=== PATIENT | female | born 1935 | race Caucasian/White ===

== ENCOUNTER → 2018-02-03 05:00 | Outpatient (REF) | payer MEDICARE, OTHER, SELFPAY ==
[2018-02-03 08:06] LABS: Absolute Lymphocyte Count 2.75 X10^3/ul (0.83-4.51); Absolute Neutrophil Count 3.7 X10^3/uL (2.0-7.7); Basophil# 0.02 X10^3/uL; Basophil% 0.3 % (0-1); Eosinophil# 0.18 X10^3/uL; Eosinophils% 2.3 % (0-5); Hematocrit 39.1 % (37-47); Hemoglobin 12.3 g/dl (12.0-15.0); Lymphocyte # 2.75 X10^3/ul (4.0); Mean Corp Hgb Conc 31.5 g/gl (32-36); Mean Corpuscular Hgb 28.9 pg (27.0-32.0); Mean Platelet Vol. 9.3 fl (6.2-12.0); Monocyte# 1.17 X10^3/uL; Monocyte% 14.9 % (0-10); Neutrophil # 3.72 X10^3/uL (2.7-7.7); Neutrophil % 47.2 % (47-70); Platelet Count 337 K/mm3 (150-450); RBC Distribution Width CV 13.5 % (11.6-14.6); RBC Distribution Width SD 45.2 fl (35.1-43.9); Red Blood Count 4.25 M/mm3 (4.2-5.4); White Blood Count 7.9 K/mm3 (4.4-11.0)
[2018-02-03 08:08] LABS: POSITIVE COUNT NO; POSITIVE DIFFERENTIAL NO; POSITIVE MORPHOLOGY NO
[2018-02-03 08:25] LABS: Valproic Acid (Depakene) Level 20 ug/mL (50-100)
[2018-02-03 08:34] LABS: ALB/GLOB Ratio 0.7 RATIO (0.9-2.4); AST(SGOT) 16 U/L (15-37); Alanine Aminotransfer ALT/SGPT 18 U/L (13-56); Albumin, Serum 2.7 g/dL (3.2-5.0); Alkaline Phosphatase 116 U/L (45-117); Anion Gap 4 (5-15); BUN 17 mg/dL (7-18); BUN/Creat Ratio 27.1 RATIO (10-20); Bilirubin, Direct 0.09 mg/dL (0.00-0.30); Calcium,Total 8.9 mg/dL (8.5-10.1); Chloride 104 mmol/L (98-107); Creatinine, Serum 0.63 mg/dL (0.55-1.02); EST Glomerular Filtration Rate 97 mL/min (>60); Est Glom Filt Rate - Afr Amer 117 mL/min (>60); Globulin 3.7 g/dL (2.2-4.2); Glucose 80 mg/dL (74-106); Potassium 4.2 mmol/L (3.5-5.1); Protein, Total 6.4 g/dL (6.4-8.2); Sodium Level 138 mmol/L (136-145); T4 Total, Thyroxin 11.4 ug/dL (4.8-13.9); Thyroid Stim Hormone (TSH) 0.15 uIU/mL (0.358-3.74)
== END ==
LOC: OLS.DANBUR 05:00
PROVIDERS: Visit Provider Internal Medicine
DX: I48.91 Unspecified atrial fibrillation (principal); I10 Essential (primary) hypertension; E78.5 Hyperlipidemia, unspecified; E03.9 Hypothyroidism, unspecified; Z79.899 Other long term (current) drug therapy
CPT/HCPCS: 36415; 80053; 80164; 82248; 84436; 84443; 85025

== ENCOUNTER → 2018-03-24 06:00 | Outpatient (REF) | payer MEDICARE, OTHER, SELFPAY ==
[2018-03-24 09:39] LABS: Thyroid Stim Hormone (TSH) 0.26 uIU/mL (0.358-3.74)
== END ==
LOC: OLS.DANBUR 06:00
PROVIDERS: Visit Provider Internal Medicine
DX: E03.9 Hypothyroidism, unspecified (principal)
CPT/HCPCS: 36415; 84443

== ENCOUNTER → 2018-05-25 05:00 | Outpatient (REF) | payer MEDICARE, OTHER, SELFPAY | LOC: OLS.DANBUR 05:00 | PROVIDERS: Visit Provider Internal Medicine | DX: E03.9 Hypothyroidism, unspecified (principal) | CPT/HCPCS: 36415; 84443 ==

== ENCOUNTER → 2018-10-06 04:00 | Outpatient (REF) | payer MEDICARE, OTHER, SELFPAY ==
[2018-10-06 09:15] LABS: Absolute Lymphocyte Count 2.54 X10^3/ul (0.83-4.51); Absolute Neutrophil Count 2.7 X10^3/uL (2.0-7.7); Basophil# 0.06 X10^3/uL; Basophil% 0.9 % (0-1); Eosinophil# 0.15 X10^3/uL; Eosinophils% 2.3 % (0-5); Hematocrit 41.9 % (37-47); Hemoglobin 12.9 g/dl (12.0-15.0); Lymphocyte # 2.54 X10^3/ul (4.0); Lymphocyte % 38.2 % (19-41); Mean Corp Hgb Conc 30.8 g/gl (32-36); Mean Corpuscular Hgb 30.1 pg (27.0-32.0); Mean Corpuscular Volume 97.7 fL (81-99); Mean Platelet Vol. 9.7 fl (6.2-12.0); Monocyte# 1.21 X10^3/uL; Monocyte% 18.2 % (0-10); Neutrophil # 2.67 X10^3/uL (2.7-7.7); Neutrophil % 40.1 % (47-70); Platelet Count 343 K/mm3 (150-450); RBC Distribution Width CV 12.8 % (11.6-14.6); Red Blood Count 4.29 M/mm3 (4.2-5.4); White Blood Count 6.7 K/mm3 (4.4-11.0)
[2018-10-06 09:18] LABS: POSITIVE COUNT NO; POSITIVE DIFFERENTIAL NO; POSITIVE MORPHOLOGY NO
[2018-10-06 09:29] LABS: Valproic Acid (Depakene) Level 21 ug/mL (50-100)
[2018-10-06 09:36] LABS: ALB/GLOB Ratio 0.8 RATIO (0.9-2.4); AST(SGOT) 11 U/L (15-37); Alanine Aminotransfer ALT/SGPT 13 U/L (13-56); Albumin, Serum 3.2 g/dL (3.2-5.0); Alkaline Phosphatase 146 U/L (45-117); Anion Gap 6 (5-15); BUN 18 mg/dL (7-18); BUN/Creat Ratio 24.1 RATIO (10-20); Calcium,Total 8.5 mg/dL (8.5-10.1); Chloride 102 mmol/L (98-107); Creatinine, Serum 0.75 mg/dL (0.55-1.02); EST Glomerular Filtration Rate 79 mL/min (>60); Est Glom Filt Rate - Afr Amer 96 mL/min (>60); Globulin 3.9 g/dL (2.2-4.2); Glucose 76 mg/dL (74-106); Potassium 4.2 mmol/L (3.5-5.1); Protein, Total 7.1 g/dL (6.4-8.2); Sodium Level 137 mmol/L (136-145); Thyroid Stim Hormone (TSH) 3.39 uIU/mL (0.358-3.74)
== END ==
LOC: OLS.DANBUR 04:00
PROVIDERS: Visit Provider Family Medicine
DX: I48.91 Unspecified atrial fibrillation (principal); I12.9 Hypertensive chronic kidney disease with stage 1 through stage 4 chronic kidney disease, or unspecified chronic kidney disease; N18.3 Chronic kidney disease, stage 3 (moderate); E03.9 Hypothyroidism, unspecified; Z79.899 Other long term (current) drug therapy
CPT/HCPCS: 36415; 80053; 80164; 82248; 84436; 84443; 85025

== ENCOUNTER → 2019-01-05 | Outpatient (REF) | payer MEDICARE, OTHER, SELFPAY ==
[2019-01-05 08:06] LABS: Absolute Lymphocyte Count 2.66 X10^3/ul (0.83-4.51); Absolute Neutrophil Count 2.7 X10^3/uL (2.0-7.7); Basophil# 0.04 X10^3/uL; Basophil% 0.6 % (0-1); Eosinophil# 0.22 X10^3/uL; Eosinophils% 3.2 % (0-5); Hematocrit 40.5 % (37-47); Lymphocyte # 2.66 X10^3/ul (4.0); Lymphocyte % 38.9 % (19-41); Mean Corp Hgb Conc 32.1 g/gl (32-36); Mean Corpuscular Hgb 30.4 pg (27.0-32.0); Mean Corpuscular Volume 94.6 fL (81-99); Mean Platelet Vol. 9.9 fl (6.2-12.0); Monocyte# 1.22 X10^3/uL; Monocyte% 17.9 % (0-10); Neutrophil # 2.65 X10^3/uL (2.7-7.7); Neutrophil % 38.8 % (47-70); POSITIVE COUNT NO; POSITIVE DIFFERENTIAL NO; POSITIVE MORPHOLOGY NO; Platelet Count 326 K/mm3 (150-450); RBC Distribution Width CV 13.3 % (11.6-14.6); RBC Distribution Width SD 45.8 fl (35.1-43.9); Red Blood Count 4.28 M/mm3 (4.2-5.4); White Blood Count 6.8 K/mm3 (4.4-11.0)
[2019-01-05 08:26] LABS: ALB/GLOB Ratio 0.9 RATIO (0.9-2.4); AST(SGOT) 12 U/L (15-37); Alanine Aminotransfer ALT/SGPT 16 U/L (13-56); Alkaline Phosphatase 145 U/L (45-117); Anion Gap 2 (5-15); BUN 15 mg/dL (7-18); BUN/Creat Ratio 19.4 RATIO (10-20); Bilirubin, Direct 0.09 mg/dL (0.00-0.30); Calcium,Total 8.9 mg/dL (8.5-10.1); Chloride 106 mmol/L (98-107); Creatinine, Serum 0.77 mg/dL (0.55-1.02); EST Glomerular Filtration Rate 76 mL/min (>60); Est Glom Filt Rate - Afr Amer 92 mL/min (>60); Globulin 3.5 g/dL (2.2-4.2); Glucose 77 mg/dL (74-106); Potassium 4.9 mmol/L (3.5-5.1); Protein, Total 6.5 g/dL (6.4-8.2); Sodium Level 139 mmol/L (136-145); T4 Total, Thyroxin 6.3 ug/dL (4.8-13.9)
[2019-01-05 08:33] LABS: Valproic Acid (Depakene) Level 21 ug/mL (50-100)
[2019-01-05 09:50] LABS: BNP,B-Type NATRIURETIC PEPTIDE 116.2 pg/mL (0-100)
== END | disposition home or self-care (01) ==
LOC: OLS.DANBUR 05:00
PROVIDERS: Visit Provider Family Medicine
DX: I48.91 Unspecified atrial fibrillation (principal); I12.9 Hypertensive chronic kidney disease with stage 1 through stage 4 chronic kidney disease, or unspecified chronic kidney disease; N18.9 Chronic kidney disease, unspecified; E03.9 Hypothyroidism, unspecified
CPT/HCPCS: 36415; 80053; 80164; 82248; 83880; 84436; 85025

== ENCOUNTER → 2019-04-06 05:00 | Outpatient (REF) | payer MEDICARE, OTHER, SELFPAY ==
[2019-04-06 07:58] LABS: Absolute Lymphocyte Count 2.48 X10^3/uL (0.83-4.51); Basophil# 0.04 X10^3/uL; Basophil% 0.6 % (0-1); Eosinophil# 0.24 X10^3/uL; Eosinophils% 3.5 % (0-5); Hematocrit 40.3 % (37-47); Hemoglobin 12.7 g/dL (12.0-15.0); Lymphocyte # 2.48 X10^3/ul (4.0); Lymphocyte % 36.5 % (19-41); Mean Corp Hgb Conc 31.5 g/dL (32-36); Mean Corpuscular Hgb 30.2 pg (27.0-32.0); Monocyte# 0.98 X10^3/uL; Monocyte% 14.4 % (0-10); NRBC Flagged by Analyzer 0 % (0-5); Neutrophil % 44.1 % (47-70); Platelet Count 285 K/mm3 (150-450); RBC Distribution Width SD 45.6 fl (35.1-43.9); White Blood Count 6.8 K/mm3 (4.4-11.0)
[2019-04-06 08:22] LABS: Valproic Acid (Depakene) Level 19 ug/mL (50-100)
[2019-04-06 08:32] LABS: ALB/GLOB Ratio 0.8 RATIO (0.9-2.4); AST(SGOT) 11 U/L (15-37); Alanine Aminotransfer ALT/SGPT 12 U/L (13-56); Albumin, Serum 2.9 g/dL (3.2-5.0); Alkaline Phosphatase 142 U/L (45-117); Anion Gap 9 (5-15); BUN 19 mg/dL (7-18); BUN/Creat Ratio 29.9 RATIO (10-20); Calcium,Total 8.8 mg/dL (8.5-10.1); Chloride 106 mmol/L (98-107); Creatinine, Serum 0.64 mg/dL (0.55-1.02); EST Glomerular Filtration Rate 95 mL/min (>60); Est Glom Filt Rate - Afr Amer 115 mL/min (>60); Globulin 3.7 g/dL (2.2-4.2); Glucose 76 mg/dL (74-106); Potassium 4.3 mmol/L (3.5-5.1); Protein, Total 6.6 g/dL (6.4-8.2); Sodium Level 142 mmol/L (136-145); T4 Total, Thyroxin 7.2 ug/dL (4.8-13.9); Thyroid Stim Hormone (TSH) 8.07 uIU/mL (0.358-3.74)
== END ==
LOC: OLS.DANBUR 05:00
PROVIDERS: Visit Provider Family Medicine
DX: I48.91 Unspecified atrial fibrillation (principal); E03.9 Hypothyroidism, unspecified; F31.9 Bipolar disorder, unspecified; F20.9 Schizophrenia, unspecified; M62.81 Muscle weakness (generalized)
CPT/HCPCS: 36415; 80053; 80164; 84436; 84443; 85025

== ENCOUNTER → 2019-07-06 05:00 | Outpatient (REF) | payer MEDICARE, OTHER, SELFPAY ==
[2019-07-06 09:13] LABS: Absolute Lymphocyte Count 2.53 X10^3/uL (0.83-4.51); Basophil# 0.05 X10^3/uL; Basophil% 0.7 % (0-1); Eosinophil# 0.16 X10^3/uL; Eosinophils% 2.3 % (0-5); Hematocrit 43.9 % (37-47); Hemoglobin 13.9 g/dL (12.0-15.0); Lymphocyte # 2.53 X10^3/ul (4.0); Lymphocyte % 36.9 % (19-41); Mean Corp Hgb Conc 31.7 g/dL (32-36); Mean Corpuscular Hgb 30.5 pg (27.0-32.0); Mean Corpuscular Volume 96.3 fL (81-99); Mean Platelet Vol. 10.5 fl (6.2-12.0); Monocyte# 1.06 X10^3/uL; Monocyte% 15.5 % (0-10); NRBC Flagged by Analyzer 0 % (0-5); Neutrophil # 3.02 X10^3/uL (2.7-7.7); Neutrophil % 44.2 % (47-70); Platelet Count 320 K/mm3 (150-450); RBC Distribution Width CV 13.2 % (11.6-14.6); RBC Distribution Width SD 46.9 fl (35.1-43.9); Red Blood Count 4.56 M/mm3 (4.2-5.4); White Blood Count 6.9 K/mm3 (4.4-11.0)
[2019-07-06 09:46] LABS: Valproic Acid (Depakene) Level 20 ug/mL (50-100)
[2019-07-06 09:47] LABS: ALB/GLOB Ratio 0.8 RATIO (0.9-2.4); AST(SGOT) 11 U/L (15-37); Alanine Aminotransfer ALT/SGPT 17 U/L (13-56); Albumin, Serum 3.2 g/dL (3.2-5.0); Alkaline Phosphatase 141 U/L (45-117); Anion Gap 3 (5-15); BUN 24 mg/dL (7-18); BUN/Creat Ratio 32.8 RATIO (10-20); Bilirubin, Direct 0.07 mg/dL (0.00-0.30); Calcium,Total 9.2 mg/dL (8.5-10.1); Chloride 107 mmol/L (98-107); Creatinine, Serum 0.73 mg/dL (0.55-1.02); EST Glomerular Filtration Rate 81 mL/min (>60); Est Glom Filt Rate - Afr Amer 98 mL/min (>60); Globulin 3.9 g/dL (2.2-4.2); Glucose 73 mg/dL (74-106); Potassium 4.1 mmol/L (3.5-5.1); Protein, Total 7.1 g/dL (6.4-8.2); Sodium Level 142 mmol/L (136-145); T4 Total, Thyroxin 7.4 ug/dL (4.8-13.9); Thyroid Stim Hormone (TSH) 6.06 uIU/mL (0.358-3.74)
== END ==
LOC: OLS.DANBUR 05:00
PROVIDERS: Visit Provider Family Medicine
DX: E03.9 Hypothyroidism, unspecified (principal)
CPT/HCPCS: 36415; 80053; 80164; 82248; 84436; 84443; 85025

== ENCOUNTER → 2019-09-14 05:00 | Outpatient (REF) | payer MEDICARE, OTHER, SELFPAY ==
[2019-09-14 07:24] LABS: Valproic Acid (Depakene) Level 26 ug/mL (50-100)
== END ==
LOC: OLS.DANBUR 05:00
PROVIDERS: PCP Family Medicine; Visit Provider Family Medicine
DX: E03.9 Hypothyroidism, unspecified (principal); Z79.899 Other long term (current) drug therapy
CPT/HCPCS: 36415; 80164; 84443

== ENCOUNTER → 2019-10-27 05:00 | Outpatient (REF) | payer MEDICARE, OTHER, SELFPAY ==
[2019-10-27 10:05] LABS: Thyroid Stim Hormone (TSH) 9.18 uIU/mL (0.358-3.74)
== END ==
LOC: OLS.DANBUR 05:00
PROVIDERS: PCP Family Medicine; Visit Provider Family Medicine
DX: E03.9 Hypothyroidism, unspecified (principal); R53.83 Other fatigue
CPT/HCPCS: 36415; 84443

== ENCOUNTER → 2019-12-07 05:00 | Outpatient (REF) | payer MEDICARE, OTHER, SELFPAY ==
[2019-12-07 08:00] LABS: Thyroid Stim Hormone (TSH) 0.13 uIU/mL (0.358-3.74)
== END ==
LOC: OLS.DANBUR 05:00
PROVIDERS: PCP Family Medicine; Visit Provider Family Medicine
DX: I48.91 Unspecified atrial fibrillation (principal); E03.9 Hypothyroidism, unspecified
CPT/HCPCS: 36415; 84443

== ENCOUNTER 2019-12-26 11:25 | Inpatient (IN) | payer MEDICARE, OTHER, SELFPAY ==
[2019-12-26] VITALS (37 sets, daily range): BP systolic 70–156; BP diastolic 40–121; PULSE 99–150; RESP 14–34; TEMP 36.6–38.7; O2SAT 81–100; BMI 26.9; BMI 27.0; BMI 27.6
[2019-12-26] MEDS: 0.9% Normal Saline 1,000 ML 999 ML IV ×2 (11:25→13:14)
[2019-12-26] MEDS: Etomidate 20 MG/10 ML Vial IV (11:35)
[2019-12-26] MEDS: Succinylcholine Chloride 200 MG/10 ML Vial 100 MG IV (11:35)
--- NOTE | 2019-12-26 11:47 | EKG12_ITS ---
Test Reason : UNRESPONSIVE Blood Pressure : / mmHG Vent. Rate : 148 BPM Atrial Rate : 153 BPM P-R Int : 000 ms QRS Dur : 128 ms QT Int : 330 ms P-R-T Axes : 000 -57 102 degrees QTc Int : 518 ms Atrial fibrillation Right bundle branch block Left anterior fascicular block Bifascicular block Voltage criteria for left ventricular hypertrophy T wave abnormality, consider lateral ischemia Abnormal ECG Confirmed by ULISSES CARDENAS ([id number]), art editor CAROLINE NULL ([id number] on 12/28/2019 2:32:37 PM Referred By: ALVARO Confirmed By:ULISSES CARDENAS
--- NOTE | 2019-12-26 11:47 | RAD_ITS ---
STUDY: X-RAY CHEST REASON FOR EXAM: Female, 84 years old. RESP. FAILURE, ETT PLACEMENT TECHNIQUE: Single AP portable view of the chest. COMPARISON: None. FINDINGS: An endotracheal tube is in situ. The tip is at 3.6 cm proximal to the aurelia. A nasogastric tube is seen with the tip at the gastroesophageal junction. Increased markings at the posterior medial segments of the right and left lower lobe slightly worse on the left side suggestive of bibasilar atelectasis and/or infiltrates. There is no demonstrated pleural abnormality. Normal size heart. Normal mediastinum and geoffrey. Normal visualized pulmonary arteries. Normal visualized aortic arch and descending thoracic aorta. Normal visualized thoracic spine. Normal visualized ribs, clavicles, and shoulders. There is no demonstrated abnormality of the visualized soft tissue structures of the upper abdomen. RAD/Chest 1 View (Portable) IMPRESSION: The tip of the endotracheal tube is at 3.6 cm proximal to the aurelia. The tip of the nasogastric tube is at the gastroesophageal junction. Increased markings at the lung bases as described suggestive of atelectasis and/or early infiltrates worse on the left side. Electronically Signed: Joss Snyder, at 13:05 EDT , Service support ,
--- NOTE | 2019-12-26 11:49 | RAD_ITS ---
STUDY: X-RAY - ABDOMEN/PELVIS REASON FOR EXAM: Female, 84 years old. NG PLACEMENT TECHNIQUE: AP supine and decubitus views of the abdomen and pelvis. COMPARISON: None. FINDINGS: A nasogastric tube is seen. The tip is in the fundal portion of the stomach. Minimal degree of increased markings at the left lung base. Early infiltrate should be ruled out. RAD/Abdomen Single View (Portable) IMPRESSION: The tip of the nasogastric tube is in the fundal portion of the stomach. Mild increased markings at the left lung base. This may represent atelectasis and/or early infiltrate. Electronically Signed: Joss Snyder, at 13:03 EDT , Service support ,
[2019-12-26 12:15] LABS: Mucous, Urine 0 SEEN /hpf (<or=2+)
[2019-12-26 12:21] LABS: Basophil# 0.12 X10^3/uL; Eosinophil# 0.01 X10^3/uL; Mean Corp Hgb Conc 28.4 g/dL (32-36); Mean Corpuscular Volume 105.6 fL (81-99); Mean Platelet Vol. 11.5 fl (6.2-12.0); Monocyte# 1.71 X10^3/uL; NRBC Flagged by Analyzer 0.1 % (0-5); POSITIVE DIFFERENTIAL YES; POSITIVE MORPHOLOGY YES; Platelet Count 440 K/mm3 (150-450); RBC Distribution Width CV 13.5 % (11.6-14.6); Red Blood Count 5.67 M/mm3 (4.2-5.4); White Blood Count 13.8 K/mm3 (4.4-11.0)
[2019-12-26 12:25] LABS: Differential Indicated SCAN CRITERIA MET; Hematocrit 59.9 % (37-47)
--- NOTE | 2019-12-26 12:32 | CM.ED ---
SOCIAL WORK INFORMANT: NURSING REASON FOR REFERRAL: SUPPORT PATIENT INTUBATED. MET WITH PATIENT'S IN WAITING ROOM. INTRODUCED ROLE AND REASON FOR REFERRAL. REPORTS HAS BEEN UPDATED ON PATIENT'S STATUS BY DR. ROA. STATES HAS NOT SEEN PATIENT IN OVER 2 WEEKS. EMOTIONAL SUPPORT AND ACTIVE LISTENING PROVIDED. THIS WORKER TO REMAIN AVAILABLE FOR SUPPORT. X-RAY TO BE COMPLETED AND THEN WILL BE TAKEN TO PATIENT'S ROOM. Karlene ALVARES MSW, SPINE NURSE.
[2019-12-26 12:47] LABS: Lactic Acid 5.7 mmol/L (0.4-1.9)
[2019-12-26 12:49] LABS: ALB/GLOB Ratio 0.5 RATIO (0.9-2.4); AST(SGOT) 56 U/L (15-37); Alanine Aminotransfer ALT/SGPT 90 U/L (13-56); Albumin, Serum 2.7 g/dL (3.2-5.0); Alkaline Phosphatase 149 U/L (45-117); Anion Gap 10 (5-15); BUN 41 mg/dL (7-18); BUN/Creat Ratio 26.1 RATIO (10-20); Calcium,Total 9.4 mg/dL (8.5-10.1); Chloride 119 mmol/L (98-107); Creatinine, Serum 1.57 mg/dL (0.55-1.02); EST Glomerular Filtration Rate 33 mL/min (>60); Est Glom Filt Rate - Afr Amer 40 mL/min (>60); Estimated Creatinine Clearance 27.39 ml/min; Globulin 5.1 g/dL (2.2-4.2); Glucose 213 mg/dL (74-106); Protein, Total 7.8 g/dL (6.4-8.2); Sodium Level 158 mmol/L (136-145)
[2019-12-26 12:50] LABS: Color, Urine Yellow (Yellow); Glucose, Dipstick Normal (Normal); Ketone-Dipstick 15 mg/dl (Negative); Leukocyte Esterase-Dipstick 25 /ul (Negative); Nitrite-Dipstick Positive (Negative); Occult Blood-Urine 50 /ul (Negative); Protein-Dipstick 30 mg/dl (Negative); Specific Gravity, Urine 1.025 (1.002-1.030); Urine Clarity Clear (Clear); Urine Urobilinogen 4 mg/dl (Normal)
[2019-12-26 12:51] LABS: Urine Bilirubin Dipstick 1 mg/dL (Negative)
[2019-12-26 13:04] LABS: Bacteria 3+ /hpf (None Seen); Hyaline Cast 5-10 SEEN /lpf (0-5); Red Blood Cells-Urine 0-5 SEEN /hpf (0-5); Squamous Epithelial Cells - UA 0-5 SEEN /hpf (5-10); White Blood Cells 0-5 SEEN /hpf (0-5)
--- NOTE | 2019-12-26 13:12 | ED.VISSUMM ---
- ER Visit Summary Date of Service: 12/26/19 Chief Complaint: Unresponsive History of Present Illness: The patient is a 84 F here by EMS for an unresponsive episode. History was from EMS and the patient's spouse as the patient had a GCS of 3. According to the spouse, the patient has not been feeling well over the past couple weeks. She has had a cough. He denies any fevers, but he has been unable to see her, so he is not sure all of her symptoms. According to EMS, the patient has been increasingly sick over the last 2 days. She is normally alert and oriented x1 at baseline and is full code. Staff at her facility found her with minimal responsiveness. By the time EMS arrived, she was not responding to any stimuli. She was hypoxic for EMS and they started her on a nonrebreather. EMS is not aware of any coronavirus cases at her facility. Patient has a history of bipolar disease, schizophrenia, dementia, hypertension, hypothyroidism, and atrial fibrillation. Physical Examination: Tachycardic at 143 and respiratory rate 21. 86% on nonrebreather. Blood pressure 136/88. GCS 3. Lungs coarse bilaterally. Heart tachycardic but regular. Abdomen soft. Extremities nontender with no edema. Skin is pale. Test Results: See below Emergency Department Course and Treatment: Patient had coronavirus precautions. She required intubation for mental status and hypoxia. This was performed with a glide scope. She was medicated with etomidate and succinylcholine. She did require some sedation after she was intubated and was treated with Versed. She had copious secretions coming from her endotracheal tube, and suctioning was performed. Patient was placed on a ventilator. OG and Aguilar were placed. Work-up indicates septic shock. Her white count is 13.8. She had a fever 101. Lactate was 5.7. Sodium 158, potassium 6, glucose 213, BUN 41, creatinine 1.57, alkaline phosphatase 149, ALT 90, AST 56. ABG and coags pending. Urinalysis unremarkable. Troponin 0 0.081. Coronavirus and respiratory panel pending. Patient was treated with weight-based fluids for septic shock. She remained tachycardic but her blood pressure was stable. She was treated with Tylenol for fever. She was treated with azithromycin, Zosyn, vancomycin. She was doing well on the vent. The x-ray showed that there might be some basilar infiltrates. Her NG is in place. Patient was treated with calcium, insulin, dextrose for her hyperkalemia. We will continue fluid resuscitation. Patient was discussed with the hospitalist. COVID testing is still pending, but I am concerned for infection. Even if it was negative, I would recommend that she still undergoes COVID precautions. Will admit to the ICU. Treatment Plan: As above Disposition: ICU Impression: Hypoxic respiratory failure Septic shock Pneumonia COVID suspected Hyperkalemia Hypernatremia This note was generated with [employer] dictation software. It may contain incorrect words, spelling, and punctuation that were not noted in review of the chart prior to signing ED Disposition - Plan for ED Patient: Referrals: Henrik Rivera DO [Primary Care Provider] -
[2019-12-26] MEDS: Acetaminophen 650 MG Suppository RECTAL (13:14)
[2019-12-26] MEDS: Dextrose 50%-Water 25 GM/50 ML DISP.SYRIN IV (13:16)
[2019-12-26] MEDS: Insulin Lispro 5 UNIT in Syringe 0 ML 3 UNIT IV (13:17)
[2019-12-26] MEDS: Calcium Gluconate 1 GM/10 ML Vial IV (13:18)
--- NOTE | 2019-12-26 13:24 | CHAPLAIN ---
Type of Pastoral Visit ___ Initial Visit ___ Follow-up Visit ___ On-call Visit ___ General Patient Visit ___ Spiritual Assessment ___ Family Conference ___ Bereavement ___ Rapid Response ___ Code Blue _x__ Other (describe below) Pastoral Care Referral From ___ Patient _x__ Family _x__ Nurse ___ Physician ___ Ground Wood Supervisor ___ Director Shopper Marketing ___ Other (describe below) Sacrament/Intervention _x__ Active listening ___ Anointing ___ Mormonism ___ Bereavement ___ Communion ___ Nguyen exploration ___ ___ Life review _x__ Prayer ___ Reconciliation ___ Sacrament of Sick _x__ Supportive presence ___ Wedding ___ Other (describe below) Pastoral Comments RN notified this university professor of patient and her spouse who is in waiting room; pt has been intubated; sat with spouse in waiting room and allowed him to talk and express his feelings/thoughts; accompanied spouse and RN into pt room so spouse could be present following the intubation; offered prayer and presence; pt is member of [facility] and a resident of [place];
[2019-12-26 13:36] LABS: Partial Thromboplast Time 32.1 Seconds (24.1-36.2); Prothrombin Time (Protime)PT. 22.4 SECONDS (11.7-14.9)
--- NOTE | 2019-12-26 14:07 | PCM.HP.STD ---
Problem List (1) Septic shock Status: Acute (2) Acute respiratory failure with hypoxia Status: Acute (3) Metabolic encephalopathy Status: Acute (4) Suspected 2019 novel coronavirus infection Status: Acute (5) Essential hypertension Status: Chronic (6) Paroxysmal atrial fibrillation Status: Chronic (7) Schizophrenia Status: Chronic (8) Community acquired pneumonia Status: Acute Qualifiers: Laterality: unspecified laterality Qualified Code(s): J18.9 - Pneumonia, unspecified organism (9) Hypothyroidism Status: Chronic Qualifiers: (10) Bipolar disorder Status: Chronic (11) Atrial fibrillation with rapid ventricular response Status: Acute (12) Dementia Status: Chronic Qualifiers: (13) Abnormal electrocardiogram [ECG] [EKG] Status: Chronic History of Present Illness Date of Admission: 12/26/19 Chief Complaint: unresponsive The patient is a 84 year old presents with decreased mental status. History obtained through emergency room physician as well as the patient's who was present bedside. Patient apparently not been feeling well for the past couple weeks and then over the past few days her condition deteriorated. Patient was more short of breath and lethargic. EMS was called and patient was noted to be 51% room air. Patient was put on nonrebreather and intubated in the emergency room. Chest x-ray did not show much in regards to infiltrate. Patient received vancomycin, azithromycin and ceftriaxone in the emergency room. Patient did receive IV fluids serial lactic acid was 5.7. [] Past Medical History Past Medical History (Chronic Problems): Chronic Problems Essential hypertension (Chronic) Paroxysmal atrial fibrillation (Chronic) Schizophrenia (Chronic) Hypothyroidism (Chronic) Bipolar disorder (Chronic) Dementia (Chronic) Abnormal electrocardiogram [ECG] [EKG] (Chronic) Allergies No Known Allergies Allergy (Verified 12/26/19 11:44) Home Medications: Ambulatory Orders Medication Instructions Recorded Benztropine [Cogentin] 0.5 mg PO DAILY 06/08/17 Clonidine HCl 0.1 mg PO BID 06/08/17 Divalproex Sodium [Depakote 250 mg PO BID 06/08/17 Sprinkle] Furosemide [Lasix] 20 mg PO DAILY 06/08/17 Haloperidol Decanoate [Haldol 0.8 ml IM Q14D 06/08/17 Decanoate 50] Lorazepam [Ativan] 0.5 mg PO Q6H PRN PRN 06/08/17 Melatonin 6 mg PO QHS 06/08/17 Metoprolol Succinate 25 mg PO DAILY 06/08/17 Polyethylene Glycol 3350 [Miralax] 17 gm PO BID 06/08/17 Potassium Chloride [Klor-Con 10] 10 meq PO DAILY 06/08/17 Spironolactone 25 mg PO DAILY 06/08/17 Trazodone HCl 50 mg PO QHS 06/08/17 Bisacodyl [Dulcolax] 10 mg RECTAL DAILY PRN PRN #30 06/10/17 suppos. Cefadroxil [Duracef] 500 mg PO BID #10 capsule 06/10/17 Mag Hydrox/Al Hydrox/Simeth 30 ml PO Q6H PRN PRN udc 06/10/17 [Mylanta II] Polyethylene Glycol 3350 [Miralax] 17 gm PO DAILY packet 06/10/17 Acetaminophen [Tylenol Tablet] 650 mg PO Q4H PRN PRN 12/26/19 Calcium Carb/Magnesium Hydrox 2 ea PO Q4H PRN PRN 12/26/19 [Antacid Chewable Tablet] Guaifenesin 100 mg PO Q4H PRN PRN 12/26/19 Haloperidol Lactate 1 mg PO 12/26/19 Levothyroxine [Synthroid] 25 mcg PO DAILY 12/26/19 Sodium Phosphate,Rhea-Dibasic 133 ml AK PRN PRN 12/26/19 [Enema Ready To Use] Surgical History: no surgical history Psychiatric History: Bipolar, Schizophrenia 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 Smoking Status: Former smoker - *Family History Maternal History Items: No pertinent history Review of Systems Unable to obtain accurate/complete ROS d/t: Intubated and sedated VTE Information - Inpt Only VTE Present on Admission: No VTE Mechan Device Prophylaxis: None VTE Pharm Prophylaxis ordered?: No Reason prophylaxis not ordered:: Treatment Not Indicated Patient Problems: Active and Suspected Problems Septic shock (Acute) Acute respiratory failure with hypoxia (Acute) Metabolic encephalopathy (Acute) Suspected 2019 novel coronavirus infection (Acute) - Physical Exam Vitals/I&O's: Vital Signs Temp Pulse Resp BP Pulse Ox 38.7 C H 136 H 15 105/62 100 12/26/19 13:22 12/26/19 13:22 12/26/19 13:22 12/26/19 13:22 12/26/19 13:22 Oxygen Flow Rate (L/min) 15 Oxygen Delivery Method Mechanical Ventilator Weight: 80.4 kg Body Mass Index (BMI) 26.9 Intake and Output for Last 24 Hours 12/24/19 12/25/19 12/26/19 23:59 23:59 23:59 Intake Total 1102.75 / 1102.75 Balance 1102.75 / 1102.75 General: - - Intubated and sedated. HEENT: Atraumatic, Normocephalic, - - No scleral icterus Oral: Moist Mucosa, No Gingival or Mucosal Lesions/ Ulcerations Neck: No Nodes, Trachea Midline Lungs: Diminished, - - Coarse breath sounds bilaterally Cardiovascular: Irregular Rate Abdomen: Bowel Sounds Present, Soft, Non Tender, Non-Distended Extremities: No edema, No Calf Tenderness, Diminished Peripheral Pulses Skin: - - Lower extremities. Musculoskeletal: No Tenderness to Palpation of Joints or Extremities, No Muscle Wasting Neurological: Motor Exam 5/5 strength throughout, - - No clonus Laboratory Results 12/26/19 11:50: WBC 13.8 H, RBC 5.67 H, Hgb 17.0 H, Hct 59.9 H, MCV 105.6 H, MCH 30.0, MCHC 28.4 L, RDW Std Deviation 53.0 H, RDW Coeff of Papo 13.5, Plt Count 440, MPV 11.5, Immature Gran % (Auto) 1.100 H, Neut % (Auto) 61.2, Lymph % (Auto) 24.3, Rhea % (Auto) 12.4 H, Eos % (Auto) 0.1, Baso % (Auto) 0.9, Absolute Neuts (auto) 8.5 H, Absolute Lymphs (auto) 3.35, Nucleated RBC % 0.1 12/26/19 11:50: PT Cancelled, INR Cancelled, APTT Cancelled 12/26/19 11:50: Sodium 158 H, Potassium 6.0 H*, Chloride 119 H, Carbon Dioxide 29.0, Anion Gap 10, BUN 41 H, Creatinine 1.57 H, Estim Creat Clear Calc 27.39, Est GFR (MDRD) Af Amer 40 L, Est GFR (MDRD) Non-Af 33 L, BUN/Creatinine Ratio 26.1 H, Glucose 213 H, Calcium 9.4, Total Bilirubin 0.50, AST 56 H, ALT 90 H, Alkaline Phosphatase 149 H, Troponin I 0.081 H, Total Protein 7.8, Albumin 2.7 L, Globulin 5.1 H, Albumin/Globulin Ratio 0.5 L 12/26/19 11:50: Lactic Acid 5.7 H* 12/26/19 12:05: Urine Color Yellow, Urine Clarity Clear, Urine pH 5.0, Ur Specific [place] 1.025, Urine Protein 30 H, Urine Glucose (UA) Normal, Urine Ketones 15 H, Urine Occult Blood 50 H, Urine Nitrite Positive H, Urine Bilirubin 1 H, Urine Urobilinogen 4 H, Ur Leukocyte Esterase 25 H, Urine RBC 0-5 SEEN, Urine WBC 0-5 SEEN, Ur Squamous Epith Cells 0-5 SEEN, Urine Bacteria 3+, Hyaline Casts 5-10 SEEN, Urine Mucus 0 SEEN 12/26/19 12:55: PT 22.4 H, INR 2.0, APTT 32.1 EKG reviewed and showed atrial fibrillation with RVR. Right bundle branch block. Tachycardia essentially unchanged from April 08, 2016. Chest x-ray personally reviewed and showed some faint hazy infiltrates bilaterally. Current Medications Midazolam HCl 50 mg/ Sodium (Chloride) 100 mls @ 2 mls/hr CONT INF .Q50H CHERELLE; Protocol Last Titration: 12/26/19 13:12 Dose: 1 mg/hr, 2 mls/hr Documented by: Assessment/Plan All Active Problems Septic shock (Acute) Acute respiratory failure with hypoxia (Acute) Metabolic encephalopathy (Acute) Suspected 2018 novel coronavirus infection (Acute) Community acquired pneumonia (Acute) Atrial fibrillation with rapid ventricular response (Acute) 1. Septic shock: Lactic acid was elevated at 5.7. Grandis could be skewed given the patient's profound hypoxia. We will treat supportively with antibiotics with Pipracil and/tazobactam and vancomycin. Follow-up cultures. Concern for that the patient is coming from group home that this could be COVID-19. Test has been ordered in the emergency room. Given the low sensitivity, would recheck it if it does come back negative. Patient was still actively receiving IV fluids when I evaluated her we will reassess to see if she has improvement. Patient had mottling on her lower extremities. 2. Acute hypoxic respiratory failure: Suspect related with pneumonia versus COVID-19. Will check a battery of tests including d-dimer. Patient will be started empiric anticoagulation for now. 3. Suspected COVID-19: As above. Continue to treat with antibiotics. Infectious disease consultation. 4. Elevated troponin: Likely due to strain given the underlying shock and respiratory failure. Monitor. 5. Atrial fibrillation with RVR: Secondary to above. Would hold off on medication at this time to slow her heart rate down. 6. Hyperkalemia: May be lab error as a sample did show a slight hemolyzed. Recheck. 7. Acute kidney injury: Likely prerenal. Check urine studies. Patient did receive IV fluids. Given the concern for COVID-19 would use cautious hydration. 8. Hyponatremia: Likely related to dehydration. IV fluids and reevaluate. 9. VTE prophylaxis: Low risk at this time as patient is going to be anticoagulated with heparin drip. 10. Advanced care planning: Patient is full CODE STATUS. Discussed with the patient's at bedside. Discussed that if she would require pressor medications, that she would require central line. He was in agreement with the procedure if necessary after discussing risks and benefits. Inpatient E&M: [id number] Init Hosp L3
[2019-12-26 14:21] LABS: Lymphocyte 17 % (19-41); Monocyte 17 % (0-10); Neutrophil-Band 46 % (0-5); Neutrophil-Segmented 20 % (47-70); Platelet Estimate ADEQUATE (ADEQ); Reactive Lymphocyte 1+; Total Cells Counted 100 (MANUAL DIFF)
[2019-12-26 14:22] LABS: Red Cell Morphology NORM C+C NORMAL (NORM C&C); Scan Smear per Review Criteria MANUAL DIFF
[2019-12-26 14:25] LABS: Absolute Neutrophil Count 9.1 X10^3/uL (2.0-7.7); Neutrophil # 9.11 X10^3/uL (2.7-7.7)
[2019-12-26 14:26] LABS: Absolute Lymphocyte Count 2.35 X10^3/uL (0.83-4.51); Lymphocyte # 2.35 X10^3/ul (4.0)
[2019-12-26] MEDS: Propofol 10MG/Ml 1,000 MG/100 ML Bottle 4.8 MG CONT INF (14:45)
--- NOTE | 2019-12-26 14:58 | CPS ---
DR. RODRIGUEZ PREFORMED LT FEM STICK
--- NOTE | 2019-12-26 15:32 | CON.PCM_ITS ---
Problem List (1) Septic shock Status: Acute (2) Acute respiratory failure with hypoxia Status: Acute (3) Metabolic encephalopathy Status: Acute (4) Essential hypertension Status: Chronic (5) Paroxysmal atrial fibrillation Status: Chronic (6) Schizophrenia Status: Chronic (7) Hypothyroidism Status: Chronic Qualifiers: (8) Bipolar disorder Status: Chronic (9) Atrial fibrillation with rapid ventricular response Status: Acute (10) Dementia Status: Chronic Qualifiers: Reason for Consult Date of Consultation: 12/26/19 Reason for Consultation: Septic shock History of Present Illness: The patient is a 84 year old F, with past medical history listed below, who presented with [facility] on 12/26/2019 secondary to being found unresponsive. Patient reportedly was found by her spouse and not been feeling well over the last couple of weeks. Patient reportedly had had a cough, but no fevers. Patient had reportedly been getting worse over the last 2 days and was only alert and oriented x1 at baseline. EMS could not get the patient respond to any stimuli and patient was noted to be hypoxic, so was started on a nonrebreather. On presentation to the ER, patient was 86% on a nonrebreather and tachycardic at 143 bpm. Blood pressure was okay at 136/88, but GCS was noted at 3. Patient was intubated for hypoxic respiratory failure and mental status. Patient received etomidate and succinylcholine. Patient was treated with Versed drip initially. Laboratory work-up showed a fever, elevated lactate, sodium of 158, potassium of 6 and glucose of 213. Coronavirus and respiratory viral panel were negative. Patient was given 30 cc/kg fluid bolus, azithromycin, Zosyn and vancomycin. Patient was transferred to the intensive care unit for further evaluation. Patient arrived to the intensive care unit at approximately 215. Upon arrival, patient was noted to be hypotensive at 75/25. Respiratory had difficulty getting an arterial blood gas, so I was called into the room. Patient was stuck by a femoral access. Emergent preparations for a central line were completed. Patient was placed on another fluid bolus. Initial attempts at central line were unsuccessful secondary to less than optimal positioning. Patient did respond well to the fluid bolus with blood pressures going to the 120s over 60s. Levophed did not have to be initiated. Unable to obtain a review of systems secondary to current situation. Past Medical History Past Medical History (Chronic Problems): Chronic Problems Essential hypertension (Chronic) Paroxysmal atrial fibrillation (Chronic) Schizophrenia (Chronic) Hypothyroidism (Chronic) Bipolar disorder (Chronic) Dementia (Chronic) Abnormal electrocardiogram [ECG] [EKG] (Chronic) Allergies No Known Allergies Allergy (Verified 12/26/19 11:44) Home Medications: Ambulatory Orders Medication Instructions Recorded Furosemide [Lasix] 20 mg PO DAILY 06/08/17 Haloperidol Decanoate [Haldol 0.8 ml IM Q14D 06/08/17 Decanoate 50] Lorazepam [Ativan] 0.5 mg PO QHS 06/08/17 Bisacodyl [Dulcolax] 10 mg RECTAL DAILY PRN PRN #30 06/10/17 suppos. Benztropine Mesylate 0.5 mg PO DAILY 12/26/19 Clonidine HCl [Catapres] 0.1 mg PO BID 12/26/19 Divalproex Sprinkles [Depakote 250 mg PO BID 12/26/19 Sprinkles] Haloperidol Lactate 1 mg PO DAILY 12/26/19 Levothyroxine Sodium [Synthroid] 200 mcg PO DAILY 12/26/19 Lorazepam [Ativan] 0.25 mg PO DAILY 12/26/19 Magnesium Hydroxide [Milk of 30 ml PO DAILY PRN PRN 12/26/19 Magnesia] Melatonin 6 mg PO QHS 12/26/19 Metoprolol Succinate [Toprol Xl] 25 mg PO DAILY 12/26/19 Polyethylene Glycol 3350 [Miralax] 17 gm PO DAILY 12/26/19 Potassium Chloride 10 meq PO DAILY 12/26/19 Sodium Phosphate,Onslow-Dibasic 133 ml AL PRN PRN 12/26/19 [Enema Ready To Use] Spironolactone [Aldactone] 25 mg PO DAILY 12/26/19 Surgical History: no surgical history Psychiatric History: Bipolar, Schizophrenia [employer]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 Patient did have some atelectasis noted on chest x-ray, but no acute infiltrate. Endotracheal tube was in appropriate position. Patient has not had an echocardiogram or PFT previously. - Physical Exam Vitals/I&O's: Vital Signs Temp Pulse Resp BP Pulse Ox 37.4 C H 110 H 26 H 121/52 H 91 12/26/19 15:01 12/26/19 15:01 12/26/19 15:01 12/26/19 15:01 12/26/19 14:45 Oxygen Flow Rate (L/min) 15 Oxygen Delivery Method Mechanical Ventilator Weight: 80.4 kg Body Mass Index (BMI) 27.6 Intake and Output for Last 24 Hours 12/24/19 12/25/19 12/26/19 23:59 23:59 23:59 Intake Total 2857.75 / 2857.75 Balance 2857.75 / 2857.75 General: - - Intubated and sedated. Good vent synchrony noted. Appeared ashen on initial evaluation, but improved with fluid bolus. HEENT: Atraumatic, PERRLA, EOMI, Normocephalic, - - Slight scleral injection Oral: No Gingival or Mucosal Lesions/ Ulcerations, Dry Mucosa Neck: Supple, No JVD, No Nodes, Trachea Midline, - - Respiratory collapse of IJ during central line attempt Lungs: Clear to auscultation, Normal air movement, No rhonchi, No wheeze, No rales, - - Symmetric expansion. Cardiovascular: Normal S1, Normal S2, No murmurs, Irregular Rate, No rub noted, No Gallop, Tachycardic Abdomen: Bowel Sounds Present, Soft, Non Tender, Non-Distended, Obese Extremities: No clubbing, Cyanosis - To the knee on initial presentation. Improving with fluid boluses. Skin: No rashes, No breakdown Musculoskeletal: No Tenderness to Palpation of Joints or Extremities Lymphatic: No Cervical, Supraclavicular, or Inguinal Adenopathy Neurological: - - No attempt at withdrawal with arterial blood sticks. Improved with blood pressure. Psych/Mental Status: Flat Affect Microbiology Past 72 Hours 12/26/19 12:05 Mucosa - Nasopharyngeal Coronavirus COVID-19 PCR - Final 12/26/19 12:05 Mucosa - Nose Respiratory Panel (PCR) - Final Laboratory Results 12/26/19 11:50: WBC 13.8 H, RBC 5.67 H, Hgb 17.0 H, Hct 59.9 H, MCV 105.6 H, MCH 30.0, MCHC 28.4 L, RDW Std Deviation 53.0 H, RDW Coeff of Papo 13.5, Plt Count 440, MPV 11.5, Immature Gran % (Auto) [employer], Neut % (Auto) [employer]LET[employer], Lymph % (Auto) [employer]AL [employer]LET[employer] COACH, [place] % (Auto) [employer]LET[employer] COACH, Eos % (Auto) [employer]AL [employer]LET[employer], Baso % (Auto) [employer], Absolute Neuts (auto) 9.1 H , Absolute Lymphs (auto) 2.35, Total Counted 100, Neutrophils % (Manual) 20 L, Band Neutrophils % 46 H, Lymphocytes % (Manual) 17 L, Monocytes % (Manual) 17 H, Nucleated RBC % 0.1, Diff Path Review November, Reactive Lymphocytes 1+, Platelet Estimate ADEQUATE, RBC Morphology NORM C+C 12/26/19 11:50: PT Cancelled, INR Cancelled, APTT Cancelled 12/26/19 11:50: Sodium 158 H, Potassium 6.0 H*, Chloride 119 H, Carbon Dioxide 29.0, Anion Gap 10, BUN 41 H, Creatinine 1.57 H, Estim Creat Clear Calc 27.39, Est GFR (MDRD) Af Amer 40 L, Est GFR (MDRD) Non-Af 33 L, BUN/Creatinine Ratio 26.1 H, Glucose 213 H, Calcium 9.4, Total Bilirubin 0.50, AST 56 H, ALT 90 H, Alkaline Phosphatase 149 H, Troponin I 0.081 H, Total Protein 7.8, Albumin 2.7 L , Globulin 5.1 H, Albumin/Globulin Ratio 0.5 L 12/26/19 11:50: Lactic Acid 5.7 H* 12/26/19 12:05: Urine Color Yellow, Urine Clarity Clear, Urine pH 5.0, Ur Specific Balfour 1.025, Urine Protein 30 H, Urine Glucose (UA) Normal, Urine Ketones 15 H, Urine Occult Blood 50 H, Urine Nitrite Positive H, Urine Bilirubin 1 H, Urine Urobilinogen 4 H, Ur Leukocyte Esterase 25 H, Urine RBC 0-5 SEEN, Urine WBC 0-5 SEEN, Ur Squamous Epith Cells 0-5 SEEN, Urine Bacteria 3+, Hyaline Casts 5-10 SEEN, Urine Mucus 0 SEEN 12/26/19 12:55: PT 22.4 H, INR 2.0, APTT 32.1 Current Medications Albuterol Sulfate (Ventolin Aerosols) 2.5 mg INHALATION Q2H PRN PRN PRN Reason: SOB/Wheezing Chlorhexidine Gluconate () 15 ml PO BID CHERELLE Dextrose (D50w Syringe) 0 gm IV X1 PRN; Protocol PRN Reason: Hypoglycemia Glucagon () 1 mg IM .X1 PRN PRN Reason: Hypoglycemia Heparin Sodium (Porcine) (Heparin Na) 0 unit IV UD PRN; Protocol Piperacillin Sod/Tazobactam (Sod 3.375 gm/ Sodium Chloride) 50 mls @ 12.5 mls/hr IV 0200,1000,1800 [facility] Vancomycin IV Pharmacy to Dose (1 ea/ Sodium Chloride) 500 mls @ 250 mls/hr IV X1 PRN; Protocol PRN Reason: Rx to Dose Propofol (Diprivan) 1,000 mg in 100 mls @ 4.824 mls/hr CONT INF .Q12H CHERELLE; Protocol Heparin Sodium/Dextrose () 25,000 units in 250 mls @ 11 mls/hr IV .[id number] [facility]ELLE; Protocol Norepinephrine Bitartrate 8 mg (/ Sodium Chloride) 250 mls @ 9.375 mls/hr CONT INF .[id number] [facility]ERELLE; Protocol Sodium Chloride () 250 mls @ 15 mls/hr IV .[id number] PRN PRN Reason: Saline Flush Sodium Chloride () 250 mls @ 15 mls/hr IV .[id number] PRN PRN Reason: Additional IVPB Infusion Insulin Human Lispro (Humalog Kwikpen (Bkc)) 0 unit SC Q6 [facility]ELLE; Protocol Levothyroxine Sodium (Synthroid) 25 mcg GT DAILY [facility] Sodium Chloride () 10 - 40 ml IV UD PRN PRN Reason: SALINE FLUSH Clinical Impression(s) from Imaging Studies Chest X-Ray 12/26/19 11:47 IMPRESSION: The tip of the endotracheal tube is at 3.6 cm proximal to the aurelia. The tip of the nasogastric tube is at the gastroesophageal junction. Increased markings at the lung bases as described suggestive of atelectasis and/or early infiltrates worse on the left side. Electronically Signed: Joss Snyder, at 13:05 EDT , Service support , KUB X-Ray 12/26/19 11:49 IMPRESSION: The tip of the nasogastric tube is in the fundal portion of the stomach. Mild increased markings at the left lung base. This may represent atelectasis and/or early infiltrate. Electronically Signed: Joss Snyder, at 13:03 EDT , Service support , Assessment/Plan Active and Suspected Problems Septic shock (Acute) Acute respiratory failure with hypoxia (Acute) Metabolic encephalopathy (Acute) Suspected 2018 novel coronavirus infection (Acute) RECOMMENDATIONS: 1. Continue empiric broad-spectrum antibiotics 2. Wean oxygen as tolerated 3. Transition to LR for IV fluids 4. Place central line for possible pressors 5. Obtain echocardiogram IMPRESSIONS: 1. Septic shock secondary to probable UTI Patient was significantly hypotension on presentation to the intensive car e unit. Initial lactic acid was elevated at 5.7 and patient had profound hypoxemia. Patient was placed on broad-spectrum antibiotics. Patient does appear to be fluid responsive at this time. Labs are highly suggestive of volume contraction. Patient with significant mottling of the lower extremities. 2. Acute hypoxic respiratory failure Clinical suspicion for decreased mental status leading to acute hypoxic respiratory failure. Patient appears to have been hypotensive for quite some time. Continue to support blood pressure. Chest x-ray findings are more co nsistent with atelectasis than infiltrate on my review. Low clinical suspicion for COVID-19 from my perspective is patient does have a secondary source for septic shock. 3. A. fib with RVR/elevated troponin Patient significantly tachycardic at this time, but appears to be volume depleted. Okay to cycle troponins. Clinical suspicion for supply demand mismatch given significant hypoxia on presentation. Unclear how long patient has been in A. fib with RVR, but will continue to monitor. Would not recommend digoxin given hyperkalemia, but hyperkalemia may be secondary to acidosis. 4. Acute kidney injury/hypernatremia/hyperchloremia/hyperkalemia High clinical suspicion suspicion for prerenal etiology. Patient should be switched over to LR for IV fluids. Patient appears to be hypovolemic hypernatremia. We will continue aggressive volume resuscitation. Recheck labs tomorrow. No indication for renal replacement therapy at this time. 5. Hyperglycemia/advanced age/poor history/schizophrenia/dementia/bipolar/hypothyroidism/hypertension Complicates care, management, recovery and prognosis. Will need to check blood sugars every 6 hours and cover as necessary. TIME: 90 minutes critical care time spent addressing patient's septic shock, acute respiratory failure, A. fib with RVR, acute kidney injury, review of all data and collaboration with care team (2:15 PM to 3:50 PM) Procedures: 54343 Critial Care Addl 30 Min 9xxxx: [id number] Critical care first hour
[2019-12-26 15:41] LABS: Base Excess -8 mmol/L (-2 to +2); PO2 45 mmHG (75-100); SO2 75 % (95-99); Total Carbon Dioxide 20 mmol/L
--- NOTE | 2019-12-26 15:44 | ECHOCS_ITS ---
Reason For Study: SOB Procedure This was a 2D Doppler, Color Flow transthoracic echocardiogram. The study was technically difficult. Exam performed portable in ICU/CCU. The exam was abbreviated due to the COVID 19 protocol. Left Ventricle Moderate assymetric septal hypertrophy. Normal LV size. The estimated ejection fraction is 65 %. Stage 1 diastolic dysfunction. No regional wall motion abnormalities noted. Right Ventricle Normal size and thickness. Normal systolic function. Atria Normal left atrium. Normal right atrium. Normal atrial septum. Mitral Valve Mild diffuse mitral valve thickening. Severe mitral annular calcification extending into the posterior leaflet. Tricuspid Valve Normal tricuspid valve. Trivial tricuspid valve insufficiency. Right ventricular systolic pressure estimated to be 27 mmHg. Aortic Valve Trisinus/trileaflet aortic valve. Mild focal aortic valve thickening. Pulmonic Valve Normal pulmonic valve. Great Vessels Normal aortic root. Normal arch. The inferior vena cava is dilated. No collapse of the inferior vena cava. Pericardium/Pleural No pericardial effusion. MMode/2D Measurements & Calculations LVIDd: 3.3 cm IVSd: 1.5 cm Ao root diam: 2.9 cm LVIDs: 1.4 cm LVPWd: 1.3 cm FS: 58.7 % LA dimension(2D): 3.6 cm Doppler Measurements & Calculations MV E max han: 61.2 cm/sec Lat Peak E' Han: 7.3 cm/sec Med Peak E' Han: 5.3 cm/sec MV A max han: 65.0 cm/sec E/E' lat: 8.4 E/E' med: 11.5 MV E/A: 0.94 Ao V2 max: 98.0 cm/sec LV V1 max: 74.1 cm/sec PA V2 max: 72.3 cm/sec Ao max P.8 mmHg LV V1 max P.2 mmHg TR max han: 236.0 cm/sec TR max P.3 mmHg Interpretation Summary The estimated ejection fraction is 65 %. Stage 1 diastolic dysfunction. Trivial tricuspid valve insufficiency. Right ventricular systolic pressure estimated to be 27 mmHg. The inferior vena cava is dilated but patient is intubated. Compared to echo report dated 11/07/2015 LV function has remained the same, and RVSP has decreased from 44 to 27 mmHg. Ordering Physician: Johnnie Ortega Referring Physician: Henrik Rivera Performed By: Lisa Toth RDCS
[2019-12-26 15:49] LABS: Blood Gas Specimen Type ART; Mode A-C; O2 Delivery Device Vent; SITE L FEMORAL
[2019-12-26 15:50] LABS: FI02 100; PEEP 5; RR 14; Time Given 1451; Vt 450
--- NOTE | 2019-12-26 15:55 | RAD_ITS ---
STUDY: X-RAY CHEST REASON FOR EXAM: Female, 84 years old. central line placement TECHNIQUE: Single AP portable view of the chest. COMPARISON: 12/26/2019 1237 FINDINGS: Interval placement of right internal jugular deep venous line with tip of the catheter overlying the superior vena cava and no pneumothorax. Endotracheal tube and nasogastric tube both which are unchanged. Alveolar opacity in the lower right lung consistent with interval development of right lower lobe atelectasis. There is no demonstrated pleural abnormality. Normal size heart. Normal mediastinum and geoffrey. Normal visualized pulmonary arteries. Normal visualized aortic arch and descending thoracic aorta. Normal visualized thoracic spine. Normal visualized ribs, clavicles, and shoulders. There is no demonstrated abnormality of the visualized soft tissue structures of the upper abdomen. RAD/CXR for Line Placement IMPRESSION: 1. Interval placement of right internal jugular deep venous line with tip of the catheter overlying the superior vena cava and no pneumothorax. 2. Endotracheal tube and nasogastric tube both which are unchanged. 3. Interval development of right lower lobe atelectasis Electronically Signed: Min Cantor MD at 16:16 EDT Tel , Service support ,
--- NOTE | 2019-12-26 15:55 | PCM.OPRPT ---
Report of Operation Date of Procedure: 12/26/19 Surgery/Procedure Performed:: Triple-lumen catheter insertion Description of Surgical Findings:: Central line placement procedure note Indication: IV access/hemodynamic instability/vasoactive medications Procedure: A time-out was completed to verify correct patient, indication, medication allergies, procedure, coagulation studies, informed consent signed, and equipment needed. The patient was placed in the supine position for a central line placement to the rt IJ vein. The patients rt neck was prepped using chlorhexidine and a full body sterile drape was applied. 1% lidocaine was used to anesthetize the surrounding skin. A 7fr 16 cm blue guard triple lumen catheter introduced into the internal jugular vein using the modified Seldinger technique with the assistance of ultrasound. The catheter was threaded smoothly over the guidewire, the guidewire was removed easily, nonpulsatile blood returned. All ports were aspirated of air and flushed with sterile saline. The catheter was sutured in place and covered with an occlusive dressing impregnated with chlorhexidine. Post-procedure: The patient tolerated the procedure well. Vital signs remained stable. EBL 3 cc. No complications. Chest X Ray ordered to confirm tip placement and the absence of pneumothorax. Procedures: [id number] Insert Non-tunnel CV Cath
[2019-12-26 16:08] LABS: Reflex Lactate? Y
[2019-12-26] MEDS: Lactated Ringers 1,000 ML 999 ML IV (16:15)
--- NOTE | 2019-12-26 16:17 | PHA.PHARE_ITS ---
Consult Pharmacy has been consulted to manage selected antiobiotic: Vancomycin Type of Consult: New start Suspected Infection: Pneumonia Prior Doses of Antibiotics Received/Current Regimen: vancomycin 1250mg IV x1 was ordered in E.R. and given starting at 15:52 today Labs: Sodium 158 mmol/L (136-145) H 12/26/19 11:50 Potassium 6.0 mmol/L (3.5-5.1) H* 12/26/19 11:50 Chloride 119 mmol/L (98-107) H 12/26/19 11:50 Carbon Dioxide 29.0 mmol/L (21.0-32.0) 12/26/19 11:50 Anion Gap 10 (5-15) 12/26/19 11:50 BUN 41 mg/dL (7-18) H 12/26/19 11:50 Creatinine 1.57 mg/dL (0.55-1.02) H 12/26/19 11:50 Est GFR (MDRD) Af Amer 40 mL/min (>60) L 12/26/19 11:50 Est GFR (MDRD) Non-Af 33 mL/min (>60) L 12/26/19 11:50 BUN/Creatinine Ratio 26.1 RATIO (10-20) H 12/26/19 11:50 Glucose 213 mg/dL (74-106) H 12/26/19 11:50 Microbiology: Microbiology 12/26/19 12:05 Urine Catheter - Aguilar Streptococcus pneumoniae Antigen (M - Final 12/26/19 12:05 Urine Catheter - Aguilar Legionella Antigen - Final 12/26/19 12:05 Mucosa - Nasopharyngeal Coronavirus COVID-19 PCR - Final 12/26/19 12:05 Mucosa - Nose Respiratory Panel (PCR) - Final Weight used for dosin kg Estimated Creatinine Clearance: 27ml/min Goal Trough: 15-20 mcg/mL Pharmacy Plan for Drug Dosing: Start vancomycin 1000mg IV q24h per [facility] dosing protocol. The first dose will be timed to be given 24 hours after the E.R. dose. A trough will be ordered to be drawn before the 3rd total dose. Pharmacy Service will continue to monitor and adjust dosing as required. Follow-Up Labs: Trough Vancomycin Labs to be done on [date and time ordered]: 12/28/19 15:30
[2019-12-26] MEDS: Lactated Ringers 1,000 ML 125 ML IV (17:10)
[2019-12-26 17:12] LABS: Triglycerides 105 mg/dL
[2019-12-26 17:23] LABS: Anion Gap 10 (5-15); BUN 35 mg/dL (7-18); BUN/Creat Ratio 29.7 RATIO (10-20); CPK Total, Creatine Kinase 117 U/L (26-192); Chloride 129 mmol/L (98-107); Creatinine, Serum 1.18 mg/dL (0.55-1.02); EST Glomerular Filtration Rate 46 mL/min (>60); Est Glom Filt Rate - Afr Amer 56 mL/min (>60); Estimated Creatinine Clearance 36.44 ml/min; Glucose 122 mg/dL (74-106); LDH 189 U/L (84-246); Lactic Acid 5.3 mmol/L (0.4-1.9); Potassium 2.5 mmol/L (3.5-5.1); Sodium Level 163 mmol/L (136-145)
[2019-12-26 17:32] LABS: BNP,B-Type NATRIURETIC PEPTIDE 154.9 pg/mL (0-100)
[2019-12-26 17:45] LABS: D-Dimer Quantitative (DVT/PE) 13.16 FEU/ug/m (0.27-0.49)
[2019-12-26 17:56] LABS: Bedside Glucose 122 mg/dL (70-110)
[2019-12-26 18:10] LABS: M R Staph aureus DNA By PCR Negative (Negative); Probe Check PASS; Specimen Processing Control PASS
[2019-12-26] MEDS: HEPARIN/D5w 25,000 UNITS 25,000 UNITS/250 ML IV.SOLN. 0.1 UNITS IV (18:22)
[2019-12-26 18:33] LABS: Fibrinogen 549 mg/dl (203-444); Partial Thromboplast Time 29.4 Seconds (24.1-36.2)
[2019-12-26] MEDS: Chlorhexidine 15 ML PO (21:46)
[2019-12-26 23:42] LABS: Potassium 2.5 mmol/L (3.5-5.1)
[2019-12-26] MEDS: Acetaminophen 650 MG/20 ML UDC GT (23:43)
[2019-12-27] VITALS (55 sets, daily range): BP systolic 57–145; BP diastolic 34–86; PULSE 101–144; RESP 14–29; TEMP 38.2–38.7; O2SAT 81–100; BMI 28.7
[2019-12-27] MEDS: Potassium Chloride 10mEq/100mL 10 MEQ/100 ML IV.SOLN. 100 MEQ IV BOLUS ×3 (00:30→02:48)
[2019-12-27 00:56] LABS: Bedside Glucose 72 mg/dL (70-110)
[2019-12-27 01:01] LABS: Partial Thromboplast Time 99.6 Seconds (24.1-36.2)
[2019-12-27] MEDS: Lactated Ringers 1,000 ML 125 ML IV (01:22)
[2019-12-27 05:24] LABS: Hematocrit 48.9 % (37-47); Mean Corp Hgb Conc 30.7 g/dL (32-36); Mean Corpuscular Hgb 30.7 pg (27.0-32.0); Mean Platelet Vol. 11.3 fl (6.2-12.0); POSITIVE COUNT YES; POSITIVE DIFFERENTIAL YES; POSITIVE MORPHOLOGY YES; Platelet Count 355 K/mm3 (150-450); RBC Distribution Width CV 13.2 % (11.6-14.6); RBC Distribution Width SD 48.6 fl (35.1-43.9); Red Blood Count 4.89 M/mm3 (4.2-5.4); White Blood Count 27.3 K/mm3 (4.4-11.0)
[2019-12-27 05:36] LABS: Urea Nitrogen, Urine 447 mg/dL (NO RANGE EST.)
[2019-12-27 05:41] LABS: Differential Indicated MANUAL DIFF
[2019-12-27 05:49] LABS: ALB/GLOB Ratio 0.4 RATIO (0.9-2.4); AST(SGOT) 39 U/L (15-37); Alanine Aminotransfer ALT/SGPT 60 U/L (13-56); Albumin, Serum 1.7 g/dL (3.2-5.0); Alkaline Phosphatase 106 U/L (45-117); Anion Gap 10 (5-15); BUN 39 mg/dL (7-18); BUN/Creat Ratio 25.5 RATIO (10-20); Calcium,Total 8.2 mg/dL (8.5-10.1); Chloride 126 mmol/L (98-107); Creatinine, Serum 1.53 mg/dL (0.55-1.02); EST Glomerular Filtration Rate 34 mL/min (>60); Est Glom Filt Rate - Afr Amer 42 mL/min (>60); Globulin 3.8 g/dL (2.2-4.2); Glucose 138 mg/dL (74-106); Potassium 4.9 mmol/L (3.5-5.1); Protein, Total 5.5 g/dL (6.4-8.2); Sodium Level 157 mmol/L (136-145); Thyroid Stim Hormone (TSH) 0.74 uIU/mL (0.358-3.74)
[2019-12-27 06:21] LABS: Bedside Glucose 106 mg/dL (70-110)
[2019-12-27 06:54] LABS: Lymphocyte 8 % (19-41); Metamyelocyte 20 % (0-1); Monocyte 3 % (0-10); Myelocyte 2 (0-0); Neutrophil-Band 50 % (0-5); Neutrophil-Segmented 17 % (47-70); Total Cells Counted 100 (MANUAL DIFF)
[2019-12-27 06:56] LABS: Absolute Lymphocyte Count 2.19 X10^3/uL (0.83-4.51); Absolute Neutrophil Count 18.3 X10^3/uL (2.0-7.7); Lymphocyte # 2.19 X10^3/ul (4.0); Neutrophil # 18.31 X10^3/uL (2.7-7.7)
[2019-12-27 06:58] LABS: Dohle Bodies RARE; Platelet Estimate ADEQUATE (ADEQ); Red Cell Morphology NORM C+C NORMAL (NORM C&C)
--- NOTE | 2019-12-27 07:51 | PN_ITS ---
Subjective: Patient was significant difficulties overnight. Patient was found to be hypokalemic and required supplementation. COVID precautions were reinitiated by hospitalist. Patient became progressively hypotensive overnight requiring increased Levophed. Vasopressin was ordered, but did not need to be reinitiated. Patient continues to have mottling of the peripheral extremities, but this does appear to be somewhat improved per nursing throughout the evening. Patient remains unresponsive to verbal and physical stimuli. Patient did transition to sinus tachycardia overnight. PEEP had to be elevated secondary to hypoxemia. General: - - Intubated and unresponsive. Good vent synchrony. Cyanosis is improved, but continues to be mottled peripherally on the hands and feet. HEENT: Atraumatic, PERRLA, EOMI, Normocephalic, - - Scleral injection without icterus Oral: Moist Mucosa, No Gingival or Mucosal Lesions/ Ulcerations Neck: Supple, No JVD, No Nodes, Trachea Midline Lungs: No wheeze, Diminished, - - Coarse breath sounds bilaterally Cardiovascular: Normal S1, Normal S2, No murmurs, No rub noted, No Gallop, Tachycardic Abdomen: Bowel Sounds Present, Soft, Non Tender, Non-Distended Extremities: - - Mottling of the peripheral extremities. Pressure injury noted on the heel Skin: Ulcer/ Wound - Pressure injury noted to the right heel with a black eschar Musculoskeletal: No Tenderness to Palpation of Joints or Extremities Lymphatic: No Cervical, Supraclavicular, or Inguinal Adenopathy Neurological: - - Positive cough, gag and corneal reflexes. Nonresponsive to verbal stimuli. Psych/Mental Status: Flat Affect Vital Signs Temp Pulse Resp BP Pulse Ox 38.7 C H 101 H 25 H 131/73 H 99 12/27/19 05:00 12/27/19 07:00 12/27/19 07:00 12/27/19 07:00 12/27/19 07:00 Oxygen Flow Rate (L/min) 15 Oxygen Delivery Method Mechanical Ventilator Weight: 85.6 kg Body Mass Index (BMI) 27.6 Intake and Output for Last 24 Hours 12/25/19 12/26/19 12/27/19 23:59 23:59 23:59 Intake Total 4611.36 / 4669.46 2371.44 / 2371.44 Output Total 200 / 300 250 / 250 Balance 4411.36 / 4369.46 2121.44 / 2121.44 Labs (Last 48 Hours) 12/26/19 12/26/19 12/26/19 11:50 11:50 11:50 WBC 13.8 H RBC 5.67 H Hgb 17.0 H Hct 59.9 H MCV 105.6 H MCH 30.0 MCHC 28.4 L RDW Std Deviation 53.0 H RDW Coeff of Papo 13.5 Plt Count 440 MPV 11.5 Immature Gran % (Auto) LEATHER TOOLER Neut % (Auto) LEATHER TOOLER Lymph % (Auto) LEATHER TOOLER [place] % (Auto) LEATHER TOOLER Eos % (Auto) LEATHER TOOLER Baso % (Auto) LEATHER TOOLER Absolute Neuts (auto) 9.1 H Absolute Lymphs (auto) 2.35 Total Counted 100 Neutrophils % (Manual) 20 L Band Neutrophils % 46 H Lymphocytes % (Manual) 17 L Monocytes % (Manual) 17 H Metamyelocytes % Myelocytes % Nucleated RBC % 0.1 Diff Path Review May foll Reactive Lymphocytes 1+ Dohle Bodies Platelet Estimate ADEQUATE RBC Morphology NORM C+C PT Cancelled INR Cancelled APTT Cancelled Fibrinogen D-Dimer Quant (PE/DVT) Specimen Type Sample Site pH Bicarbonate Actual POC Total CO2 Base Excess O2 Saturation O2 % ABG pCO2 ABG pO2 Respiration Rate O2 Delivery Device Vent Mode Tidal Volume POC PEEP Blood Gas Notified Whom Blood Gas Notified Time Sodium 158 H Potassium 6.0 H* Chloride 119 H Carbon Dioxide 29.0 Anion Gap 10 BUN 41 H Creatinine 1.57 H Estim Creat Clear Calc 27.39 Est GFR (MDRD) Af Amer 40 L Est GFR (MDRD) Non-Af 33 L BUN/Creatinine Ratio 26.1 H Glucose 213 H Lactic Acid Calcium 9.4 Magnesium Total Bilirubin 0.50 AST 56 H ALT 90 H Alkaline Phosphatase 149 H Lactate Dehydrogenase Total Creatine Kinase Troponin I 0.081 H C-React Prot Ext Range B-Natriuretic Peptide Total Protein 7.8 Albumin 2.7 L Globulin 5.1 H Albumin/Globulin Ratio 0.5 L Triglycerides TSH Urine Color Urine Clarity Urine pH Ur Specific [place] Urine Protein Urine Glucose (UA) Urine Ketones Urine Occult Blood Urine Nitrite Urine Bilirubin Urine Urobilinogen Ur Leukocyte Esterase Urine RBC Urine WBC Ur Squamous Epith Cells Urine Bacteria Hyaline Casts Urine Mucus Urine Creatinine Urine Urea Nitrogen MRSA (PCR) POC Glucose 12/26/19 12/26/19 12/26/19 11:50 12:05 12:55 WBC RBC Hgb Hct MCV MCH MCHC RDW Std Deviation RDW Coeff of Papo Plt Count MPV Immature Gran % (Auto) Neut % (Auto) Lymph % (Auto) [place] % (Auto) Eos % (Auto) Baso % (Auto) Absolute Neuts (auto) Absolute Lymphs (auto) Total Counted Neutrophils % (Manual) Band Neutrophils % Lymphocytes % (Manual) Monocytes % (Manual) Metamyelocytes % Myelocytes % Nucleated RBC % Diff Path Review Reactive Lymphocytes Dohle Bodies Platelet Estimate RBC Morphology PT 22.4 H INR 2.0 APTT 32.1 Fibrinogen D-Dimer Quant (PE/DVT) Specimen Type Sample Site pH Bicarbonate Actual POC Total CO2 Base Excess O2 Saturation O2 % ABG pCO2 ABG pO2 Respiration Rate O2 Delivery Device Vent Mode Tidal Volume POC PEEP Blood Gas Notified Whom Blood Gas Notified Time Sodium Potassium Chloride Carbon Dioxide Anion Gap BUN Creatinine Estim Creat Clear Calc Est GFR (MDRD) Af Amer Est GFR (MDRD) Non-Af BUN/Creatinine Ratio Glucose Lactic Acid 5.7 H* Calcium Magnesium Total Bilirubin AST ALT Alkaline Phosphatase Lactate Dehydrogenase Total Creatine Kinase Troponin I C-React Prot Ext Range B-Natriuretic Peptide Total Protein Albumin Globulin Albumin/Globulin Ratio Triglycerides TSH Urine Color Yellow Urine Clarity Clear Urine pH 5.0 Ur Specific [place] 1.025 Urine Protein 30 H Urine Glucose (UA) Normal Urine Ketones 15 H Urine Occult Blood 50 H Urine Nitrite Positive H Urine Bilirubin 1 H Urine Urobilinogen 4 H Ur Leukocyte Esterase 25 H Urine RBC 0-5 SEEN Urine WBC 0-5 SEEN Ur Squamous Epith Cells 0-5 SEEN Urine Bacteria 3+ Hyaline Casts 5-10 SEEN Urine Mucus 0 SEEN Urine Creatinine Urine Urea Nitrogen MRSA (PCR) POC Glucose 12/26/19 12/26/19 12/26/19 14:51 16:25 16:25 WBC RBC Hgb Hct MCV MCH MCHC RDW Std Deviation RDW Coeff of Papo Plt Count MPV Immature Gran % (Auto) Neut % (Auto) Lymph % (Auto) [place] % (Auto) Eos % (Auto) Baso % (Auto) Absolute Neuts (auto) Absolute Lymphs (auto) Total Counted Neutrophils % (Manual) Band Neutrophils % Lymphocytes % (Manual) Monocytes % (Manual) Metamyelocytes % Myelocytes % Nucleated RBC % Diff Path Review Reactive Lymphocytes Dohle Bodies Platelet Estimate RBC Morphology PT INR APTT Fibrinogen D-Dimer Quant (PE/DVT) 13.16 H* Specimen Type ART Sample Site L FEMORAL pH 7.30 L Bicarbonate Actual 19.0 L POC Total CO2 20 Base Excess -8 L O2 Saturation 75 L O2 % 100 ABG pCO2 39.0 ABG pO2 45 L Respiration Rate 14 O2 Delivery Device Vent Vent Mode A-C Tidal Volume 450 POC PEEP 5 Blood Gas Notified Whom ICU MD Blood Gas Notified Time 1451 Sodium 163 H* Potassium 2.5 L* Chloride 129 H* Carbon Dioxide 24.0 Anion Gap 10 BUN 35 H Creatinine 1.18 H Estim Creat Clear Calc 36.44 Est GFR (MDRD) Af Amer 56 L Est GFR (MDRD) Non-Af 46 L BUN/Creatinine Ratio 29.7 H Glucose 122 H Lactic Acid Calcium 8.0 L Magnesium Total Bilirubin AST ALT Alkaline Phosphatase Lactate Dehydrogenase 189 Total Creatine Kinase 117 Troponin I 0.146 H C-React Prot Ext Range 102.00 H B-Natriuretic Peptide Total Protein Albumin Globulin Albumin/Globulin Ratio Triglycerides TSH Urine Color Urine Clarity Urine pH Ur Specific [place] Urine Protein Urine Glucose (UA) Urine Ketones Urine Occult Blood Urine Nitrite Urine Bilirubin Urine Urobilinogen Ur Leukocyte Esterase Urine RBC Urine WBC Ur Squamous Epith Cells Urine Bacteria Hyaline Casts Urine Mucus Urine Creatinine Urine Urea Nitrogen MRSA (PCR) POC Glucose 12/26/19 12/26/19 12/26/19 16:25 16:25 16:25 WBC RBC Hgb Hct MCV MCH MCHC RDW Std Deviation RDW Coeff of Papo Plt Count MPV Immature Gran % (Auto) Neut % (Auto) Lymph % (Auto) [place] % (Auto) Eos % (Auto) Baso % (Auto) Absolute Neuts (auto) Absolute Lymphs (auto) Total Counted Neutrophils % (Manual) Band Neutrophils % Lymphocytes % (Manual) Monocytes % (Manual) Metamyelocytes % Myelocytes % Nucleated RBC % Diff Path Review Reactive Lymphocytes Dohle Bodies Platelet Estimate RBC Morphology PT INR APTT 29.4 Fibrinogen 549 H D-Dimer Quant (PE/DVT) Specimen Type Sample Site pH Bicarbonate Actual POC Total CO2 Base Excess O2 Saturation O2 % ABG pCO2 ABG pO2 Respiration Rate O2 Delivery Device Vent Mode Tidal Volume POC PEEP Blood Gas Notified Whom Blood Gas Notified Time Sodium Potassium Chloride Carbon Dioxide Anion Gap BUN Creatinine Estim Creat Clear Calc Est GFR (MDRD) Af Amer Est GFR (MDRD) Non-Af BUN/Creatinine Ratio Glucose Lactic Acid Calcium Magnesium Total Bilirubin AST ALT Alkaline Phosphatase Lactate Dehydrogenase Total Creatine Kinase Troponin I C-React Prot Ext Range B-Natriuretic Peptide 154.9 H Total Protein Albumin Globulin Albumin/Globulin Ratio Triglycerides 105 TSH Urine Color Urine Clarity Urine pH Ur Specific [place] Urine Protein Urine Glucose (UA) Urine Ketones Urine Occult Blood Urine Nitrite Urine Bilirubin Urine Urobilinogen Ur Leukocyte Esterase Urine RBC Urine WBC Ur Squamous Epith Cells Urine Bacteria Hyaline Casts Urine Mucus Urine Creatinine Urine Urea Nitrogen MRSA (PCR) POC Glucose 12/26/19 12/26/19 12/26/19 16:25 16:40 17:53 WBC RBC Hgb Hct MCV MCH MCHC RDW Std Deviation RDW Coeff of Papo Plt Count MPV Immature Gran % (Auto) Neut % (Auto) Lymph % (Auto) [place] % (Auto) Eos % (Auto) Baso % (Auto) Absolute Neuts (auto) Absolute Lymphs (auto) Total Counted Neutrophils % (Manual) Band Neutrophils % Lymphocytes % (Manual) Monocytes % (Manual) Metamyelocytes % Myelocytes % Nucleated RBC % Diff Path Review Reactive Lymphocytes Dohle Bodies Platelet Estimate RBC Morphology PT INR APTT Fibrinogen D-Dimer Quant (PE/DVT) Specimen Type Sample Site pH Bicarbonate Actual POC Total CO2 Base Excess O2 Saturation O2 % ABG pCO2 ABG pO2 Respiration Rate O2 Delivery Device Vent Mode Tidal Volume POC PEEP Blood Gas Notified Whom Blood Gas Notified Time Sodium Potassium Chloride Carbon Dioxide Anion Gap BUN Creatinine Estim Creat Clear Calc Est GFR (MDRD) Af Amer Est GFR (MDRD) Non-Af BUN/Creatinine Ratio Glucose Lactic Acid 5.3 H* Calcium Magnesium Total Bilirubin AST ALT Alkaline Phosphatase Lactate Dehydrogenase Total Creatine Kinase Troponin I C-React Prot Ext Range B-Natriuretic Peptide Total Protein Albumin Globulin Albumin/Globulin Ratio Triglycerides TSH Urine Color Urine Clarity Urine pH Ur Specific [place] Urine Protein Urine Glucose (UA) Urine Ketones Urine Occult Blood Urine Nitrite Urine Bilirubin Urine Urobilinogen Ur Leukocyte Esterase Urine RBC Urine WBC Ur Squamous Epith Cells Urine Bacteria Hyaline Casts Urine Mucus Urine Creatinine Urine Urea Nitrogen MRSA (PCR) Negative POC Glucose 122 H 12/26/19 12/26/19 12/26/19 18:10 21:40 21:40 WBC RBC Hgb Hct MCV MCH MCHC RDW Std Deviation RDW Coeff of Papo Plt Count MPV Immature Gran % (Auto) Neut % (Auto) Lymph % (Auto) [place] % (Auto) Eos % (Auto) Baso % (Auto) Absolute Neuts (auto) Absolute Lymphs (auto) Total Counted Neutrophils % (Manual) Band Neutrophils % Lymphocytes % (Manual) Monocytes % (Manual) Metamyelocytes % Myelocytes % Nucleated RBC % Diff Path Review Reactive Lymphocytes Dohle Bodies Platelet Estimate RBC Morphology PT INR APTT Fibrinogen D-Dimer Quant (PE/DVT) Specimen Type Sample Site pH Bicarbonate Actual POC Total CO2 Base Excess O2 Saturation O2 % ABG pCO2 ABG pO2 Respiration Rate O2 Delivery Device Vent Mode Tidal Volume POC PEEP Blood Gas Notified Whom Blood Gas Notified Time Sodium Potassium 2.5 L* Chloride Carbon Dioxide Anion Gap BUN Creatinine Estim Creat Clear Calc Est GFR (MDRD) Af Amer Est GFR (MDRD) Non-Af BUN/Creatinine Ratio Glucose Lactic Acid Calcium Magnesium 2.0 Total Bilirubin AST ALT Alkaline Phosphatase Lactate Dehydrogenase Total Creatine Kinase Troponin I 0.199 H 0.175 H C-React Prot Ext Range B-Natriuretic Peptide Total Protein Albumin Globulin Albumin/Globulin Ratio Triglycerides TSH Urine Color Urine Clarity Urine pH Ur Specific [place] Urine Protein Urine Glucose (UA) Urine Ketones Urine Occult Blood Urine Nitrite Urine Bilirubin Urine Urobilinogen Ur Leukocyte Esterase Urine RBC Urine WBC Ur Squamous Epith Cells Urine Bacteria Hyaline Casts Urine Mucus Urine Creatinine Urine Urea Nitrogen MRSA (PCR) POC Glucose 12/26/19 12/26/19 12/27/19 23:42 23:55 05:00 WBC RBC Hgb Hct MCV MCH MCHC RDW Std Deviation RDW Coeff of Papo Plt Count MPV Immature Gran % (Auto) Neut % (Auto) Lymph % (Auto) [place] % (Auto) Eos % (Auto) Baso % (Auto) Absolute Neuts (auto) Absolute Lymphs (auto) Total Counted Neutrophils % (Manual) Band Neutrophils % Lymphocytes % (Manual) Monocytes % (Manual) Metamyelocytes % Myelocytes % Nucleated RBC % Diff Path Review Reactive Lymphocytes Dohle Bodies Platelet Estimate RBC Morphology PT INR APTT 99.6 H* Fibrinogen D-Dimer Quant (PE/DVT) Specimen Type Sample Site pH Bicarbonate Actual POC Total CO2 Base Excess O2 Saturation O2 % ABG pCO2 ABG pO2 Respiration Rate O2 Delivery Device Vent Mode Tidal Volume POC PEEP Blood Gas Notified Whom Blood Gas Notified Time Sodium 157 H Potassium 4.9 Chloride 126 H Carbon Dioxide 21.0 Anion Gap 10 BUN 39 H Creatinine 1.53 H Estim Creat Clear Calc 28.10 Est GFR (MDRD) Af Amer 42 L Est GFR (MDRD) Non-Af 34 L BUN/Creatinine Ratio 25.5 H Glucose 138 H Lactic Acid Calcium 8.2 L Magnesium Total Bilirubin 0.70 AST 39 H ALT 60 H Alkaline Phosphatase 106 Lactate Dehydrogenase Total Creatine Kinase Troponin I C-React Prot Ext Range B-Natriuretic Peptide Total Protein 5.5 L Albumin 1.7 L Globulin 3.8 Albumin/Globulin Ratio 0.4 L Triglycerides TSH 0.74 Urine Color Urine Clarity Urine pH Ur Specific [place] Urine Protein Urine Glucose (UA) Urine Ketones Urine Occult Blood Urine Nitrite Urine Bilirubin Urine Urobilinogen Ur Leukocyte Esterase Urine RBC Urine WBC Ur Squamous Epith Cells Urine Bacteria Hyaline Casts Urine Mucus Urine Creatinine Urine Urea Nitrogen MRSA (PCR) POC Glucose 72 12/27/19 12/27/19 12/27/19 05:00 05:00 05:07 WBC RBC Hgb Hct MCV MCH MCHC RDW Std Deviation RDW Coeff of Papo Plt Count MPV Immature Gran % (Auto) Neut % (Auto) Lymph % (Auto) [place] % (Auto) Eos % (Auto) Baso % (Auto) Absolute Neuts (auto) Absolute Lymphs (auto) Total Counted Neutrophils % (Manual) Band Neutrophils % Lymphocytes % (Manual) Monocytes % (Manual) Metamyelocytes % Myelocytes % Nucleated RBC % Diff Path Review Reactive Lymphocytes Dohle Bodies Platelet Estimate RBC Morphology PT INR APTT Fibrinogen D-Dimer Quant (PE/DVT) Specimen Type Sample Site pH Bicarbonate Actual POC Total CO2 Base Excess O2 Saturation O2 % ABG pCO2 ABG pO2 Respiration Rate O2 Delivery Device Vent Mode Tidal Volume POC PEEP Blood Gas Notified Whom Blood Gas Notified Time Sodium Potassium Chloride Carbon Dioxide Anion Gap BUN Creatinine Estim Creat Clear Calc Est GFR (MDRD) Af Amer Est GFR (MDRD) Non-Af BUN/Creatinine Ratio Glucose Lactic Acid Calcium Magnesium Total Bilirubin AST ALT Alkaline Phosphatase Lactate Dehydrogenase Total Creatine Kinase Troponin I C-React Prot Ext Range B-Natriuretic Peptide Total Protein Albumin Globulin Albumin/Globulin Ratio Triglycerides TSH Urine Color Urine Clarity Urine pH Ur Specific [place] Urine Protein Urine Glucose (UA) Urine Ketones Urine Occult Blood Urine Nitrite Urine Bilirubin Urine Urobilinogen Ur Leukocyte Esterase Urine RBC Urine WBC Ur Squamous Epith Cells Urine Bacteria Hyaline Casts Urine Mucus Urine Creatinine 204.00 Urine Urea Nitrogen 447 MRSA (PCR) POC Glucose 106 05/27/20 05:55 WBC 27.3 H RBC 4.89 Hgb 15.0 Hct 48.9 H MCV 100.0 H D MCH 30.7 MCHC 30.7 L D RDW Std Deviation 48.6 H RDW Coeff of Papo 13.2 Plt Count 355 MPV 11.3 Immature Gran % (Auto) Neut % (Auto) Not Reportable Lymph % (Auto) [place] % (Auto) Eos % (Auto) Baso % (Auto) Absolute Neuts (auto) 18.3 H Absolute Lymphs (auto) 2.19 Total Counted 100 Neutrophils % (Manual) 17 L Band Neutrophils % 50 H Lymphocytes % (Manual) 8 L Monocytes % (Manual) 3 Metamyelocytes % 20 H Myelocytes % 2 H Nucleated RBC % Diff Path Review May foll Reactive Lymphocytes Dohle Bodies RARE Platelet Estimate ADEQUATE RBC Morphology NORM C+C PT INR APTT Fibrinogen D-Dimer Quant (PE/DVT) Specimen Type Sample Site pH Bicarbonate Actual POC Total CO2 Base Excess O2 Saturation O2 % ABG pCO2 ABG pO2 Respiration Rate O2 Delivery Device Vent Mode Tidal Volume POC PEEP Blood Gas Notified Whom Blood Gas Notified Time Sodium Potassium Chloride Carbon Dioxide Anion Gap BUN Creatinine Estim Creat Clear Calc Est GFR (MDRD) Af Amer Est GFR (MDRD) Non-Af BUN/Creatinine Ratio Glucose Lactic Acid Calcium Magnesium Total Bilirubin AST ALT Alkaline Phosphatase Lactate Dehydrogenase Total Creatine Kinase Troponin I C-React Prot Ext Range B-Natriuretic Peptide Total Protein Albumin Globulin Albumin/Globulin Ratio Triglycerides TSH Urine Color Urine Clarity Urine pH Ur Specific [place] Urine Protein Urine Glucose (UA) Urine Ketones Urine Occult Blood Urine Nitrite Urine Bilirubin Urine Urobilinogen Ur Leukocyte Esterase Urine RBC Urine WBC Ur Squamous Epith Cells Urine Bacteria Hyaline Casts Urine Mucus Urine Creatinine Urine Urea Nitrogen MRSA (PCR) POC Glucose Microbiology 12/26/19 12:05 Urine Catheter - [place] Streptococcus pneumoniae Antigen (M - Final 12/26/19 12:05 Urine Catheter - [place] Legionella Antigen - Final 12/26/19 12:05 Mucosa - Nasopharyngeal Coronavirus COVID-19 PCR - Final 12/26/19 12:05 Mucosa - Nose Respiratory Panel (PCR) - Final Clinical Impression(s) from Imaging Studies Chest X-Ray 12/26/19 11:47 IMPRESSION: The tip of the endotracheal tube is at 3.6 cm proximal to the aurelia. The tip of the nasogastric tube is at the gastroesophageal junction. Increased markings at the lung bases as described suggestive of atelectasis and/or early infiltrates worse on the left side. Electronically Signed: Joss Claudio, at 13:05 EDT , Service support , KUB X-Ray 12/26/19 11:49 IMPRESSION: The tip of the nasogastric tube is in the fundal portion of the stomach. Mild increased markings at the left lung base. This may represent atelectasis and/or early infiltrate. Electronically Signed: Joss Claudio, at 13:03 EDT , Service support , Chest X-Ray 12/26/19 15:55 IMPRESSION: 1. Interval placement of right internal jugular deep venous line with tip of the catheter overlying the superior vena cava and no pneumothorax. 2. Endotracheal tube and nasogastric tube both which are unchanged. 3. Interval development of right lower lobe atelectasis Electronically Signed: Min Cantor MD at 16:16 EDT Tel , Service support , Medical Necessity - Tobacco Use Smoking Status: Unknown if ever smoked Tobacco Use: Non-smoker Assessment/Plan All Active Problems Septic shock (Acute) Acute respiratory failure with hypoxia (Acute) Metabolic encephalopathy (Acute) Suspected 2019 novel coronavirus infection (Acute) Community acquired pneumonia (Acute) Atrial fibrillation with rapid ventricular response (Acute) RECOMMENDATIONS: 1. Continue empiric broad-spectrum antibiotics 2. Wean oxygen as tolerated 3. Initiate D5W. Hold LR 4. Continue Levophed. Possibly add vasopressin 5. Await echocardiogram 6. Discussed with ID about COVID precautions 7. Spontaneous breathing and awakening trials per protocol IMPRESSIONS: 1. Septic shock secondary to probable UTI Patient was significantly hypotension on presentation to the intensive care unit. Initial lactic acid was elevated at 5.7 and patient had profound hypoxemia. COVID precautions have been reinitiated by hospitalist. Patient did receive significant volume resuscitation yesterday, but is still requiring Levophed. May have to initiate vasopressin for blood pressure support. Patient continues to have peripheral mottling, but cyanosis is improving. 2. Acute hypoxic respiratory failure Clinical suspicion for decreased mental status leading to acute hypoxic respiratory failure. Patient appears to have been hypotensive for quite some time on presentation given mottling and cyanotic features. Continue to support blood pressure. Chest x-ray findings are more consistent with atelectasis than infiltrate on my review. Low clinical suspicion for COVID-19 from my perspective as negative testing in the setting of critical illness. Viral load should be sufficient enough to find to cause this amount of multisystem organ failure. Unknown cardiac status, so may have an element of cardiopulmonary edema given significant volume resuscitation yesterday. 3. A. fib with RVR/elevated troponin Patient significantly tachycardic at this time, but appears to be volume depleted. Okay to cycle troponins. Clinical suspicion for supply demand mismatch given significant hypoxia on presentation. Unclear how long patient has been in A. fib with RVR, but will continue to monitor. Patient with hypokalemia overnight. Correction of hypokalemia and patient has returned to normal sinus rhythm. Patient is systemically anticoagulated. 4. Acute kidney injury/hypernatremia/hyperchloremia/hyperkalemia High clinical suspicion suspicion for prerenal etiology. Patient did receive significant volume resuscitation yesterday. Patient appears to be hypovolemic hypernatremia. Patient will be transitioned over to D5W given hypoglycemia this morning and continued hypernatremia and hyperchloremia. Rech dhaval labs tomorrow. No indication for renal replacement therapy at this time. 5. Hyperglycemia/advanced age/poor history/schizophrenia/dementia/bipolar/hypothyroidism/hypertension Complicates care, management, recovery and prognosis. Will need to check blood sugars every 6 hours and cover as necessary. TIME: 45 minutes critical care time spent addressing patient's septic shock, acute respiratory failure, A. fib with RVR, acute kidney injury, review of all data and collaboration with care team (6 AM to 7:30 AM) [id number]: [id number] Critical care first hour
[2019-12-27] MEDS: Levothyroxine 25 MCG TABLET GT (08:20)
[2019-12-27] MEDS: Chlorhexidine 15 ML PO ×2 (08:20→21:13)
[2019-12-27 10:00] LABS: Partial Thromboplast Time 85.8 Seconds (24.1-36.2)
--- NOTE | 2019-12-27 11:02 | NT.THERAPY_ITS ---
Nutrition Therapy Report - History Nutrition Services has been consulted to:: Manage enteral nutrition Current diet / nutrition support order:: NPO - Anthropometric Measurements Height:: 5 ft 8 in Weight:: 85.6 kg Body Mass Index (BMI):: 28.7 - Relevant Labs Relevant Labs:: WBC 27.3 K/mm3 (4.4-11.0) H 12/27/19 05:55 RBC 5.67 M/mm3 (4.2-5.4) H 12/26/19 11:50 Hgb 17.0 g/dL (12.0-15.0) H 12/26/19 11:50 Hct 48.9 % (37-47) H 12/27/19 05:55 MCV 100.0 fL (81-99) H D 12/27/19 05:55 MCHC 30.7 g/dL (32-36) L D 12/27/19 05:55 RDW Std Deviation 48.6 fl (35.1-43.9) H 12/27/19 05:55 Absolute Neuts (auto) 18.3 X10^3/uL (2.0-7.7) H 12/27/19 05:55 Neutrophils % (Manual) 17 % (47-70) L 12/27/19 05:55 Band Neutrophils % 50 % (0-5) H 12/27/19 05:55 Lymphocytes % (Manual) 8 % (19-41) L 12/27/19 05:55 Monocytes % (Manual) 17 % (0-10) H 12/26/19 11:50 Metamyelocytes % 20 % (0-1) H 12/27/19 05:55 Myelocytes % 2 (0-0) H 12/27/19 05:55 PT 22.4 SECONDS (11.7-14.9) H 12/26/19 12:55 APTT 85.8 Seconds (24.1-36.2) H 12/27/19 07:40 Fibrinogen 549 mg/dl (203-444) H 12/26/19 16:25 D-Dimer Quant (PE/DVT) 13.16 FEU/ug/m (0.27-0.49) H* 12/26/19 16:25 Sodium 157 mmol/L (136-145) H 12/27/19 05:00 Potassium 2.5 mmol/L (3.5-5.1) L* 12/26/19 21:40 Chloride 126 mmol/L (98-107) H 12/27/19 05:00 BUN 39 mg/dL (7-18) H 12/27/19 05:00 Creatinine 1.53 mg/dL (0.55-1.02) H 12/27/19 05:00 Est GFR (MDRD) Af Amer 42 mL/min (>60) L 12/27/19 05:00 Est GFR (MDRD) Non-Af 34 mL/min (>60) L 12/27/19 05:00 BUN/Creatinine Ratio 25.5 RATIO (10-20) H 12/27/19 05:00 Glucose 138 mg/dL (74-106) H 12/27/19 05:00 Lactic Acid 5.3 mmol/L (0.4-1.9) H* 12/26/19 16:25 Calcium 8.2 mg/dL (8.5-10.1) L 12/27/19 05:00 AST 39 U/L (15-37) H 12/27/19 05:00 ALT 60 U/L (13-56) H 12/27/19 05:00 Alkaline Phosphatase 149 U/L (45-117) H 12/26/19 11:50 Troponin I 0.175 ng/mL (<0.045) H 12/26/19 21:40 C-React Prot Ext Range 102.00 mg/L (0.0-3.0) H 12/26/19 16:25 B-Natriuretic Peptide 154.9 pg/mL (0-100) H 12/26/19 16:25 Total Protein 5.5 g/dL (6.4-8.2) L 12/27/19 05:00 Albumin 1.7 g/dL (3.2-5.0) L 12/27/19 05:00 Globulin 5.1 g/dL (2.2-4.2) H 12/26/19 11:50 Albumin/Globulin Ratio 0.4 RATIO (0.9-2.4) L 12/27/19 05:00 - Assessment Food / Nutrition-Related History:: Discussed in ICU rounds. Requiring pressor support to maintain blood pressure. IV fluids running for hypernatremia, hype rcholermia. Pt remains intubated. OG in place. Pressure injury to R heel. Discussed w/ Dr. Ortega- will initate trophic tube feeds today and advance as appropriate over next 24-48 hours. Wt gain of 5.2 kg since admission, likely d/t fluids- will monitor. - Nutrition Diagnosis Problem / Etiology / Signs & Symptoms (PES):: Inadequate oral intake r/t respiratory status as evidenced by no PO intake x24 hours Evidence of Malnutrition Exists:: No - Nutrition Intervention Nutrition Prescription:: [id number] calories/day, 96-116 g protein/day - Food / Nutrient Delivery Interventions Summary of nutrition intervention:: Will order trophic enteral nutrition support today and advance rate as appropriate over next 24-48 hours. Nutrition support ordered as / adjusted to:: Will initiate trophic tube feeds via OG- Vital AF 1.2 at 20mL/hour w/ 50mL flush every 4 hours to provide 576 calories, 36 g protein, 689mL fluid. Nutrition education provided?: No - MNT Monitoring Further MNT monitoring and evaluation required?: Yes MNT Follow-up in:: 1-2 days
[2019-12-27 11:51] LABS: Bedside Glucose 93 mg/dL (70-110)
[2019-12-27] MEDS: Vital AF 1.2 Cal Liquid 1,000 ML 20 ML GT (11:54)
[2019-12-27] MEDS: Acetaminophen 650 MG/20 ML UDC GT (11:54)
[2019-12-27 12:03] LABS: Pathologist Review Reviewed
--- NOTE | 2019-12-27 13:33 | CASEMGMT ---
Social Work SW placed phone call to pt Alex who states that pt has been living at [facility] in the memory care unit due to dementia. states that up until this point [facility] has been able to meet pt care needs and is hopeful that they will be able to meet needs after discharge. BABAK spoke with spouse about possible need for SNF placement at time of discharge as pt care may be greater than [facility] can provide. Spouse expressing understanding. List of area SNFs provided to and stating he will consider options. Clinical updates faxed to Brian. BABAK will continue to follow for support and d/c planning. NIXON Loza
[2019-12-27 14:21] LABS: Anion Gap 9 (5-15); BUN 43 mg/dL (7-18); BUN/Creat Ratio 27.6 RATIO (10-20); Calcium,Total 8.2 mg/dL (8.5-10.1); Chloride 127 mmol/L (98-107); Creatinine, Serum 1.56 mg/dL (0.55-1.02); EST Glomerular Filtration Rate 34 mL/min (>60); Est Glom Filt Rate - Afr Amer 41 mL/min (>60); Estimated Creatinine Clearance 27.56 ml/min; Ferritin 671 ng/mL (8-252); Glucose 146 mg/dL (74-106); Magnesium 1.9 mg/dL (1.6-2.6); Phosphorus 2.9 mg/dL (2.5-4.9); Potassium 4.6 mmol/L (3.5-5.1); Procalcitonin 40.79 ng/mL (0.00-0.09); Sodium Level 157 mmol/L (136-145)
--- NOTE | 2019-12-27 14:25 | PN_ITS ---
Patient Problems: Active and Suspected Problems Septic shock (Acute) Acute respiratory failure with hypoxia (Acute) Metabolic encephalopathy (Acute) Suspected 2019 novel coronavirus infection (Acute) Reason for Visit: septic shock Subjective: Still with fevers. Decreased FiO2. Vitals/I&O's: Vital Signs Temp Pulse Resp BP Pulse Ox 38.3 C H 139 H 29 H 114/65 98 12/27/19 11:08 12/27/19 13:25 12/27/19 13:25 12/27/19 11:08 12/27/19 13:25 Oxygen Flow Rate (L/min) 15 Oxygen Delivery Method Mechanical Ventilator Weight: 85.6 kg Body Mass Index (BMI) 28.7 Intake and Output for Last 24 Hours 12/25/19 12/26/19 12/27/19 23:59 23:59 23:59 Intake Total 4611.36 / 4669.46 3024.04 / 3024.04 Output Total 200 / 300 250 / 250 Balance 4411.36 / 4369.46 2774.04 / 2774.04 General: Alert, No apparent distress HEENT: Atraumatic, EOMI Oral: Moist Mucosa, No Gingival or Mucosal Lesions/ Ulcerations Neck: No Nodes, Trachea Midline Lungs: Normal air movement, - - coarse breath sounds anteriorly. Cardiovascular: Regular rate, Regular Rhythm, Normal S1, Normal S2, No murmurs Abdomen: Bowel Sounds Present, Soft, Non Tender, Non-Distended, No Hepato- splenomegaly Extremities: No edema, No Calf Tenderness Skin: - - improved mottling in LE Musculoskeletal: No Tenderness to Palpation of Joints or Extremities, No Muscle Wasting Neurological: Deep Tendon Reflexes 2+/4 and Symmetrical, - - no clonus Microbiology Past 72 Hours 12/26/19 17:06 Sputum, Induced/Lukens Gram Stain - Final 12/26/19 17:06 Sputum, Induced/Lukens Respiratory Culture - Preliminary Staphylococcus aureus 12/26/19 12:05 Urine, Catheterized Urine Culture - Preliminary GNR lactose chief of internal medicine 12/26/19 12:05 Urine Catheter - Aguilar Streptococcus pneumoniae Antigen (M - Final 12/26/19 12:05 Urine Catheter - Aguilar Legionella Antigen - Final 12/26/19 12:05 Mucosa - Nasopharyngeal Coronavirus COVID-19 PCR - Final 12/26/19 12:05 Mucosa - Nose Respiratory Panel (PCR) - Final Laboratory Results 12/26/19 11:50: Immature Gran % (Auto) FRANCHISE SALES REPRESENTATIVE, Neut % (Auto) FRANCHISE SALES REPRESENTATIVE, Lymph % (Auto) FRANCHISE SALES REPRESENTATIVE, Bradley % (Auto) FRANCHISE SALES REPRESENTATIVE, Eos % (Auto) FRANCHISE SALES REPRESENTATIVE, Baso % (Auto) FRANCHISE SALES REPRESENTATIVE, Absolute Neuts (auto) 9.1 H , Absolute Lymphs (auto) 2.35, Diff Path Review Reviewed 12/26/19 14:51: Specimen Type ART, Sample Site L FEMORAL, pH 7.30 L, Bicarbonate Actual 19.0 L, POC Total CO2 20, Base Excess -8 L, O2 Saturation 75 L, O2 % 100, ABG pCO2 39.0, ABG pO2 45 L, Respiration Rate 14, O2 Delivery Device Vent, Vent Mode A-C, Tidal Volume 450, POC PEEP 5, Blood Gas Notified Whom ICU , Blood Gas Notified Time 1451 12/26/19 16:25: D-Dimer Quant (PE/DVT) 13.16 H* 12/26/19 16:25: Sodium 163 H*, Potassium 2.5 L*, Chloride 129 H*, Carbon Dioxide 24.0, Anion Gap 10, BUN 35 H, Creatinine 1.18 H, Estim Creat Clear Calc 36.44, Est GFR (MDRD) Af Amer 56 L, Est GFR (MDRD) Non-Af 46 L, BUN/Creatinine Ratio 29.7 H, Glucose 122 H, Calcium 8.0 L, Lactate Dehydrogenase 189, Total Creatine Kinase 117, Troponin I 0.146 H, C-React Prot Ext Range 102.00 H 12/26/19 16:25: B-Natriuretic Peptide 154.9 H 12/26/19 16:25: APTT 29.4, Fibrinogen 549 H 12/26/19 16:25: Triglycerides 105 12/26/19 16:25: Lactic Acid 5.3 H* 12/26/19 16:40: MRSA (PCR) Negative 12/26/19 17:53: POC Glucose 122 H 12/26/19 18:10: Troponin I 0.199 H 12/26/19 21:40: Troponin I 0.175 H 12/26/19 21:40: Potassium 2.5 L*, Magnesium 2.0 12/26/19 23:42: POC Glucose 72 12/26/19 23:55: APTT 99.6 H* 12/27/19 05:00: Sodium 157 H, Potassium 4.9, Chloride 126 H, Carbon Dioxide 21.0, Anion Gap 10, BUN 39 H, Creatinine 1.53 H, Estim Creat Clear Calc 28.10, Est GFR (MDRD) Af Amer 42 L, Est GFR (MDRD) Non-Af 34 L, BUN/Creatinine Ratio 25.5 H, Glucose 138 H, Calcium 8.2 L, Total Bilirubin 0.70, AST 39 H, ALT 60 H, Alkaline Phosphatase 106, Total Protein 5.5 L, Albumin 1.7 L, Globulin 3.8, Albumin/Globulin Ratio 0.4 L, TSH 0.74 12/27/19 05:00: Urine Creatinine 204.00 12/27/19 05:00: Urine Urea Nitrogen 447 12/27/19 05:07: POC Glucose 106 12/27/19 05:55: WBC 27.3 H, RBC 4.89, Hgb 15.0, Hct 48.9 H, MCV 100.0 H D, MCH 30.7, MCHC 30.7 L D, RDW Std Deviation 48.6 H, RDW Coeff of Papo 13.2, Plt Count 355, MPV 11.3, Neut % (Auto) Not Reportable, Absolute Neuts (auto) 18.3 H, Absolute Lymphs (auto) 2.19, Total Counted 100, Neutrophils % (Manual) 17 L, Band Neutrophils % 50 H, Lymphocytes % (Manual) 8 L, Monocytes % (Manual) 3, Metamyelocytes % 20 H, Myelocytes % 2 H, Diff Path Review May foll, Dohle Bodies RARE, Platelet Estimate ADEQUATE, RBC Morphology NORM C+C 12/27/19 07:40: APTT 85.8 H 12/27/19 11:46: POC Glucose 93 12/27/19 13:45: Sodium 157 H, Potassium 4.6, Chloride 127 H*, Carbon Dioxide 21.0, Anion Gap 9, BUN 43 H, Creatinine 1.56 H, Estim Creat Clear Calc 27.56, Est GFR (MDRD) Af Amer 41 L, Est GFR (MDRD) Non-Af 34 L, BUN/Creatinine Ratio 27.6 H, Glucose 146 H, Calcium 8.2 L, Phosphorus 2.9, Magnesium 1.9, Ferritin 671 H 12/27/19 13:45: Procalcitonin 40.79 H 12/27/19 13:45: SARS-CoV-2 IgG Ab Pending, SARS-CoV-2 IgM Ab Pending Current Medications Acetaminophen (Tylenol Liquid) 650 mg GT Q6H PRN PRN PRN Reason: FEVER Last Admin: 12/27/19 11:54 Dose: 650 mg Documented by: Albuterol Sulfate (Ventolin Aerosols) 2.5 mg INHALATION Q2H PRN PRN PRN Reason: SOB/Wheezing Chlorhexidine Gluconate () 15 ml PO BID CHERELLE Last Admin: 12/27/19 08:20 Dose: 15 ml Documented by: Dextrose (D50w Syringe) 0 gm IV X1 PRN; Protocol PRN Reason: Hypoglycemia Glucagon () 1 mg IM .X1 PRN PRN Reason: Hypoglycemia Heparin Sodium (Porcine) (Heparin Na) 0 unit IV UD PRN; Protocol Piperacillin Sod/Tazobactam (Sod 3.375 gm/ Sodium Chloride) 50 mls @ 12.5 mls/hr IV 0200,1000,1800 [facility] Last Infusion: 12/27/19 11:08 Dose: 12.5 mls/hr Documented by: Vancomycin IV Pharmacy to Dose (1 ea/ Sodium Chloride) 500 mls @ 250 mls/hr IV X1 PRN; Protocol PRN Reason: Rx to Dose Propofol (Diprivan) 1,000 mg in 100 mls @ 4.824 mls/hr CONT INF .Q12H CHERELLE; Protocol Last Admin: 12/27/19 01:57 Dose: Not Given Documented by: Heparin Sodium/Dextrose () 25,000 units in 250 mls @ 11 mls/hr IV .[id number] [facility]; Protocol Last Titration: 12/27/19 11:08 Dose: 800 units/hr, 8 mls/hr Documented by: Norepinephrine Bitartrate 8 mg (/ Sodium Chloride) 250 mls @ 9.375 mls/hr CONT INF .[id number] CHERELLE; Protocol Last Titration: 12/27/19 11:08 Dose: 10 mcg/min, 18.8 mls/hr Documented by: Sodium Chloride () 250 mls @ 15 mls/hr IV .[id number] PRN PRN Reason: Saline Flush Sodium Chloride () 250 mls @ 15 mls/hr IV .[id number] PRN PRN Reason: Additional IVPB Infusion Vancomycin HCl (Vancomycin) 1,000 mg in 200 mls @ 200 mls/hr IV Q24H CHERELLE Pantoprazole Sodium 40 mg/ (Sodium Chloride) 110 mls @ 330 mls/hr IV Q12 CHERELLE Last Infusion: 12/27/19 09:48 Dose: Infused Documented by: Dextrose () 1,000 mls @ 50 mls/hr IV .Q20H CHERELLE Last Infusion: 12/27/19 11:08 Dose: 50 mls/hr Documented by: Enteral Nutritional Formula (Vital Af 1.2 Casa Liquid) 1,000 mls @ 20 mls/hr GT .Q48H CHERELLE Last Admin: 12/27/19 11:54 Dose: 20 mls/hr Documented by: Insulin Human Lispro (Humalog Kwikpen (Bkc)) 0 unit SC Q6 [facility]; Protocol Last Admin: 12/27/19 11:53 Dose: Not Given Documented by: Levothyroxine Sodium (Synthroid) 25 mcg GT DAILY [facility] Last Admin: 12/27/19 08:20 Dose: 25 mcg Documented by: Polyethylene Glycol (Miralax) 17 gm PO DAILY PRN PRN PRN Reason: Constipation Sodium Chloride () 10 - 40 ml IV UD PRN PRN Reason: SALINE FLUSH STROKE Vital Signs/Narrative: Vital Signs Temp Pulse Resp BP Pulse Ox 12/27/19 13:25 139 H 29 H 98 12/27/19 11:55 143 H 27 H 93 12/27/19 11:08 38.3 C H 128 H 25 H 114/65 93 Medical Necessity - Tobacco Use Smoking Status: Unknown if ever smoked Tobacco Use: Non-smoker Assessment/Plan All Active Problems Septic shock (Acute) Acute respiratory failure with hypoxia (Acute) Metabolic encephalopathy (Acute) Suspected 2018 novel coronavirus infection (Acute) Community acquired pneumonia (Acute) Atrial fibrillation with rapid ventricular response (Acute) 1. Septic shock: * Source: COVID v UTI v Pneumonia v other * UA showed minimal finding. UCx [id number] k GNR * SCx shows S. aureus * Lactic acid was elevated at 5.7. Granted it could be skewed given the patient's profound hypoxia. * We will treat supportively with antibiotics with Pipracil and/tazobactam and vancomycin. * Follow-up cultures. * Concern for that the patient is coming [facility] that this could be COVID-19. COVID negative x1. Given the low sensitivity, would recheck it if it does come back negative. Will defer to ID if isolation can be dc'd 2. Acute hypoxic respiratory failure: * Suspect related with pneumonia versus COVID-19. * D-dimer 13. On heparin gtt * consider further testing when more stable. 3. Suspected COVID-19: As above. Continue to treat with antibiotics. Infectious disease consultation. 4. Elevated troponin: * Likely due to demand ischemia given the underlying shock and respiratory failure. * peak troponin at 0.199. Monitor. 5. Atrial fibrillation with RVR: improved. Secondary to above. Would hold off on medication at this time to slow her heart rate down. 6. Hypokalemia:improved after replacement. hyperkalemia initially present was lab error. 7. Acute kidney injury: * FEUrea 7.5, consistent with prerenal azotemia. * Patient did receive IV fluids. Given the concern for COVID-19 would use cautious hydration. 8. Hypernatremia: Likely related to dehydration. improved. 9. VTE prophylaxis: Low risk at this time as patient is going to be anticoagulated with heparin drip. 10. Advanced care planning: Patient is full CODE STATUS. Discussed with the patient's at bedside. Discussed that if she would require pressor medications, that she would require central line. He was in agreement with the procedure if necessary after discussing risks and benefits. Inpatient E&M: [id number] [id number]
[2019-12-27] MEDS: HEPARIN/D5w 25,000 UNITS 25,000 UNITS/250 ML IV.SOLN. 8 UNITS IV (15:16)
[2019-12-27] MEDS: Vancomycin IV 1,000 MG/200 ML BAG 200 MG IV (16:02)
--- NOTE | 2019-12-27 16:02 | PCM.HP.ID ---
Problem List (1) Septic shock Status: Acute Reason for Consult: septic shock Consulted by: Dr. Garcia History of Present Illness: The patient is a 84 year old F with several weeks of not feeling well, presented to the ED with acute worsening and severe hypoxia. Admitted on vent, pressors, vanc/zosyn. Initial covid neg. MRSA pcr screen neg, sputum with staph aureus, Ucx with GNR. Started on hep gtt. ROS unobtainable due to intubation - Medical History Past Medical History (Chronic Problems): Chronic Problems Essential hypertension (Chronic) Paroxysmal atrial fibrillation (Chronic) Schizophrenia (Chronic) Hypothyroidism (Chronic) Bipolar disorder (Chronic) Dementia (Chronic) Abnormal electrocardiogram [ECG] [EKG] (Chronic) Allergies/Adverse Reactions: Allergies No Known Allergies Allergy (Verified 12/26/19 11:44) Home Medications: Ambulatory Orders Medication Instructions Recorded Furosemide [Lasix] 20 mg PO DAILY 06/08/17 Haloperidol Decanoate [Haldol 0.8 ml IM Q14D 06/08/17 Decanoate 50] Lorazepam [Ativan] 0.5 mg PO QHS 06/08/17 Bisacodyl [Dulcolax] 10 mg RECTAL DAILY PRN PRN #30 06/10/17 suppos. Benztropine Mesylate 0.5 mg PO DAILY 12/26/19 Clonidine HCl [Catapres] 0.1 mg PO BID 12/26/19 Divalproex Sprinkles [Depakote 250 mg PO BID 12/26/19 Sprinkles] Haloperidol Lactate 1 mg PO DAILY 12/26/19 Levothyroxine Sodium [Synthroid] 200 mcg PO DAILY 12/26/19 Lorazepam [Ativan] 0.25 mg PO DAILY 12/26/19 Magnesium Hydroxide [Milk of 30 ml PO DAILY PRN PRN 12/26/19 Magnesia] Melatonin 6 mg PO QHS 12/26/19 Metoprolol Succinate [Toprol Xl] 25 mg PO DAILY 12/26/19 Polyethylene Glycol 3350 [Miralax] 17 gm PO DAILY 12/26/19 Potassium Chloride 10 meq PO DAILY 12/26/19 Sodium Phosphate,[place]-Dibasic 133 ml OK PRN PRN 12/26/19 [Enema Ready To Use] Spironolactone [Aldactone] 25 mg PO DAILY 12/26/19 - Social History SMOKING STATUS:: Unknow if ever smoked Vital Signs Temp Pulse Resp BP Pulse Ox 101.5 F H 112 H 28 H 118/36 L 99 12/27/19 15:05 12/27/19 15:11 12/27/19 15:11 12/27/19 15:05 12/27/19 15:11 Oxygen Flow Rate (L/min) 15 Oxygen Delivery Method Mechanical Ventilator Weight: 85.6 kg Body Mass Index (BMI) 28.7 Microbiology Past 72 Hours 12/26/19 17:06 Gram Stain - Final Sputum, Induced/Lukens Respiratory Culture - Preliminary Staphylococcus aureus 12/26/19 12:05 Urine Culture - Preliminary Urine, Catheterized 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 12/26/19 12:05 Streptococcus pneumoniae Antigen (M - Final Urine Catheter - Aguilar 12/26/19 12:05 Legionella Antigen - Final Urine Catheter - Aguilar 12/26/19 12:05 Coronavirus COVID-19 PCR - Final Mucosa - Nasopharyngeal 12/26/19 12:05 Respiratory Panel (PCR) - Final Mucosa - Nose Laboratory Tests Past 24 Hrs 12/26/19 12/26/19 12/26/19 11:50 16:25 16:25 WBC RBC Hgb Hct MCV MCH MCHC RDW Std Deviation RDW Coeff of Papo Plt Count MPV Neut % (Auto) Absolute Neuts (auto) Absolute Lymphs (auto) Total Counted Neutrophils % (Manual) Band Neutrophils % Lymphocytes % (Manual) Monocytes % (Manual) Metamyelocytes % Myelocytes % Diff Path Review Reviewed Dohle Bodies Platelet Estimate RBC Morphology APTT Fibrinogen D-Dimer Quant (PE/DVT) 13.16 H* Sodium 163 H* Potassium 2.5 L* Chloride 129 H* Carbon Dioxide 24.0 Anion Gap 10 BUN 35 H Creatinine 1.18 H Estim Creat Clear Calc 36.44 Est GFR (MDRD) Af Amer 56 L Est GFR (MDRD) Non-Af 46 L BUN/Creatinine Ratio 29.7 H Glucose 122 H Lactic Acid Calcium 8.0 L Phosphorus Magnesium Ferritin Total Bilirubin AST ALT Alkaline Phosphatase Lactate Dehydrogenase 189 Total Creatine Kinase 117 Troponin I 0.146 H C-React Prot Ext Range 102.00 H B-Natriuretic Peptide Total Protein Albumin Globulin Albumin/Globulin Ratio Triglycerides Procalcitonin TSH Urine Creatinine Urine Urea Nitrogen COVID-19 (GIOVANNY) SARS-CoV-2 IgG Ab SARS-CoV-2 IgM Ab MRSA (PCR) 12/26/19 12/26/19 12/26/19 16:25 16:25 16:25 WBC RBC Hgb Hct MCV MCH MCHC RDW Std Deviation RDW Coeff of Papo Plt Count MPV Neut % (Auto) Absolute Neuts (auto) Absolute Lymphs (auto) Total Counted Neutrophils % (Manual) Band Neutrophils % Lymphocytes % (Manual) Monocytes % (Manual) Metamyelocytes % Myelocytes % Diff Path Review Dohle Bodies Platelet Estimate RBC Morphology APTT 29.4 Fibrinogen 549 H D-Dimer Quant (PE/DVT) Sodium Potassium Chloride Carbon Dioxide Anion Gap BUN Creatinine Estim Creat Clear Calc Est GFR (MDRD) Af Amer Est GFR (MDRD) Non-Af BUN/Creatinine Ratio Glucose Lactic Acid Calcium Phosphorus Magnesium Ferritin Total Bilirubin AST ALT Alkaline Phosphatase Lactate Dehydrogenase Total Creatine Kinase Troponin I C-React Prot Ext Range B-Natriuretic Peptide 154.9 H Total Protein Albumin Globulin Albumin/Globulin Ratio Triglycerides 105 Procalcitonin TSH Urine Creatinine Urine Urea Nitrogen COVID-19 (GIOVANNY) SARS-CoV-2 IgG Ab SARS-CoV-2 IgM Ab MRSA (PCR) 12/26/19 12/26/19 12/26/19 16:25 16:40 18:10 WBC RBC Hgb Hct MCV MCH MCHC RDW Std Deviation RDW Coeff of Papo Plt Count MPV Neut % (Auto) Absolute Neuts (auto) Absolute Lymphs (auto) Total Counted Neutrophils % (Manual) Band Neutrophils % Lymphocytes % (Manual) Monocytes % (Manual) Metamyelocytes % Myelocytes % Diff Path Review Dohle Bodies Platelet Estimate RBC Morphology APTT Fibrinogen D-Dimer Quant (PE/DVT) Sodium Potassium Chloride Carbon Dioxide Anion Gap BUN Creatinine Estim Creat Clear Calc Est GFR (MDRD) Af Amer Est GFR (MDRD) Non-Af BUN/Creatinine Ratio Glucose Lactic Acid 5.3 H* Calcium Phosphorus Magnesium Ferritin Total Bilirubin AST ALT Alkaline Phosphatase Lactate Dehydrogenase Total Creatine Kinase Troponin I 0.199 H C-React Prot Ext Range B-Natriuretic Peptide Total Protein Albumin Globulin Albumin/Globulin Ratio Triglycerides Procalcitonin TSH Urine Creatinine Urine Urea Nitrogen COVID-19 (GIOVANNY) SARS-CoV-2 IgG Ab SARS-CoV-2 IgM Ab MRSA (PCR) Negative 12/26/19 12/26/19 12/26/19 21:40 21:40 23:55 WBC RBC Hgb Hct MCV MCH MCHC RDW Std Deviation RDW Coeff of Papo Plt Count MPV Neut % (Auto) Absolute Neuts (auto) Absolute Lymphs (auto) Total Counted Neutrophils % (Manual) Band Neutrophils % Lymphocytes % (Manual) Monocytes % (Manual) Metamyelocytes % Myelocytes % Diff Path Review Dohle Bodies Platelet Estimate RBC Morphology APTT 99.6 H* Fibrinogen D-Dimer Quant (PE/DVT) Sodium Potassium 2.5 L* Chloride Carbon Dioxide Anion Gap BUN Creatinine Estim Creat Clear Calc Est GFR (MDRD) Af Amer Est GFR (MDRD) Non-Af BUN/Creatinine Ratio Glucose Lactic Acid Calcium Phosphorus Magnesium 2.0 Ferritin Total Bilirubin AST ALT Alkaline Phosphatase Lactate Dehydrogenase Total Creatine Kinase Troponin I 0.175 H C-React Prot Ext Range B-Natriuretic Peptide Total Protein Albumin Globulin Albumin/Globulin Ratio Triglycerides Procalcitonin TSH Urine Creatinine Urine Urea Nitrogen COVID-19 (GIOVANNY) SARS-CoV-2 IgG Ab SARS-CoV-2 IgM Ab MRSA (PCR) 12/27/19 12/27/19 12/27/19 05:00 05:00 05:00 WBC RBC Hgb Hct MCV MCH MCHC RDW Std Deviation RDW Coeff of Papo Plt Count MPV Neut % (Auto) Absolute Neuts (auto) Absolute Lymphs (auto) Total Counted Neutrophils % (Manual) Band Neutrophils % Lymphocytes % (Manual) Monocytes % (Manual) Metamyelocytes % Myelocytes % Diff Path Review Dohle Bodies Platelet Estimate RBC Morphology APTT Fibrinogen D-Dimer Quant (PE/DVT) Sodium 157 H Potassium 4.9 Chloride 126 H Carbon Dioxide 21.0 Anion Gap 10 BUN 39 H Creatinine 1.53 H Estim Creat Clear Calc 28.10 Est GFR (MDRD) Af Amer 42 L Est GFR (MDRD) Non-Af 34 L BUN/Creatinine Ratio 25.5 H Glucose 138 H Lactic Acid Calcium 8.2 L Phosphorus Magnesium Ferritin Total Bilirubin 0.70 AST 39 H ALT 60 H Alkaline Phosphatase 106 Lactate Dehydrogenase Total Creatine Kinase Troponin I C-React Prot Ext Range B-Natriuretic Peptide Total Protein 5.5 L Albumin 1.7 L Globulin 3.8 Albumin/Globulin Ratio 0.4 L Triglycerides Procalcitonin TSH 0.74 Urine Creatinine 204.00 Urine Urea Nitrogen 447 COVID-19 (GIOVANNY) SARS-CoV-2 IgG Ab SARS-CoV-2 IgM Ab MRSA (PCR) 05/27/20 05/27/20 05/27/20 05:55 07:40 13:45 WBC 27.3 H RBC 4.89 Hgb 15.0 Hct 48.9 H MCV 100.0 H D MCH 30.7 MCHC 30.7 L D RDW Std Deviation 48.6 H RDW Coeff of Papo 13.2 Plt Count 355 MPV 11.3 Neut % (Auto) Not Reportable Absolute Neuts (auto) 18.3 H Absolute Lymphs (auto) 2.19 Total Counted 100 Neutrophils % (Manual) 17 L Band Neutrophils % 50 H Lymphocytes % (Manual) 8 L Monocytes % (Manual) 3 Metamyelocytes % 20 H Myelocytes % 2 H Diff Path Review May foll Dohle Bodies RARE Platelet Estimate ADEQUATE RBC Morphology NORM C+C APTT 85.8 H Fibrinogen D-Dimer Quant (PE/DVT) Sodium 157 H Potassium 4.6 Chloride 127 H* Carbon Dioxide 21.0 Anion Gap 9 BUN 43 H Creatinine 1.56 H Estim Creat Clear Calc 27.56 Est GFR (MDRD) Af Amer 41 L Est GFR (MDRD) Non-Af 34 L BUN/Creatinine Ratio 27.6 H Glucose 146 H Lactic Acid Calcium 8.2 L Phosphorus 2.9 Magnesium 1.9 Ferritin 671 H Total Bilirubin AST ALT Alkaline Phosphatase Lactate Dehydrogenase Total Creatine Kinase Troponin I C-React Prot Ext Range B-Natriuretic Peptide Total Protein Albumin Globulin Albumin/Globulin Ratio Triglycerides Procalcitonin TSH Urine Creatinine Urine Urea Nitrogen COVID-19 (GIOVANNY) SARS-CoV-2 IgG Ab SARS-CoV-2 IgM Ab MRSA (PCR) 12/27/19 12/27/19 12/27/19 13:45 13:45 15:03 WBC RBC Hgb Hct MCV MCH MCHC RDW Std Deviation RDW Coeff of Papo Plt Count MPV Neut % (Auto) Absolute Neuts (auto) Absolute Lymphs (auto) Total Counted Neutrophils % (Manual) Band Neutrophils % Lymphocytes % (Manual) Monocytes % (Manual) Metamyelocytes % Myelocytes % Diff Path Review Dohle Bodies Platelet Estimate RBC Morphology APTT Fibrinogen D-Dimer Quant (PE/DVT) Sodium Potassium Chloride Carbon Dioxide Anion Gap BUN Creatinine Estim Creat Clear Calc Est GFR (MDRD) Af Amer Est GFR (MDRD) Non-Af BUN/Creatinine Ratio Glucose Lactic Acid Calcium Phosphorus Magnesium Ferritin Total Bilirubin AST ALT Alkaline Phosphatase Lactate Dehydrogenase Total Creatine Kinase Troponin I C-React Prot Ext Range B-Natriuretic Peptide Total Protein Albumin Globulin Albumin/Globulin Ratio Triglycerides Procalcitonin 40.79 H TSH Urine Creatinine Urine Urea Nitrogen COVID-19 (GIOVANNY) Pending SARS-CoV-2 IgG Ab Pending SARS-CoV-2 IgM Ab Pending MRSA (PCR) - Other Studies Radiology: [] reviewed Other Studies: [] Route of nutrition/ use of supplements: [] Nutritional Intake: [] IV Site: [] Aguilar Catheter: [] - Physical Exam General: Non-Cooperative HEENT: Atraumatic, PERRLA Neck: Supple, No Nodes Lungs: Diminished, Tachypneic Cardiovascular: Tachycardic Abdomen: Soft, Non Tender, Non-Distended Extremities: No edema Skin: - - Some upper LUE erythema IV Site: Central Line, without redness Musculoskeletal: No Tenderness to Palpation of Joints or Extremities - Assessment/Plan Antibiotics: [] Assessment/Plan: [] Active and Suspected Problems Septic shock (Acute) Acute respiratory failure with hypoxia (Acute) Metabolic encephalopathy (Acute) Suspected 2019 novel coronavirus infection (Acute) septic shock, elevated d-dimer, acute hypoxic resp failure - fever to 101.7 here. On pressors, hep gtt. Sputum with staph aureus, ucx with GNR. Initial covid neg. Will check endobronchial sample and serology. Cont vanc/zosyn. Will follow, thank you, d/w Dr. Garcia and Dr. Ortega.
[2019-12-27 17:04] LABS: Partial Thromboplast Time 60.6 Seconds (24.1-36.2)
[2019-12-27 17:25] LABS: Bedside Glucose 134 mg/dL (70-110)
[2019-12-28] VITALS (55 sets, daily range): BP systolic 78–163; BP diastolic 45–91; PULSE 96–161; RESP 14–29; TEMP 37.1–37.9; O2SAT 91–97; BMI 29.2
[2019-12-28 00:51] LABS: Bedside Glucose 136 mg/dL (70-110)
[2019-12-28 00:54] LABS: Partial Thromboplast Time 72.6 Seconds (24.1-36.2)
[2019-12-28] MEDS: 0.9% Saline Lock 10 ML Syringe IV (04:56)
[2019-12-28 05:05] LABS: Hematocrit 38.4 % (37-47); Hemoglobin 12.1 g/dL (12.0-15.0); Mean Corp Hgb Conc 31.5 g/dL (32-36); Mean Corpuscular Hgb 30.9 pg (27.0-32.0); Mean Platelet Vol. 11.1 fl (6.2-12.0); POSITIVE COUNT YES; POSITIVE DIFFERENTIAL YES; POSITIVE MORPHOLOGY YES; Platelet Count 268 K/mm3 (150-450); RBC Distribution Width CV 13.4 % (11.6-14.6); RBC Distribution Width SD 48.7 fl (35.1-43.9); Red Blood Count 3.92 M/mm3 (4.2-5.4); White Blood Count 29.1 K/mm3 (4.4-11.0)
[2019-12-28 05:14] LABS: Differential Indicated MANUAL DIFF
[2019-12-28 05:17] LABS: Anion Gap 8 (5-15); BUN 35 mg/dL (7-18); BUN/Creat Ratio 31.8 RATIO (10-20); Calcium,Total 7.4 mg/dL (8.5-10.1); Chloride 120 mmol/L (98-107); EST Glomerular Filtration Rate 50 mL/min (>60); Est Glom Filt Rate - Afr Amer 61 mL/min (>60); Estimated Creatinine Clearance 39.09 ml/min; Glucose 142 mg/dL (74-106); Magnesium 1.8 mg/dL (1.6-2.6); Phosphorus 1.9 mg/dL (2.5-4.9); Sodium Level 151 mmol/L (136-145)
[2019-12-28 05:27] LABS: Partial Thromboplast Time 74.6 Seconds (24.1-36.2)
[2019-12-28 05:36] LABS: Bedside Glucose 125 mg/dL (70-110)
[2019-12-28] MEDS: CHLORHEXIDINE GLUC 2% CLOTH 1 EACH TOWELETTE TOPICAL (05:55)
[2019-12-28 06:40] LABS: Lymphocyte 9 % (19-41); Monocyte 5 % (0-10); Neutrophil-Band 7 % (0-5); Neutrophil-Segmented 79 % (47-70); Total Cells Counted 100 (MANUAL DIFF)
[2019-12-28 06:41] LABS: Absolute Lymphocyte Count 2.62 X10^3/uL (0.83-4.51); Lymphocyte # 2.62 X10^3/ul (4.0); Platelet Estimate ADEQUATE (ADEQ); Red Cell Morphology NORM C+C NORMAL (NORM C&C)
[2019-12-28 06:42] LABS: Neutrophil # 25.03 X10^3/uL (2.7-7.7)
--- NOTE | 2019-12-28 07:50 | PN_ITS ---
Subjective: Patient did okay overnight. Patient remains on minimal Levophed to maintain appropriate saturations. Patient's mottling has improved, but she still is not following commands or opening her eyes. Nursing does report some spontaneous foot movement. Patient is also had periods of tachycardia with heart rates up into the 150s. General: - - Intubated. No sedation required. Good ventilator synchrony. HEENT: Atraumatic, PERRLA, EOMI, Normocephalic, - - No scleral icterus or injection noted. Will fight to keep eyes closed, but not following commands. Oral: Moist Mucosa, No Gingival or Mucosal Lesions/ Ulcerations Neck: Supple, No JVD, No Nodes, Trachea Midline Lungs: No wheeze, No rales, Rhonchi - Bilateral, - - Symmetric expansion Cardiovascular: Normal S1, No murmurs, Irregular Rate, No rub noted, No Gallop, Tachycardic Abdomen: Bowel Sounds Present, Soft, Non Tender, Non-Distended Extremities: No clubbing, No cyanosis, Edema, - - Still with minor mottling of the left upper extremities. Skin: - - Some ecchymotic areas noted. Right heel currently dressed, so not evaluated Musculoskeletal: No Tenderness to Palpation of Joints or Extremities Lymphatic: No Cervical, Supraclavicular, or Inguinal Adenopathy Neurological: - - Patient not following commands. Does localize to stimuli. Some spontaneous foot movement noted. Will actively resist eye opening. Psych/Mental Status: Flat Affect Vital Signs Temp Pulse Resp BP Pulse Ox 37.3 C 125 H 24 H 117/76 96 12/28/19 07:00 12/28/19 07:00 12/28/19 07:00 12/28/19 07:00 12/28/19 07:00 Oxygen Flow Rate (L/min) 15 Oxygen Delivery Method Mechanical Ventilator Weight: 87.4 kg Body Mass Index (BMI) 28.7 Intake and Output for Last 24 Hours 12/26/19 12/27/19 12/28/19 23:59 23:59 23:59 Intake Total 4611.36 / 4669.46 4524.04 / 5098.04 1095.55 / 1095.55 Output Total 200 / 300 625 / 800 325 / 325 Balance 4411.36 / 4369.46 3899.04 / 4298.04 770.55 / 770.55 Labs (Last 48 Hours) 12/26/19 12/26/19 12/26/19 11:50 11:50 11:50 WBC 13.8 H RBC 5.67 H Hgb 17.0 H Hct 59.9 H MCV 105.6 H MCH 30.0 MCHC 28.4 L RDW Std Deviation 53.0 H RDW Coeff of Papo 13.5 Plt Count 440 MPV 11.5 Immature Gran % (Auto) ADMIN DIR Neut % (Auto) ADMIN DIR Lymph % (Auto) ADMIN DIR [place] % (Auto) ADMIN DIR Eos % (Auto) ADMIN DIR Baso % (Auto) ADMIN DIR Absolute Neuts (auto) 9.1 H Absolute Lymphs (auto) 2.35 Total Counted 100 Neutrophils % (Manual) 20 L Band Neutrophils % 46 H Lymphocytes % (Manual) 17 L Monocytes % (Manual) 17 H Metamyelocytes % Myelocytes % Nucleated RBC % 0.1 Diff Path Review Reviewed Reactive Lymphocytes 1+ Dohle Bodies Platelet Estimate ADEQUATE RBC Morphology NORM C+C PT Cancelled INR Cancelled APTT Cancelled Fibrinogen D-Dimer Quant (PE/DVT) Specimen Type Sample Site pH Bicarbonate Actual POC Total CO2 Base Excess O2 Saturation O2 % ABG pCO2 ABG pO2 Respiration Rate O2 Delivery Device Vent Mode Tidal Volume POC PEEP Blood Gas Notified Whom Blood Gas Notified Time Sodium 158 H Potassium 6.0 H* Chloride 119 H Carbon Dioxide 29.0 Anion Gap 10 BUN 41 H Creatinine 1.57 H Estim Creat Clear Calc 27.39 Est GFR (MDRD) Af Amer 40 L Est GFR (MDRD) Non-Af 33 L BUN/Creatinine Ratio 26.1 H Glucose 213 H Lactic Acid Calcium 9.4 Phosphorus Magnesium Ferritin Total Bilirubin 0.50 AST 56 H ALT 90 H Alkaline Phosphatase 149 H Lactate Dehydrogenase Total Creatine Kinase Troponin I 0.081 H C-React Prot Ext Range B-Natriuretic Peptide Total Protein 7.8 Albumin 2.7 L Globulin 5.1 H Albumin/Globulin Ratio 0.5 L Triglycerides Procalcitonin TSH Urine Color Urine Clarity Urine pH Ur Specific [place] Urine Protein Urine Glucose (UA) Urine Ketones Urine Occult Blood Urine Nitrite Urine Bilirubin Urine Urobilinogen Ur Leukocyte Esterase Urine RBC Urine WBC Ur Squamous Epith Cells Urine Bacteria Hyaline Casts Urine Mucus Urine Creatinine Urine Urea Nitrogen COVID-19 (GIOVANNY) SARS-CoV-2 IgG Ab SARS-CoV-2 IgM Ab MRSA (PCR) POC Glucose 12/26/19 12/26/19 12/26/19 11:50 12:05 12:55 WBC RBC Hgb Hct MCV MCH MCHC RDW Std Deviation RDW Coeff of Papo Plt Count MPV Immature Gran % (Auto) Neut % (Auto) Lymph % (Auto) [place] % (Auto) Eos % (Auto) Baso % (Auto) Absolute Neuts (auto) Absolute Lymphs (auto) Total Counted Neutrophils % (Manual) Band Neutrophils % Lymphocytes % (Manual) Monocytes % (Manual) Metamyelocytes % Myelocytes % Nucleated RBC % Diff Path Review Reactive Lymphocytes Dohle Bodies Platelet Estimate RBC Morphology PT 22.4 H INR 2.0 APTT 32.1 Fibrinogen D-Dimer Quant (PE/DVT) Specimen Type Sample Site pH Bicarbonate Actual POC Total CO2 Base Excess O2 Saturation O2 % ABG pCO2 ABG pO2 Respiration Rate O2 Delivery Device Vent Mode Tidal Volume POC PEEP Blood Gas Notified Whom Blood Gas Notified Time Sodium Potassium Chloride Carbon Dioxide Anion Gap BUN Creatinine Estim Creat Clear Calc Est GFR (MDRD) Af Amer Est GFR (MDRD) Non-Af BUN/Creatinine Ratio Glucose Lactic Acid 5.7 H* Calcium Phosphorus Magnesium Ferritin Total Bilirubin AST ALT Alkaline Phosphatase Lactate Dehydrogenase Total Creatine Kinase Troponin I C-React Prot Ext Range B-Natriuretic Peptide Total Protein Albumin Globulin Albumin/Globulin Ratio Triglycerides Procalcitonin TSH Urine Color Yellow Urine Clarity Clear Urine pH 5.0 Ur Specific [place] 1.025 Urine Protein 30 H Urine Glucose (UA) Normal Urine Ketones 15 H Urine Occult Blood 50 H Urine Nitrite Positive H Urine Bilirubin 1 H Urine Urobilinogen 4 H Ur Leukocyte Esterase 25 H Urine RBC 0-5 SEEN Urine WBC 0-5 SEEN Ur Squamous Epith Cells 0-5 SEEN Urine Bacteria 3+ Hyaline Casts 5-10 SEEN Urine Mucus 0 SEEN Urine Creatinine Urine Urea Nitrogen COVID-19 (GIOVANNY) SARS-CoV-2 IgG Ab SARS-CoV-2 IgM Ab MRSA (PCR) POC Glucose 12/26/19 12/26/19 12/26/19 14:51 16:25 16:25 WBC RBC Hgb Hct MCV MCH MCHC RDW Std Deviation RDW Coeff of Papo Plt Count MPV Immature Gran % (Auto) Neut % (Auto) Lymph % (Auto) [place] % (Auto) Eos % (Auto) Baso % (Auto) Absolute Neuts (auto) Absolute Lymphs (auto) Total Counted Neutrophils % (Manual) Band Neutrophils % Lymphocytes % (Manual) Monocytes % (Manual) Metamyelocytes % Myelocytes % Nucleated RBC % Diff Path Review Reactive Lymphocytes Dohle Bodies Platelet Estimate RBC Morphology PT INR APTT Fibrinogen D-Dimer Quant (PE/DVT) 13.16 H* Specimen Type ART Sample Site L FEMORAL pH 7.30 L Bicarbonate Actual 19.0 L POC Total CO2 20 Base Excess -8 L O2 Saturation 75 L O2 % 100 ABG pCO2 39.0 ABG pO2 45 L Respiration Rate 14 O2 Delivery Device Vent Vent Mode A-C Tidal Volume 450 POC PEEP 5 Blood Gas Notified Whom ICU Blood Gas Notified Time 1451 Sodium 163 H* Potassium 2.5 L* Chloride 129 H* Carbon Dioxide 24.0 Anion Gap 10 BUN 35 H Creatinine 1.18 H Estim Creat Clear Calc 36.44 Est GFR (MDRD) Af Amer 56 L Est GFR (MDRD) Non-Af 46 L BUN/Creatinine Ratio 29.7 H Glucose 122 H Lactic Acid Calcium 8.0 L Phosphorus Magnesium Ferritin Total Bilirubin AST ALT Alkaline Phosphatase Lactate Dehydrogenase 189 Total Creatine Kinase 117 Troponin I 0.146 H C-React Prot Ext Range 102.00 H B-Natriuretic Peptide Total Protein Albumin Globulin Albumin/Globulin Ratio Triglycerides Procalcitonin TSH Urine Color Urine Clarity Urine pH Ur Specific [place] Urine Protein Urine Glucose (UA) Urine Ketones Urine Occult Blood Urine Nitrite Urine Bilirubin Urine Urobilinogen Ur Leukocyte Esterase Urine RBC Urine WBC Ur Squamous Epith Cells Urine Bacteria Hyaline Casts Urine Mucus Urine Creatinine Urine Urea Nitrogen COVID-19 (GIOVANNY) SARS-CoV-2 IgG Ab SARS-CoV-2 IgM Ab MRSA (PCR) POC Glucose 12/26/19 12/26/19 12/26/19 16:25 16:25 16:25 WBC RBC Hgb Hct MCV MCH MCHC RDW Std Deviation RDW Coeff of Papo Plt Count MPV Immature Gran % (Auto) Neut % (Auto) Lymph % (Auto) [place] % (Auto) Eos % (Auto) Baso % (Auto) Absolute Neuts (auto) Absolute Lymphs (auto) Total Counted Neutrophils % (Manual) Band Neutrophils % Lymphocytes % (Manual) Monocytes % (Manual) Metamyelocytes % Myelocytes % Nucleated RBC % Diff Path Review Reactive Lymphocytes Dohle Bodies Platelet Estimate RBC Morphology PT INR APTT 29.4 Fibrinogen 549 H D-Dimer Quant (PE/DVT) Specimen Type Sample Site pH Bicarbonate Actual POC Total CO2 Base Excess O2 Saturation O2 % ABG pCO2 ABG pO2 Respiration Rate O2 Delivery Device Vent Mode Tidal Volume POC PEEP Blood Gas Notified Whom Blood Gas Notified Time Sodium Potassium Chloride Carbon Dioxide Anion Gap BUN Creatinine Estim Creat Clear Calc Est GFR (MDRD) Af Amer Est GFR (MDRD) Non-Af BUN/Creatinine Ratio Glucose Lactic Acid Calcium Phosphorus Magnesium Ferritin Total Bilirubin AST ALT Alkaline Phosphatase Lactate Dehydrogenase Total Creatine Kinase Troponin I C-React Prot Ext Range B-Natriuretic Peptide 154.9 H Total Protein Albumin Globulin Albumin/Globulin Ratio Triglycerides 105 Procalcitonin TSH Urine Color Urine Clarity Urine pH Ur Specific [place] Urine Protein Urine Glucose (UA) Urine Ketones Urine Occult Blood Urine Nitrite Urine Bilirubin Urine Urobilinogen Ur Leukocyte Esterase Urine RBC Urine WBC Ur Squamous Epith Cells Urine Bacteria Hyaline Casts Urine Mucus Urine Creatinine Urine Urea Nitrogen COVID-19 (GIOVANNY) SARS-CoV-2 IgG Ab SARS-CoV-2 IgM Ab MRSA (PCR) POC Glucose 12/26/19 12/26/19 12/26/19 16:25 16:40 17:53 WBC RBC Hgb Hct MCV MCH MCHC RDW Std Deviation RDW Coeff of Papo Plt Count MPV Immature Gran % (Auto) Neut % (Auto) Lymph % (Auto) [place] % (Auto) Eos % (Auto) Baso % (Auto) Absolute Neuts (auto) Absolute Lymphs (auto) Total Counted Neutrophils % (Manual) Band Neutrophils % Lymphocytes % (Manual) Monocytes % (Manual) Metamyelocytes % Myelocytes % Nucleated RBC % Diff Path Review Reactive Lymphocytes Dohle Bodies Platelet Estimate RBC Morphology PT INR APTT Fibrinogen D-Dimer Quant (PE/DVT) Specimen Type Sample Site pH Bicarbonate Actual POC Total CO2 Base Excess O2 Saturation O2 % ABG pCO2 ABG pO2 Respiration Rate O2 Delivery Device Vent Mode Tidal Volume POC PEEP Blood Gas Notified Whom Blood Gas Notified Time Sodium Potassium Chloride Carbon Dioxide Anion Gap BUN Creatinine Estim Creat Clear Calc Est GFR (MDRD) Af Amer Est GFR (MDRD) Non-Af BUN/Creatinine Ratio Glucose Lactic Acid 5.3 H* Calcium Phosphorus Magnesium Ferritin Total Bilirubin AST ALT Alkaline Phosphatase Lactate Dehydrogenase Total Creatine Kinase Troponin I C-React Prot Ext Range B-Natriuretic Peptide Total Protein Albumin Globulin Albumin/Globulin Ratio Triglycerides Procalcitonin TSH Urine Color Urine Clarity Urine pH Ur Specific [place] Urine Protein Urine Glucose (UA) Urine Ketones Urine Occult Blood Urine Nitrite Urine Bilirubin Urine Urobilinogen Ur Leukocyte Esterase Urine RBC Urine WBC Ur Squamous Epith Cells Urine Bacteria Hyaline Casts Urine Mucus Urine Creatinine Urine Urea Nitrogen COVID-19 (GIOVANNY) SARS-CoV-2 IgG Ab SARS-CoV-2 IgM Ab MRSA (PCR) Negative POC Glucose 122 H 12/26/19 12/26/19 12/26/19 18:10 21:40 21:40 WBC RBC Hgb Hct MCV MCH MCHC RDW Std Deviation RDW Coeff of Papo Plt Count MPV Immature Gran % (Auto) Neut % (Auto) Lymph % (Auto) [place] % (Auto) Eos % (Auto) Baso % (Auto) Absolute Neuts (auto) Absolute Lymphs (auto) Total Counted Neutrophils % (Manual) Band Neutrophils % Lymphocytes % (Manual) Monocytes % (Manual) Metamyelocytes % Myelocytes % Nucleated RBC % Diff Path Review Reactive Lymphocytes Dohle Bodies Platelet Estimate RBC Morphology PT INR APTT Fibrinogen D-Dimer Quant (PE/DVT) Specimen Type Sample Site pH Bicarbonate Actual POC Total CO2 Base Excess O2 Saturation O2 % ABG pCO2 ABG pO2 Respiration Rate O2 Delivery Device Vent Mode Tidal Volume POC PEEP Blood Gas Notified Whom Blood Gas Notified Time Sodium Potassium 2.5 L* Chloride Carbon Dioxide Anion Gap BUN Creatinine Estim Creat Clear Calc Est GFR (MDRD) Af Amer Est GFR (MDRD) Non-Af BUN/Creatinine Ratio Glucose Lactic Acid Calcium Phosphorus Magnesium 2.0 Ferritin Total Bilirubin AST ALT Alkaline Phosphatase Lactate Dehydrogenase Total Creatine Kinase Troponin I 0.199 H 0.175 H C-React Prot Ext Range B-Natriuretic Peptide Total Protein Albumin Globulin Albumin/Globulin Ratio Triglycerides Procalcitonin TSH Urine Color Urine Clarity Urine pH Ur Specific [place] Urine Protein Urine Glucose (UA) Urine Ketones Urine Occult Blood Urine Nitrite Urine Bilirubin Urine Urobilinogen Ur Leukocyte Esterase Urine RBC Urine WBC Ur Squamous Epith Cells Urine Bacteria Hyaline Casts Urine Mucus Urine Creatinine Urine Urea Nitrogen COVID-19 (GIOVANNY) SARS-CoV-2 IgG Ab SARS-CoV-2 IgM Ab MRSA (PCR) POC Glucose 12/26/19 12/26/19 12/27/19 23:42 23:55 05:00 WBC RBC Hgb Hct MCV MCH MCHC RDW Std Deviation RDW Coeff of Papo Plt Count MPV Immature Gran % (Auto) Neut % (Auto) Lymph % (Auto) [place] % (Auto) Eos % (Auto) Baso % (Auto) Absolute Neuts (auto) Absolute Lymphs (auto) Total Counted Neutrophils % (Manual) Band Neutrophils % Lymphocytes % (Manual) Monocytes % (Manual) Metamyelocytes % Myelocytes % Nucleated RBC % Diff Path Review Reactive Lymphocytes Dohle Bodies Platelet Estimate RBC Morphology PT INR APTT 99.6 H* Fibrinogen D-Dimer Quant (PE/DVT) Specimen Type Sample Site pH Bicarbonate Actual POC Total CO2 Base Excess O2 Saturation O2 % ABG pCO2 ABG pO2 Respiration Rate O2 Delivery Device Vent Mode Tidal Volume POC PEEP Blood Gas Notified Whom Blood Gas Notified Time Sodium 157 H Potassium 4.9 Chloride 126 H Carbon Dioxide 21.0 Anion Gap 10 BUN 39 H Creatinine 1.53 H Estim Creat Clear Calc 28.10 Est GFR (MDRD) Af Amer 42 L Est GFR (MDRD) Non-Af 34 L BUN/Creatinine Ratio 25.5 H Glucose 138 H Lactic Acid Calcium 8.2 L Phosphorus Magnesium Ferritin Total Bilirubin 0.70 AST 39 H ALT 60 H Alkaline Phosphatase 106 Lactate Dehydrogenase Total Creatine Kinase Troponin I C-React Prot Ext Range B-Natriuretic Peptide Total Protein 5.5 L Albumin 1.7 L Globulin 3.8 Albumin/Globulin Ratio 0.4 L Triglycerides Procalcitonin TSH 0.74 Urine Color Urine Clarity Urine pH Ur Specific [place] Urine Protein Urine Glucose (UA) Urine Ketones Urine Occult Blood Urine Nitrite Urine Bilirubin Urine Urobilinogen Ur Leukocyte Esterase Urine RBC Urine WBC Ur Squamous Epith Cells Urine Bacteria Hyaline Casts Urine Mucus Urine Creatinine Urine Urea Nitrogen COVID-19 (GIOVANNY) SARS-CoV-2 IgG Ab SARS-CoV-2 IgM Ab MRSA (PCR) POC Glucose 72 12/27/19 12/27/19 12/27/19 05:00 05:00 05:07 WBC RBC Hgb Hct MCV MCH MCHC RDW Std Deviation RDW Coeff of Papo Plt Count MPV Immature Gran % (Auto) Neut % (Auto) Lymph % (Auto) [place] % (Auto) Eos % (Auto) Baso % (Auto) Absolute Neuts (auto) Absolute Lymphs (auto) Total Counted Neutrophils % (Manual) Band Neutrophils % Lymphocytes % (Manual) Monocytes % (Manual) Metamyelocytes % Myelocytes % Nucleated RBC % Diff Path Review Reactive Lymphocytes Dohle Bodies Platelet Estimate RBC Morphology PT INR APTT Fibrinogen D-Dimer Quant (PE/DVT) Specimen Type Sample Site pH Bicarbonate Actual POC Total CO2 Base Excess O2 Saturation O2 % ABG pCO2 ABG pO2 Respiration Rate O2 Delivery Device Vent Mode Tidal Volume POC PEEP Blood Gas Notified Whom Blood Gas Notified Time Sodium Potassium Chloride Carbon Dioxide Anion Gap BUN Creatinine Estim Creat Clear Calc Est GFR (MDRD) Af Amer Est GFR (MDRD) Non-Af BUN/Creatinine Ratio Glucose Lactic Acid Calcium Phosphorus Magnesium Ferritin Total Bilirubin AST ALT Alkaline Phosphatase Lactate Dehydrogenase Total Creatine Kinase Troponin I C-React Prot Ext Range B-Natriuretic Peptide Total Protein Albumin Globulin Albumin/Globulin Ratio Triglycerides Procalcitonin TSH Urine Color Urine Clarity Urine pH Ur Specific [place] Urine Protein Urine Glucose (UA) Urine Ketones Urine Occult Blood Urine Nitrite Urine Bilirubin Urine Urobilinogen Ur Leukocyte Esterase Urine RBC Urine WBC Ur Squamous Epith Cells Urine Bacteria Hyaline Casts Urine Mucus Urine Creatinine 204.00 Urine Urea Nitrogen 447 COVID-19 (GIOVANNY) SARS-CoV-2 IgG Ab SARS-CoV-2 IgM Ab MRSA (PCR) POC Glucose 106 12/27/19 12/27/19 12/27/19 05:55 07:40 11:46 WBC 27.3 H RBC 4.89 Hgb 15.0 Hct 48.9 H MCV 100.0 H D MCH 30.7 MCHC 30.7 L D RDW Std Deviation 48.6 H RDW Coeff of Papo 13.2 Plt Count 355 MPV 11.3 Immature Gran % (Auto) Neut % (Auto) Not Reportable Lymph % (Auto) [place] % (Auto) Eos % (Auto) Baso % (Auto) Absolute Neuts (auto) 18.3 H Absolute Lymphs (auto) 2.19 Total Counted 100 Neutrophils % (Manual) 17 L Band Neutrophils % 50 H Lymphocytes % (Manual) 8 L Monocytes % (Manual) 3 Metamyelocytes % 20 H Myelocytes % 2 H Nucleated RBC % Diff Path Review May foll Reactive Lymphocytes Dohle Bodies RARE Platelet Estimate ADEQUATE RBC Morphology NORM C+C PT INR APTT 85.8 H Fibrinogen D-Dimer Quant (PE/DVT) Specimen Type Sample Site pH Bicarbonate Actual POC Total CO2 Base Excess O2 Saturation O2 % ABG pCO2 ABG pO2 Respiration Rate O2 Delivery Device Vent Mode Tidal Volume POC PEEP Blood Gas Notified Whom Blood Gas Notified Time Sodium Potassium Chloride Carbon Dioxide Anion Gap BUN Creatinine Estim Creat Clear Calc Est GFR (MDRD) Af Amer Est GFR (MDRD) Non-Af BUN/Creatinine Ratio Glucose Lactic Acid Calcium Phosphorus Magnesium Ferritin Total Bilirubin AST ALT Alkaline Phosphatase Lactate Dehydrogenase Total Creatine Kinase Troponin I C-React Prot Ext Range B-Natriuretic Peptide Total Protein Albumin Globulin Albumin/Globulin Ratio Triglycerides Procalcitonin TSH Urine Color Urine Clarity Urine pH Ur Specific [place] Urine Protein Urine Glucose (UA) Urine Ketones Urine Occult Blood Urine Nitrite Urine Bilirubin Urine Urobilinogen Ur Leukocyte Esterase Urine RBC Urine WBC Ur Squamous Epith Cells Urine Bacteria Hyaline Casts Urine Mucus Urine Creatinine Urine Urea Nitrogen COVID-19 (GIOVANNY) SARS-CoV-2 IgG Ab SARS-CoV-2 IgM Ab MRSA (PCR) POC Glucose 93 12/27/19 12/27/19 12/27/19 13:45 13:45 13:45 WBC RBC Hgb Hct MCV MCH MCHC RDW Std Deviation RDW Coeff of Papo Plt Count MPV Immature Gran % (Auto) Neut % (Auto) Lymph % (Auto) [place] % (Auto) Eos % (Auto) Baso % (Auto) Absolute Neuts (auto) Absolute Lymphs (auto) Total Counted Neutrophils % (Manual) Band Neutrophils % Lymphocytes % (Manual) Monocytes % (Manual) Metamyelocytes % Myelocytes % Nucleated RBC % Diff Path Review Reactive Lymphocytes Dohle Bodies Platelet Estimate RBC Morphology PT INR APTT Fibrinogen D-Dimer Quant (PE/DVT) Specimen Type Sample Site pH Bicarbonate Actual POC Total CO2 Base Excess O2 Saturation O2 % ABG pCO2 ABG pO2 Respiration Rate O2 Delivery Device Vent Mode Tidal Volume POC PEEP Blood Gas Notified Whom Blood Gas Notified Time Sodium 157 H Potassium 4.6 Chloride 127 H* Carbon Dioxide 21.0 Anion Gap 9 BUN 43 H Creatinine 1.56 H Estim Creat Clear Calc 27.56 Est GFR (MDRD) Af Amer 41 L Est GFR (MDRD) Non-Af 34 L BUN/Creatinine Ratio 27.6 H Glucose 146 H Lactic Acid Calcium 8.2 L Phosphorus 2.9 Magnesium 1.9 Ferritin 671 H Total Bilirubin AST ALT Alkaline Phosphatase Lactate Dehydrogenase Total Creatine Kinase Troponin I C-React Prot Ext Range B-Natriuretic Peptide Total Protein Albumin Globulin Albumin/Globulin Ratio Triglycerides Procalcitonin 40.79 H TSH Urine Color Urine Clarity Urine pH Ur Specific [place] Urine Protein Urine Glucose (UA) Urine Ketones Urine Occult Blood Urine Nitrite Urine Bilirubin Urine Urobilinogen Ur Leukocyte Esterase Urine RBC Urine WBC Ur Squamous Epith Cells Urine Bacteria Hyaline Casts Urine Mucus Urine Creatinine Urine Urea Nitrogen COVID-19 (GIOVANNY) SARS-CoV-2 IgG Ab Pending SARS-CoV-2 IgM Ab Pending MRSA (PCR) POC Glucose 12/27/19 12/27/19 12/27/19 16:30 16:45 17:22 WBC RBC Hgb Hct MCV MCH MCHC RDW Std Deviation RDW Coeff of Papo Plt Count MPV Immature Gran % (Auto) Neut % (Auto) Lymph % (Auto) [place] % (Auto) Eos % (Auto) Baso % (Auto) Absolute Neuts (auto) Absolute Lymphs (auto) Total Counted Neutrophils % (Manual) Band Neutrophils % Lymphocytes % (Manual) Monocytes % (Manual) Metamyelocytes % Myelocytes % Nucleated RBC % Diff Path Review Reactive Lymphocytes Dohle Bodies Platelet Estimate RBC Morphology PT INR APTT 60.6 H Fibrinogen D-Dimer Quant (PE/DVT) Specimen Type Sample Site pH Bicarbonate Actual POC Total CO2 Base Excess O2 Saturation O2 % ABG pCO2 ABG pO2 Respiration Rate O2 Delivery Device Vent Mode Tidal Volume POC PEEP Blood Gas Notified Whom Blood Gas Notified Time Sodium Potassium Chloride Carbon Dioxide Anion Gap BUN Creatinine Estim Creat Clear Calc Est GFR (MDRD) Af Amer Est GFR (MDRD) Non-Af BUN/Creatinine Ratio Glucose Lactic Acid Calcium Phosphorus Magnesium Ferritin Total Bilirubin AST ALT Alkaline Phosphatase Lactate Dehydrogenase Total Creatine Kinase Troponin I C-React Prot Ext Range B-Natriuretic Peptide Total Protein Albumin Globulin Albumin/Globulin Ratio Triglycerides Procalcitonin TSH Urine Color Urine Clarity Urine pH Ur Specific [place] Urine Protein Urine Glucose (UA) Urine Ketones Urine Occult Blood Urine Nitrite Urine Bilirubin Urine Urobilinogen Ur Leukocyte Esterase Urine RBC Urine WBC Ur Squamous Epith Cells Urine Bacteria Hyaline Casts Urine Mucus Urine Creatinine Urine Urea Nitrogen COVID-19 (GIOVANNY) Cancelled SARS-CoV-2 IgG Ab SARS-CoV-2 IgM Ab MRSA (PCR) POC Glucose 134 H 12/28/19 12/28/19 12/28/19 00:17 00:20 04:45 WBC 29.1 H RBC 3.92 L Hgb 12.1 Hct 38.4 MCV 98.0 MCH 30.9 MCHC 31.5 L RDW Std Deviation 48.7 H RDW Coeff of Papo 13.4 Plt Count 268 MPV 11.1 Immature Gran % (Auto) Neut % (Auto) Not Reportable Lymph % (Auto) [place] % (Auto) Eos % (Auto) Baso % (Auto) Absolute Neuts (auto) 25.0 H Absolute Lymphs (auto) 2.62 Total Counted 100 Neutrophils % (Manual) 79 H Band Neutrophils % 7 H Lymphocytes % (Manual) 9 L Monocytes % (Manual) 5 Metamyelocytes % Myelocytes % Nucleated RBC % Diff Path Review May foll Reactive Lymphocytes Dohle Bodies Platelet Estimate ADEQUATE RBC Morphology NORM C+C PT INR APTT 72.6 H Fibrinogen D-Dimer Quant (PE/DVT) Specimen Type Sample Site pH Bicarbonate Actual POC Total CO2 Base Excess O2 Saturation O2 % ABG pCO2 ABG pO2 Respiration Rate O2 Delivery Device Vent Mode Tidal Volume POC PEEP Blood Gas Notified Whom Blood Gas Notified Time Sodium Potassium Chloride Carbon Dioxide Anion Gap BUN Creatinine Estim Creat Clear Calc Est GFR (MDRD) Af Amer Est GFR (MDRD) Non-Af BUN/Creatinine Ratio Glucose Lactic Acid Calcium Phosphorus Magnesium Ferritin Total Bilirubin AST ALT Alkaline Phosphatase Lactate Dehydrogenase Total Creatine Kinase Troponin I C-React Prot Ext Range B-Natriuretic Peptide Total Protein Albumin Globulin Albumin/Globulin Ratio Triglycerides Procalcitonin TSH Urine Color Urine Clarity Urine pH Ur Specific [place] Urine Protein Urine Glucose (UA) Urine Ketones Urine Occult Blood Urine Nitrite Urine Bilirubin Urine Urobilinogen Ur Leukocyte Esterase Urine RBC Urine WBC Ur Squamous Epith Cells Urine Bacteria Hyaline Casts Urine Mucus Urine Creatinine Urine Urea Nitrogen COVID-19 (GIOVANNY) SARS-CoV-2 IgG Ab SARS-CoV-2 IgM Ab MRSA (PCR) POC Glucose 136 H 12/28/19 12/28/19 12/28/19 04:45 04:45 04:46 WBC RBC Hgb Hct MCV MCH MCHC RDW Std Deviation RDW Coeff of Papo Plt Count MPV Immature Gran % (Auto) Neut % (Auto) Lymph % (Auto) [place] % (Auto) Eos % (Auto) Baso % (Auto) Absolute Neuts (auto) Absolute Lymphs (auto) Total Counted Neutrophils % (Manual) Band Neutrophils % Lymphocytes % (Manual) Monocytes % (Manual) Metamyelocytes % Myelocytes % Nucleated RBC % Diff Path Review Reactive Lymphocytes Dohle Bodies Platelet Estimate RBC Morphology PT INR APTT 74.6 H Fibrinogen D-Dimer Quant (PE/DVT) Specimen Type Sample Site pH Bicarbonate Actual POC Total CO2 Base Excess O2 Saturation O2 % ABG pCO2 ABG pO2 Respiration Rate O2 Delivery Device Vent Mode Tidal Volume POC PEEP Blood Gas Notified Whom Blood Gas Notified Time Sodium 151 H Potassium 3.0 L Chloride 120 H Carbon Dioxide 23.0 Anion Gap 8 BUN 35 H Creatinine 1.10 H Estim Creat Clear Calc 39.09 Est GFR (MDRD) Af Amer 61 Est GFR (MDRD) Non-Af 50 L BUN/Creatinine Ratio 31.8 H Glucose 142 H Lactic Acid Calcium 7.4 L Phosphorus 1.9 L Magnesium 1.8 Ferritin Total Bilirubin AST ALT Alkaline Phosphatase Lactate Dehydrogenase Total Creatine Kinase Troponin I C-React Prot Ext Range B-Natriuretic Peptide Total Protein Albumin Globulin Albumin/Globulin Ratio Triglycerides Procalcitonin TSH Urine Color Urine Clarity Urine pH Ur Specific [place] Urine Protein Urine Glucose (UA) Urine Ketones Urine Occult Blood Urine Nitrite Urine Bilirubin Urine Urobilinogen Ur Leukocyte Esterase Urine RBC Urine WBC Ur Squamous Epith Cells Urine Bacteria Hyaline Casts Urine Mucus Urine Creatinine Urine Urea Nitrogen COVID-19 (GIOVANNY) SARS-CoV-2 IgG Ab SARS-CoV-2 IgM Ab MRSA (PCR) POC Glucose 125 H Microbiology 12/27/19 16:45 Mucosa - Nasopharyngeal Coronavirus COVID-19 PCR - Final 12/26/19 17:06 Sputum, Induced/Lukens Gram Stain - Final 12/26/19 17:06 Sputum, Induced/Lukens Respiratory Culture - Preliminary Staphylococcus aureus 12/26/19 12:05 Urine, Catheterized Urine Culture - Preliminary GNR lactose business line controller 12/26/19 12:05 Urine Catheter - Aguilar Streptococcus pneumoniae Antigen (M - Final 12/26/19 12:05 Urine Catheter - Aguilar Legionella Antigen - Final 12/26/19 12:05 Mucosa - Nasopharyngeal Coronavirus COVID-19 PCR - Final 12/26/19 12:05 Mucosa - Nose Respiratory Panel (PCR) - Final Medical Necessity - Tobacco Use Smoking Status: Unknown if ever smoked Tobacco Use: Non-smoker Assessment/Plan All Active Problems Septic shock (Acute) Acute respiratory failure with hypoxia (Acute) Metabolic encephalopathy (Acute) Suspected 2019 novel coronavirus infection (Acute) Community acquired pneumonia (Acute) Atrial fibrillation with rapid ventricular response (Acute) RECOMMENDATIONS: 1. Continue empiric broad-spectrum antibiotics 2. Wean oxygen as tolerated 3. Continue D5W. Supplement electrolytes as necessary 4. Continue Levophed. 5. Obtain CT of the head with possible EEG if normal 6. Discuss with ID about COVID precautions 7. Spontaneous breathing and awakening trials per protocol IMPRESSIONS: 1. Septic shock secondary to staph aureus pneumonia Patient was significantly hypotension on presentation to the intensive care unit. Initial lactic acid was elevated at 5.7 and patient had profound hypoxemia. COVID precautions have been reinitiated by hospitalist. Patient did receive significant volume resuscitation, but is still requiring Levophed. Mottling continues to improve. No cyanosis is noted. Anticipate better perfusion with improved hemodynamics. 2. Acute hypoxic respiratory failure Clinical suspicion for decreased mental status leading to acute hypoxic respiratory failure. Patient appears to have been hypotensive for quite some time on presentation given mottling and cyanotic features. Continue to support blood pressure. Patient continues to have copious endotracheal secretions and has grown staph aureus. Low clinical suspicion for COVID-19 from my perspective as negative testing in the setting of critical illness. Viral load should be sufficient enough to find to cause this amount of multisystem organ failure. Cardiac work-up was relatively unremarkable with preserved ejection fraction and diastolic dysfunction. 3. A. fib with RVR/elevated troponin Patient significantly tachycardic at this time. Will attempt to address electrolytes to see if patient will go back to sinus rhythm. Okay to cycle troponins. Clinical suspicion for supply demand mismatch given significant hypoxia on presentation. Unclear how long patient has been in A. fib with RVR, but will continue to monitor. Continue systemic anticoagulation. 4. Acute kidney injury/hypernatremia/hyperchloremia/hyperkalemia High clinical suspicion suspicion for prerenal etiology. Patient did receive significant volume resuscitation yesterday. Patient appears to be hypovolemic hypernatremia. Patient will be transitioned over to D5W given hypoglycemia this morning and continued hypernatremia and hyperchloremia. Recheck labs tomorrow. No indication for renal replacement therapy at this time. 5. Hyperglycemia/advanced age/poor history/schizophrenia/dem entia/bipolar/hypothyroidism/hypertension/metabolic encephalopathy Complicates care, management, recovery and prognosis. Will need to check blood sugars every 6 hours and cover as necessary. Patient's sodium and chloride levels are improving, but patient continues to not be following commands despite lack of sedation. Will obtain a CT scan of the head. If negative, EEG for seizure activity would be appropriate. TIME: 35 minutes critical care time spent addressing patient's septic shock, acute respiratory failure, A. fib with RVR, acute kidney injury, review of all data and collaboration with care team (5:45 AM to 6:45 AM) [id number]: [id number] Critical care first hour
--- NOTE | 2019-12-28 08:26 | CT_ITS ---
STUDY: CT BRAIN WITHOUT CONTRAST REASON FOR EXAM: Female, 84 years old. CVA, respiratory failure, sepsis RADIATION DOSAGE (If Supplied By Facility): CTDIvol = ( 44.99 ) mGy, DLP = ( 880.47 ) mGycm TECHNIQUE: Transaxial CT imaging of the brain was performed without administration of intravenous contrast material. Individualized dose optimization techniques were used for this CT. COMPARISON: Comparison is made with prior examination dated April 08, 2016. FINDINGS: Normal soft tissue structures. There is hyperostosis frontalis internus. An endotracheal tube is seen. There is mild cerebral atrophy with widening of the extra-axial spaces and ventricular dilatation. There are areas of decreased attenuation within the white matter tracts of the supratentorial brain, consistent with microvascular disease changes. Stable tiny lacunar infarct in the insular cortex of the right temporal lobe Normal brainstem. Normal cerebellum. There is no intracranial hemorrhage. There are no findings of an acute ischemic infarction. Atherosclerotic calcification of the cavernous portions of the internal carotid arteries bilaterally. Normal visualized paranasal sinuses. CT/Brain/Head without Contrast IMPRESSION: Chronic involutional changes of the brain. Electronically Signed: Joss Snyder, at 10:40 EDT , Service support ,
[2019-12-28] MEDS: Levothyroxine 25 MCG TABLET GT (08:35)
[2019-12-28] MEDS: Chlorhexidine 15 ML PO ×2 (08:38→22:07)
[2019-12-28 09:58] LABS: Pathologist Review Reviewed
[2019-12-28 10:02] LABS: Pathologist Review Reviewed
--- NOTE | 2019-12-28 10:37 | PN.ID_ITS ---
Patient Problems: Active and Suspected Problems Septic shock (Acute) Acute respiratory failure with hypoxia (Acute) Metabolic encephalopathy (Acute) Suspected 2019 novel coronavirus infection (Acute) Subjective: No fever overnight, remains on pressors, unresponsive and not requiring sedation. - Physical Exam Vitals/I&O's: Vital Signs Temp Pulse Resp BP Pulse Ox 99.5 F H 159 H 23 H 78/55 L 97 12/28/19 09:00 12/28/19 09:15 12/28/19 09:10 12/28/19 09:15 12/28/19 09:00 Oxygen Flow Rate (L/min) 15 Oxygen Delivery Method Mechanical Ventilator Weight: 87.4 kg Body Mass Index (BMI) 28.7 Intake and Output for Last 24 Hours 12/26/19 12/27/19 12/28/19 23:59 23:59 23:59 Intake Total 4611.36 / 4669.46 4524.04 / 5098.04 1160.59 / 1160.59 Output Total 200 / 300 625 / 800 325 / 325 Balance 4411.36 / 4369.46 3899.04 / 4298.04 835.59 / 835.59 General: No apparent distress Lungs: Clear to auscultation, Normal air movement Cardiovascular: Tachycardic Abdomen: Soft, Non Tender, Non-Distended Skin: No rashes Microbiology Past 72 Hours 12/26/19 17:06 Sputum, Induced/Lukens Gram Stain - Final 12/26/19 17:06 Sputum, Induced/Lukens Respiratory Culture - Final Staphylococcus aureus 12/26/19 12:05 Urine, Catheterized Urine Culture - Final Escherichia coli 12/27/19 16:45 Mucosa - Nasopharyngeal Coronavirus COVID-19 PCR - Final 12/26/19 12:05 Urine Catheter - Aguilar Streptococcus pneumoniae Antigen (M - Final 12/26/19 12:05 Urine Catheter - Aguilar Legionella Antigen - Final 12/26/19 12:05 Mucosa - Nasopharyngeal Coronavirus COVID-19 PCR - Final 12/26/19 12:05 Mucosa - Nose Respiratory Panel (PCR) - Final Laboratory Results 12/26/19 11:50: Diff Path Review Reviewed 12/27/19 05:55: Diff Path Review Reviewed 12/27/19 11:46: POC Glucose 93 12/27/19 13:45: Sodium 157 H, Potassium 4.6, Chloride 127 H*, Carbon Dioxide 21.0, Anion Gap 9, BUN 43 H, Creatinine 1.56 H, Estim Creat Clear Calc 27.56, Est GFR (MDRD) Af Amer 41 L, Est GFR (MDRD) Non-Af 34 L, BUN/Creatinine Ratio 27.6 H, Glucose 146 H, Calcium 8.2 L, Phosphorus 2.9, Magnesium 1.9, Ferritin 671 H 12/27/19 13:45: Procalcitonin 40.79 H 12/27/19 13:45: SARS-CoV-2 IgG Ab Pending, SARS-CoV-2 IgM Ab Pending 12/27/19 16:30: APTT 60.6 H 12/27/19 16:45: COVID-19 (GIOVANNY) Cancelled 12/27/19 17:22: POC Glucose 134 H 12/28/19 00:17: POC Glucose 136 H 12/28/19 00:20: APTT 72.6 H 12/28/19 04:45: WBC 29.1 H, RBC 3.92 L, Hgb 12.1, Hct 38.4, MCV 98.0, MCH 30.9, MCHC 31.5 L, RDW Std Deviation 48.7 H, RDW Coeff of Papo 13.4, Plt Count 268, MPV 11.1, Neut % (Auto) Not Reportable, Absolute Neuts (auto) 25.0 H, Absolute Lymphs (auto) 2.62, Total Counted 100, Neutrophils % (Manual) 79 H, Band Neutrophils % 7 H, Lymphocytes % (Manual) 9 L, Monocytes % (Manual) 5, Diff Path Review Reviewed, Platelet Estimate ADEQUATE, RBC Morphology NORM C+C 12/28/19 04:45: APTT 74.6 H 12/28/19 04:45: Sodium 151 H, Potassium 3.0 L, Chloride 120 H, Carbon Dioxide 23.0, Anion Gap 8, BUN 35 H, Creatinine 1.10 H, Estim Creat Clear Calc 39.09, Est GFR (MDRD) Af Amer 61, Est GFR (MDRD) Non-Af 50 L, BUN/Creatinine Ratio 31.8 H, Glucose 142 H, Calcium 7.4 L, Phosphorus 1.9 L, Magnesium 1.8 12/28/19 04:46: POC Glucose 125 H Current Medications Acetaminophen (Tylenol Liquid) 650 mg GT Q6H PRN PRN PRN Reason: FEVER Last Admin: 12/27/19 11:54 Dose: 650 mg Documented by: Albuterol Sulfate (Ventolin Aerosols) 2.5 mg INHALATION Q2H PRN PRN PRN Reason: SOB/Wheezing Chlorhexidine Gluconate () 15 ml PO BID [facility] Last Admin: 12/28/19 08:38 Dose: 15 ml Documented by: Chlorhexidine Gluconate () 1 each TOPICAL DAILY [facility] Last Admin: 12/28/19 05:55 Dose: 1 each Documented by: Dextrose (D50w Syringe) 0 gm IV X1 PRN; Protocol PRN Reason: Hypoglycemia Glucagon () 1 mg IM .X1 PRN PRN Reason: Hypoglycemia Heparin Sodium (Porcine) (Heparin Na) 0 unit IV UD PRN; Protocol Propofol (Diprivan) 1,000 mg in 100 mls @ 4.824 mls/hr CONT INF .Q12H CHERELLE; Protocol Last Admin: 12/28/19 02:14 Dose: Not Given Documented by: Heparin Sodium/Dextrose () 25,000 units in 250 mls @ 11 mls/hr IV .[id number] CHERELLE; Protocol Last Titration: 12/28/19 05:00 Dose: 800 units/hr, 8 mls/hr Documented by: Norepinephrine Bitartrate 8 mg (/ Sodium Chloride) 250 mls @ 9.375 mls/hr CONT INF .[id number] CHERELLE; Protocol Last Titration: 12/28/19 09:15 Dose: 5 mcg/min, 9.4 mls/hr Documented by: Sodium Chloride () 250 mls @ 15 mls/hr IV .[id number] PRN PRN Reason: Saline Flush Sodium Chloride () 250 mls @ 15 mls/hr IV .[id number] PRN PRN Reason: Additional IVPB Infusion Pantoprazole Sodium 40 mg/ (Sodium Chloride) 110 mls @ 330 mls/hr IV Q12 [facility] Last Infusion: 12/27/19 21:33 Dose: Infused Documented by: Dextrose () 1,000 mls @ 75 mls/hr IV .[id number] [facility] Last Admin: 12/27/19 22:34 Dose: 75 mls/hr Documented by: Enteral Nutritional Formula (Vital Af 1.2 [place] Liquid) 1,000 mls @ 20 mls/hr GT .Q48H [facility]LE Last Admin: 12/27/19 11:54 Dose: 20 mls/hr Documented by: Potassium Phosphate 30 mm/ (Sodium Chloride) 260 mls @ 42 mls/hr IV X1 ONE Stop: 12/28/19 11:48 Last Admin: 12/28/19 05:58 Dose: 42 mls/hr Documented by: Cefazolin Sodium 2 gm/ Sodium (Chloride) 110 mls @ 150 mls/hr IV Q8 [facility]ER[facility] Insulin Human Lispro (Humalog Kwikpen (Bkc)) 0 unit SC Q6 [facility]ERELLE; Protocol Last Admin: 12/28/19 04:55 Dose: Not Given Documented by: Levothyroxine Sodium (Synthroid) 25 mcg GT DAILY [facility] Last Admin: 12/28/19 08:35 Dose: 25 mcg Documented by: Polyethylene Glycol (Miralax) 17 gm PO DAILY PRN PRN PRN Reason: Constipation Sodium Chloride () 10 - 40 ml IV UD PRN PRN Reason: SALINE FLUSH Last Admin: 12/28/19 04:56 Dose: 40 ml Documented by: Medical Necessity - Tobacco Use Smoking Status: Unknown if ever smoked Tobacco Use: Non-smoker Route of nutrition/ use of supplements: [] Nutritional Intake: [] IV Site: [] Aguilar Catheter: [] - Assessment/Plan Antibiotics: [] Assessment/Plan: [] Active and Suspected Problems Septic shock (Acute) Acute respiratory failure with hypoxia (Acute) Metabolic encephalopathy (Acute) Suspected 2019 novel coronavirus infection (Acute) septic shock, elevated d-dimer, acute hypoxic resp failure - fever to 101.7 here, now improved. On pressors. Sputum with MSSA, ucx with ecoli. Narrow abx to cefazolin. Repeat endobronchial covid was neg. Ok to d/c isolation. Will follow, Dr. Ortega.
[2019-12-28 11:15] LABS: SAR-COV-2 IGG ANTIBODY Negative (Negative); SAR-COV-2 IGM ANTIBODY Negative (Negative)
--- NOTE | 2019-12-28 11:34 | NT.THERAPY_ITS ---
Nutrition Therapy Report - History Nutrition Services has been consulted to:: Manage enteral nutrition Current diet / nutrition support order:: Vital AF 1.2 at 20mL/hour w/ 50mL H2O flush every 4 hours - Anthropometric Measurements Height:: 5 ft 8 in Weight:: 87.4 kg Body Mass Index (BMI):: 29.2 - Relevant Labs Relevant Labs:: WBC 29.1 K/mm3 (4.4-11.0) H 12/28/19 04:45 RBC 3.92 M/mm3 (4.2-5.4) L 12/28/19 04:45 Hgb 17.0 g/dL (12.0-15.0) H 12/26/19 11:50 Hct 48.9 % (37-47) H 12/27/19 05:55 MCV 100.0 fL (81-99) H D 12/27/19 05:55 MCHC 31.5 g/dL (32-36) L 12/28/19 04:45 RDW Std Deviation 48.7 fl (35.1-43.9) H 12/28/19 04:45 Absolute Neuts (auto) 25.0 X10^3/uL (2.0-7.7) H 12/28/19 04:45 Neutrophils % (Manual) 79 % (47-70) H 12/28/19 04:45 Band Neutrophils % 7 % (0-5) H 12/28/19 04:45 Lymphocytes % (Manual) 9 % (19-41) L 12/28/19 04:45 Monocytes % (Manual) 17 % (0-10) H 12/26/19 11:50 Metamyelocytes % 20 % (0-1) H 12/27/19 05:55 Myelocytes % 2 (0-0) H 12/27/19 05:55 PT 22.4 SECONDS (11.7-14.9) H 12/26/19 12:55 APTT 74.6 Seconds (24.1-36.2) H 12/28/19 04:45 Fibrinogen 549 mg/dl (203-444) H 12/26/19 16:25 D-Dimer Quant (PE/DVT) 13.16 FEU/ug/m (0.27-0.49) H* 12/26/19 16:25 Sodium 151 mmol/L (136-145) H 12/28/19 04:45 Potassium 3.0 mmol/L (3.5-5.1) L 12/28/19 04:45 Chloride 120 mmol/L (98-107) H 12/28/19 04:45 BUN 35 mg/dL (7-18) H 12/28/19 04:45 Creatinine 1.10 mg/dL (0.55-1.02) H 12/28/19 04:45 Est GFR (MDRD) Af Amer 41 mL/min (>60) L 12/27/19 13:45 Est GFR (MDRD) Non-Af 50 mL/min (>60) L 12/28/19 04:45 BUN/Creatinine Ratio 31.8 RATIO (10-20) H 12/28/19 04:45 Glucose 142 mg/dL (74-106) H 12/28/19 04:45 Lactic Acid 5.3 mmol/L (0.4-1.9) H* 12/26/19 16:25 Calcium 7.4 mg/dL (8.5-10.1) L 12/28/19 04:45 Phosphorus 1.9 mg/dL (2.5-4.9) L 12/28/19 04:45 Ferritin 671 ng/mL (8-252) H 12/27/19 13:45 AST 39 U/L (15-37) H 12/27/19 05:00 ALT 60 U/L (13-56) H 12/27/19 05:00 Alkaline Phosphatase 149 U/L (45-117) H 12/26/19 11:50 Troponin I 0.175 ng/mL (<0.045) H 12/26/19 21:40 C-React Prot Ext Range 102.00 mg/L (0.0-3.0) H 12/26/19 16:25 B-Natriuretic Peptide 154.9 pg/mL (0-100) H 12/26/19 16:25 Total Protein 5.5 g/dL (6.4-8.2) L 12/27/19 05:00 Albumin 1.7 g/dL (3.2-5.0) L 12/27/19 05:00 Globulin 5.1 g/dL (2.2-4.2) H 12/26/19 11:50 Albumin/Globulin Ratio 0.4 RATIO (0.9-2.4) L 12/27/19 05:00 Procalcitonin 40.79 ng/mL (0.00-0.09) H 12/27/19 13:45 - Assessment Food / Nutrition-Related History:: Discussed in ICU rounds. Trophic tube feeds initiated yesterday at 20mL/hour. Minimal residuals reported by nursing staff. Per rounds, pt w/ periods of tachycardia overnight. Significant electrolyte abnormalities observed. Wt increase of 1.8 kg since last review. Has L hand 2+ pitting edema per nursing report. Baseline nutrition status not available at this time but given reported history of dementia, schizophrenia pt w/ increased risk for refeeding syndrome. Electrolytes replaced this AM. Continues w/ IV dextrose for hydration. - Nutrition Diagnosis Problem / Etiology / Signs & Symptoms (PES):: Inadequate oral intake r/t respiratory status as evidenced by no PO intake x24 hours Evidence of Malnutrition Exists:: No - Nutrition Intervention Nutrition Prescription:: 2507-2116 calories/day, 96-116 g protein/day - Food / Nutrient Delivery Interventions Summary of nutrition intervention:: Unable to speak w/ pt/family this date to assess for signs/symptoms of malnutrition [employer]. 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 Clincial symptoms of refeeding present. Will continue trophic feeds w/ goal to provide 5-10 kcal/kg/day for 3 days (437-874 calories/day). Current trophic feeds providing 689 calories/day. Nutrition support ordered as / adjusted to:: continue trophic tube feeds via OG- Vital AF 1.2 at 20mL/hour w/ 50mL flush every 4 hours to provide 576 calories, 36 g protein, 689mL fluid. Recommend continue IV fluids. Per guidelines for management of refeeding syndrome, recommend 200-300mg thiamine/day. Nutrition education provided?: No - MNT Monitoring Further MNT monitoring and evaluation required?: Yes MNT Follow-up in:: 1-2 days
--- NOTE | 2019-12-28 12:00 | NURSING ---
BS 55. TF restarted, reported to Dr. Ortega. No recheck due to TF on hold for testing.
--- NOTE | 2019-12-28 12:16 | PN_ITS ---
Patient Problems: Active and Suspected Problems Septic shock (Acute) Acute respiratory failure with hypoxia (Acute) Metabolic encephalopathy (Acute) Suspected 2019 novel coronavirus infection (Acute) Reason for Visit: septic shock Subjective: Not following commands. Vitals/I&O's: Vital Signs Temp Pulse Resp BP Pulse Ox 37.5 C H 123 H 23 H 126/71 H 97 12/28/19 09:00 12/28/19 11:00 12/28/19 09:10 12/28/19 11:00 12/28/19 09:00 Oxygen Flow Rate (L/min) 15 Oxygen Delivery Method Mechanical Ventilator Weight: 87.4 kg Body Mass Index (BMI) 29.2 Intake and Output for Last 24 Hours 12/26/19 12/27/19 12/28/19 23:59 23:59 23:59 Intake Total 4611.36 / 4669.46 4524.04 / 5098.04 1177.04 / 1177.04 Output Total 200 / 300 625 / 800 325 / 325 Balance 4411.36 / 4369.46 3899.04 / 4298.04 852.04 / 852.04 HEENT: Atraumatic, Normocephalic Oral: - - ETT OG in place. Neck: No Nodes, Thyroid Normal Size and Texture Lungs: Clear to auscultation, Normal air movement, No rhonchi, No wheeze, No rales Cardiovascular: Regular rate, Regular Rhythm, Normal S1, Normal S2, No murmurs Abdomen: Bowel Sounds Present, Soft, Non Tender, Non-Distended, No Hepato- splenomegaly Extremities: No edema, No Calf Tenderness Skin: No rashes, No breakdown Psych/Mental Status: Normal Affect, Appropriate Microbiology Past 72 Hours 12/26/19 11:50 Blood Culture (Wb) - Anticubital Right Blood Culture - Preliminary No growth in 48 hours. 12/26/19 11:45 Blood Culture (Wb) - Anticubital Left Blood Culture - Preliminary No growth in 48 hours. 12/26/19 17:06 Sputum, Induced/Lukens Gram Stain - Final 12/26/19 17:06 Sputum, Induced/Lukens Respiratory Culture - Final Staphylococcus aureus 12/26/19 12:05 Urine, Catheterized Urine Culture - Final Escherichia coli 12/27/19 16:45 Mucosa - Nasopharyngeal Coronavirus COVID-19 PCR - Final 12/26/19 12:05 Urine Catheter - Aguilar Streptococcus pneumoniae Antigen (M - Final 12/26/19 12:05 Urine Catheter - Aguilar Legionella Antigen - Final 12/26/19 12:05 Mucosa - Nasopharyngeal Coronavirus COVID-19 PCR - Final 12/26/19 12:05 Mucosa - Nose Respiratory Panel (PCR) - Final Laboratory Results 12/27/19 05:55: Diff Path Review Reviewed 12/27/19 13:45: Sodium 157 H, Potassium 4.6, Chloride 127 H*, Carbon Dioxide 21.0, Anion Gap 9, BUN 43 H, Creatinine 1.56 H, Estim Creat Clear Calc 27.56, Est GFR (MDRD) Af Amer 41 L, Est GFR (MDRD) Non-Af 34 L, BUN/Creatinine Ratio 27.6 H, Glucose 146 H, Calcium 8.2 L, Phosphorus 2.9, Magnesium 1.9, Ferritin 671 H 12/27/19 13:45: Procalcitonin 40.79 H 12/27/19 13:45: SARS-CoV-2 IgG Ab Negative, SARS-CoV-2 IgM Ab Negative 12/27/19 16:30: APTT 60.6 H 12/27/19 16:45: COVID-19 (GIOVANNY) Cancelled 12/27/19 17:22: POC Glucose 134 H 12/28/19 00:17: POC Glucose 136 H 12/28/19 00:20: APTT 72.6 H 12/28/19 04:45: WBC 29.1 H, RBC 3.92 L, Hgb 12.1, Hct 38.4, MCV 98.0, MCH 30.9, MCHC 31.5 L, RDW Std Deviation 48.7 H, RDW Coeff of Papo 13.4, Plt Count 268, MPV 11.1, Neut % (Auto) Not Reportable, Absolute Neuts (auto) 25.0 H, Absolute Lymphs (auto) 2.62, Total Counted 100, Neutrophils % (Manual) 79 H, Band Neutrophils % 7 H, Lymphocytes % (Manual) 9 L, Monocytes % (Manual) 5, Diff Path Review Reviewed, Platelet Estimate ADEQUATE, RBC Morphology NORM C+C 12/28/19 04:45: APTT 74.6 H 12/28/19 04:45: Sodium 151 H, Potassium 3.0 L, Chloride 120 H, Carbon Dioxide 23.0, Anion Gap 8, BUN 35 H, Creatinine 1.10 H, Estim Creat Clear Calc 39.09, Est GFR (MDRD) Af Amer 61, Est GFR (MDRD) Non-Af 50 L, BUN/Creatinine Ratio 31.8 H, Glucose 142 H, Calcium 7.4 L, Phosphorus 1.9 L, Magnesium 1.8 12/28/19 04:46: POC Glucose 125 H Current Medications Acetaminophen (Tylenol Liquid) 650 mg GT Q6H PRN PRN PRN Reason: FEVER Last Admin: 12/27/19 11:54 Dose: 650 mg Documented by: Albuterol Sulfate (Ventolin Aerosols) 2.5 mg INHALATION Q2H PRN PRN PRN Reason: SOB/Wheezing Chlorhexidine Gluconate () 15 ml PO BID [facility] Last Admin: 12/28/19 08:38 Dose: 15 ml Documented by: Chlorhexidine Gluconate () 1 each TOPICAL DAILY [facility] Last Admin: 12/28/19 05:55 Dose: 1 each Documented by: Dextrose (D50w Syringe) 0 gm IV X1 PRN; Protocol PRN Reason: Hypoglycemia Glucagon () 1 mg IM .X1 PRN PRN Reason: Hypoglycemia Heparin Sodium (Porcine) (Heparin Na) 0 unit IV UD PRN; Protocol Heparin Sodium/Dextrose () 25,000 units in 250 mls @ 11 mls/hr IV .[id number] [facility]; Protocol Last Titration: 12/28/19 05:00 Dose: 800 units/hr, 8 mls/hr Documented by: Norepinephrine Bitartrate 8 mg (/ Sodium Chloride) 250 mls @ 9.375 mls/hr CONT INF .[id number] [facility]; Protocol Last Titration: 12/28/19 11:00 Dose: 5 mcg/min, 9.4 mls/hr Documented by: Sodium Chloride () 250 mls @ 15 mls/hr IV .[id number] PRN PRN Reason: Saline Flush Sodium Chloride () 250 mls @ 15 mls/hr IV .[id number] PRN PRN Reason: Additional IVPB Infusion Pantoprazole Sodium 40 mg/ (Sodium Chloride) 110 mls @ 330 mls/hr IV Q12 [facility] Last Infusion: 12/27/19 21:33 Dose: Infused Documented by: Dextrose () 1,000 mls @ 75 mls/hr IV .[id number] [facility] Last Admin: 12/27/19 22:34 Dose: 75 mls/hr Documented by: Enteral Nutritional Formula (Vital Af 1.2 Casa Liquid) 1,000 mls @ 20 mls/hr GT .Q48H CHERELLE Last Admin: 12/27/19 11:54 Dose: 20 mls/hr Documented by: Cefazolin Sodium 2 gm/ Sodium (Chloride) 110 mls @ 150 mls/hr IV Q8 CHERELLE Insulin Human Lispro (Humalog Kwikpen (Bkc)) 0 unit SC Q6 CHERELLE; Protocol Last Admin: 12/28/19 04:55 Dose: Not Given Documented by: Levothyroxine Sodium (Synthroid) 25 mcg GT DAILY [facility] Last Admin: 12/28/19 08:35 Dose: 25 mcg Documented by: Polyethylene Glycol (Miralax) 17 gm PO DAILY PRN PRN PRN Reason: Constipation Sodium Chloride () 10 - 40 ml IV UD PRN PRN Reason: SALINE FLUSH Last Admin: 12/28/19 04:56 Dose: 40 ml Documented by: STROKE Vital Signs/Narrative: Vital Signs Temp Pulse Resp BP Pulse Ox 12/28/19 11:00 123 H 126/71 H 12/28/19 10:00 154 H 88/71 L 12/28/19 09:45 154 H 95/65 12/28/19 09:30 154 H 85/62 L 12/28/19 09:15 159 H 78/55 L 12/28/19 09:10 124 H 23 H 12/28/19 09:00 37.5 C H 152 H 24 H 86/56 L 97 12/28/19 08:36 161 H 112/75 Medical Necessity - Tobacco Use Smoking Status: Unknown if ever smoked Tobacco Use: Non-smoker Assessment/Plan All Active Problems Septic shock (Acute) Acute respiratory failure with hypoxia (Acute) Metabolic encephalopathy (Acute) Suspected 2019 novel coronavirus infection (Acute) Community acquired pneumonia (Acute) Atrial fibrillation with rapid ventricular response (Acute) 1. Septic shock: * Source: COVID v UTI v Pneumonia v other * UA showed minimal finding. UCx -49 k GNR * SCx shows S. aureus * Lactic acid was elevated at 5.7. Granted it could be skewed given the patient's profound hypoxia. * We will treat supportively with antibiotics with Pipracil and/tazobactam and vancomycin. * Follow-up cultures. * Concern for that the patient is coming from halfway that this could be COVID-19. COVID negative x1. Given the low sensitivity, would recheck it if it does come back negative. Will defer to ID if isolation can be dc'd 2. Acute hypoxic respiratory failure: * Suspect related with pneumonia versus COVID-19. * D-dimer 13. On heparin gtt * consider further testing when more stable. 3. Suspected COVID-19: As above. Continue to treat with antibiotics. Infectious disease consultation. 4. Elevated troponin: * Likely due to demand ischemia given the underlying shock and respiratory failure. * peak troponin at 0.199. Monitor. * Echo shows 65% 5. Atrial fibrillation with RVR: improved. Secondary to above. Would hold off on medication at this time to slow her heart rate down. 6. Hypokalemia:improved after replacement. hyperkalemia initially present was lab error. 7. Acute kidney injury: * FEUrea 7.5, consistent with prerenal azotemia. * Patient did receive IV fluids. Given the concern for COVID-19 would use cautious hydration. * Resolved 8. Hypernatremia: Likely related to dehydration. improved. 9. VTE prophylaxis: Low risk at this time as patient is going to be anticoagulated with heparin drip. 10. Advanced care planning: Patient is full CODE STATUS. Discussed with the patient's at bedside. Discussed that if she would require pressor medications, that she would require central line. He was in agreement with the procedure if necessary after discussing risks and benefits. 11. Encephalopathy: Head CT showed chronic changes. EEG performed, results pending. Inpatient E&M: [id number] Subs Hosp L2
[2019-12-28 12:25] LABS: Bedside Glucose 55 mg/dL (70-110)
[2019-12-28] MEDS: levETIRAcetam IV 1,000 MG/100 ML BAG 400 MG IV (14:10)
[2019-12-28] MEDS: Cefazolin 2 GM in 0.9% Normal Saline 100 ML IV ×2 (15:22→22:07)
[2019-12-28 15:33] LABS: Anion Gap 6 (5-15); BUN 28 mg/dL (7-18); BUN/Creat Ratio 31.3 RATIO (10-20); Calcium,Total 7.4 mg/dL (8.5-10.1); Chloride 120 mmol/L (98-107); EST Glomerular Filtration Rate 64 mL/min (>60); Est Glom Filt Rate - Afr Amer 77 mL/min (>60); Estimated Creatinine Clearance 47.78 ml/min; Glucose 108 mg/dL (74-106); Potassium 3.9 mmol/L (3.5-5.1); Sodium Level 150 mmol/L (136-145)
[2019-12-28 17:26] LABS: Bedside Glucose 103 mg/dL (70-110)
[2019-12-28] MEDS: levETIRAcetam Oral Solution 500 MG/5 ML PO (22:15)
[2019-12-28] MEDS: HEPARIN/D5w 25,000 UNITS 25,000 UNITS/250 ML IV.SOLN. 8 UNITS IV (22:22)
[2019-12-29] VITALS (52 sets, daily range): BP systolic 79–130; BP diastolic 40–93; PULSE 70–160; RESP 14–25; TEMP 36.6–37.1; O2SAT 95–99
[2019-12-29 00:35] LABS: Bedside Glucose 113 mg/dL (70-110)
[2019-12-29 04:02] LABS: Absolute Lymphocyte Count 1.66 X10^3/uL (0.83-4.51); Absolute Neutrophil Count 20.9 X10^3/uL (2.0-7.7); Basophil# 0.02 X10^3/uL; Basophil% 0.1 % (0-1); Eosinophil# 0.21 X10^3/uL; Eosinophils% 0.9 % (0-5); Hematocrit 36.3 % (37-47); Hemoglobin 11.6 g/dL (12.0-15.0); Lymphocyte # 1.66 X10^3/ul (4.0); Lymphocyte % 6.8 % (19-41); Mean Corpuscular Hgb 30.9 pg (27.0-32.0); Mean Corpuscular Volume 96.5 fL (81-99); Monocyte% 4.5 % (0-10); NRBC Flagged by Analyzer 0 % (0-5); Neutrophil # 20.93 X10^3/uL (2.7-7.7); Neutrophil % 85.8 % (47-70); POSITIVE DIFFERENTIAL YES; POSITIVE MORPHOLOGY YES; Platelet Count 242 K/mm3 (150-450); RBC Distribution Width CV 13.2 % (11.6-14.6); RBC Distribution Width SD 47.6 fl (35.1-43.9); Red Blood Count 3.76 M/mm3 (4.2-5.4); White Blood Count 24.4 K/mm3 (4.4-11.0)
[2019-12-29 04:13] LABS: Anion Gap 6 (5-15); BUN 22 mg/dL (7-18); BUN/Creat Ratio 27.7 RATIO (10-20); Calcium,Total 7.4 mg/dL (8.5-10.1); Chloride 115 mmol/L (98-107); Creatinine, Serum 0.79 mg/dL (0.55-1.02); EST Glomerular Filtration Rate 73 mL/min (>60); Est Glom Filt Rate - Afr Amer 89 mL/min (>60); Glucose 128 mg/dL (74-106); Potassium 3.2 mmol/L (3.5-5.1); Sodium Level 145 mmol/L (136-145)
[2019-12-29 04:18] LABS: Differential Indicated SCAN CRITERIA MET
[2019-12-29 04:34] LABS: Differential Comment SCANNED
[2019-12-29] MEDS: Heparin Injection (Vial) 5,000 UNIT/ML VIAL IV ×2 (04:44→11:48)
[2019-12-29] MEDS: 0.9% Saline Lock 10 ML Syringe IV ×4 (04:47→13:33)
[2019-12-29] MEDS: Cefazolin 2 GM in 0.9% Normal Saline 100 ML IV ×3 (05:00→22:59)
--- NOTE | 2019-12-29 06:46 | PCM.PN.INT ---
Subjective: Patient did okay overnight. Patient remains on low-dose Levophed to maintain appropriate blood pressures. Patient was placed on Keppra yesterday secondary to reported focal seizures. Patient continues to be minimally responsive, but did open her eyes to loud verbal stimulus today. Patient tolerating tube feeds. Patient did have episodes of significant tachycardia/A. fib RVR overnight, but required no acute intervention. General: Lethargic, - - Not following commands. Good ventilator synchrony. Perfusion much improved with no mottling or cyanosis. HEENT: Atraumatic, PERRLA, EOMI, Normocephalic, - - No scleral icterus or injection noted. Not actively fighting pupillary evaluation today Oral: Moist Mucosa, No Gingival or Mucosal Lesions/ Ulcerations Neck: Supple, No JVD, No Nodes, Trachea Midline Lungs: No wheeze, No rales, Diminished, Rhonchi, - - Symmetric expansion. No dullness to percussion. Cardiovascular: Normal S1, Normal S2, No murmurs, Irregular Rate, No rub noted, No Gallop, Tachycardic Abdomen: Bowel Sounds Present, Soft, Non Tender, Non-Distended Extremities: No clubbing, No cyanosis, Edema - Trace to 1+ Skin: - - Scattered ecchymotic areas. No mottling noted. Right heel dressed. Musculoskeletal: No Tenderness to Palpation of Joints or Extremities Lymphatic: No Cervical, Supraclavicular, or Inguinal Adenopathy Neurological: - - Sensation does appear to be intact. Positive gag and cough reflexes. Briefly open eyes to loud voice, but not following commands. Psych/Mental Status: Flat Affect Vital Signs Temp Pulse Resp BP Pulse Ox 37.1 C 96 17 114/49 L 97 12/29/19 04:00 12/29/19 06:22 12/29/19 06:22 12/29/19 04:00 12/29/19 06:22 Oxygen Flow Rate (L/min) 15 Oxygen Delivery Method Mechanical Ventilator Weight: 90.6 kg Body Mass Index (BMI) 29.2 Intake and Output for Last 24 Hours 12/27/19 12/28/19 12/29/19 23:59 23:59 23:59 Intake Total 4524.04 / 5098.04 4334.15 / 4335.55 861.92 / 861.92 Output Total 625 / 800 1525 / 1525 225 / 225 Balance 3899.04 / 4298.04 2809.15 / 2810.55 636.92 / 636.92 Labs (Last 48 Hours) 12/26/19 12/27/19 12/27/19 11:50 05:55 07:40 WBC RBC Hgb Hct MCV MCH MCHC RDW Std Deviation RDW Coeff of Papo Plt Count MPV Immature Gran % (Auto) Neut % (Auto) Lymph % (Auto) [place] % (Auto) Eos % (Auto) Baso % (Auto) Absolute Neuts (auto) 18.3 H Absolute Lymphs (auto) 2.19 Total Counted 100 Neutrophils % (Manual) 17 L Band Neutrophils % 50 H Lymphocytes % (Manual) 8 L Monocytes % (Manual) 3 Metamyelocytes % 20 H Myelocytes % 2 H Nucleated RBC % Differential Comment Diff Path Review Reviewed Reviewed Dohle Bodies RARE Platelet Estimate ADEQUATE RBC Morphology NORM C+C APTT 85.8 H Sodium Potassium Chloride Carbon Dioxide Anion Gap BUN Creatinine Estim Creat Clear Calc Est GFR (MDRD) Af Amer Est GFR (MDRD) Non-Af BUN/Creatinine Ratio Glucose Calcium Phosphorus Magnesium Ferritin Procalcitonin COVID-19 (GIOVANNY) SARS-CoV-2 IgG Ab SARS-CoV-2 IgM Ab POC Glucose 12/27/19 12/27/19 12/27/19 11:46 13:45 13:45 WBC RBC Hgb Hct MCV MCH MCHC RDW Std Deviation RDW Coeff of Papo Plt Count MPV Immature Gran % (Auto) Neut % (Auto) Lymph % (Auto) [place] % (Auto) Eos % (Auto) Baso % (Auto) Absolute Neuts (auto) Absolute Lymphs (auto) Total Counted Neutrophils % (Manual) Band Neutrophils % Lymphocytes % (Manual) Monocytes % (Manual) Metamyelocytes % Myelocytes % Nucleated RBC % Differential Comment Diff Path Review Dohle Bodies Platelet Estimate RBC Morphology APTT Sodium 157 H Potassium 4.6 Chloride 127 H* Carbon Dioxide 21.0 Anion Gap 9 BUN 43 H Creatinine 1.56 H Estim Creat Clear Calc 27.56 Est GFR (MDRD) Af Amer 41 L Est GFR (MDRD) Non-Af 34 L BUN/Creatinine Ratio 27.6 H Glucose 146 H Calcium 8.2 L Phosphorus 2.9 Magnesium 1.9 Ferritin 671 H Procalcitonin 40.79 H COVID-19 (GIOVANNY) SARS-CoV-2 IgG Ab SARS-CoV-2 IgM Ab POC Glucose 93 12/27/19 12/27/19 12/27/19 13:45 16:30 16:45 WBC RBC Hgb Hct MCV MCH MCHC RDW Std Deviation RDW Coeff of Papo Plt Count MPV Immature Gran % (Auto) Neut % (Auto) Lymph % (Auto) [place] % (Auto) Eos % (Auto) Baso % (Auto) Absolute Neuts (auto) Absolute Lymphs (auto) Total Counted Neutrophils % (Manual) Band Neutrophils % Lymphocytes % (Manual) Monocytes % (Manual) Metamyelocytes % Myelocytes % Nucleated RBC % Differential Comment Diff Path Review Dohle Bodies Platelet Estimate RBC Morphology APTT 60.6 H Sodium Potassium Chloride Carbon Dioxide Anion Gap BUN Creatinine Estim Creat Clear Calc Est GFR (MDRD) Af Amer Est GFR (MDRD) Non-Af BUN/Creatinine Ratio Glucose Calcium Phosphorus Magnesium Ferritin Procalcitonin COVID-19 (GIOVANNY) Cancelled SARS-CoV-2 IgG Ab Negative SARS-CoV-2 IgM Ab Negative POC Glucose 12/27/19 12/28/19 12/28/19 17:22 00:17 00:20 WBC RBC Hgb Hct MCV MCH MCHC RDW Std Deviation RDW Coeff of Papo Plt Count MPV Immature Gran % (Auto) Neut % (Auto) Lymph % (Auto) [place] % (Auto) Eos % (Auto) Baso % (Auto) Absolute Neuts (auto) Absolute Lymphs (auto) Total Counted Neutrophils % (Manual) Band Neutrophils % Lymphocytes % (Manual) Monocytes % (Manual) Metamyelocytes % Myelocytes % Nucleated RBC % Differential Comment Diff Path Review Dohle Bodies Platelet Estimate RBC Morphology APTT 72.6 H Sodium Potassium Chloride Carbon Dioxide Anion Gap BUN Creatinine Estim Creat Clear Calc Est GFR (MDRD) Af Amer Est GFR (MDRD) Non-Af BUN/Creatinine Ratio Glucose Calcium Phosphorus Magnesium Ferritin Procalcitonin COVID-19 (GIOVANNY) SARS-CoV-2 IgG Ab SARS-CoV-2 IgM Ab POC Glucose 134 H 136 H 12/28/19 12/28/19 12/28/19 04:45 04:45 04:45 WBC 29.1 H RBC 3.92 L Hgb 12.1 Hct 38.4 MCV 98.0 MCH 30.9 MCHC 31.5 L RDW Std Deviation 48.7 H RDW Coeff of Papo 13.4 Plt Count 268 MPV 11.1 Immature Gran % (Auto) Neut % (Auto) Not Reportable Lymph % (Auto) [place] % (Auto) Eos % (Auto) Baso % (Auto) Absolute Neuts (auto) 25.0 H Absolute Lymphs (auto) 2.62 Total Counted 100 Neutrophils % (Manual) 79 H Band Neutrophils % 7 H Lymphocytes % (Manual) 9 L Monocytes % (Manual) 5 Metamyelocytes % Myelocytes % Nucleated RBC % Differential Comment Diff Path Review Reviewed Dohle Bodies Platelet Estimate ADEQUATE RBC Morphology NORM C+C APTT 74.6 H Sodium 151 H Potassium 3.0 L Chloride 120 H Carbon Dioxide 23.0 Anion Gap 8 BUN 35 H Creatinine 1.10 H Estim Creat Clear Calc 39.09 Est GFR (MDRD) Af Amer 61 Est GFR (MDRD) Non-Af 50 L BUN/Creatinine Ratio 31.8 H Glucose 142 H Calcium 7.4 L Phosphorus 1.9 L Magnesium 1.8 Ferritin Procalcitonin COVID-19 (GIOVANNY) SARS-CoV-2 IgG Ab SARS-CoV-2 IgM Ab POC Glucose 12/28/19 12/28/19 12/28/19 04:46 12:22 15:05 WBC RBC Hgb Hct MCV MCH MCHC RDW Std Deviation RDW Coeff of Papo Plt Count MPV Immature Gran % (Auto) Neut % (Auto) Lymph % (Auto) [place] % (Auto) Eos % (Auto) Baso % (Auto) Absolute Neuts (auto) Absolute Lymphs (auto) Total Counted Neutrophils % (Manual) Band Neutrophils % Lymphocytes % (Manual) Monocytes % (Manual) Metamyelocytes % Myelocytes % Nucleated RBC % Differential Comment Diff Path Review Dohle Bodies Platelet Estimate RBC Morphology APTT Sodium 150 H Potassium 3.9 Chloride 120 H Carbon Dioxide 24.0 Anion Gap 6 BUN 28 H Creatinine 0.90 Estim Creat Clear Calc 47.78 Est GFR (MDRD) Af Amer 77 Est GFR (MDRD) Non-Af 64 BUN/Creatinine Ratio 31.3 H Glucose 108 H Calcium 7.4 L Phosphorus Magnesium Ferritin Procalcitonin COVID-19 (GIOVANNY) SARS-CoV-2 IgG Ab SARS-CoV-2 IgM Ab POC Glucose 125 H 55 L 12/28/19 12/29/19 12/29/19 17:23 00:33 03:50 WBC 24.4 H RBC 3.76 L Hgb 11.6 L Hct 36.3 L MCV 96.5 MCH 30.9 MCHC 32.0 RDW Std Deviation 47.6 H RDW Coeff of Papo 13.2 Plt Count 242 MPV 11.0 Immature Gran % (Auto) 1.900 H Neut % (Auto) 85.8 H Lymph % (Auto) 6.8 L [place] % (Auto) 4.5 Eos % (Auto) 0.9 Baso % (Auto) 0.1 Absolute Neuts (auto) 20.9 H Absolute Lymphs (auto) 1.66 Total Counted Neutrophils % (Manual) Band Neutrophils % Lymphocytes % (Manual) Monocytes % (Manual) Metamyelocytes % Myelocytes % Nucleated RBC % 0 Differential Comment SCANNED Diff Path Review Dohle Bodies Platelet Estimate RBC Morphology APTT Sodium Potassium Chloride Carbon Dioxide Anion Gap BUN Creatinine Estim Creat Clear Calc Est GFR (MDRD) Af Amer Est GFR (MDRD) Non-Af BUN/Creatinine Ratio Glucose Calcium Phosphorus Magnesium Ferritin Procalcitonin COVID-19 (GIOVANNY) SARS-CoV-2 IgG Ab SARS-CoV-2 IgM Ab POC Glucose 103 113 H 12/29/19 12/29/19 03:50 03:50 WBC RBC Hgb Hct MCV MCH MCHC RDW Std Deviation RDW Coeff of Papo Plt Count MPV Immature Gran % (Auto) Neut % (Auto) Lymph % (Auto) [place] % (Auto) Eos % (Auto) Baso % (Auto) Absolute Neuts (auto) Absolute Lymphs (auto) Total Counted Neutrophils % (Manual) Band Neutrophils % Lymphocytes % (Manual) Monocytes % (Manual) Metamyelocytes % Myelocytes % Nucleated RBC % Differential Comment Diff Path Review Dohle Bodies Platelet Estimate RBC Morphology APTT 50.0 H Sodium 145 Potassium 3.2 L Chloride 115 H Carbon Dioxide 24.0 Anion Gap 6 BUN 22 H Creatinine 0.79 Estim Creat Clear Calc 43.00 Est GFR (MDRD) Af Amer 89 Est GFR (MDRD) Non-Af 73 BUN/Creatinine Ratio 27.7 H Glucose 128 H Calcium 7.4 L Phosphorus Magnesium Ferritin Procalcitonin COVID-19 (GIOVANNY) SARS-CoV-2 IgG Ab SARS-CoV-2 IgM Ab POC Glucose Microbiology 12/26/19 11:50 Blood Culture (Wb) - Anticubital Right Blood Culture - Preliminary No growth in 48 hours. 12/26/19 11:45 Blood Culture (Wb) - Anticubital Left Blood Culture - Preliminary No growth in 48 hours. 12/26/19 17:06 Sputum, Induced/Lukens Gram Stain - Final 12/26/19 17:06 Sputum, Induced/Lukens Respiratory Culture - Final Staphylococcus aureus 12/26/19 12:05 Urine, Catheterized Urine Culture - Final Escherichia coli 12/27/19 16:45 Mucosa - Nasopharyngeal Coronavirus COVID-19 PCR - Final Clinical Impression(s) from Imaging Studies Brain CT 12/28/19 08:26 IMPRESSION: Chronic involutional changes of the brain. Electronically Signed: Joss Snyder, at 10:40 EDT , Service support , Medical Necessity - Tobacco Use Smoking Status: Unknown if ever smoked Tobacco Use: Non-smoker Assessment/Plan All Active Problems Septic shock (Acute) Acute respiratory failure with hypoxia (Acute) Metabolic encephalopathy (Acute) Suspected 2018 novel coronavirus infection (Acute) Community acquired pneumonia (Acute) Atrial fibrillation with rapid ventricular response (Acute) RECOMMENDATIONS: 1. Continue antibiotics per ID 2. Wean oxygen as tolerated 3. Decrease D5W. Supplement electrolytes as necessary 4. Continue Levophed. 5. Possible need for MRI, but await medical stability 6. Discuss with ID about COVID precautions 7. Spontaneous breathing and awakening trials per protocol IMPRESSIONS: 1. Septic shock secondary to staph aureus pneumonia Patient was significantly hypotension on presentation to the intensive care unit. Initial lactic acid was elevated at 5.7 and patient had profound hypoxemia. Patient currently out of COVID precautions. Patient did receive significant volume resuscitation, but is still requiring Levophed. Mottling and cyanosis have resolved. Anticipate better perfusion with improved hemodynamics. If patient continues to be hypotensive tomorrow, may consider stress dose steroids. 2. Acute hypoxic respiratory failure secondary to MSSA pneumonia Clinical suspicion for decreased mental status leading to acute hypoxic respiratory failure. Patient appears to have been hypotensive for quite some time on presentation given mottling and cyanotic features. Continue to support blood pressure. Patient continues to have copious endotracheal secretions and has grown MSSA. Cardiac work-up was relatively unremarkable with preserved ejection fraction and diastolic dysfunction. 3. A. fib with RVR/elevated troponin Patient significantly tachycardic at this time. Will attempt to address electrolytes to see if patient will go back to sinus rhythm. Clinical suspicion for supply demand mismatch given significant hypoxia on presentation. Unclear how long patient has been in A. fib with RVR, but will continue to monitor. Continue systemic anticoagulation. 4. Acute kidney injury/hypernatremia/hyperchloremia/hyperkalemia Resolved. High clinical suspicion suspicion for prerenal etiology. Patient did receive significant volume resuscitation yesterday. Patient appears to be hypovolemic hypernatremia. Will attempt to decrease D5W. Patient has been hypoglycemic intermittently. May increase tube feeds to compensate. Recheck labs tomorrow. No indication for renal replacement therapy at this time. 5. Hyperglycemia/advanced age/poor history/schizophrenia/dementia/bipolar/hypothyroidism/hypertension/metabolic encephalopathy/new onset seizure Complicates care, management, recovery and prognosis. Will need to check blood sugars every 6 hours and cover as necessary. Patient's sodium and chloride levels are improving, but patient continues to not be following commands despite lack of sedation. CT of the head was unremarkable. EEG did show focal seizure activity, so she was loaded with Keppra. Given history of A. fib, patient likely should have an MRI, but will await medical stability. TIME: 40 minutes critical care time spent addressing patient's septic shock, acute respiratory failure, A. fib with RVR, acute kidney injury, review of all data and collaboration with care team (5:30 AM to 6:30 AM) 9xxxx: [id number] Critical care first hour
[2019-12-29] MEDS: Chlorhexidine 15 ML PO ×2 (09:40→23:04)
[2019-12-29] MEDS: CHLORHEXIDINE GLUC 2% CLOTH 1 EACH TOWELETTE TOPICAL (09:40)
[2019-12-29] MEDS: Levothyroxine 25 MCG TABLET GT (09:41)
[2019-12-29] MEDS: levETIRAcetam Oral Solution 500 MG/5 ML PO ×2 (09:41→22:59)
--- NOTE | 2019-12-29 09:54 | CASEMGMT ---
SW participated in ICU rounds this morning. SW called [facility], spoke w/nurse Jennifer. As per Jennifer, pt is nonambulatory at baseline, they utilize a rodolfo lift with pt. It will depend on pt's needs as to whether or not they will be able to take pt back. SW called pt's to check in, offer support. We discussed options at discharge, including returning to [facility] vs going to a halfway. is hopeful pt will be able to return to [facility], however pt has been to TCU in the past and may be agreeable to this if needed. SW explained will call TCU and put pt on the list for a bed if needed. does feel it is too soon to make a plan for discharge. SW explained that it is too soon to make a plan, but is helpful to think about it and talk about it. states understanding. SW called TCU, put pt's name on TCU list. SW will continue to follow. ANJALI Stallings
[2019-12-29 11:10] LABS: Bedside Glucose 108 mg/dL (70-110)
--- NOTE | 2019-12-29 11:13 | PN_ITS ---
Patient Problems: Active and Suspected Problems Septic shock (Acute) Acute respiratory failure with hypoxia (Acute) Metabolic encephalopathy (Acute) Suspected 2019 novel coronavirus infection (Acute) Reason for Visit: septic shock Subjective: Reacting more to noxious stimuli. Opening eyes to voice. Vitals/I&O's: Vital Signs Temp Pulse Resp BP Pulse Ox 36.6 C 78 21 H 107/51 L 96 12/29/19 10:00 12/29/19 10:00 12/29/19 10:00 12/29/19 10:45 12/29/19 10:00 Oxygen Flow Rate (L/min) 15 Oxygen Delivery Method Mechanical Ventilator Weight: 90.6 kg Body Mass Index (BMI) 29.2 Intake and Output for Last 24 Hours 12/27/19 12/28/19 12/29/19 23:59 23:59 23:59 Intake Total 4524.04 / 5098.04 4334.15 / 4335.55 1191.07 / 1191.07 Output Total 625 / 800 1525 / 1525 225 / 225 Balance 3899.04 / 4298.04 2809.15 / 2810.55 966.07 / 966.07 General: No apparent distress, - - withdrawals to noxious stimuli, opens eyes to voice. HEENT: Atraumatic, Normocephalic Oral: Moist Mucosa, No Gingival or Mucosal Lesions/ Ulcerations Neck: No Nodes, Trachea Midline Lungs: Normal air movement, - - coarse breath sounds Cardiovascular: Regular rate, Regular Rhythm, Normal S1, Normal S2, No murmurs Abdomen: Bowel Sounds Present, Soft, Non Tender, Non-Distended, No Hepato- splenomegaly Extremities: No Calf Tenderness, Edema Skin: No rashes, No breakdown Psych/Mental Status: Normal Affect, Appropriate Microbiology Past 72 Hours 12/26/19 11:50 Blood Culture (Wb) - Anticubital Right Blood Culture - Preliminary No growth in 48 hours. 12/26/19 11:45 Blood Culture (Wb) - Anticubital Left Blood Culture - Preliminary No growth in 48 hours. 12/26/19 17:06 Sputum, Induced/Lukens Gram Stain - Final 12/26/19 17:06 Sputum, Induced/Lukens Respiratory Culture - Final Staphylococcus aureus 12/26/19 12:05 Urine, Catheterized Urine Culture - Final Escherichia coli 12/27/19 16:45 Mucosa - Nasopharyngeal Coronavirus COVID-19 PCR - Final 12/26/19 12:05 Urine Catheter - Aguilar Streptococcus pneumoniae Antigen (M - Final 12/26/19 12:05 Urine Catheter - Aguilar Legionella Antigen - Final 12/26/19 12:05 Mucosa - Nasopharyngeal Coronavirus COVID-19 PCR - Final 12/26/19 12:05 Mucosa - Nose Respiratory Panel (PCR) - Final Laboratory Results 12/27/19 13:45: SARS-CoV-2 IgG Ab Negative, SARS-CoV-2 IgM Ab Negative 12/28/19 12:22: POC Glucose 55 L 12/28/19 15:05: Sodium 150 H, Potassium 3.9, Chloride 120 H, Carbon Dioxide 24.0, Anion Gap 6, BUN 28 H, Creatinine 0.90, Estim Creat Clear Calc 47.78, Est GFR (MDRD) Af Amer 77, Est GFR (MDRD) Non-Af 64, BUN/Creatinine Ratio 31.3 H, Glucose 108 H, Calcium 7.4 L 12/28/19 17:23: POC Glucose 103 12/29/19 00:33: POC Glucose 113 H 12/29/19 03:50: WBC 24.4 H, RBC 3.76 L, Hgb 11.6 L, Hct 36.3 L, MCV 96.5, MCH 30.9, MCHC 32.0, RDW Std Deviation 47.6 H, RDW Coeff of Papo 13.2, Plt Count 242, MPV 11.0, Immature Gran % (Auto) 1.900 H, Neut % (Auto) 85.8 H, Lymph % (Auto) 6.8 L, [place] % (Auto) 4.5, Eos % (Auto) 0.9, Baso % (Auto) 0.1, Absolute Neuts (auto) 20.9 H, Absolute Lymphs (auto) 1.66, Nucleated RBC % 0, Differential Comment SCANNED 12/29/19 03:50: APTT 50.0 H 12/29/19 03:50: Sodium 145, Potassium 3.2 L, Chloride 115 H, Carbon Dioxide 24.0, Anion Gap 6, BUN 22 H, Creatinine 0.79, Estim Creat Clear Calc 43.00, Est GFR (MDRD) Af Amer 89, Est GFR (MDRD) Non-Af 73, BUN/Creatinine Ratio 27.7 H, Glucose 128 H, Calcium 7.4 L 12/29/19 11:00: APTT Pending 12/29/19 11:05: POC Glucose 108 Current Medications Acetaminophen (Tylenol Liquid) 650 mg GT Q6H PRN PRN PRN Reason: FEVER Last Admin: 12/27/19 11:54 Dose: 650 mg Documented by: Albuterol Sulfate (Ventolin Aerosols) 2.5 mg INHALATION Q2H PRN PRN PRN Reason: SOB/Wheezing Chlorhexidine Gluconate () 15 ml PO BID [facility] Last Admin: 12/29/19 09:40 Dose: 15 ml Documented by: Chlorhexidine Gluconate () 1 each TOPICAL DAILY [facility] Last Admin: 12/29/19 09:40 Dose: 1 each Documented by: Dextrose (D50w Syringe) 0 gm IV X1 PRN; Protocol PRN Reason: Hypoglycemia Glucagon () 1 mg IM .X1 PRN PRN Reason: Hypoglycemia Heparin Sodium (Porcine) (Heparin Na) 0 unit IV UD PRN; Protocol Last Admin: 12/29/19 04:44 Dose: 1,000 unit Documented by: Heparin Sodium/Dextrose () 25,000 units in 250 mls @ 11 mls/hr IV .[id number] [facility]; Protocol Last Titration: 12/29/19 07:30 Dose: 900 units/hr, 9 mls/hr Documented by: Norepinephrine Bitartrate 8 mg (/ Sodium Chloride) 250 mls @ 9.375 mls/hr CONT INF .[id number] [facility]; Protocol Last Titration: 12/29/19 10:45 Dose: 1 mcg/min, 1.9 mls/hr Documented by: Sodium Chloride () 250 mls @ 15 mls/hr IV .[id number] PRN PRN Reason: Saline Flush Last Infusion: 12/29/19 10:38 Dose: 0 mls/hr Documented by: Sodium Chloride () 250 mls @ 15 mls/hr IV .[id number] PRN PRN Reason: Additional IVPB Infusion Pantoprazole Sodium 40 mg/ (Sodium Chloride) 110 mls @ 330 mls/hr IV Q12 [facility] Last Infusion: 12/29/19 10:00 Dose: Infused Documented by: Dextrose () 1,000 mls @ 50 mls/hr IV .Q20H [facility] Last Infusion: 12/29/19 08:39 Dose: 50 mls/hr Documented by: Enteral Nutritional Formula (Vital Af 1.2 Casa Liquid) 1,000 mls @ 30 mls/hr GT .[id number] [facility] Last Admin: 12/27/19 11:54 Dose: 20 mls/hr Documented by: Cefazolin Sodium 2 gm/ Sodium (Chloride) 110 mls @ 150 mls/hr IV Q8 [facility] Last Infusion: 12/29/19 05:45 Dose: Infused Documented by: Insulin Human Lispro (Humalog Kwikpen (Bkc)) 0 unit SC Q6 [facility]; Protocol Last Admin: 12/29/19 11:09 Dose: Not Given Documented by: Levetiracetam (Keppra Oral Solution) 500 mg PO BID [facility] Last Admin: 12/29/19 09:41 Dose: 500 mg Documented by: Levothyroxine Sodium (Synthroid) 25 mcg GT DAILY [facility] Last Admin: 12/29/19 09:41 Dose: 25 mcg Documented by: Polyethylene Glycol (Miralax) 17 gm PO DAILY PRN PRN PRN Reason: Constipation Sodium Chloride () 10 - 40 ml IV UD PRN PRN Reason: SALINE FLUSH Last Admin: 12/29/19 09:44 Dose: 10 ml Documented by: STROKE Vital Signs/Narrative: Vital Signs Temp Pulse Resp BP Pulse Ox 12/29/19 10:45 107/51 L 12/29/19 10:30 126/59 H 12/29/19 10:15 113/58 L 12/29/19 10:00 36.6 C 78 21 H 120/63 96 12/29/19 09:00 36.6 C 88 19 H 130/63 H 97 12/29/19 08:57 91 18 97 12/29/19 08:00 36.7 C 70 21 H 119/59 L 97 12/29/19 07:52 73 Medical Necessity - Tobacco Use Smoking Status: Unknown if ever smoked Tobacco Use: Non-smoker Assessment/Plan All Active Problems Septic shock (Acute) Acute respiratory failure with hypoxia (Acute) Metabolic encephalopathy (Acute) Suspected 2019 novel coronavirus infection (Acute) Community acquired pneumonia (Acute) Atrial fibrillation with rapid ventricular response (Acute) 1. Septic shock: * Source: UTI v Pneumonia * UA showed minimal finding. UCx [id number] k GNR * SCx shows S. aureus * Lactic acid was elevated at 5.7. Granted it could be skewed given the patient's profound hypoxia. * We will treat supportively with antibiotics with Pipracil and/tazobactam and vancomycin. * Follow-up cultures. * Concern for that the patient is coming from [facility] that this could be COVID-19. COVID negative x1. Given the low sensitivity, would recheck it if it does come back negative. Will defer to ID if isolation can be dc'd 2. Acute hypoxic respiratory failure: * Suspect related with pneumonia versus COVID-19. * D-dimer 13. On heparin gtt * consider further testing when more stable. 3. Suspected COVID-19: ruled-out 4. Elevated troponin: * Likely due to demand ischemia given the underlying shock and respiratory failure. * peak troponin at 0.199. Monitor. * Echo shows 65% 5. Atrial fibrillation with RVR: improved. Secondary to above. Would hold off on medication at this time to slow her heart rate down. 6. seizure * focal seizure left temporal region * started on levetiracetam * now more responsive 7. Hypokalemia:improved after replacement. hyperkalemia initially present was lab error. 8. Acute kidney injury: * FEUrea 7.5, consistent with prerenal azotemia. * Patient did receive IV fluids. Given the concern for COVID-19 would use cautious hydration. * Resolved 9. Hypernatremia: Likely related to dehydration. improved. 10. VTE prophylaxis: Low risk at this time as patient is going to be anticoagulated with heparin drip. 11. Advanced care planning: Patient is full CODE STATUS. Discussed with the patient's at bedside. Discussed that if she would require pressor medications, that she would require central line. He was in agreement with the procedure if necessary after discussing risks and benefits. 12. Encephalopathy: Head CT showed chronic changes. EEG showed focal seizures. Inpatient E&M: [id number] Subs Hosp L2
[2019-12-29 11:31] LABS: Partial Thromboplast Time 48.6 Seconds (24.1-36.2)
--- NOTE | 2019-12-29 12:00 | PCM.PN.ID ---
Patient Problems: Active and Suspected Problems Septic shock (Acute) Acute respiratory failure with hypoxia (Acute) Metabolic encephalopathy (Acute) Suspected 2019 novel coronavirus infection (Acute) Subjective: Responding more per nursing. No fever overnight. - Physical Exam Vitals/I&O's: Vital Signs Temp Pulse Resp BP Pulse Ox 97.8 F 79 19 H 105/46 L 96 12/29/19 11:00 12/29/19 11:32 12/29/19 11:10 12/29/19 11:45 12/29/19 11:10 Oxygen Flow Rate (L/min) 15 Oxygen Delivery Method Mechanical Ventilator Weight: 90.6 kg Body Mass Index (BMI) 29.2 Intake and Output for Last 24 Hours 12/27/19 12/28/19 12/29/19 23:59 23:59 23:59 Intake Total 4524.04 / 5098.04 4334.15 / 4335.55 1578.59 / 1578.59 Output Total 625 / 800 1525 / 1525 625 / 625 Balance 3899.04 / 4298.04 2809.15 / 2810.55 953.59 / 953.59 General: Non-Cooperative Lungs: Clear to auscultation, Normal air movement Cardiovascular: Regular rate, Regular Rhythm Abdomen: Soft, Non Tender, Non-Distended Skin: No rashes Microbiology Past 72 Hours 12/26/19 11:50 Blood Culture (Wb) - Anticubital Right Blood Culture - Preliminary No growth in 48 hours. 12/26/19 11:45 Blood Culture (Wb) - Anticubital Left Blood Culture - Preliminary No growth in 48 hours. 12/26/19 17:06 Sputum, Induced/Lukens Gram Stain - Final 12/26/19 17:06 Sputum, Induced/Lukens Respiratory Culture - Final Staphylococcus aureus 12/26/19 12:05 Urine, Catheterized Urine Culture - Final Escherichia coli 12/27/19 16:45 Mucosa - Nasopharyngeal Coronavirus COVID-19 PCR - Final 12/26/19 12:05 Urine Catheter - Gauilar Streptococcus pneumoniae Antigen (M - Final 12/26/19 12:05 Urine Catheter - Aguilar Legionella Antigen - Final 12/26/19 12:05 Mucosa - Nasopharyngeal Coronavirus COVID-19 PCR - Final 12/26/19 12:05 Mucosa - Nose Respiratory Panel (PCR) - Final Laboratory Results 12/28/19 12:22: POC Glucose 55 L 12/28/19 15:05: Sodium 150 H, Potassium 3.9, Chloride 120 H, Carbon Dioxide 24.0, Anion Gap 6, BUN 28 H, Creatinine 0.90, Estim Creat Clear Calc 47.78, Est GFR (MDRD) Af Amer 77, Est GFR (MDRD) Non-Af 64, BUN/Creatinine Ratio 31.3 H, Glucose 108 H, Calcium 7.4 L 12/28/19 17:23: POC Glucose 103 12/29/19 00:33: POC Glucose 113 H 12/29/19 03:50: WBC 24.4 H, RBC 3.76 L, Hgb 11.6 L, Hct 36.3 L, MCV 96.5, MCH 30.9, MCHC 32.0, RDW Std Deviation 47.6 H, RDW Coeff of Papo 13.2, Plt Count 242, MPV 11.0, Immature Gran % (Auto) 1.900 H, Neut % (Auto) 85.8 H, Lymph % (Auto) 6.8 L, [place] % (Auto) 4.5, Eos % (Auto) 0.9, Baso % (Auto) 0.1, Absolute Neuts (auto) 20.9 H, Absolute Lymphs (auto) 1.66, Nucleated RBC % 0, Differential Comment SCANNED 12/29/19 03:50: APTT 50.0 H 12/29/19 03:50: Sodium 145, Potassium 3.2 L, Chloride 115 H, Carbon Dioxide 24.0, Anion Gap 6, BUN 22 H, Creatinine 0.79, Estim Creat Clear Calc 43.00, Est GFR (MDRD) Af Amer 89, Est GFR (MDRD) Non-Af 73, BUN/Creatinine Ratio 27.7 H, Glucose 128 H, Calcium 7.4 L 12/29/19 11:00: APTT 48.6 H 12/29/19 11:05: POC Glucose 108 Current Medications Acetaminophen (Tylenol Liquid) 650 mg GT Q6H PRN PRN PRN Reason: FEVER Last Admin: 12/27/19 11:54 Dose: 650 mg Documented by: Albuterol Sulfate (Ventolin Aerosols) 2.5 mg INHALATION Q2H PRN PRN PRN Reason: SOB/Wheezing Chlorhexidine Gluconate () 15 ml PO BID [facility] Last Admin: 12/29/19 09:40 Dose: 15 ml Documented by: Chlorhexidine Gluconate () 1 each TOPICAL DAILY [facility] Last Admin: 12/29/19 09:40 Dose: 1 each Documented by: Dextrose (D50w Syringe) 0 gm IV X1 PRN; Protocol PRN Reason: Hypoglycemia Glucagon () 1 mg IM .X1 PRN PRN Reason: Hypoglycemia Heparin Sodium (Porcine) (Heparin Na) 0 unit IV UD PRN; Protocol Last Admin: 12/29/19 11:48 Dose: 1,000 unit Documented by: Heparin Sodium/Dextrose () 25,000 units in 250 mls @ 11 mls/hr IV .[id number] [facility]; Protocol Last Titration: 12/29/19 11:45 Dose: 1,000 units/hr, 10 mls/hr Documented by: Norepinephrine Bitartrate 8 mg (/ Sodium Chloride) 250 mls @ 9.375 mls/hr CONT INF .[id number] [facility]; Protocol Last Titration: 12/29/19 11:45 Dose: 0 mcg/min, 0 mls/hr Documented by: Sodium Chloride () 250 mls @ 15 mls/hr IV .[id number] PRN PRN Reason: Saline Flush Last Infusion: 12/29/19 10:38 Dose: 0 mls/hr Documented by: Sodium Chloride () 250 mls @ 15 mls/hr IV .[id number] PRN PRN Reason: Additional IVPB Infusion Pantoprazole Sodium 40 mg/ (Sodium Chloride) 110 mls @ 330 mls/hr IV Q12 [facility] Last Infusion: 12/29/19 10:00 Dose: Infused Documented by: Dextrose () 1,000 mls @ 50 mls/hr IV .Q20H [facility] Last Infusion: 12/29/19 11:22 Dose: 0 mls/hr Documented by: Enteral Nutritional Formula (Vital Af 1.2 Casa Liquid) 1,000 mls @ 30 mls/hr GT .[id number] [facility] Last Admin: 12/29/19 11:25 Dose: Not Given Documented by: Cefazolin Sodium 2 gm/ Sodium (Chloride) 110 mls @ 150 mls/hr IV Q8 [facility] Last Infusion: 12/29/19 05:45 Dose: Infused Documented by: Insulin Human Lispro (Humalog Kwikpen (Bkc)) 0 unit SC Q6 [facility]; Protocol Last Admin: 12/29/19 11:09 Dose: Not Given Documented by: Levetiracetam (Keppra Oral Solution) 500 mg PO BID [facility] Last Admin: 12/29/19 09:41 Dose: 500 mg Documented by: Levothyroxine Sodium (Synthroid) 25 mcg GT DAILY [facility] Last Admin: 12/29/19 09:41 Dose: 25 mcg Documented by: Polyethylene Glycol (Miralax) 17 gm PO DAILY PRN PRN PRN Reason: Constipation Sodium Chloride () 10 - 40 ml IV UD PRN PRN Reason: SALINE FLUSH Last Admin: 12/29/19 09:44 Dose: 10 ml Documented by: Medical Necessity - Tobacco Use Smoking Status: Unknown if ever smoked Tobacco Use: Non-smoker Route of nutrition/ use of supplements: [] Nutritional Intake: [] IV Site: [] Aguilar Catheter: [] - Assessment/Plan Antibiotics: [] Assessment/Plan: [] Active and Suspected Problems Septic shock (Acute) Acute respiratory failure with hypoxia (Acute) Metabolic encephalopathy (Acute) Suspected 2019 novel coronavirus infection (Acute) septic shock, elevated d-dimer, acute hypoxic resp failure - fever to 101.7 here, now resolved On pressors. Sputum with MSSA, ucx with ecoli. Cont cefazolin. Repeat endobronchial covid was neg, IgM and IgG were neg. Out of isolation. Wbc, bp, and temps much improved. Will follow, d/w nursing
[2019-12-29 13:46] LABS: Bedside Glucose 87 mg/dL (70-110)
[2019-12-29] MEDS: Vital AF 1.2 Cal Liquid 1,000 ML 30 ML GT (16:02)
[2019-12-29 18:26] LABS: Bedside Glucose 93 mg/dL (70-110)
[2019-12-29 18:50] LABS: Partial Thromboplast Time 50.3 Seconds (24.1-36.2)
[2019-12-29] MEDS: HEPARIN/D5w 25,000 UNITS 25,000 UNITS/250 ML IV.SOLN. 11 UNITS IV (23:38)
[2019-12-30] VITALS (36 sets, daily range): BP systolic 89–146; BP diastolic 35–78; PULSE 71–117; RESP 14–28; TEMP 35.7–37.3; O2SAT 94–99
[2019-12-30 02:02] LABS: Absolute Lymphocyte Count 1.51 X10^3/uL (0.83-4.51); Absolute Neutrophil Count 10.4 X10^3/uL (2.0-7.7); Basophil# 0.13 X10^3/uL; Basophil% 0.9 % (0-1); Eosinophil# 0.29 X10^3/uL; Eosinophils% 2.1 % (0-5); Lymphocyte # 1.51 X10^3/ul (4.0); Mean Corp Hgb Conc 32.4 g/dL (32-36); Mean Corpuscular Hgb 30.8 pg (27.0-32.0); Mean Corpuscular Volume 95.2 fL (81-99); Mean Platelet Vol. 11.3 fl (6.2-12.0); Monocyte# 1.06 X10^3/uL; Monocyte% 7.7 % (0-10); NRBC Flagged by Analyzer 0 % (0-5); Neutrophil # 10.37 X10^3/uL (2.7-7.7); Neutrophil % 75.8 % (47-70); POSITIVE MORPHOLOGY YES; Platelet Count 203 K/mm3 (150-450); RBC Distribution Width CV 13.2 % (11.6-14.6); Red Blood Count 3.57 M/mm3 (4.2-5.4); White Blood Count 13.7 K/mm3 (4.4-11.0)
[2019-12-30 02:13] LABS: Partial Thromboplast Time 59.7 Seconds (24.1-36.2)
[2019-12-30 02:16] LABS: Anion Gap 5 (5-15); BUN 18 mg/dL (7-18); BUN/Creat Ratio 29.3 RATIO (10-20); Calcium,Total 7.7 mg/dL (8.5-10.1); Chloride 115 mmol/L (98-107); Creatinine, Serum 0.61 mg/dL (0.55-1.02); EST Glomerular Filtration Rate 99 mL/min (>60); Est Glom Filt Rate - Afr Amer 119 mL/min (>60); Glucose 102 mg/dL (74-106); Magnesium 1.9 mg/dL (1.6-2.6); Phosphorus 1.4 mg/dL (2.5-4.9); Potassium 3.4 mmol/L (3.5-5.1); Sodium Level 144 mmol/L (136-145)
[2019-12-30 02:55] LABS: Differential Indicated SCAN CRITERIA MET
[2019-12-30 02:56] LABS: Differential Comment SCANNED; Platelet Estimate ADEQUATE (ADEQ); Red Cell Morphology NORM C+C NORMAL (NORM C&C)
[2019-12-30 03:30] LABS: Bedside Glucose 107 mg/dL (70-110)
[2019-12-30] MEDS: Cefazolin 2 GM in 0.9% Normal Saline 100 ML IV ×3 (05:40→21:26)
[2019-12-30 05:50] LABS: Bedside Glucose 93 mg/dL (70-110)
--- NOTE | 2019-12-30 06:15 | MRI_ITS ---
STUDY: MRI BRAIN WITH AND WITHOUT CONTRAST REASON FOR EXAM: Female, 84 years old. possible stroke, ams TECHNIQUE: Standardized multiplanar fat and water weighted pulse sequences were obtained. IV dotarem 17cc was administered for the contrast portion of the examination. COMPARISON: December 28, 2019 FINDINGS: There is moderate cerebral atrophy with widening of the extra-axial spaces and ventricular dilatation. There are multiple white matter hyperintensities, distributed throughout the deep white matter tracts of the cerebral hemispheres, consistent with moderate chronic white matter ischemic changes. Normal bilateral basal ganglia. Normal thalami. There is no extra-axial fluid accumulation. Normal flow voids within the major intracranial circulation suggesting patency by spin echo criteria. Normal venous enhancement. There is no enhancing intra-axial or extra-axial abnormality. Normal sella turcica, pituitary gland, infundibular stalk, optic chiasm and hypothalamus. Normal tectal plate and pineal gland. Normal midbrain, all and medulla. Normal cerebellum. Normal basal cisterns. MRI/Brain W/WO Contrast IMPRESSION: No acute intracranial abnormality or masses. Electronically Signed: Renee Mina MD at 14:17 EDT Tel , Service support ,
[2019-12-30] MEDS: Furosemide 20 MG/2 ML VIAL IV ×2 (06:32→17:57)
--- NOTE | 2019-12-30 06:44 | PN_ITS ---
Subjective: Patient did well overnight. Patient is off of pressor therapy. Patient was more responsive overnight and able to open eyes and track. Patient did have a spontaneous breathing trial this morning was able to tolerate a full hour with no complications. Patient was placed back on ventilation for probable MRI later today. General: Alert, Non-Cooperative, - - Appears stated age. 2+ anasarca noted. HEENT: Atraumatic, PERRLA, EOMI, Normocephalic, - - Slight scleral injection without icterus Oral: Moist Mucosa, No Gingival or Mucosal Lesions/ Ulcerations Neck: Supple, No Nodes, Trachea Midline Lungs: No rhonchi, No wheeze, No rales, Diminished, - - Symmetric expansion. Cardiovascular: Normal S1, Normal S2, No murmurs, Irregular Rate, No rub noted, No Gallop Abdomen: Bowel Sounds Present, Soft, Non Tender, Non-Distended Extremities: No clubbing, No cyanosis, Capillary Refill Less than 3 Seconds, Edema, - - No mottling noted. Skin: - - Unchanged compared to previous Musculoskeletal: No Tenderness to Palpation of Joints or Extremities Lymphatic: No Cervical, Supraclavicular, or Inguinal Adenopathy Neurological: - - Not really following commands. Sensation is intact. Opens eyes to voice and tracks appropriately. Psych/Mental Status: Flat Affect Vital Signs Temp Pulse Resp BP Pulse Ox 35.7 C L 108 H 18 146/61 H 98 12/30/19 04:00 12/30/19 06:00 12/30/19 06:00 12/30/19 06:00 12/30/19 06:00 Oxygen Flow Rate (L/min) 15 Oxygen Delivery Method Mechanical Ventilator Weight: 92.2 kg Body Mass Index (BMI) 29.2 Intake and Output for Last 24 Hours 12/28/19 12/29/19 12/30/19 23:59 23:59 23:59 Intake Total 4334.15 / 4335.55 1981.46 / 1981.46 885.17 / 885.17 Output Total 1525 / 1525 850 / 1100 375 / 375 Balance 2809.15 / 2810.55 1131.46 / 881.46 510.17 / 510.17 Labs (Last 48 Hours) 12/27/19 12/27/19 12/28/19 05:55 13:45 04:45 WBC RBC Hgb Hct MCV MCH MCHC RDW Std Deviation RDW Coeff of Papo Plt Count MPV Immature Gran % (Auto) Neut % (Auto) Lymph % (Auto) [place] % (Auto) Eos % (Auto) Baso % (Auto) Absolute Neuts (auto) Absolute Lymphs (auto) Nucleated RBC % Differential Comment Diff Path Review Reviewed Reviewed Platelet Estimate RBC Morphology Eos Smear Total Cells APTT Sodium Potassium Chloride Carbon Dioxide Anion Gap BUN Creatinine Estim Creat Clear Calc Est GFR (MDRD) Af Amer Est GFR (MDRD) Non-Af BUN/Creatinine Ratio Glucose Calcium Phosphorus Magnesium SARS-CoV-2 IgG Ab Negative SARS-CoV-2 IgM Ab Negative POC Glucose 12/28/19 12/28/19 12/28/19 12:22 15:05 17:23 WBC RBC Hgb Hct MCV MCH MCHC RDW Std Deviation RDW Coeff of Papo Plt Count MPV Immature Gran % (Auto) Neut % (Auto) Lymph % (Auto) [place] % (Auto) Eos % (Auto) Baso % (Auto) Absolute Neuts (auto) Absolute Lymphs (auto) Nucleated RBC % Differential Comment Diff Path Review Platelet Estimate RBC Morphology Eos Smear Total Cells APTT Sodium 150 H Potassium 3.9 Chloride 120 H Carbon Dioxide 24.0 Anion Gap 6 BUN 28 H Creatinine 0.90 Estim Creat Clear Calc 47.78 Est GFR (MDRD) Af Amer 77 Est GFR (MDRD) Non-Af 64 BUN/Creatinine Ratio 31.3 H Glucose 108 H Calcium 7.4 L Phosphorus Magnesium SARS-CoV-2 IgG Ab SARS-CoV-2 IgM Ab POC Glucose 55 L 103 12/29/19 12/29/19 12/29/19 00:33 03:50 03:50 WBC 24.4 H RBC 3.76 L Hgb 11.6 L Hct 36.3 L MCV 96.5 MCH 30.9 MCHC 32.0 RDW Std Deviation 47.6 H RDW Coeff of Papo 13.2 Plt Count 242 MPV 11.0 Immature Gran % (Auto) 1.900 H Neut % (Auto) 85.8 H Lymph % (Auto) 6.8 L [place] % (Auto) 4.5 Eos % (Auto) 0.9 Baso % (Auto) 0.1 Absolute Neuts (auto) 20.9 H Absolute Lymphs (auto) 1.66 Nucleated RBC % 0 Differential Comment SCANNED Diff Path Review Platelet Estimate RBC Morphology Eos Smear Total Cells APTT 50.0 H Sodium Potassium Chloride Carbon Dioxide Anion Gap BUN Creatinine Estim Creat Clear Calc Est GFR (MDRD) Af Amer Est GFR (MDRD) Non-Af BUN/Creatinine Ratio Glucose Calcium Phosphorus Magnesium SARS-CoV-2 IgG Ab SARS-CoV-2 IgM Ab POC Glucose 113 H 12/29/19 12/29/19 12/29/19 03:50 11:00 11:05 WBC RBC Hgb Hct MCV MCH MCHC RDW Std Deviation RDW Coeff of Papo Plt Count MPV Immature Gran % (Auto) Neut % (Auto) Lymph % (Auto) [place] % (Auto) Eos % (Auto) Baso % (Auto) Absolute Neuts (auto) Absolute Lymphs (auto) Nucleated RBC % Differential Comment Diff Path Review Platelet Estimate RBC Morphology Eos Smear Total Cells APTT 48.6 H Sodium 145 Potassium 3.2 L Chloride 115 H Carbon Dioxide 24.0 Anion Gap 6 BUN 22 H Creatinine 0.79 Estim Creat Clear Calc 43.00 Est GFR (MDRD) Af Amer 89 Est GFR (MDRD) Non-Af 73 BUN/Creatinine Ratio 27.7 H Glucose 128 H Calcium 7.4 L Phosphorus Magnesium SARS-CoV-2 IgG Ab SARS-CoV-2 IgM Ab POC Glucose 108 12/29/19 12/29/19 12/29/19 12:20 13:39 18:20 WBC RBC Hgb Hct MCV MCH MCHC RDW Std Deviation RDW Coeff of Papo Plt Count MPV Immature Gran % (Auto) Neut % (Auto) Lymph % (Auto) [place] % (Auto) Eos % (Auto) Baso % (Auto) Absolute Neuts (auto) Absolute Lymphs (auto) Nucleated RBC % Differential Comment Diff Path Review Platelet Estimate RBC Morphology Eos Smear Total Cells Pending APTT Sodium Potassium Chloride Carbon Dioxide Anion Gap BUN Creatinine Estim Creat Clear Calc Est GFR (MDRD) Af Amer Est GFR (MDRD) Non-Af BUN/Creatinine Ratio Glucose Calcium Phosphorus Magnesium SARS-CoV-2 IgG Ab SARS-CoV-2 IgM Ab POC Glucose 87 93 12/29/19 12/29/19 12/30/19 18:23 22:58 01:50 WBC 13.7 H RBC 3.57 L Hgb 11.0 L Hct 34.0 L MCV 95.2 MCH 30.8 MCHC 32.4 RDW Std Deviation 46.0 H RDW Coeff of Papo 13.2 Plt Count 203 MPV 11.3 Immature Gran % (Auto) 2.500 H Neut % (Auto) 75.8 H Lymph % (Auto) 11.0 L [place] % (Auto) 7.7 Eos % (Auto) 2.1 Baso % (Auto) 0.9 Absolute Neuts (auto) 10.4 H Absolute Lymphs (auto) 1.51 Nucleated RBC % 0 Differential Comment SCANNED Diff Path Review Platelet Estimate ADEQUATE RBC Morphology NORM C+C Eos Smear Total Cells APTT 50.3 H Sodium Potassium Chloride Carbon Dioxide Anion Gap BUN Creatinine Estim Creat Clear Calc Est GFR (MDRD) Af Amer Est GFR (MDRD) Non-Af BUN/Creatinine Ratio Glucose Calcium Phosphorus Magnesium SARS-CoV-2 IgG Ab SARS-CoV-2 IgM Ab POC Glucose 107 12/30/19 12/30/19 12/30/19 01:50 01:50 05:40 WBC RBC Hgb Hct MCV MCH MCHC RDW Std Deviation RDW Coeff of Papo Plt Count MPV Immature Gran % (Auto) Neut % (Auto) Lymph % (Auto) [place] % (Auto) Eos % (Auto) Baso % (Auto) Absolute Neuts (auto) Absolute Lymphs (auto) Nucleated RBC % Differential Comment Diff Path Review Platelet Estimate RBC Morphology Eos Smear Total Cells APTT 59.7 H Sodium 144 Potassium 3.4 L Chloride 115 H Carbon Dioxide 24.0 Anion Gap 5 BUN 18 Creatinine 0.61 Estim Creat Clear Calc 43.00 Est GFR (MDRD) Af Amer 119 Est GFR (MDRD) Non-Af 99 BUN/Creatinine Ratio 29.3 H Glucose 102 Calcium 7.7 L Phosphorus 1.4 L Magnesium 1.9 SARS-CoV-2 IgG Ab SARS-CoV-2 IgM Ab POC Glucose 93 Microbiology 12/26/19 11:50 Blood Culture (Wb) - Anticubital Right Blood Culture - Preliminary No growth in 48 hours. 12/26/19 11:45 Blood Culture (Wb) - Anticubital Left Blood Culture - Pre liminary No growth in 48 hours. 12/26/19 17:06 Sputum, Induced/Lukens Gram Stain - Final 12/26/19 17:06 Sputum, Induced/Lukens Respiratory Culture - Final Staphylococcus aureus 12/26/19 12:05 Urine, Catheterized Urine Culture - Final Escherichia coli Medical Necessity - Tobacco Use Smoking Status: Unknown if ever smoked Tobacco Use: Non-smoker Assessment/Plan All Active Problems Septic shock (Acute) Acute respiratory failure with hypoxia (Acute) Metabolic encephalopathy (Acute) Suspected 2018 novel coronavirus infection (Acute) Community acquired pneumonia (Acute) Atrial fibrillation with rapid ventricular response (Acute) RECOMMENDATIONS: 1. Continue antibiotics per ID 2. Wean oxygen as tolerated 3. Supplement electrolytes as necessary 4. Obtain MRI secondary to new onset left-sided focal seizure 5. Obtaining tele-neurology consult following MRI results 6. Potential extubation pending timing of MRI IMPRESSIONS: 1. Septic shock secondary to staph aureus pneumonia Patient was significantly hypotension on presentation to the intensive care unit. Initial lactic acid was elevated at 5.7 and patient had profound hypoxemia. Patient currently out of COVID precautions. Patient did receive significant volume resuscitation, but is no longer requiring Levophed. Mottling and cyanosis have resolved. Anticipate better perfusion with improved hemodynamics. 2. Acute hypoxic respiratory failure secondary to MSSA pneumonia Clinical suspicion for decreased mental status and MSSA pneumonia leading to acute hypoxic respiratory failure. Patient appears to have been hypotensive for quite some time on presentation given mottling and cyanotic features. Passed spontaneous breathing trial, but will keep intubated to facilitate MRI. Potential extubation later today versus tomorrow. Patient continues to have some endotracheal secretions and has grown MSSA. Cardiac work-up was relatively unremarkable with preserved ejection fraction and diastolic dysfunction. 3. A. fib with RVR/elevated troponin Patient significantly tachycardic at this time. Will attempt to address electrolytes to see if patient will go back to sinus rhythm. Clinical suspicion for supply demand mismatch given significant hypoxia on presentation. Unclear how long patient has been in A. fib with RVR, but will continue to monitor. Continue systemic anticoagulation. 4. Acute kidney injury/hypernatremia/hyperchloremia/hyperkalemia Resolved. High clinical suspicion suspicion for prerenal etiology. Patient did receive significant volume resuscitation yesterday. Patient appears to be hypovolemic hypernatremia. Patient has been hypoglycemic intermittently. May increase tube feeds to compensate. Recheck labs tomorrow. No indication for renal replacement therapy at this time. 5. Hyperglycemia/advanced age/poor history/schizophrenia/dementia/bipolar/hypothyroidism/hypertension/metabolic encephalopathy/new onset seizure Complicates care, management, recovery and prognosis. Will need to check blood sugars every 6 hours and cover as necessary. Patient's sodium and chloride levels are normal. CT of the head was unremarkable. EEG did show foca l seizure activity, so she was loaded with Keppra. Given history of A. fib, patient will have an MRI. TIME: 32 minutes critical care time spent addressing patient's septic shock, acute respiratory failure, A. fib with RVR, acute kidney injury, review of all data and collaboration with care team (5:45 AM to 6:45 AM) [id number]: [id number] Critical care first hour
[2019-12-30] MEDS: Chlorhexidine 15 ML PO ×2 (08:35→21:27)
[2019-12-30] MEDS: 0.9% Saline Lock 10 ML Syringe IV ×2 (08:35→12:52)
[2019-12-30 09:19] LABS: Partial Thromboplast Time 51.8 Seconds (24.1-36.2)
--- NOTE | 2019-12-30 10:06 | PN_ITS ---
Patient Problems: Active and Suspected Problems Septic shock (Acute) Acute respiratory failure with hypoxia (Acute) Metabolic encephalopathy (Acute) Suspected 2019 novel coronavirus infection (Acute) Reason for Visit: septic shock Subjective: more alert. Vitals/I&O's: Vital Signs Temp Pulse Resp BP Pulse Ox 35.7 C L 96 20 H 132/69 H 98 12/30/19 04:00 12/30/19 07:00 12/30/19 07:00 12/30/19 07:00 12/30/19 07:00 Oxygen Flow Rate (L/min) 15 Oxygen Delivery Method Mechanical Ventilator Weight: 92.2 kg Body Mass Index (BMI) 29.2 Intake and Output for Last 24 Hours 12/28/19 12/29/19 12/30/19 23:59 23:59 23:59 Intake Total 4334.15 / 4335.55 1980.46 / 1980.46 1053.54 / 1053.54 Output Total 1525 / 1525 850 / 1100 2075 / 2075 Balance 2809.15 / 2810.55 1131.46 / 881.46 -1021.46 / -1021.46 General: - - opens eyes to voice. doesn't follow commands. HEENT: Atraumatic, Normocephalic Oral: - - ETT OG inplace Neck: No Nodes, Thyroid Normal Size and Texture Lungs: Clear to auscultation, Normal air movement, No rhonchi, No wheeze, No rales Cardiovascular: Regular rate, Regular Rhythm, Normal S1, Normal S2, No murmurs Abdomen: Bowel Sounds Present, Soft, Non Tender, Non-Distended, No Hepato- splenomegaly Extremities: No edema, No Calf Tenderness Psych/Mental Status: Normal Affect, Appropriate Microbiology Past 72 Hours 12/26/19 11:50 Blood Culture (Wb) - Anticubital Right Blood Culture - Preliminary No growth in 48 hours. 12/26/19 11:45 Blood Culture (Wb) - Anticubital Left Blood Culture - Preliminary No growth in 48 hours. 12/26/19 17:06 Sputum, Induced/Lukens Gram Stain - Final 12/26/19 17:06 Sputum, Induced/Lukens Respiratory Culture - Final Staphylococcus aureus 12/26/19 12:05 Urine, Catheterized Urine Culture - Final Escherichia coli 12/27/19 16:45 Mucosa - Nasopharyngeal Coronavirus COVID-19 PCR - Final Laboratory Results 12/29/19 11:00: APTT 48.6 H 12/29/19 11:05: POC Glucose 108 12/29/19 12:20: Eos Smear Total Cells Pending 12/29/19 13:39: POC Glucose 87 12/29/19 18:20: POC Glucose 93 12/29/19 18:23: APTT 50.3 H 12/29/19 22:58: POC Glucose 107 12/30/19 01:50: WBC 13.7 H, RBC 3.57 L, Hgb 11.0 L, Hct 34.0 L, MCV 95.2, MCH 30.8, MCHC 32.4, RDW Std Deviation 46.0 H, RDW Coeff of Papo 13.2, Plt Count 203, MPV 11.3, Immature Gran % (Auto) 2.500 H, Neut % (Auto) 75.8 H, Lymph % (Auto) 11.0 L, [place] % (Auto) 7.7, Eos % (Auto) 2.1, Baso % (Auto) 0.9, Absolute Neuts (auto) 10.4 H, Absolute Lymphs (auto) 1.51, Nucleated RBC % 0, Differential Comment SCANNED, Platelet Estimate ADEQUATE, RBC Morphology NORM C+C 12/30/19 01:50: Sodium 144, Potassium 3.4 L, Chloride 115 H, Carbon Dioxide 2 4.0, Anion Gap 5, BUN 18, Creatinine 0.61, Estim Creat Clear Calc 43.00, Est GFR (MDRD) Af Amer 119, Est GFR (MDRD) Non-Af 99, BUN/Creatinine Ratio 29.3 H, Glucose 102, Calcium 7.7 L, Phosphorus 1.4 L, Magnesium 1.9 12/30/19 01:50: APTT 59.7 H 12/30/19 05:40: POC Glucose 93 12/30/19 08:30: APTT 51.8 H Current Medications Acetaminophen (Tylenol Liquid) 650 mg GT Q6H PRN PRN PRN Reason: FEVER Last Admin: 12/27/19 11:54 Dose: 650 mg Documented by: Albuterol Sulfate (Ventolin Aerosols) 2.5 mg INHALATION Q2H PRN PRN PRN Reason: SOB/Wheezing Chlorhexidine Gluconate () 15 ml PO BID CHERELLE Last Admin: 12/30/19 08:35 Dose: 15 ml Documented by: Chlorhexidine Gluconate () 1 each TOPICAL DAILY [facility] Last Admin: 12/29/19 09:40 Dose: 1 each Documented by: Dextrose (D50w Syringe) 0 gm IV X1 PRN; Protocol PRN Reason: Hypoglycemia Glucagon () 1 mg IM .X1 PRN PRN Reason: Hypoglycemia Heparin Sodium (Porcine) (Heparin Na) 0 unit IV UD PRN; Protocol Last Admin: 12/29/19 11:48 Dose: 1,000 unit Documented by: Heparin Sodium/Dextrose () 25,000 units in 250 mls @ 11 mls/hr IV .[id number] [facility]; Protocol Last Titration: 12/30/19 08:00 Dose: 1,100 units/hr, 11 mls/hr Documented by: Norepinephrine Bitartrate 8 mg (/ Sodium Chloride) 250 mls @ 9.375 mls/hr CONT INF .[id number] [facility]; Protocol Last Admin: 12/30/19 00:10 Dose: Not Given Documented by: Sodium Chloride () 250 mls @ 15 mls/hr IV .[id number] PRN PRN Reason: Saline Flush Last Infusion: 12/30/19 02:34 Dose: Infused Documented by: Sodium Chloride () 250 mls @ 15 mls/hr IV .[id number] PRN PRN Reason: Additional IVPB Infusion Pantoprazole Sodium 40 mg/ (Sodium Chloride) 110 mls @ 330 mls/hr IV Q12 [facility] Last Infusion: 12/30/19 00:08 Dose: Infused Documented by: Enteral Nutritional Formula (Vital Af 1.2 Cas[place] Liquid) 1,000 mls @ 30 mls/hr GT .[id number] [facility] Last Admin: 12/29/19 16:02 Dose: 30 mls/hr Documented by: Cefazolin Sodium 2 gm/ Sodium (Chloride) 110 mls @ 150 mls/hr IV Q8 [facility] Last Admin: 12/30/19 05:40 Dose: 150 mls/hr Documented by: Dextrose () 1,000 mls @ 25 mls/hr IV .Q40H [facility] Last Infusion: 12/30/19 08:00 Dose: 25 mls/hr Documented by: Potassium Phosphate 30 mm/ (Sodium Chloride) 260 mls @ 42 mls/hr IV X1 ONE Stop: 12/30/19 12:15 Last Admin: 12/30/19 06:32 Dose: 42 mls/hr Documented by: Insulin Human Lispro (Humalog Kwikpen (Bkc)) 0 unit SC Q6 [facility]; Protocol Last Admin: 12/30/19 05:40 Dose: Not Given Documented by: Levetiracetam (Keppra Oral Solution) 500 mg PO BID [facility] Last Admin: 12/29/19 22:59 Dose: 500 mg Documented by: Levothyroxine Sodium (Synthroid) 25 mcg GT DAILY CHERELLE Last Admin: 12/29/19 09:41 Dose: 25 mcg Documented by: Polyethylene Glycol (Miralax) 17 gm PO DAILY PRN PRN PRN Reason: Constipation Sodium Chloride () 10 - 40 ml IV UD PRN PRN Reason: SALINE FLUSH Last Admin: 12/30/19 08:35 Dose: 30 ml Documented by: STROKE Vital Signs/Narrative: Vital Signs Pulse Resp BP Pulse Ox 12/30/19 07:00 96 20 H 132/69 H 98 12/30/19 06:44 71 16 98 Medical Necessity - Tobacco Use Smoking Status: Unknown if ever smoked Tobacco Use: Non-smoker Assessment/Plan All Active Problems Septic shock (Acute) Acute respiratory failure with hypoxia (Acute) Metabolic encephalopathy (Acute) Suspected 2019 novel coronavirus infection (Acute) Community acquired pneumonia (Acute) Atrial fibrillation with rapid ventricular response (Acute) 1. Septic shock: * Source: UTI v Pneumonia * UA showed minimal finding. UCx -59 k GNR * SCx shows S. aureus * Lactic acid was elevated at 5.7. Granted it could be skewed given the patient's profound hypoxia. * We will treat supportively with antibiotics with Pipracil and/tazobactam and vancomycin. * Follow-up cultures. * Concern for that the patient is coming from [facility] that this could be COVID-19. COVID negative x1. Given the low sensitivity, would recheck it if it does come back negative. Will defer to ID if isolation can be dc'd 2. Acute hypoxic respiratory failure: * Suspect related with pneumonia versus COVID-19. * D-dimer 13. On heparin gtt * consider further testing when more stable. 3. Suspected COVID-19: ruled-out 4. Elevated troponin: * Likely due to demand ischemia given the underlying shock and respiratory failure. * peak troponin at 0.199. Monitor. * Echo shows 65% 5. Atrial fibrillation with RVR: improved. Secondary to above. Would hold off on medication at this time to slow her heart rate down. 6. seizure * focal seizure left temporal region * started on levetiracetam * now more responsive 7. Hypokalemia:improved after replacement. hyperkalemia initially present was lab error. 8. Acute kidney injury: * FEUrea 7.5, consistent with prerenal azotemia. * Resolved 9. Hypernatremia: Likely related to dehydration. improved. 10. VTE prophylaxis: Low risk at this time as patient is going to be anticoa gulated with heparin drip. 11. Advanced care planning: Patient is full CODE STATUS. Discussed with the patient's at bedside. Discussed that if she would require pressor medications, that she would require central line. He was in agreement with the procedure if necessary after discussing risks and benefits. 12. Encephalopathy: Initially may have been metabolic due to septic shock. Sub sequently from seizure, though it cannot be determined when seizure began. Head CT showed chronic changes. EEG showed focal seizures. Inpatient E&M: [id number] Subs Hosp L2
[2019-12-30] MEDS: CHLORHEXIDINE GLUC 2% CLOTH 1 EACH TOWELETTE TOPICAL (10:28)
[2019-12-30] MEDS: Alteplase 2 MG/2 ML Vial IV (10:28)
[2019-12-30] MEDS: Levothyroxine 25 MCG TABLET GT (10:29)
[2019-12-30] MEDS: levETIRAcetam Oral Solution 500 MG/5 ML PO ×2 (10:40→21:27)
[2019-12-30] MEDS: Heparin Injection (Vial) 5,000 UNIT/ML VIAL IV (10:44)
[2019-12-30] MEDS: LORazepam 2 MG/ML Syringe IV (11:00)
[2019-12-30 12:56] LABS: Bedside Glucose 105 mg/dL (70-110)
[2019-12-30 16:15] LABS: Partial Thromboplast Time 53.4 Seconds (24.1-36.2)
[2019-12-30 17:30] LABS: Bedside Glucose 98 mg/dL (70-110)
[2019-12-30] MEDS: HEPARIN/D5w 25,000 UNITS 25,000 UNITS/250 ML IV.SOLN. 13 UNITS IV (21:25)
[2019-12-31] VITALS (32 sets, daily range): BP systolic 99–166; BP diastolic 44–94; PULSE 78–102; RESP 11–23; TEMP 36.1–37; O2SAT 93–100
[2019-12-31 00:11] LABS: Partial Thromboplast Time 57.6 Seconds (24.1-36.2)
[2019-12-31 01:01] LABS: Bedside Glucose 100 mg/dL (70-110)
[2019-12-31] MEDS: Vital AF 1.2 Cal Liquid 1,000 ML 30 ML GT (02:17)
[2019-12-31 04:23] LABS: Hematocrit 33.7 % (37-47); Hemoglobin 10.9 g/dL (12.0-15.0); Mean Corp Hgb Conc 32.3 g/dL (32-36); Mean Corpuscular Hgb 30.5 pg (27.0-32.0); Mean Corpuscular Volume 94.4 fL (81-99); Mean Platelet Vol. 10.9 fl (6.2-12.0); POSITIVE COUNT YES; POSITIVE MORPHOLOGY YES; Platelet Count 193 K/mm3 (150-450); RBC Distribution Width CV 13.1 % (11.6-14.6); RBC Distribution Width SD 45.3 fl (35.1-43.9); Red Blood Count 3.57 M/mm3 (4.2-5.4)
[2019-12-31 04:30] LABS: Differential Indicated MANUAL DIFF
[2019-12-31 04:39] LABS: Partial Thromboplast Time 64.4 Seconds (24.1-36.2)
[2019-12-31] MEDS: Cefazolin 2 GM in 0.9% Normal Saline 100 ML IV ×3 (05:06→22:36)
[2019-12-31 05:11] LABS: Bedside Glucose 103 mg/dL (70-110)
[2019-12-31 05:42] LABS: Anion Gap 5 (5-15); BUN 14 mg/dL (7-18); BUN/Creat Ratio 25.6 RATIO (10-20); Calcium,Total 7.6 mg/dL (8.5-10.1); Chloride 112 mmol/L (98-107); Creatinine, Serum 0.55 mg/dL (0.55-1.02); EST Glomerular Filtration Rate 113 mL/min (>60); Est Glom Filt Rate - Afr Amer 137 mL/min (>60); Glucose 94 mg/dL (74-106); Magnesium 1.8 mg/dL (1.6-2.6); Phosphorus 2.4 mg/dL (2.5-4.9); Potassium 3.3 mmol/L (3.5-5.1); Sodium Level 144 mmol/L (136-145)
[2019-12-31] MEDS: Furosemide 20 MG/2 ML VIAL IV ×2 (06:12→17:09)
[2019-12-31] MEDS: 0.9% Saline Lock 10 ML Syringe IV (06:15)
--- NOTE | 2019-12-31 06:29 | NURSING ---
pt extubated at 0629 by respiratory therapist with Dr. Ortega at bedside, tolerated well, placed on 3L NC, deep suctioned by respiratory therapist and large amt of thick yellow secretions obtained, will continue to monitor, new order for NT suction received from Dr. Ortega at this time.
--- NOTE | 2019-12-31 06:39 | PCM.PN.INT ---
Subjective: Patient did well overnight. No acute issues were reported. Patient's blood pressure has remained stable. Patient did have good diuresis associated with Lasix therapy yesterday. Patient was able to pass a spontaneous breathing trial and was extubated under my direct supervision. Patient did not have significant endotracheal secretions prior to extubation. No seizure activity has been noted Objective: Patient had her MRI yesterday without complication. This was reported to have no masses or infarcts. General: Alert, No apparent distress, Disoriented, Non-Cooperative, - - Opens eyes to commands, but not following other instructions. HEENT: Atraumatic, PERRLA, EOMI, Normocephalic, - - No scleral icterus or injection noted Oral: Moist Mucosa, No Gingival or Mucosal Lesions/ Ulcerations Neck: Supple, No JVD, No Nodes, Trachea Midline Lungs: No rhonchi, No wheeze, No rales, Diminished - Right greater than left, - - Symmetric expansion. No dullness to percussion. Cardiovascular: Normal S1, Normal S2, No murmurs, Irregular Rate, No rub noted, No Gallop Abdomen: Bowel Sounds Present, Soft, Non Tender, Non-Distended, Obese Extremities: No clubbing, No cyanosis, Edema - 3+ anasarca Skin: - - No change compared to previous Musculoskeletal: No Tenderness to Palpation of Joints or Extremities Lymphatic: No Cervical, Supraclavicular, or Inguinal Adenopathy Neurological: Cranial nerves II-XII grossly intact, Neuro grossly intact, Motor Exam 5/5 strength throughout Psych/Mental Status: Flat Affect Vital Signs Temp Pulse Resp BP Pulse Ox 36.6 C 93 17 130/85 H 96 12/31/19 06:00 12/31/19 06:00 12/31/19 06:00 12/31/19 06:00 12/31/19 06:00 Oxygen Flow Rate (L/min) 15 Oxygen Delivery Method Mechanical Ventilator Weight: 89.8 kg Body Mass Index (BMI) 29.2 Intake and Output for Last 24 Hours 12/29/19 12/30/19 12/31/19 23:59 23:59 23:59 Intake Total 1980.46 / 1980.46 3911.58 / 3911.58 483.35 / 483.35 Output Total 850 / 1100 4525 / 4525 200 / 200 Balance 1131.46 / 881.46 -613.42 / -613.42 283.35 / 283.35 Labs (Last 48 Hours) 12/29/19 12/29/19 12/29/19 11:00 11:05 12:20 WBC RBC Hgb Hct MCV MCH MCHC RDW Std Deviation RDW Coeff of Papo Plt Count MPV Immature Gran % (Auto) Neut % (Auto) Lymph % (Auto) [place] % (Auto) Eos % (Auto) Baso % (Auto) Absolute Neuts (auto) Absolute Lymphs (auto) Nucleated RBC % Differential Comment Platelet Estimate RBC Morphology Eos Smear Total Cells Pending APTT 48.6 H Sodium Potassium Chloride Carbon Dioxide Anion Gap BUN Creatinine Estim Creat Clear Calc Est GFR (MDRD) Af Amer Est GFR (MDRD) Non-Af BUN/Creatinine Ratio Glucose Calcium Phosphorus Magnesium POC Glucose 108 12/29/19 12/29/19 12/29/19 13:39 18:20 18:23 WBC RBC Hgb Hct MCV MCH MCHC RDW Std Deviation RDW Coeff of Papo Plt Count MPV Immature Gran % (Auto) Neut % (Auto) Lymph % (Auto) [place] % (Auto) Eos % (Auto) Baso % (Auto) Absolute Neuts (auto) Absolute Lymphs (auto) Nucleated RBC % Differential Comment Platelet Estimate RBC Morphology Eos Smear Total Cells APTT 50.3 H Sodium Potassium Chloride Carbon Dioxide Anion Gap BUN Creatinine Estim Creat Clear Calc Est GFR (MDRD) Af Amer Est GFR (MDRD) Non-Af BUN/Creatinine Ratio Glucose Calcium Phosphorus Magnesium POC Glucose 87 93 12/29/19 12/30/19 12/30/19 22:58 01:50 01:50 WBC 13.7 H RBC 3.57 L Hgb 11.0 L Hct 34.0 L MCV 95.2 MCH 30.8 MCHC 32.4 RDW Std Deviation 46.0 H RDW Coeff of Papo 13.2 Plt Count 203 MPV 11.3 Immature Gran % (Auto) 2.500 H Neut % (Auto) 75.8 H Lymph % (Auto) 11.0 L [place] % (Auto) 7.7 Eos % (Auto) 2.1 Baso % (Auto) 0.9 Absolute Neuts (auto) 10.4 H Absolute Lymphs (auto) 1.51 Nucleated RBC % 0 Differential Comment SCANNED Platelet Estimate ADEQUATE RBC Morphology NORM C+C Eos Smear Total Cells APTT Sodium 144 Potassium 3.4 L Chloride 115 H Carbon Dioxide 24.0 Anion Gap 5 BUN 18 Creatinine 0.61 Estim Creat Clear Calc 43.00 Est GFR (MDRD) Af Amer 119 Est GFR (MDRD) Non-Af 99 BUN/Creatinine Ratio 29.3 H Glucose 102 Calcium 7.7 L Phosphorus 1.4 L Magnesium 1.9 POC Glucose 107 12/30/19 12/30/19 12/30/19 01:50 05:40 08:30 WBC RBC Hgb Hct MCV MCH MCHC RDW Std Deviation RDW Coeff of Papo Plt Count MPV Immature Gran % (Auto) Neut % (Auto) Lymph % (Auto) [place] % (Auto) Eos % (Auto) Baso % (Auto) Absolute Neuts (auto) Absolute Lymphs (auto) Nucleated RBC % Differential Comment Platelet Estimate RBC Morphology Eos Smear Total Cells APTT 59.7 H 51.8 H Sodium Potassium Chloride Carbon Dioxide Anion Gap BUN Creatinine Estim Creat Clear Calc Est GFR (MDRD) Af Amer Est GFR (MDRD) Non-Af BUN/Creatinine Ratio Glucose Calcium Phosphorus Magnesium POC Glucose 93 12/30/19 12/30/19 12/30/19 12:46 15:35 17:28 WBC RBC Hgb Hct MCV MCH MCHC RDW Std Deviation RDW Coeff of Papo Plt Count MPV Immature Gran % (Auto) Neut % (Auto) Lymph % (Auto) [place] % (Auto) Eos % (Auto) Baso % (Auto) Absolute Neuts (auto) Absolute Lymphs (auto) Nucleated RBC % Differential Comment Platelet Estimate RBC Morphology Eos Smear Total Cells APTT 53.4 H Sodium Potassium Chloride Carbon Dioxide Anion Gap BUN Creatinine Estim Creat Clear Calc Est GFR (MDRD) Af Amer Est GFR (MDRD) Non-Af BUN/Creatinine Ratio Glucose Calcium Phosphorus Magnesium POC Glucose 105 98 12/30/19 12/30/19 12/31/19 23:25 23:28 04:00 WBC 13.0 H RBC 3.57 L Hgb 10.9 L Hct 33.7 L MCV 94.4 MCH 30.5 MCHC 32.3 RDW Std Deviation 45.3 H RDW Coeff of Papo 13.1 Plt Count 193 MPV 10.9 Immature Gran % (Auto) Neut % (Auto) Not Reportable Lymph % (Auto) [place] % (Auto) Eos % (Auto) Baso % (Auto) Absolute Neuts (auto) Pending Absolute Lymphs (auto) Nucleated RBC % Differential Comment Platelet Estimate RBC Morphology Eos Smear Total Cells APTT 57.6 H Sodium Potassium Chloride Carbon Dioxide Anion Gap BUN Creatinine Estim Creat Clear Calc Est GFR (MDRD) Af Amer Est GFR (MDRD) Non-Af BUN/Creatinine Ratio Glucose Calcium Phosphorus Magnesium POC Glucose 100 12/31/19 12/31/19 12/31/19 04:00 04:00 05:04 WBC RBC Hgb Hct MCV MCH MCHC RDW Std Deviation RDW Coeff of Papo Plt Count MPV Immature Gran % (Auto) Neut % (Auto) Lymph % (Auto) [place] % (Auto) Eos % (Auto) Baso % (Auto) Absolute Neuts (auto) Absolute Lymphs (auto) Nucleated RBC % Differential Comment Platelet Estimate RBC Morphology Eos Smear Total Cells APTT 64.4 H Sodium 144 Potassium 3.3 L Chloride 112 H Carbon Dioxide 27.0 Anion Gap 5 BUN 14 Creatinine 0.55 Estim Creat Clear Calc 43.00 Est GFR (MDRD) Af Amer 137 Est GFR (MDRD) Non-Af 113 BUN/Creatinine Ratio 25.6 H Glucose 94 Calcium 7.6 L Phosphorus 2.4 L Magnesium 1.8 POC Glucose 103 Clinical Impression(s) from Imaging Studies Brain MRI 12/30/19 06:15 IMPRESSION: No acute intracranial abnormality or masses. Electronically Signed: Renee Mina MD at 14:17 EDT Tel , Service support , Medical Necessity - Tobacco Use Smoking Status: Unknown if ever smoked Tobacco Use: Non-smoker Assessment/Plan All Active Problems Septic shock (Acute) Acute respiratory failure with hypoxia (Acute) Metabolic encephalopathy (Acute) Suspected 2019 novel coronavirus infection (Acute) Community acquired pneumonia (Acute) Atrial fibrillation with rapid ventricular response (Acute) RECOMMENDATIONS: 1. Continue antibiotics per ID 2. Wean oxygen as tolerated 3. Supplement electrolytes as necessary 4. Okay to extubate 5. Consider tele-neurology consult following MRI results for long-term antiepileptic recommendations 6. Bedside swallow evaluation prior to p.o. intake 7. Okay to NT suction if necessary IMPRESSIONS: 1. Septic shock secondary to staph aureus pneumonia Resolved. Patient was significantly hypotension on presentation to the intensive care unit. Initial lactic acid was elevated at 5.7 and patient had profound hypoxemia. Patient currently out of COVID precautions. Patient did receive significant volume resuscitation, but is no longer requiring Levophed. Mottling and cyanosis have resolved. Defer to antibiotics by ID 2. Acute hypoxic respiratory failure secondary to MSSA pneumonia Clinical suspicion for decreased mental status and MSSA pneumonia leading to acute hypoxic respiratory failure. Patient appears to have been hypotensive for quite some time on presentation given mottling and cyanotic features. Patient passed spontaneous breathing trial and was successfully extubated. Patient's mental status is marginal, but appears to be protecting her airway. Patient with a somewhat weak cough. May need some NT suctioning over the next 24 hours. Patient will benefit from continued diuresis. This has been ordered. 3. A. fib with RVR/elevated troponin Patient significantly tachycardic at this time. Will attempt to address electrolytes to see if patient will go back to sinus rhythm. Clinical suspicion for supply demand mismatch given significant hypoxia on presentation. Unclear how long patient has been in A. fib with RVR, but will continue to monitor. Continue systemic anticoagulation. Possibly transition over to Eliquis/Xarelto once more clinically stable 4. Acute kidney injury/hypernatremia/hyperchloremia/hyperkalemia Resolved. High clinical suspicion suspicion for prerenal etiology. Patient did receive significant volume resuscitation yesterday. Patient appears to be hypovolemic hypernatremia. Patient has been hypoglycemic intermittently. May increase tube feeds to compensate. Recheck labs tomorrow. No indication for renal replacement therapy at this time. 5. Hyperglycemia/advanced age/poor history/schizophrenia/dementia/bipolar/hypothyroidism/hypertension/metabolic encephalopathy/new onset seizure Complicates care, management, recovery and prognosis. Will need to check blood sugars every 6 hours and cover as necessary. Patient's sodium and chloride levels are normal. CT of the head was unremarkable. EEG did show focal seizure activity, so she was loaded with Keppra. Given history of A. fib, patient had an MRI showing no acute infarcts. Recommend tele-neurology evaluation for antiepileptic recommendations. TIME: 33 minutes critical care time spent addressing patient's septic shock, acute respiratory failure, A. fib with RVR, acute kidney injury, review of all data and collaboration with care team (5:20 AM to 6:00 AM) 9xxxx: [id number] Critical care first hour
[2019-12-31 06:41] LABS: Base Excess -1 mmol/L (-2 to +2); Bicarbonate 23.7 mmol/L (22-26); PO2 60 mmHG (75-100); SO2 92 % (95-99); Total Carbon Dioxide 25 mmol/L; pH 7.44 (7.35-7.45)
[2019-12-31 06:44] LABS: Allen Test POS; Blood Gas Specimen Type ART; FI02 30; Mode CPAP; PEEP 5; PS 5; SITE L RADIAL
[2019-12-31 06:45] LABS: Time Given 607
[2019-12-31 06:46] LABS: O2 Delivery Device Vent
[2019-12-31 07:34] LABS: Eosinophil 2 % (0-5); Lymphocyte 17 % (19-41); Metamyelocyte 6 % (0-1); Monocyte 6 % (0-10); Neutrophil-Band 13 % (0-5); Neutrophil-Segmented 56 % (47-70); Total Cells Counted 100 (MANUAL DIFF)
[2019-12-31 07:35] LABS: Toxic Granulation 1+
[2019-12-31 07:36] LABS: Platelet Estimate ADEQUATE (ADEQ); Red Cell Morphology NORM C+C NORMAL (NORM C&C)
[2019-12-31 07:42] LABS: Absolute Lymphocyte Count 2.21 X10^3/uL (0.83-4.51); Lymphocyte # 2.21 X10^3/ul (4.0); Neutrophil # 8.98 X10^3/uL (2.7-7.7)
[2019-12-31] MEDS: CHLORHEXIDINE GLUC 2% CLOTH 1 EACH TOWELETTE TOPICAL (09:24)
[2019-12-31] MEDS: Chlorhexidine 15 ML PO ×2 (09:24→21:47)
--- NOTE | 2019-12-31 10:01 | PN_ITS ---
Patient Problems: Active and Suspected Problems Septic shock (Acute) Acute respiratory failure with hypoxia (Acute) Metabolic encephalopathy (Acute) Suspected 2019 novel coronavirus infection (Acute) Reason for Visit: septic shock Subjective: Extubated today. Does not answer questions. Vitals/I&O's: Vital Signs Temp Pulse Resp BP Pulse Ox 36.6 C 100 17 130/85 H 95 12/31/19 06:00 12/31/19 07:35 12/31/19 06:00 12/31/19 06:00 12/31/19 06:29 Oxygen Flow Rate (L/min) 5 Oxygen Delivery Method Nasal Cannula Weight: 89.8 kg Body Mass Index (BMI) 29.2 Intake and Output for Last 24 Hours 12/29/19 12/30/19 12/31/19 23:59 23:59 23:59 Intake Total 1980.46 / 1981.46 3911.58 / 3911.58 580.58 / 580.58 Output Total 850 / 1100 4525 / 4525 200 / 200 Balance 1131.46 / 881.46 -613.42 / -613.42 380.58 / 380.58 General: - - awake. establishes eye contact. non verbal. does not follow commands. HEENT: Atraumatic, Normocephalic Oral: Moist Mucosa, No Gingival or Mucosal Lesions/ Ulcerations Neck: No Nodes, Thyroid Normal Size and Texture Lungs: Normal air movement, - - coarse upper respiratory breath sounds throughout. Cardiovascular: Regular rate, Regular Rhythm, Normal S1, Normal S2, No murmurs Abdomen: Bowel Sounds Present, Soft, Non Tender, Non-Distended, No Hepato- splenomegaly Extremities: No Calf Tenderness, Edema Skin: No rashes, No breakdown Microbiology Past 72 Hours 12/26/19 11:50 Blood Culture (Wb) - Anticubital Right Blood Culture - Preliminary No growth in 48 hours. 12/26/19 11:45 Blood Culture (Wb) - Anticubital Left Blood Culture - Preliminary No growth in 48 hours. 12/26/19 17:06 Sputum, Induced/Lukens Gram Stain - Final 12/26/19 17:06 Sputum, Induced/Lukens Respiratory Culture - Final Staphylococcus aureus 12/26/19 12:05 Urine, Catheterized Urine Culture - Final Escherichia coli Laboratory Results 12/30/19 12:46: POC Glucose 105 12/30/19 15:35: APTT 53.4 H 12/30/19 17:28: POC Glucose 98 12/30/19 23:25: APTT 57.6 H 12/30/19 23:28: POC Glucose 100 12/31/19 04:00: WBC 13.0 H, RBC 3.57 L, Hgb 10.9 L, Hct 33.7 L, MCV 94.4, MCH 30.5, MCHC 32.3, RDW Std Deviation 45.3 H, RDW Coeff of Papo 13.1, Plt Count 193, MPV 10.9, Neut % (Auto) Not Reportable, Absolute Neuts (auto) 9.0 H, Absolute Lymphs (auto) 2.21, Total Counted 100, Neutrophils % (Manual) 56, Band Neutrophils % 13 H, Lymphocytes % (Manual) 17 L, Monocytes % (Manual) 6, Eosino phils % (Manual) 2, Metamyelocytes % 6 H, Diff Path Review May foll, Toxic Granulation 1+, Platelet Estimate ADEQUATE, RBC Morphology NORM C+C 12/31/19 04:00: APTT 64.4 H 12/31/19 04:00: Sodium 144, Potassium 3.3 L, Chloride 112 H, Carbon Dioxide 27.0, Anion Gap 5, BUN 14, Creatinine 0.55, Estim Creat Clear Calc 43.00, Est GFR (MDRD) Af Amer 137, Est GFR (MDRD) Non-Af 113, BUN/Creatinine Ratio 25.6 H, Glucose 94, Calcium 7.6 L, Phosphorus 2.4 L, Magnesium 1.8 12/31/19 05:04: POC Glucose 103 12/31/19 06:07: Specimen Type ART, Sample Site L RADIAL, pH 7.44, Bicarbonate A ctual 23.7, POC Total CO2 25, Base Excess -1, O2 Saturation 92 L, O2 % 30, ABG pCO2 35.0, ABG pO2 60 L, Aaron Test POS, O2 Delivery Device Vent, Vent Mode CPAP, POC PEEP 5, POC Pressure Suppt 5, Blood Gas Notified Whom ICU MD, Blood Gas Notified Time 607 Current Medications Acetaminophen (Tylenol Liquid) 650 mg GT Q6H PRN PRN PRN Reason: FEVER Last Admin: 12/27/19 11:54 Dose: 650 mg Documented by: Albuterol Sulfate (Ventolin Aerosols) 2.5 mg INHALATION Q2H PRN PRN PRN Reason: SOB/Wheezing Chlorhexidine Gluconate () 15 ml PO BID [facility] Last Admin: 12/31/19 09:24 Dose: 15 ml Documented by: Chlorhexidine Gluconate () 1 each TOPICAL DAILY [facility] Last Admin: 12/31/19 09:24 Dose: 1 each Documented by: Dextrose (D50w Syringe) 0 gm IV X1 PRN; Protocol PRN Reason: Hypoglycemia Furosemide (Lasix) 20 mg IV BID@1000,1800 [facility] Last Admin: 12/31/19 06:12 Dose: 20 mg Documented by: Glucagon () 1 mg IM .X1 PRN PRN Reason: Hypoglycemia Heparin Sodium (Porcine) (Heparin Na) 0 unit IV UD PRN; Protocol Last Admin: 12/30/19 10:44 Dose: 1,000 unit Documented by: Heparin Sodium/Dextrose () 25,000 units in 250 mls @ 11 mls/hr IV .[id number] [facility]; Protocol Last Titration: 12/31/19 08:00 Dose: 1,300 units/hr, 13 mls/hr Documented by: Sodium Chloride () 250 mls @ 15 mls/hr IV .[id number] PRN PRN Reason: Saline Flush Last Infusion: 12/30/19 02:34 Dose: Infused Documented by: Sodium Chloride () 250 mls @ 15 mls/hr IV .[id number] PRN PRN Reason: Additional IVPB Infusion Pantoprazole Sodium 40 mg/ (Sodium Chloride) 110 mls @ 330 mls/hr IV Q12 [facility] Last Infusion: 12/30/19 21:48 Dose: Infused Documented by: Enteral Nutritional Formula (Vital Af 1.2 Casa Liquid) 1,000 mls @ 30 mls/hr GT .[id number] [facility] Last Admin: 12/31/19 02:17 Dose: 30 mls/hr Documented by: Cefazolin Sodium 2 gm/ Sodium (Chloride) 110 mls @ 150 mls/hr IV Q8 [facility] Last Infusion: 12/31/19 05:50 Dose: Infused Documented by: Dextrose () 1,000 mls @ 25 mls/hr IV .Q40H [facility] Last Infusion: 12/30/19 19:26 Dose: 25 mls/hr Documented by: Insulin Human Lispro (Humalog Kwikpen (Bkc)) 0 unit SC Q6 [facility]; Protocol Last Admin: 12/31/19 05:06 Dose: Not Given Documented by: Levetiracetam (Keppra Oral Solution) 500 mg PO BID [facility] Last Admin: 12/31/19 09:25 Dose: Not Given Documented by: Levothyroxine Sodium (Synthroid) 25 mcg GT DAILY [facility] Last Admin: 12/31/19 09:25 Dose: Not Given Documented by: Polyethylene Glycol (Miralax) 17 gm PO DAILY PRN PRN PRN Reason: Constipation Sodium Chloride () 10 - 40 ml IV UD PRN PRN Reason: SALINE FLUSH Last Admin: 12/31/19 06:15 Dose: 40 ml Documented by: STROKE Vital Signs/Narrative: Vital Signs Pulse Pulse Ox 12/31/19 07:35 100 12/31/19 06:29 97 95 Medical Necessity - Tobacco Use Smoking Status: Unknown if ever smoked Tobacco Use: Non-smoker Assessment/Plan All Active Problems Septic shock (Acute) Acute respiratory failure with hypoxia (Acute) Metabolic encephalopathy (Acute) Suspected 2018 novel coronavirus infection (Acute) Community acquired pneumonia (Acute) Atrial fibrillation with rapid ventricular response (Acute) 1. Septic shock: * Source: UTI v Pneumonia * UA showed minimal finding. UCx -59 E. coli * SCx shows MSSA * Lactic acid was elevated at 5.7. Granted it could be skewed given the patient's profound hypoxia. * Abx changed to cefazolin * COVID-19 negative x 2. COVID-19 RULED OUT. isolation discontinued. 2. Acute hypoxic respiratory failure: * Suspect related with pneumonia though seizure at time of presentation cannot be ruled out. * D-dimer 13. On heparin gtt * consider CTA chest in next 24-48h, if negative, then duplex LE, and if that is negative, I would discontinue anticoagulation and place on chemical VTE prophylaxis. * Extubated 12/30 * on furosemide 3. Elevated troponin: * Likely due to demand ischemia given the underlying shock and respiratory failure. * peak troponin at 0.199. Monitor. * Echo shows 65% 5. Atrial fibrillation with RVR: * improved. Secondary to above. Would hold off on medication at this time to slow her heart rate down. 6. seizure * focal seizure left temporal region * started on levetiracetam * now more responsive 7. Hypokalemia: * ongoing, but improved after replacement. Continue to replace as necessary. * hyperkalemia initially present was lab error, therefore RULED OUT 8. Acute kidney injury: * FEUrea 7.5, consistent with prerenal azotemia. * Resolved 9. Hypernatremia: * Likely related to dehydration. * resolved 10. VTE prophylaxis: Low risk at this time as patient is going to be anticoagulated with heparin drip. 11. Advanced care planning: * Patient is full CODE STATUS. Previously, verified with the patient's at bedside. 12. Encephalopathy: * Initially may have been metabolic due to septic shock. Subsequently from seizure, though it cannot be determined when seizure began. Head CT showed chronic changes. EEG showed focal seizures. * Still confused. Unclear baseline, but known dementia. Inpatient E&M: [id number] Subs Hosp L3
[2019-12-31 12:36] LABS: Bedside Glucose 88 mg/dL (70-110)
[2019-12-31] MEDS: HEPARIN/D5w 25,000 UNITS 25,000 UNITS/250 ML IV.SOLN. 13 UNITS IV (17:08)
[2019-12-31 17:21] LABS: Bedside Glucose 81 mg/dL (70-110)
[2020-01-01] VITALS (30 sets, daily range): BP systolic 144–180; BP diastolic 42–110; PULSE 72–101; RESP 14–25; TEMP 35.8–36.6; O2SAT 93–96
[2020-01-01 00:22] LABS: Eosinophil Ct. Urine No Eosinophils Seen % (.)
[2020-01-01 00:36] LABS: Bedside Glucose 75 mg/dL (70-110)
[2020-01-01 03:53] LABS: Hematocrit 33.5 % (37-47); Hemoglobin 10.8 g/dL (12.0-15.0); Mean Corp Hgb Conc 32.2 g/dL (32-36); Mean Corpuscular Hgb 30.6 pg (27.0-32.0); Mean Corpuscular Volume 94.9 fL (81-99); Mean Platelet Vol. 10.5 fl (6.2-12.0); POSITIVE COUNT YES; POSITIVE MORPHOLOGY YES; Platelet Count 213 K/mm3 (150-450); RBC Distribution Width CV 13.2 % (11.6-14.6); RBC Distribution Width SD 45.4 fl (35.1-43.9); Red Blood Count 3.53 M/mm3 (4.2-5.4); White Blood Count 12.1 K/mm3 (4.4-11.0)
[2020-01-01 04:01] LABS: Differential Indicated MANUAL DIFF
[2020-01-01 04:10] LABS: Partial Thromboplast Time 97.1 Seconds (24.1-36.2)
[2020-01-01 04:13] LABS: Anion Gap 5 (5-15); BUN 11 mg/dL (7-18); BUN/Creat Ratio 21.7 RATIO (10-20); Chloride 109 mmol/L (98-107); Creatinine, Serum 0.51 mg/dL (0.55-1.02); EST Glomerular Filtration Rate 123 mL/min (>60); Est Glom Filt Rate - Afr Amer 149 mL/min (>60); Glucose 77 mg/dL (74-106); Magnesium 1.9 mg/dL (1.6-2.6); Phosphorus 2.7 mg/dL (2.5-4.9); Potassium 3.5 mmol/L (3.5-5.1); Sodium Level 141 mmol/L (136-145)
[2020-01-01 04:38] LABS: Absolute Neutrophil Count 9.2 X10^3/uL (2.0-7.7); Lymphocyte 17 % (19-41); Metamyelocyte 8 % (0-1); Monocyte 6 % (0-10); Neutrophil # 9.21 X10^3/uL (2.7-7.7); Neutrophil-Band 3 % (0-5); Neutrophil-Segmented 73 % (47-70); Total Cells Counted 100 (MANUAL DIFF)
[2020-01-01 04:39] LABS: Absolute Lymphocyte Count 2.06 X10^3/uL (0.83-4.51); Lymphocyte # 2.06 X10^3/ul (4.0)
[2020-01-01] MEDS: Dextrose 50%-Water 25 GM/50 ML DISP.SYRIN IV (05:15)
[2020-01-01] MEDS: Cefazolin 2 GM in 0.9% Normal Saline 100 ML IV ×3 (05:15→22:13)
[2020-01-01 05:36] LABS: Bedside Glucose 146 mg/dL (70-110)
[2020-01-01 05:36] LABS: Bedside Glucose 70 mg/dL (70-110)
--- NOTE | 2020-01-01 05:37 | NURSING ---
nasal trumpet removed from right nares, cleansed with sterile water, lubricated and placed in left nares, patient tolerated well.
--- NOTE | 2020-01-01 06:16 | PCM.PN.INT ---
Subjective: The patient was seen and examined at the bedside this morning. Events from the last 24 hours have been reviewed. The patient is currently afebrile, hemodynamically stable and maintaining appropriate oxygen saturations on room air. The patient continues to have a nasal trumpet in place and has been requiring intermittent nasotracheal suctioning, as she has been unable to clear her own secretions. The patient is currently documented to be overall net +11 L for the hospital admission. Speech therapy evaluation is currently pending. Objective: The patient's most recent lab work, culture data and imaging studies have all been personally reviewed. Surface echocardiogram revealed normal LV size with an ejection fraction of 65% and stage I diastolic dysfunction. Coronavirus PCR was negative. Respiratory viral panel was negative. Strep and urine Legionella antigens were negative. Urine culture was positive for E. coli. Sputum culture was positive for MSSA. General: Alert, Confused, Disoriented, - - Opens eyes to verbal stimulation. HEENT: Atraumatic, Normocephalic Oral: Dry Mucosa Neck: Supple, No Nodes, Trachea Midline, - - Right IJ central venous catheter in place Lungs: Diminished, - - Scant rhonchi. Cardiovascular: Normal S1, Normal S2, No murmurs, Irregular Rate Abdomen: Bowel Sounds Present, Soft, Non Tender Extremities: No clubbing, No cyanosis, Edema Skin: No breakdown Musculoskeletal: No Tenderness to Palpation of Joints or Extremities Lymphatic: No Cervical, Supraclavicular, or Inguinal Adenopathy Neurological: - - No focal deficits. Psych/Mental Status: Flat Affect Vital Signs Temp Pulse Resp BP Pulse Ox 97.3 F L 97 24 H 167/58 H 93 01/01/20 06:00 01/01/20 06:00 01/01/20 06:00 01/01/20 06:00 01/01/20 06:00 Oxygen Flow Rate (L/min) 2 Oxygen Delivery Method Room Air Weight: 195 lb 1.745 oz Body Mass Index (BMI) 29.2 Intake and Output for Last 24 Hours 12/30/19 12/31/19 01/01/20 23:59 23:59 23:59 Intake Total 3911.58 / 3911.58 2085.75 / 2085.75 271.27 / 271.27 Output Total 4525 / 4525 2375 / 2725 600 / 600 Balance -613.42 / -613.42 -289.25 / -639.25 -328.73 / -328.73 Labs (Last 48 Hours) 12/29/19 12/30/19 12/30/19 12:20 08:30 12:46 WBC RBC Hgb Hct MCV MCH MCHC RDW Std Deviation RDW Coeff of Papo Plt Count MPV Neut % (Auto) Absolute Neuts (auto) Absolute Lymphs (auto) Total Counted Neutrophils % (Manual) Band Neutrophils % Lymphocytes % (Manual) Monocytes % (Manual) Eosinophils % (Manual) Metamyelocytes % Diff Path Review Toxic Granulation Platelet Estimate RBC Morphology Eos Smear Total Cells No Eosinophils Seen APTT 51.8 H Specimen Type Sample Site pH Bicarbonate Actual POC Total CO2 Base Excess O2 Saturation O2 % ABG pCO2 ABG pO2 Aaron Test O2 Delivery Device Vent Mode POC PEEP POC Pressure Suppt Blood Gas Notified Whom Blood Gas Notified Time Sodium Potassium Chloride Carbon Dioxide Anion Gap BUN Creatinine Estim Creat Clear Calc Est GFR (MDRD) Af Amer Est GFR (MDRD) Non-Af BUN/Creatinine Ratio Glucose Calcium Phosphorus Magnesium POC Glucose 105 12/30/19 12/30/19 12/30/19 15:35 17:28 23:25 WBC RBC Hgb Hct MCV MCH MCHC RDW Std Deviation RDW Coeff of Papo Plt Count MPV Neut % (Auto) Absolute Neuts (auto) Absolute Lymphs (auto) Total Counted Neutrophils % (Manual) Band Neutrophils % Lymphocytes % (Manual) Monocytes % (Manual) Eosinophils % (Manual) Metamyelocytes % Diff Path Review Toxic Granulation Platelet Estimate RBC Morphology Eos Smear Total Cells APTT 53.4 H 57.6 H Specimen Type Sample Site pH Bicarbonate Actual POC Total CO2 Base Excess O2 Saturation O2 % ABG pCO2 ABG pO2 Aaron Test O2 Delivery Device Vent Mode POC PEEP POC Pressure Suppt Blood Gas Notified Whom Blood Gas Notified Time Sodium Potassium Chloride Carbon Dioxide Anion Gap BUN Creatinine Estim Creat Clear Calc Est GFR (MDRD) Af Amer Est GFR (MDRD) Non-Af BUN/Creatinine Ratio Glucose Calcium Phosphorus Magnesium POC Glucose 98 12/30/19 12/31/19 12/31/19 23:28 04:00 04:00 WBC 13.0 H RBC 3.57 L Hgb 10.9 L Hct 33.7 L MCV 94.4 MCH 30.5 MCHC 32.3 RDW Std Deviation 45.3 H RDW Coeff of Papo 13.1 Plt Count 193 MPV 10.9 Neut % (Auto) Not Reportable Absolute Neuts (auto) 9.0 H Absolute Lymphs (auto) 2.21 Total Counted 100 Neutrophils % (Manual) 56 Band Neutrophils % 13 H Lymphocytes % (Manual) 17 L Monocytes % (Manual) 6 Eosinophils % (Manual) 2 Metamyelocytes % 6 H Diff Path Review May foll Toxic Granulation 1+ Platelet Estimate ADEQUATE RBC Morphology NORM C+C Eos Smear Total Cells APTT 64.4 H Specimen Type Sample Site pH Bicarbonate Actual POC Total CO2 Base Excess O2 Saturation O2 % ABG pCO2 ABG pO2 Aaron Test O2 Delivery Device Vent Mode POC PEEP POC Pressure Suppt Blood Gas Notified Whom Blood Gas Notified Time Sodium Potassium Chloride Carbon Dioxide Anion Gap BUN Creatinine Estim Creat Clear Calc Est GFR (MDRD) Af Amer Est GFR (MDRD) Non-Af BUN/Creatinine Ratio Glucose Calcium Phosphorus Magnesium POC Glucose 100 12/31/19 12/31/19 12/31/19 04:00 05:04 06:07 WBC RBC Hgb Hct MCV MCH MCHC RDW Std Deviation RDW Coeff of Papo Plt Count MPV Neut % (Auto) Absolute Neuts (auto) Absolute Lymphs (auto) Total Counted Neutrophils % (Manual) Band Neutrophils % Lymphocytes % (Manual) Monocytes % (Manual) Eosinophils % (Manual) Metamyelocytes % Diff Path Review Toxic Granulation Platelet Estimate RBC Morphology Eos Smear Total Cells APTT Specimen Type ART Sample Site L RADIAL pH 7.44 Bicarbonate Actual 23.7 POC Total CO2 25 Base Excess -1 O2 Saturation 92 L O2 % 30 ABG pCO2 35.0 ABG pO2 60 L Aaron Test POS O2 Delivery Device Vent Vent Mode CPAP POC PEEP 5 POC Pressure Suppt 5 Blood Gas Notified Whom ICU MD Blood Gas Notified Time 607 Sodium 144 Potassium 3.3 L Chloride 112 H Carbon Dioxide 27.0 Anion Gap 5 BUN 14 Creatinine 0.55 Estim Creat Clear Calc 43.00 Est GFR (MDRD) Af Amer 137 Est GFR (MDRD) Non-Af 113 BUN/Creatinine Ratio 25.6 H Glucose 94 Calcium 7.6 L Phosphorus 2.4 L Magnesium 1.8 POC Glucose 103 12/31/19 12/31/19 01/01/20 12:12 17:04 00:15 WBC RBC Hgb Hct MCV MCH MCHC RDW Std Deviation RDW Coeff of Papo Plt Count MPV Neut % (Auto) Absolute Neuts (auto) Absolute Lymphs (auto) Total Counted Neutrophils % (Manual) Band Neutrophils % Lymphocytes % (Manual) Monocytes % (Manual) Eosinophils % (Manual) Metamyelocytes % Diff Path Review Toxic Granulation Platelet Estimate RBC Morphology Eos Smear Total Cells APTT Specimen Type Sample Site pH Bicarbonate Actual POC Total CO2 Base Excess O2 Saturation O2 % ABG pCO2 ABG pO2 Aaron Test O2 Delivery Device Vent Mode POC PEEP POC Pressure Suppt Blood Gas Notified Whom Blood Gas Notified Time Sodium Potassium Chloride Carbon Dioxide Anion Gap BUN Creatinine Estim Creat Clear Calc Est GFR (MDRD) Af Amer Est GFR (MDRD) Non-Af BUN/Creatinine Ratio Glucose Calcium Phosphorus Magnesium POC Glucose 88 81 75 01/01/20 01/01/20 01/01/20 03:45 03:45 03:45 WBC 12.1 H RBC 3.53 L Hgb 10.8 L Hct 33.5 L MCV 94.9 MCH 30.6 MCHC 32.2 RDW Std Deviation 45.4 H RDW Coeff of Papo 13.2 Plt Count 213 MPV 10.5 Neut % (Auto) Not Reportable Absolute Neuts (auto) 9.2 H Absolute Lymphs (auto) 2.06 Total Counted 100 Neutrophils % (Manual) 73 H Band Neutrophils % 3 Lymphocytes % (Manual) 17 L Monocytes % (Manual) 6 Eosinophils % (Manual) Metamyelocytes % 8 H Diff Path Review May foll Toxic Granulation Platelet Estimate RBC Morphology Eos Smear Total Cells APTT 97.1 H* Specimen Type Sample Site pH Bicarbonate Actual POC Total CO2 Base Excess O2 Saturation O2 % ABG pCO2 ABG pO2 Aaron Test O2 Delivery Device Vent Mode POC PEEP POC Pressure Suppt Blood Gas Notified Whom Blood Gas Notified Time Sodium 141 Potassium 3.5 Chloride 109 H Carbon Dioxide 27.0 Anion Gap 5 BUN 11 Creatinine 0.51 L Estim Creat Clear Calc 43.00 Est GFR (MDRD) Af Amer 149 Est GFR (MDRD) Non-Af 123 BUN/Creatinine Ratio 21.7 H Glucose 77 Calcium 8.0 L Phosphorus 2.7 Magnesium 1.9 POC Glucose 01/01/20 01/01/20 05:03 05:29 WBC RBC Hgb Hct MCV MCH MCHC RDW Std Deviation RDW Coeff of Papo Plt Count MPV Neut % (Auto) Absolute Neuts (auto) Absolute Lymphs (auto) Total Counted Neutrophils % (Manual) Band Neutrophils % Lymphocytes % (Manual) Monocytes % (Manual) Eosinophils % (Manual) Metamyelocytes % Diff Path Review Toxic Granulation Platelet Estimate RBC Morphology Eos Smear Total Cells APTT Specimen Type Sample Site pH Bicarbonate Actual POC Total CO2 Base Excess O2 Saturation O2 % ABG pCO2 ABG pO2 Aaron Test O2 Delivery Device Vent Mode POC PEEP POC Pressure Suppt Blood Gas Notified Whom Blood Gas Notified Time Sodium Potassium Chloride Carbon Dioxide Anion Gap BUN Creatinine Estim Creat Clear Calc Est GFR (MDRD) Af Amer Est GFR (MDRD) Non-Af BUN/Creatinine Ratio Glucose Calcium Phosphorus Magnesium POC Glucose 70 146 H Microbiology 12/26/19 11:50 Blood Culture (Wb) - Anticubital Right Blood Culture - Final No growth in 5 days. 12/26/19 11:45 Blood Culture (Wb) - Anticubital Left Blood Culture - Final No growth in 5 days. Clinical Impression(s) from Imaging Studies Chest X-Ray 12/26/19 11:47 IMPRESSION: The tip of the endotracheal tube is at 3.6 cm proximal to the aurelia. The tip of the nasogastric tube is at the gastroesophageal junction. Increased markings at the lung bases as described suggestive of atelectasis and/or early infiltrates worse on the left side. Electronically Signed: Joss Snyder, at 13:05 EDT , Service support , KUB X-Ray 12/26/19 11:49 IMPRESSION: The tip of the nasogastric tube is in the fundal portion of the stomach. Mild increased markings at the left lung base. This may represent atelectasis and/or early infiltrate. Electronically Signed: Joss Snyder, at 13:03 EDT , Service support , Chest X-Ray 12/26/19 15:55 IMPRESSION: 1. Interval placement of right internal jugular deep venous line with tip of the catheter overlying the superior vena cava and no pneumothorax. 2. Endotracheal tube and nasogastric tube both which are unchanged. 3. Interval development of right lower lobe atelectasis Electronically Signed: Min Cantor MD at 16:16 EDT Tel , Service support , Brain CT 12/28/19 08:26 IMPRESSION: Chronic involutional changes of the brain. Electronically Signed: Joss Zhougustavo, at 10:40 EDT , Service support , Brain MRI 12/30/19 06:15 IMPRESSION: No acute intracranial abnormality or masses. Electronically Signed: Renee Mina MD at 14:17 EDT Tel , Service support , Medical Necessity - Tobacco Use Smoking Status: Unknown if ever smoked Tobacco Use: Non-smoker Assessment/Plan All Active Problems Septic shock (Acute) Acute respiratory failure with hypoxia (Acute) Metabolic encephalopathy (Acute) Suspected 2018 novel coronavirus infection (Acute) Community acquired pneumonia (Acute) Atrial fibrillation with rapid ventricular response (Acute) RECOMMENDATIONS: 1. Continue aggressive bronchopulmonary hygiene to assist with airway clearance. 2. Continue NT suctioning as needed. 3. Speech therapy evaluation pending. 4. Continue antimicrobials per infectious diseases recommendations. 5. Continue IV diuretic therapy. 6. Physical therapy to work with the patient. 7. Consider tele-neurology consultation to assist with input regarding long-term management of antiepileptic medications. IMPRESSIONS: 1. Septic shock secondary to staph aureus pneumonia Resolved. Patient was significantly hypotension on presentation to the intensive care unit. Initial lactic acid was elevated at 5.7 and patient had profound hypoxemia. Patient currently out of COVID precautions following testing. The patient has been weaned from all vasopressor support at this time. She remains hemodynamically stable. Continue antimicrobial therapy per ID recommendations. 2. Acute hypoxic respiratory failure secondary to MSSA pneumonia Clinical suspicion for decreased mental status and MSSA pneumonia leading to acute hypoxic respiratory failure. Although the patient has done well from an oxygenation status following extubation, she continues to have difficulty with clearing secretions from her airway. Therefore, we will plan to continue aggressive bronchopulmonary hygiene and as needed NT suctioning. Speech therapy evaluation is pending. The patient may inevitably require a PEG tube for nutrition purposes. Continue attempts at volume optimization with IV diuretic therapy in the interim. 3. A. fib with RVR/elevated troponin Clinical suspicion for supply demand mismatch given significant hypoxia on presentation. Unclear how long patient has been in A. fib with RVR, but will continue to monitor. Continue systemic anticoagulation. Possibly transition over to Eliquis/Xarelto once more clinically stable. 4. Acute kidney injury Resolved. High clinical suspicion suspicion for prerenal etiology. Continue to monitor urine output. No current indication for renal replacement therapy. Continue gentle diuretic therapy as tolerated by renal function. 5. Advanced age/poor history/schizophrenia/dementia/bipolar/hypothyroidism/hypertension/metabolic encephalopathy/new onset seizure Complicates care, management, recovery and prognosis. CT and MRI of the head were unremarkable. EEG did show focal seizure activity, so she was loaded with Keppra. Recommend tele-neurology evaluation for antiepileptic recommendations. This note was generated with [facility] dictation software. It may contain incorrect words, spelling, and punctuation that were not noted in checking the note before signing. Inpatient E&M: 11916 [facility] L3
[2020-01-01 07:11] LABS: Bedside Glucose 92 mg/dL (70-110)
--- NOTE | 2020-01-01 07:16 | PCM.PN.HOSP ---
Patient Problems: Active and Suspected Problems Septic shock (Acute) Acute respiratory failure with hypoxia (Acute) Metabolic encephalopathy (Acute) Suspected 2019 novel coronavirus infection (Acute) Reason for Visit: Follow up MSSA pneumonia and E. coli UTI Subjective: Patient is an 84-year-old lady who was admitted with decreased level of sensorium. An assessment of septic shock was made admitted to the intensive care unit where patient has since been managed Objective: GENERAL: Flat affect HEENT:nasal trumpet in place EYES; Anicteric, Normal Conjunctiva NECK; supple, normal thyroid, RESPIRATORY: Diminished to auscultation CARDIOVASCULAR: Irregular S1 S2, GI: soft, normoactive bowel sounds, : No Renal angle tenderness; EXTREMITIES: edema, no clubbing, MUSCULOSKELETAL: no muscle waisting NEURO: Awake; no lateralizing signs. SKIN: No Rash PSYCH; Flat affect Vitals/I&O's: Vital Signs Temp Pulse Resp BP Pulse Ox 97.3 F L 97 24 H 167/58 H 93 01/01/20 06:00 01/01/20 06:00 01/01/20 06:00 01/01/20 06:00 01/01/20 06:00 Oxygen Flow Rate (L/min) 2 Oxygen Delivery Method Room Air Weight: 88.5 kg Body Mass Index (BMI) 29.2 Intake and Output for Last 24 Hours 12/30/19 12/31/19 01/01/20 23:59 23:59 23:59 Intake Total 3911.58 / 3911.58 2085.75 / 2085.75 271.27 / 271.27 Output Total 4525 / 4525 2375 / 2725 600 / 600 Balance -613.42 / -613.42 -289.25 / -639.25 -328.73 / -328.73 Microbiology Past 72 Hours 12/26/19 11:50 Blood Culture (Wb) - Anticubital Right Blood Culture - Final No growth in 5 days. 12/26/19 11:45 Blood Culture (Wb) - Anticubital Left Blood Culture - Final No growth in 5 days. Laboratory Results 12/29/19 12:20: Eos Smear Total Cells No Eosinophils Seen 12/31/19 04:00: Absolute Neuts (auto) 9.0 H, Absolute Lymphs (auto) 2.21, Total Counted 100, Neutrophils % (Manual) 56, Band Neutrophils % 13 H, Lymphocytes % (Manual) 17 L, Monocytes % (Manual) 6, Eosinophils % (Manual) 2, Metamyelocytes % 6 H, Diff Path Review November sanju, Toxic Granulation 1+, Platelet Estimate ADEQUATE, RBC Morphology NORM C+C 12/31/19 12:12: POC Glucose 88 12/31/19 17:04: POC Glucose 81 01/01/20 00:15: POC Glucose 75 01/01/20 03:45: APTT 97.1 H* 01/01/20 03:45: WBC 12.1 H, RBC 3.53 L, Hgb 10.8 L, Hct 33.5 L, MCV 94.9, MCH 30.6, MCHC 32.2, RDW Std Deviation 45.4 H, RDW Coeff of Papo 13.2, Plt Count 213, MPV 10.5, Neut % (Auto) Not Reportable, Absolute Neuts (auto) 9.2 H, Absolute Lymphs (auto) 2.06, Total Counted 100, Neutrophils % (Manual) 73 H, Band Neutrophils % 3, Lymphocytes % (Manual) 17 L, Monocytes % (Manual) 6, Metamyelocytes % 8 H, Diff Path Review Oanh bills 01/01/20 03:45: Sodium 141, Potassium 3.5, Chloride 109 H, Carbon Dioxide 27.0, Anion Gap 5, BUN 11, Creatinine 0.51 L, Estim Creat Clear Calc 43.00, Est GFR (MDRD) Af Amer 149, Est GFR (MDRD) Non-Af 123, BUN/Creatinine Ratio 21.7 H, Glucose 77, Calcium 8.0 L, Phosphorus 2.7, Magnesium 1.9 01/01/20 05:03: POC Glucose 70 01/01/20 05:29: POC Glucose 146 H 01/01/20 07:04: POC Glucose 92 Current Medications Acetaminophen (Tylenol Liquid) 650 mg GT Q6H PRN PRN PRN Reason: FEVER Last Admin: 12/27/19 11:54 Dose: 650 mg Documented by: Albuterol Sulfate (Ventolin Aerosols) 2.5 mg INHALATION Q2H PRN PRN PRN Reason: SOB/Wheezing Chlorhexidine Gluconate () 15 ml PO BID CHERELLE Last Admin: 12/31/19 21:47 Dose: 15 ml Documented by: Chlorhexidine Gluconate () 1 each TOPICAL DAILY [facility] Last Admin: 12/31/19 09:24 Dose: 1 each Documented by: Dextrose (D50w Syringe) 0 gm IV X1 PRN; Protocol PRN Reason: Hypoglycemia Last Admin: 01/01/20 05:15 Dose: 12.5 gm Documented by: Furosemide (Lasix) 20 mg IV BID@1000,1800 CHERELLE Last Admin: 12/31/19 17:09 Dose: 20 mg Documented by: Glucagon () 1 mg IM .X1 PRN PRN Reason: Hypoglycemia Heparin Sodium (Porcine) (Heparin Na) 0 unit IV UD PRN; Protocol Last Admin: 12/30/19 10:44 Dose: 1,000 unit Documented by: Heparin Sodium/Dextrose () 25,000 units in 250 mls @ 11 mls/hr IV .[id number] [facility]; Protocol Last Titration: 01/01/20 05:15 Dose: 1,100 units/hr, 11 mls/hr Documented by: Sodium Chloride () 250 mls @ 15 mls/hr IV .[id number] PRN PRN Reason: Saline Flush Last Infusion: 01/01/20 05:59 Dose: 15 mls/hr Documented by: Sodium Chloride () 250 mls @ 15 mls/hr IV .[id number] PRN PRN Reason: Additional IVPB Infusion Pantoprazole Sodium 40 mg/ (Sodium Chloride) 110 mls @ 330 mls/hr IV Q12 [facility] Last Infusion: 12/31/19 22:33 Dose: Infused Documented by: Cefazolin Sodium 2 gm/ Sodium (Chloride) 110 mls @ 150 mls/hr IV Q8 [facility] Last Infusion: 01/01/20 05:59 Dose: Infused Documented by: Dextrose () 1,000 mls @ 25 mls/hr IV .[id number] [facility] Last Admin: 12/31/19 17:08 Dose: 25 mls/hr Documented by: Levetiracetam 500 mg/ Sodium (Chloride) 105 mls @ 400 mls/hr IV Q12 [facility] Last Infusion: 12/31/19 22:06 Dose: Infused Documented by: Insulin Human Lispro (Humalog Kwikpen (Bkc)) 0 unit SC Q6 [facility]; Protocol Last Admin: 01/01/20 05:15 Dose: Not Given Documented by: Levothyroxine Sodium (Synthroid) 25 mcg GT DAILY [facility]LE Last Admin: 12/31/19 09:25 Dose: Not Given Documented by: Polyethylene Glycol (Miralax) 17 gm PO DAILY PRN PRN PRN Reason: Constipation Sodium Chloride () 10 - 40 ml IV UD PRN PRN Reason: SALINE FLUSH Last Admin: 12/31/19 06:15 Dose: 40 ml Documented by: STROKE Vital Signs/Narrative: Vital Signs Temp Pulse Resp BP Pulse Ox 01/01/20 06:00 97.3 F L 97 24 H 167/58 H 93 01/01/20 05:00 90 20 H 164/54 H 95 01/01/20 04:00 97.8 F 81 17 164/75 H 96 01/01/20 03:52 97.8 F 81 20 H 163/65 H 96 Medical Necessity - Tobacco Use Smoking Status: Unknown if ever smoked Tobacco Use: Non-smoker Assessment/Plan All Active Problems Septic shock (Acute) Acute respiratory failure with hypoxia (Acute) Metabolic encephalopathy (Acute) Suspected 2018 novel coronavirus infection (Acute) Community acquired pneumonia (Acute) Atrial fibrillation with rapid ventricular response (Acute) Patient is an 84-year-old lady who was admitted with decreased level of sensorium. An assessment of septic shock was made admitted to the intensive care unit where patient has since been managed 1. Septic shock ?Secondary to MSSA pneumonia as well as UTI 3. MSSA pneumonia ?Patient managed with cefazolin in addition to ventilation support. COVID 19 infection was ruled out 3. Acute cystitis with E. coli ?Managed with cefazolin 4. Acute metabolic encephalopathy ?Secondary to infectious etiology as discussed above. Patient to undergo speech and swallow eval 5. Seizure disorder ?With history of focal seizures during patient hospitalization consult placed to neurology 6. Elevated troponin ?Secondary to demand ischemia 7. Hypokalemia -corrected per protocol 8. Hypothyroidism - Patient is on levothyroxine home dose continued 9. Hyponatremia ?Secondary to dehydration resolved with IV fluids 10. A. fib with RVR ?New onset patient does not have any previous documented history of A. fib. Rate controlled on systemic anticoagulation with heparin 11. History of schizoaffective disorder 12. DVT prophylaxis ?Patient on heparin Active Medications Acetaminophen (Tylenol Liquid) 650 mg GT Q6H PRN PRN PRN Reason: FEVER Last Admin: 12/27/19 11:54 Dose: 650 mg Documented by: Albuterol Sulfate (Ventolin Aerosols) 2.5 mg INHALATION Q2H PRN PRN PRN Reason: SOB/Wheezing Chlorhexidine Gluconate () 1 each TOPICAL DAILY [facility] Last Admin: 12/31/19 09:24 Dose: 1 each Documented by: Dextrose (D50w Syringe) 0 gm IV X1 PRN; Protocol PRN Reason: Hypoglycemia Last Admin: 01/01/20 05:15 Dose: 12.5 gm Documented by: Furosemide (Lasix) 20 mg IV BID@1000,1800 [facility] Last Admin: 12/31/19 17:09 Dose: 20 mg Documented by: Glucagon () 1 mg IM .X1 PRN PRN Reason: Hypoglycemia Heparin Sodium (Porcine) (Heparin Na) 0 unit IV UD PRN; Protocol Last Admin: 12/30/19 10:44 Dose: 1,000 unit Documented by: Heparin Sodium/Dextrose () 25,000 units in 250 mls @ 11 mls/hr IV .[id number] [facility]; Protocol Last Titration: 01/01/20 05:15 Dose: 1,100 units/hr, 11 mls/hr Documented by: Sodium Chloride () 250 mls @ 15 mls/hr IV .[id number] PRN PRN Reason: Saline Flush Last Infusion: 01/01/20 08:19 Dose: 0 mls/hr Documented by: Sodium Chloride () 250 mls @ 15 mls/hr IV .[id number] PRN PRN Reason: Additional IVPB Infusion Pantoprazole Sodium 40 mg/ (Sodium Chloride) 110 mls @ 330 mls/hr IV Q12 [facility] Last Infusion: 12/31/19 22:33 Dose: Infused Documented by: Cefazolin Sodium 2 gm/ Sodium (Chloride) 110 mls @ 150 mls/hr IV Q8 [facility] Last Infusion: 01/01/20 05:59 Dose: Infused Documented by: Dextrose () 1,000 mls @ 75 mls/hr IV .[id number] [facility] Last Infusion: 01/01/20 09:15 Dose: 75 mls/hr Documented by: Levetiracetam 500 mg/ Sodium (Chloride) 105 mls @ 400 mls/hr IV Q12 [facility] Last Infusion: 12/31/19 22:06 Dose: Infused Documented by: Insulin Human Lispro (Humalog Kwikpen (Bk)) 0 unit SC Q6 [facility]; Protocol Last Admin: 01/01/20 05:15 Dose: Not Given Documented by: Levothyroxine Sodium (Synthroid) 25 mcg GT DAILY [facility] Last Admin: 12/31/19 09:25 Dose: Not Given Documented by: Polyethylene Glycol (Miralax) 17 gm PO DAILY PRN PRN PRN Reason: Constipation Sodium Chloride () 10 - 40 ml IV UD PRN PRN Reason: SALINE FLUSH Last Admin: 12/31/19 06:15 Dose: 40 ml Documented by: Inpatient E&M: [id number] Subs Hosp L3
--- NOTE | 2020-01-01 09:55 | PN.ID_ITS ---
Patient Problems: Active and Suspected Problems Septic shock (Acute) Acute respiratory failure with hypoxia (Acute) Metabolic encephalopathy (Acute) Suspected 2019 novel coronavirus infection (Acute) Subjective: No fever, no events overnight - Physical Exam Vitals/I&O's: Vital Signs Temp Pulse Resp BP Pulse Ox 97.4 F L 79 17 158/66 H 93 01/01/20 08:00 01/01/20 08:00 01/01/20 08:00 01/01/20 08:00 01/01/20 08:00 Oxygen Flow Rate (L/min) 2 Oxygen Delivery Method Room Air Weight: 88.5 kg Body Mass Index (BMI) 29.2 Intake and Output for Last 24 Hours 12/30/19 12/31/19 01/01/20 23:59 23:59 23:59 Intake Total 3911.58 / 3911.58 2085.75 / 2085.75 709.19 / 709.19 Output Total 4525 / 4525 2375 / 2725 600 / 600 Balance -613.42 / -613.42 -289.25 / -639.25 109.19 / 109.19 General: No apparent distress Lungs: Diminished Cardiovascular: Regular rate, Regular Rhythm Abdomen: Soft, Non Tender, Non-Distended Skin: No rashes Microbiology Past 72 Hours 12/26/19 11:50 Blood Culture (Wb) - Anticubital Right Blood Culture - Final No growth in 5 days. 12/26/19 11:45 Blood Culture (Wb) - Anticubital Left Blood Culture - Final No growth in 5 days. Laboratory Results 12/29/19 12:20: Eos Smear Total Cells No Eosinophils Seen 12/31/19 12:12: POC Glucose 88 12/31/19 17:04: POC Glucose 81 01/01/20 00:15: POC Glucose 75 01/01/20 03:45: APTT 97.1 H* 01/01/20 03:45: WBC 12.1 H, RBC 3.53 L, Hgb 10.8 L, Hct 33.5 L, MCV 94.9, MCH 30.6, MCHC 32.2, RDW Std Deviation 45.4 H, RDW Coeff of Papo 13.2, Plt Count 213, MPV 10.5, Neut % (Auto) Not Reportable, Absolute Neuts (auto) 9.2 H, Absolute Lymphs (auto) 2.06, Total Counted 100, Neutrophils % (Manual) 73 H, Band Neutrophils % 3, Lymphocytes % (Manual) 17 L, Monocytes % (Manual) 6, Metamyelocytes % 8 H, Diff Path Review November01/01/20 03:45: Sodium 141, Potassium 3.5, Chloride 109 H, Carbon Dioxide 27.0, Anion Gap 5, BUN 11, Creatinine 0.51 L, Estim Creat Clear Calc 43.00, Est GFR (MDRD) Af Amer 149, Est GFR (MDRD) Non-Af 123, BUN/Creatinine Ratio 21.7 H, Glucose 77, Calcium 8.0 L, Phosphorus 2.7, Magnesium 1.9 01/01/20 05:03: POC Glucose 70 01/01/20 05:29: POC Glucose 146 H 01/01/20 07:04: POC Glucose 92 Current Medications Acetaminophen (Tylenol Liquid) 650 mg GT Q6H PRN PRN PRN Reason: FEVER Last Admin: 12/27/19 11:54 Dose: 650 mg Documented by: Albuterol Sulfate (Ventolin Aerosols) 2.5 mg INHALATION Q2H PRN PRN PRN Reason: SOB/Wheezing Chlorhexidine Gluconate () 1 each TOPICAL DAILY [facility] Last Admin: 12/31/19 09:24 Dose: 1 each Documented by: Dextrose (D50w Syringe) 0 gm IV X1 PRN; Protocol PRN Reason: Hypoglycemia Last Admin: 01/01/20 05:15 Dose: 12.5 gm Documented by: Furosemide (Lasix) 20 mg IV BID@1000,1800 [facility] Last Admin: 12/31/19 17:09 Dose: 20 mg Documented by: Glucagon () 1 mg IM .X1 PRN PRN Reason: Hypoglycemia Heparin Sodium (Porcine) (Heparin Na) 0 unit IV UD PRN; Protocol Last Admin: 12/30/19 10:44 Dose: 1,000 unit Documented by: Heparin Sodium/Dextrose () 25,000 units in 250 mls @ 11 mls/hr IV .[id number] CHERELLE; Protocol Last Titration: 01/01/20 05:15 Dose: 1,100 units/hr, 11 mls/hr Documented by: Sodium Chloride () 250 mls @ 15 mls/hr IV .[id number] PRN PRN Reason: Saline Flush Last Infusion: 01/01/20 08:19 Dose: 0 mls/hr Documented by: Sodium Chloride () 250 mls @ 15 mls/hr IV .[id number] PRN PRN Reason: Additional IVPB Infusion Pantoprazole Sodium 40 mg/ (Sodium Chloride) 110 mls @ 330 mls/hr IV Q12 CHERELLE Last Infusion: 12/31/19 22:33 Dose: Infused Documented by: Cefazolin Sodium 2 gm/ Sodium (Chloride) 110 mls @ 150 mls/hr IV Q8 [facility] Last Infusion: 01/01/20 05:59 Dose: Infused Documented by: Dextrose () 1,000 mls @ 75 mls/hr IV .[id number] CHERELLE Last Infusion: 01/01/20 09:15 Dose: 75 mls/hr Documented by: Levetiracetam 500 mg/ Sodium (Chloride) 105 mls @ 400 mls/hr IV Q12 [facility] Last Infusion: 12/31/19 22:06 Dose: Infused Documented by: Insulin Human Lispro (Humalog Kwikpen (Bkc)) 0 unit SC Q6 CHERELLE; Protocol Last Admin: 01/01/20 05:15 Dose: Not Given Documented by: Levothyroxine Sodium (Synthroid) 25 mcg GT DAILY CHERELLE Last Admin: 12/31/19 09:25 Dose: Not Given Documented by: Polyethylene Glycol (Miralax) 17 gm PO DAILY PRN PRN PRN Reason: Constipation Sodium Chloride () 10 - 40 ml IV UD PRN PRN Reason: SALINE FLUSH Last Admin: 12/31/19 06:15 Dose: 40 ml Documented by: Medical Necessity - Tobacco Use Smoking Status: Unknown if ever smoked Tobacco Use: Non-smoker Route of nutrition/ use of supplements: [] Nutritional Intake: [] IV Site: [] Aguilar Catheter: [] - Assessment/Plan Antibiotics: [] Assessment/Plan: [] Active and Suspected Problems Septic shock (Acute) Acute respiratory failure with hypoxia (Acute) Metabolic encephalopathy (Acute) Suspected 2019 novel coronavirus infection (Acute) septic shock, elevated d-dimer, acute hypoxic resp failure - fever to 101.7 here, now resolved Sputum with MSSA, ucx with ecoli. Cont cefazolin. Repeat endobronchial covid was neg, IgM and IgG were neg. Out of isolation. Wbc, bp, and temps much improved. Off pressors, day 7 of abx, plan on stopping in next 1-2 days. Will follow
[2020-01-01] MEDS: Furosemide 20 MG/2 ML VIAL IV ×2 (10:00→17:30)
[2020-01-01] MEDS: 0.9% Saline Lock 10 ML Syringe IV (10:00)
[2020-01-01] MEDS: CHLORHEXIDINE GLUC 2% CLOTH 1 EACH TOWELETTE TOPICAL (10:02)
--- NOTE | 2020-01-01 11:11 | CASEMGMT ---
Social Work Note Pt extubated yesterday. Per notes, pt is total care [facility] life at [facility]. Pt is getting speech evaluation done today. SW faxed updated clinicals to [facility]. SW to continue to follow to determine if pt is able to return to [facility] or will need SNF. Pt is on TCU list in the event SNF is needed. Plan: Return to [facility] vs TCU Anali Colin [employer], [employer]
[2020-01-01 11:20] LABS: Bedside Glucose 99 mg/dL (70-110)
[2020-01-01 11:35] LABS: Partial Thromboplast Time 67.3 Seconds (24.1-36.2)
[2020-01-01 11:59] LABS: Pathologist Review Reviewed
[2020-01-01] MEDS: HEPARIN/D5w 25,000 UNITS 25,000 UNITS/250 ML IV.SOLN. 11 UNITS IV (14:58)
[2020-01-01 17:31] LABS: Bedside Glucose 87 mg/dL (70-110)
[2020-01-01 17:59] LABS: Partial Thromboplast Time 79.7 Seconds (24.1-36.2)
[2020-01-01] MEDS: hydrALAZINE 20 MG/ML Vial 10 MG IV (18:07)
--- NOTE | 2020-01-01 21:06 | NURSING ---
Alex, pts , called unit, update provided.
[2020-01-01 23:41] LABS: Bedside Glucose 112 mg/dL (70-110)
[2020-01-02] VITALS (26 sets, daily range): BP systolic 91–177; BP diastolic 23–80; PULSE 63–99; RESP 14–26; TEMP 35.3–37.8; O2SAT 92–94
[2020-01-02 00:45] LABS: Partial Thromboplast Time 83.2 Seconds (24.1-36.2)
[2020-01-02] MEDS: hydrALAZINE 20 MG/ML Vial 10 MG IV (03:13)
[2020-01-02] MEDS: 0.9% Saline Lock 10 ML Syringe IV (03:13)
[2020-01-02 04:20] LABS: Hematocrit 39.2 % (37-47); Hemoglobin 12.5 g/dL (12.0-15.0); Mean Corp Hgb Conc 31.9 g/dL (32-36); Mean Corpuscular Hgb 29.8 pg (27.0-32.0); Mean Corpuscular Volume 93.6 fL (81-99); Mean Platelet Vol. 10.5 fl (6.2-12.0); Platelet Count 280 K/mm3 (150-450); RBC Distribution Width CV 12.7 % (11.6-14.6); RBC Distribution Width SD 43.6 fl (35.1-43.9); Red Blood Count 4.19 M/mm3 (4.2-5.4); White Blood Count 12.5 K/mm3 (4.4-11.0)
[2020-01-02 04:24] LABS: Anion Gap 8 (5-15); BUN 7 mg/dL (7-18); BUN/Creat Ratio 12.7 RATIO (10-20); Calcium,Total 8.5 mg/dL (8.5-10.1); Chloride 102 mmol/L (98-107); Creatinine, Serum 0.55 mg/dL (0.55-1.02); EST Glomerular Filtration Rate 112 mL/min (>60); Est Glom Filt Rate - Afr Amer 135 mL/min (>60); Glucose 114 mg/dL (74-106); Magnesium 1.8 mg/dL (1.6-2.6); Potassium 3.1 mmol/L (3.5-5.1); Sodium Level 138 mmol/L (136-145)
[2020-01-02] MEDS: Cefazolin 2 GM in 0.9% Normal Saline 100 ML IV ×3 (05:28→21:46)
[2020-01-02 05:40] LABS: Bedside Glucose 126 mg/dL (70-110)
--- NOTE | 2020-01-02 07:04 | PN_ITS ---
Subjective: The patient was seen and examined at the bedside this morning. Events from the last 24 hours have been reviewed. The patient is currently afebrile, hemodynamically stable and maintaining appropriate oxygen saturations on room air. The patient has had less oral secretions noted by nursing staff overnight. She did fail her swallow evaluation yesterday by speech therapy. They recommended continued n.p.o. status with plans for reevaluation today. I personally spoke with neurology yesterday regarding management plans for the patient's antiepileptic medications. A repeat EEG completed yesterday showed no clear focal, lateralized, nor epileptiform abnormalities. Potassium is low this morning at 3.1. Objective: The patient's most recent lab work, culture data and imaging studies have all been personally reviewed. Surface echocardiogram revealed normal LV size with an ejection fraction of 65% and stage I diastolic dysfunction. Coronavirus PCR was negative. Respiratory viral panel was negative. Strep and urine Legionella antigens were negative. Urine culture was positive for E. coli. Sputum culture was positive for MSSA. General: - - Opens eyes to verbal stimulation and appears to track. However, the patient remains nonverbal, confused and disoriented. HEENT: Atraumatic, Normocephalic Oral: Dry Mucosa, - - For generalized dentition Neck: Supple, No Nodes, Trachea Midline, - - Stable central venous catheter in place Lungs: No rhonchi, No wheeze, No rales, Diminished Cardiovascular: Normal S1, Normal S2, No murmurs, Irregular Rate Abdomen: Bowel Sounds Present, Soft, Non Tender Extremities: No clubbing, No cyanosis, Edema Skin: - - No significant change from previous Musculoskeletal: No Tenderness to Palpation of Joints or Extremities Lymphatic: No Cervical, Supraclavicular, or Inguinal Adenopathy Neurological: - - No focal neurological deficits. Psych/Mental Status: Flat Affect Vital Signs Temp Pulse Resp BP Pulse Ox 95.6 F L 90 19 H 138/56 H 93 01/02/20 06:00 01/02/20 06:01/02/20 06:00 01/02/20 06:01/02/20 06:00 Oxygen Flow Rate (L/min) 2 Oxygen Delivery Method Room Air Weight: 190 lb 7.67 oz Body Mass Index (BMI) 29.2 Intake and Output for Last 24 Hours 12/31/19 01/01/20 01/02/20 23:59 23:59 23:59 Intake Total 2085.75 / 2085.75 2372.70 / 2372.70 167.5 / 167.5 Output Total 2375 / 2725 4350 / 4350 500 / 500 Balance -289.25 / -639.25 -1977.30 / -1977.30 -332.5 / -332.5 Labs (Last 48 Hours) 12/29/19 12/31/19 12/31/19 12:20 04:00 12:12 WBC RBC Hgb Hct MCV MCH MCHC RDW Std Deviation RDW Coeff of Papo Plt Count MPV Neut % (Auto) Absolute Neuts (auto) 9.0 H Absolute Lymphs (auto) 2.21 Total Counted 100 Neutrophils % (Manual) 56 Band Neutrophils % 13 H Lymphocytes % (Manual) 17 L Monocytes % (Manual) 6 Eosinophils % (Manual) 2 Metamyelocytes % 6 H Diff Path Review Reviewed Toxic Granulation 1+ Platelet Estimate ADEQUATE RBC Morphology NORM C+C Eos Smear Total Cells No Eosinophils Seen APTT Sodium Potassium Chloride Carbon Dioxide Anion Gap BUN Creatinine Estim Creat Clear Calc Est GFR (MDRD) Af Amer Est GFR (MDRD) Non-Af BUN/Creatinine Ratio Glucose Calcium Phosphorus Magnesium POC Glucose 88 12/31/19 01/01/20 01/01/20 17:04 00:15 03:45 WBC RBC Hgb Hct MCV MCH MCHC RDW Std Deviation RDW Coeff of Papo Plt Count MPV Neut % (Auto) Absolute Neuts (auto) Absolute Lymphs (auto) Total Counted Neutrophils % (Manual) Band Neutrophils % Lymphocytes % (Manual) Monocytes % (Manual) Eosinophils % (Manual) Metamyelocytes % Diff Path Review Toxic Granulation Platelet Estimate RBC Morphology Eos Smear Total Cells APTT 97.1 H* Sodium Potassium Chloride Carbon Dioxide Anion Gap BUN Creatinine Estim Creat Clear Calc Est GFR (MDRD) Af Amer Est GFR (MDRD) Non-Af BUN/Creatinine Ratio Glucose Calcium Phosphorus Magnesium POC Glucose 81 75 01/01/20 01/01/20 01/01/20 03:45 03:45 05:03 WBC 12.1 H RBC 3.53 L Hgb 10.8 L Hct 33.5 L MCV 94.9 MCH 30.6 MCHC 32.2 RDW Std Deviation 45.4 H RDW Coeff of Papo 13.2 Plt Count 213 MPV 10.5 Neut % (Auto) Not Reportable Absolute Neuts (auto) 9.2 H Absolute Lymphs (auto) 2.06 Total Counted 100 Neutrophils % (Manual) 73 H Band Neutrophils % 3 Lymphocytes % (Manual) 17 L Monocytes % (Manual) 6 Eosinophils % (Manual) Metamyelocytes % 8 H Diff Path Review May foll Toxic Granulation Platelet Estimate RBC Morphology Eos Smear Total Cells APTT Sodium 141 Potassium 3.5 Chloride 109 H Carbon Dioxide 27.0 Anion Gap 5 BUN 11 Creatinine 0.51 L Estim Creat Clear Calc 43.00 Est GFR (MDRD) Af Amer 149 Est GFR (MDRD) Non-Af 123 BUN/Creatinine Ratio 21.7 H Glucose 77 Calcium 8.0 L Phosphorus 2.7 Magnesium 1.9 POC Glucose 70 01/01/20 01/01/20 01/01/20 05:29 07:04 11:15 WBC RBC Hgb Hct MCV MCH MCHC RDW Std Deviation RDW Coeff of Papo Plt Count MPV Neut % (Auto) Absolute Neuts (auto) Absolute Lymphs (auto) Total Counted Neutrophils % (Manual) Band Neutrophils % Lymphocytes % (Manual) Monocytes % (Manual) Eosinophils % (Manual) Metamyelocytes % Diff Path Review Toxic Granulation Platelet Estimate RBC Morphology Eos Smear Total Cells APTT 67.3 H Sodium Potassium Chloride Carbon Dioxide Anion Gap BUN Creatinine Estim Creat Clear Calc Est GFR (MDRD) Af Amer Est GFR (MDRD) Non-Af BUN/Creatinine Ratio Glucose Calcium Phosphorus Magnesium POC Glucose 146 H 92 01/01/20 01/01/20 01/01/20 11:16 17:25 17:28 WBC RBC Hgb Hct MCV MCH MCHC RDW Std Deviation RDW Coeff of Papo Plt Count MPV Neut % (Auto) Absolute Neuts (auto) Absolute Lymphs (auto) Total Counted Neutrophils % (Manual) Band Neutrophils % Lymphocytes % (Manual) Monocytes % (Manual) Eosinophils % (Manual) Metamyelocytes % Diff Path Review Toxic Granulation Platelet Estimate RBC Morphology Eos Smear Total Cells APTT 79.7 H Sodium Potassium Chloride Carbon Dioxide Anion Gap BUN Creatinine Estim Creat Clear Calc Est GFR (MDRD) Af Amer Est GFR (MDRD) Non-Af BUN/Creatinine Ratio Glucose Calcium Phosphorus Magnesium POC Glucose 99 87 06/01/20 06/02/20 06/02/20 23:09 00:05 03:50 WBC 12.5 H RBC 4.19 L Hgb 12.5 Hct 39.2 MCV 93.6 MCH 29.8 MCHC 31.9 L RDW Std Deviation 43.6 RDW Coeff of Papo 12.7 Plt Count 280 MPV 10.5 Neut % (Auto) Absolute Neuts (auto) Absolute Lymphs (auto) Total Counted Neutrophils % (Manual) Band Neutrophils % Lymphocytes % (Manual) Monocytes % (Manual) Eosinophils % (Manual) Metamyelocytes % Diff Path Review Toxic Granulation Platelet Estimate RBC Morphology Eos Smear Total Cells APTT 83.2 H Sodium Potassium Chloride Carbon Dioxide Anion Gap BUN Creatinine Estim Creat Clear Calc Est GFR (MDRD) Af Amer Est GFR (MDRD) Non-Af BUN/Creatinine Ratio Glucose Calcium Phosphorus Magnesium POC Glucose 112 H 01/02/20 01/02/20 01/02/20 03:50 05:26 06:45 WBC RBC Hgb Hct MCV MCH MCHC RDW Std Deviation RDW Coeff of Papo Plt Count MPV Neut % (Auto) Absolute Neuts (auto) Absolute Lymphs (auto) Total Counted Neutrophils % (Manual) Band Neutrophils % Lymphocytes % (Manual) Monocytes % (Manual) Eosinophils % (Manual) Metamyelocytes % Diff Path Review Toxic Granulation Platelet Estimate RBC Morphology Eos Smear Total Cells APTT Pending Sodium 138 Potassium 3.1 L Chloride 102 Carbon Dioxide 28.0 Anion Gap 8 BUN 7 Creatinine 0.55 Estim Creat Clear Calc 43.00 Est GFR (MDRD) Af Amer 135 Est GFR (MDRD) Non-Af 112 BUN/Creatinine Ratio 12.7 Glucose 114 H Calcium 8.5 Phosphorus Magnesium 1.8 POC Glucose 126 H Microbiology 12/26/19 11:50 Blood Culture (Wb) - Anticubital Right Blood Culture - Final No growth in 5 days. 12/26/19 11:45 Blood Culture (Wb) - Anticubital Left Blood Culture - Final No growth in 5 days. Clinical Impression(s) from Imaging Studies Chest X-Ray 12/26/19 11:47 IMPRESSION: The tip of the endotracheal tube is at 3.6 cm proximal to the aurelia. The tip of the nasogastric tube is at the gastroesophageal junction. Increased markings at the lung bases as described suggestive of atelectasis and/or early infiltrates worse on the left side. Electronically Signed: Joss Snyder, at 13:05 EDT , Service support , KUB X-Ray 12/26/19 11:49 IMPRESSION: The tip of the nasogastric tube is in the fundal portion of the stomach. Mild increased markings at the left lung base. This may represent atelectasis and/or early infiltrate. Electronically Signed: Joss Snyder, at 13:03 EDT , Service support , Chest X-Ray 12/26/19 15:55 IMPRESSION: 1. Interval placement of right internal jugular deep venous line with tip of the catheter overlying the superior vena cava and no pneumothorax. 2. Endotracheal tube and nasogastric tube both which are unchanged. 3. Interval development of right lower lobe atelectasis Electronically Signed: Min Cantor MD at 16:16 EDT Tel , Service support , Brain CT 12/28/19 08:26 IMPRESSION: Chronic involutional changes of the brain. Electronically Signed: Joss Snyder, at 10:40 EDT , Service support , Brain MRI 12/30/19 06:15 IMPRESSION: No acute intracranial abnormality or masses. Electronically Signed: Renee Mina MD at 14:17 EDT Tel , Service support , Clinical Impression(s) from Imaging Studies Chest X-Ray 12/26/19 11:47 IMPRESSION: The tip of the endotracheal tube is at 3.6 cm proximal to the aurelia. The tip of the nasogastric tube is at the gastroesophageal junction. Increased markings at the lung bases as described suggestive of atelectasis and/or early infiltrates worse on the left side. Electronically Signed: Joss Claudio, at 13:05 EDT , Service support , KUB X-Ray 12/26/19 11:49 IMPRESSION: The tip of the nasogastric tube is in the fundal portion of the stomach. Mild increased markings at the left lung base. This may represent atelectasis and/or early infiltrate. Electronically Signed: Joss Snyder, at 13:03 EDT , Service support , Chest X-Ray 12/26/19 15:55 IMPRESSION: 1. Interval placement of right internal jugular deep venous line with tip of the catheter overlying the superior vena cava and no pneumothorax. 2. Endotracheal tube and nasogastric tube both which are unchanged. 3. Interval development of right lower lobe atelectasis Electronically Signed: Min Cantor MD at 16:16 EDT Tel , Service support , Brain CT 12/28/19 08:26 IMPRESSION: Chronic involutional changes of the brain. Electronically Signed: Joss Snyder, at 10:40 EDT , Service support , Brain MRI 12/30/19 06:15 IMPRESSION: No acute intracranial abnormality or masses. Electronically Signed: Renee Mina MD at 14:17 EDT Tel , Service support , Medical Necessity - Tobacco Use Smoking Status: Unknown if ever smoked Tobacco Use: Non-smoker Assessment/Plan All Active Problems Septic shock (Acute) Acute respiratory failure with hypoxia (Acute) Metabolic encephalopathy (Acute) Suspected 2019 novel coronavirus infection (Acute) Community acquired pneumonia (Acute) Atrial fibrillation with rapid ventricular response (Acute) RECOMMENDATIONS: 1. Continue antimicrobials to completion per ID recommendations. 2. Continue scheduled diuretic therapy. 3. Aggressive electrolyte repletion. 4. Speech therapy reevaluation. 5. Continue Keppra per neurology recommendations. 6. Check ammonia. 7. Continue systemic anticoagulation and PPI therapy. 8. Continue work with physical therapy. IMPRESSIONS: 1. Septic shock secondary to staph aureus pneumonia Resolved. Patient was significantly hypotension on presentation to the intensive care unit. Initial lactic acid was elevated at 5.7 and patient had profound hypoxemia. Patient currently out of COVID precautions following testing. The patient has been weaned from all vasopressor support at this time. She remains hemodynamically stable. Continue antimicrobial therapy per ID recommendations to complete treatment course. 2. Acute hypoxic respiratory failure secondary to MSSA pneumonia Clinical suspicion for decreased mental status and MSSA pneumonia leading to acute hypoxic respiratory failure. Although the patient has done well from an oxygenation status following extubation, she has had difficulty with clearing secretions from her airway. Plan to continue aggressive bronchopulmonary hygiene and as needed NT suctioning. Speech therapy is currently following. The patient may inevitably require a PEG tube for nutrition purposes versus initiation of TPN. Continue attempts at volume optimization with IV diuretic therapy in the interim. 3. A. fib with RVR/elevated troponin Clinical suspicion for supply demand mismatch given significant hypoxia on presentation. Unclear how long patient has been in A. fib with RVR, but will continue to monitor. Continue systemic anticoagulation. Possibly transition over to Eliquis/Xarelto once more clinically stable. 4. Acute kidney injury Resolved. High clinical suspicion suspicion for prerenal etiology. Continue to monitor urine output. No current indication for renal replacement therapy. Continue gentle diuretic therapy as tolerated by renal function. 5. Hypokalemia Aggressive electrolyte replacement, especially in light of ongoing diuresis with Lasix. Recheck levels in the morning. 6. Advanced age/poor history/schizophrenia/dementia/bipolar/hypothyroidism/hypertension/metabolic encephalopathy/new onset seizure Complicates care, management, recovery and prognosis. CT and MRI of the head were unremarkable. EEG did show focal seizure activity, so she was loaded with Keppra. Repeat EEG was unremarkable. The patient will be continued on Keppra per neurology recommendations. This note was generated with [employer] software. It may contain incorrect words, spelling, and punctuation that were not noted in checking the note before signing. Inpatient E&M: 67952 Subs Hosp L3
--- NOTE | 2020-01-02 07:15 | PN_ITS ---
Patient Problems: Active and Suspected Problems Septic shock (Acute) Acute respiratory failure with hypoxia (Acute) Metabolic encephalopathy (Acute) Suspected 2019 novel coronavirus infection (Acute) Reason for Visit: Septic shock, acute encephalopathy Subjective: Patient seen no change in condition overnight. Still remains significantly lethargic. Plan is to hold family conference regarding patient condition and CODE STATUS Objective: GENERAL: Flat affect HEENT:nasal trumpet in place EYES; Anicteric, Normal Conjunctiva NECK; supple, normal thyroid, RESPIRATORY: Diminished to auscultation CARDIOVASCULAR: Irregular S1 S2, GI: soft, normoactive bowel sounds, : No Renal angle tenderness; EXTREMITIES: edema, no clubbing, MUSCULOSKELETAL: no muscle waisting NEURO: Awake; no lateralizing signs. SKIN: No Rash PSYCH; Flat affect Vitals/I&O's: Vital Signs Temp Pulse Resp BP Pulse Ox 95.6 F L 90 19 H 138/56 H 93 01/02/20 06:00 01/02/20 06:00 01/02/20 06:00 01/02/20 06:00 01/02/20 06:00 Oxygen Flow Rate (L/min) 2 Oxygen Delivery Method Room Air Weight: 86.4 kg Body Mass Index (BMI) 29.2 Intake and Output for Last 24 Hours 12/31/19 01/01/20 01/02/20 23:59 23:59 23:59 Intake Total 2085.75 / 2085.75 2372.70 / 2372.70 1031.25 / 1031.25 Output Total 2375 / 2725 4350 / 4350 500 / 500 Balance -289.25 / -639.25 -1977.30 / -1976.30 531.25 / 531.25 Microbiology Past 72 Hours 12/26/19 11:50 Blood Culture (Wb) - Anticubital Right Blood Culture - Final No growth in 5 days. 12/26/19 11:45 Blood Culture (Wb) - Anticubital Left Blood Culture - Final No growth in 5 days. Laboratory Results 12/31/19 04:00: Diff Path Review Reviewed 01/01/20 11:15: APTT 67.3 H 01/01/20 11:16: POC Glucose 99 01/01/20 17:25: APTT 79.7 H 01/01/20 17:28: POC Glucose 87 01/01/20 23:09: POC Glucose 112 H 01/02/20 00:05: APTT 83.2 H 01/02/20 03:50: WBC 12.5 H, RBC 4.19 L, Hgb 12.5, Hct 39.2, MCV 93.6, MCH 29.8, MCHC 31.9 L, RDW Std Deviation 43.6, RDW Coeff of Papo 12.7, Plt Count 280, MPV 10.5 01/02/20 03:50: Sodium 138, Potassium 3.1 L, Chloride 102, Carbon Dioxide 28.0, Anion Gap 8, BUN 7, Creatinine 0.55, Estim Creat Clear Calc 43.00, Est GFR (MDRD) Af Amer 135, Est GFR (MDRD) Non-Af 112, BUN/Creatinine Ratio 12.7, Glucose 114 H, Calcium 8.5, Magnesium 1.8 01/02/20 05:26: POC Glucose 126 H 01/02/20 06:45: APTT Pending Current Medications Acetaminophen (Tylenol Liquid) 650 mg GT Q6H PRN PRN PRN Reason: FEVER Last Admin: 12/27/19 11:54 Dose: 650 mg Documented by: Albuterol Sulfate (Ventolin Aerosols) 2.5 mg INHALATION Q2H PRN PRN PRN Reason: SOB/Wheezing Chlorhexidine Gluconate () 1 each TOPICAL DAILY [facility] Last Admin: 01/01/20 10:02 Dose: 1 each Documented by: Dextrose (D50w Syringe) 0 gm IV X1 PRN; Protocol PRN Reason: Hypoglycemia Last Admin: 01/01/20 05:15 Dose: 12.5 gm Documented by: Furosemide (Lasix) 20 mg IV BID@1000,1800 [facility] Last Admin: 01/01/20 17:30 Dose: 20 mg Documented by: Glucagon () 1 mg IM .X1 PRN PRN Reason: Hypoglycemia Heparin Sodium (Porcine) (Heparin Na) 0 unit IV UD PRN; Protocol Last Admin: 12/30/19 10:44 Dose: 1,000 unit Documented by: Hydralazine HCl (Apresoline Iv) 10 mg IV Q4H PRN PRN PRN Reason: SBP > 150 Last Admin: 01/02/20 03:13 Dose: 10 mg Documented by: Heparin Sodium/Dextrose () 25,000 units in 250 mls @ 11 mls/hr IV .[id number] [facility]ERELLE; Protocol Last Admin: 01/02/20 05:28 Dose: Not Given Documented by: Sodium Chloride () 250 mls @ 15 mls/hr IV .[id number] PRN PRN Reason: Saline Flush Last Infusion: 01/01/20 22:59 Dose: 0 mls/hr Documented by: Sodium Chloride () 250 mls @ 15 mls/hr IV .[id number] PRN PRN Reason: Additional IVPB Infusion Pantoprazole Sodium 40 mg/ (Sodium Chloride) 110 mls @ 330 mls/hr IV Q12 [facility] Last Infusion: 01/01/20 22:08 Dose: Infused Documented by: Cefazolin Sodium 2 gm/ Sodium (Chloride) 110 mls @ 150 mls/hr IV Q8 [facility] Last Infusion: 01/02/20 06:12 Dose: Infused Documented by: Dextrose () 1,000 mls @ 75 mls/hr IV .[id number] [facility] Last Admin: 01/02/20 07:14 Dose: 75 mls/hr Documented by: Levetiracetam 500 mg/ Sodium (Chloride) 105 mls @ 400 mls/hr IV Q12 [facility] Last Infusion: 01/01/20 22:08 Dose: Infused Documented by: Insulin Human Lispro (Humalog Cammiepen (Bkc)) 0 unit SC Q6 [facility]; Protocol Last Admin: 01/02/20 05:28 Dose: Not Given Documented by: Levothyroxine Sodium (Synthroid) 25 mcg GT DAILY [facility] Last Admin: 01/01/20 10:02 Dose: Not Given Documented by: Polyethylene Glycol (Miralax) 17 gm PO DAILY PRN PRN PRN Reason: Constipation Sodium Chloride () 10 - 40 ml IV UD PRN PRN Reason: SALINE FLUSH Last Admin: 01/02/20 03:13 Dose: 40 ml Documented by: STROKE Vital Signs/Narrative: Vital Signs Temp Pulse Resp BP Pulse Ox 01/02/20 06:00 95.6 F L 90 19 H 138/56 H 93 01/02/20 05:00 95.6 F L 91 23 H 115/44 L 94 01/02/20 04:00 95.9 F L 74 18 131/49 H 94 Medical Necessity - Tobacco Use Smoking Status: Unknown if ever smoked Tobacco Use: Non-smoker Assessment/Plan All Active Problems Septic shock (Acute) Acute respiratory failure with hypoxia (Acute) Metabolic encephalopathy (Acute) Suspected 2018 novel coronavirus infection (Acute) Community acquired pneumonia (Acute) Atrial fibrillation with rapid ventricular response (Acute) Patient is an 84-year-old lady who was admitted with decreased level of sensorium. An assessment of septic shock was made admitted to the intensive care unit where patient has since been managed 1. Septic shock ?Secondary to MSSA pneumonia as well as UTI ?Management involved managing underlying condition. 3. MSSA pneumonia ?Patient managed with cefazolin in addition to ventilation support. COVID 19 infection was ruled out -01/02/2020: Plan is to continue antibiotic therapy for 2 days 3. Acute cystitis with E. coli ?Managed with cefazolin 4. Acute metabolic encephalopathy ?Secondary to infectious etiology as discussed above. Patient to undergo speech and swallow eval -01/02/2020: Patient remains significantly lethargic. Plan is to hold a family meeting regarding patient's current condition as well as CODE STATUS 5. Seizure disorder ?With history of focal seizures during patient hospitalization consult placed to neurology -01/02/2020: Patient was seen in consultation by neurology recommended horacio nuation of current therapy 6. Elevated troponin ?Secondary to demand ischemia 7. Hypokalemia -corrected per protocol 8. Hypothyroidism - Patient is on levothyroxine home dose continued 9. Hyponatremia ?Secondary to dehydration resolved with IV fluids 10. A. fib with RVR ?New onset patient does not have any previous documented history of A. fib. Rate controlled on systemic anticoagulation with heparin -01/02/2020: Patient not a candidate for long-term anti-coagulation to significant risk for falls, heparin subsequently, discontinued patient placed on prophylactic Lovenox 11. History of schizoaffective disorder 12. DVT prophylaxis ?Patient on heparin ?Heparin discontinued placed on prophylactic Lovenox Inpatient E&M: [id number] [facility] Hosp L2
[2020-01-02 08:11] LABS: Partial Thromboplast Time 102.6 Seconds (24.1-36.2)
[2020-01-02] MEDS: CHLORHEXIDINE GLUC 2% CLOTH 1 EACH TOWELETTE TOPICAL (09:19)
[2020-01-02] MEDS: Furosemide 20 MG/2 ML VIAL IV ×2 (09:21→16:50)
--- NOTE | 2020-01-02 09:50 | PN.ID_ITS ---
Patient Problems: Active and Suspected Problems Septic shock (Acute) Acute respiratory failure with hypoxia (Acute) Metabolic encephalopathy (Acute) Suspected 2019 novel coronavirus infection (Acute) Subjective: Minimally responsive, now hypothermic. - Physical Exam Vitals/I&O's: Vital Signs Temp Pulse Resp BP Pulse Ox 95.6 F L 90 19 H 138/56 H 93 01/02/20 06:00 01/02/20 06:00 01/02/20 06:00 01/02/20 06:00 01/02/20 06:00 Oxygen Flow Rate (L/min) 2 Oxygen Delivery Method Room Air Weight: 86.4 kg Body Mass Index (BMI) 29.2 Intake and Output for Last 24 Hours 12/31/19 01/01/20 01/02/20 23:59 23:59 23:59 Intake Total 2085.75 / 2085.75 2372.70 / 2372.70 1031.25 / 1031.25 Output Total 2375 / 2725 4350 / 4350 500 / 500 Balance -289.25 / -639.25 -1976.30 / -1976.30 531.25 / 531.25 General: No apparent distress Lungs: Diminished Cardiovascular: Tachycardic Abdomen: Soft, Non Tender, Non-Distended Skin: No rashes Microbiology Past 72 Hours 12/26/19 11:50 Blood Culture (Wb) - Anticubital Right Blood Culture - Final No growth in 5 days. 12/26/19 11:45 Blood Culture (Wb) - Anticubital Left Blood Culture - Final No growth in 5 days. Laboratory Results 12/31/19 04:00: Diff Path Review Reviewed 01/01/20 11:15: APTT 67.3 H 01/01/20 11:16: POC Glucose 99 01/01/20 17:25: APTT 79.7 H 01/01/20 17:28: POC Glucose 87 01/01/20 23:09: POC Glucose 112 H 01/02/20 00:05: APTT 83.2 H 01/02/20 03:50: WBC 12.5 H, RBC 4.19 L, Hgb 12.5, Hct 39.2, MCV 93.6, MCH 29.8, MCHC 31.9 L, RDW Std Deviation 43.6, RDW Coeff of Papo 12.7, Plt Count 280, MPV 10.5 01/02/20 03:50: Sodium 138, Potassium 3.1 L, Chloride 102, Carbon Dioxide 28.0, Anion Gap 8, BUN 7, Creatinine 0.55, Estim Creat Clear Calc 43.00, Est GFR (MDRD) Af Amer 135, Est GFR (MDRD) Non-Af 112, BUN/Creatinine Ratio 12.7, Glucose 114 H, Calcium 8.5, Magnesium 1.8 01/02/20 05:26: POC Glucose 126 H 01/02/20 06:45: APTT 102.6 H* 01/02/20 08:40: Ammonia 30.0 Current Medications Acetaminophen (Tylenol Liquid) 650 mg GT Q6H PRN PRN PRN Reason: FEVER Last Admin: 12/27/19 11:54 Dose: 650 mg Documented by: Albuterol Sulfate (Ventolin Aerosols) 2.5 mg INHALATION Q2H PRN PRN PRN Reason: SOB/Wheezing Chlorhexidine Gluconate () 1 each TOPICAL DAILY [facility] Last Admin: 01/02/20 09:19 Dose: 1 each Documented by: Dextrose (D50w Syringe) 0 gm IV X1 PRN; Protocol PRN Reason: Hypoglycemia Last Admin: 01/01/20 05:15 Dose: 12.5 gm Documented by: Enoxaparin Sodium (Lovenox) 40 mg SC DAILY [facility] Furosemide (Lasix) 20 mg IV BID@1000,1800 [facility] Last Admin: 01/02/20 09:21 Dose: 20 mg Documented by: Glucagon () 1 mg IM .X1 PRN PRN Reason: Hypoglycemia Hydralazine HCl (Apresoline Iv) 10 mg IV Q4H PRN PRN PRN Reason: SBP > 150 Last Admin: 01/02/20 03:13 Dose: 10 mg Documented by: Sodium Chloride () 250 mls @ 15 mls/hr IV .[id number] PRN PRN Reason: Saline Flush Last Infusion: 01/01/20 22:59 Dose: 0 mls/hr Documented by: Sodium Chloride () 250 mls @ 15 mls/hr IV .[id number] PRN PRN Reason: Additional IVPB Infusion Pantoprazole Sodium 40 mg/ (Sodium Chloride) 110 mls @ 330 mls/hr IV Q12 [facility] Last Admin: 01/02/20 09:19 Dose: 330 mls/hr Documented by: Cefazolin Sodium 2 gm/ Sodium (Chloride) 110 mls @ 150 mls/hr IV Q8 [facility] Last Infusion: 01/02/20 06:12 Dose: Infused Documented by: Dextrose () 1,000 mls @ 75 mls/hr IV .[id number] [facility] Last Admin: 01/02/20 07:14 Dose: 75 mls/hr Documented by: Levetiracetam 500 mg/ Sodium (Chloride) 105 mls @ 400 mls/hr IV Q12 [facility] Last Admin: 01/02/20 09:21 Dose: 400 mls/hr Documented by: Potassium Chloride 40 meq/ (Sodium Chloride) 120 mls @ 100 mls/hr IV BOLUS BID [facility] Stop: 01/02/20 23:11 Magnesium Sulfate 2 gm/ Sodium (Chloride) 104 mls @ 52 mls/hr IV X1 ONE Stop: 01/02/20 09:57 Last Admin: 01/02/20 08:46 Dose: 52 mls/hr Documented by: Insulin Human Lispro (Humalog Kwikpen (Bkc)) 0 unit SC Q6 [facility]; Protocol Last Admin: 01/02/20 05:28 Dose: Not Given Documented by: Levothyroxine Sodium (Synthroid) 25 mcg GT DAILY [facility] Last Admin: 01/01/20 10:02 Dose: Not Given Documented by: Polyethylene Glycol (Miralax) 17 gm PO DAILY PRN PRN PRN Reason: Constipation Sodium Chloride () 10 - 40 ml IV UD PRN PRN Reason: SALINE FLUSH Last Admin: 01/02/20 03:13 Dose: 40 ml Documented by: Medical Necessity - Tobacco Use Smoking Status: Unknown if ever smoked Tobacco Use: Non-smoker Route of nutrition/ use of supplements: [] Nutritional Intake: [] IV Site: [] Aguilar Catheter: [] - Assessment/Plan Antibiotics: [] Assessment/Plan: [] Active and Suspected Problems Septic shock (Acute) Acute respiratory failure with hypoxia (Acute) Metabolic encephalopathy (Acute) Suspected 2019 novel coronavirus infection (Acute) septic shock, elevated d-dimer, acute hypoxic resp failure - fever to 101.7 here, now resolved Sputum with MSSA, ucx with ecoli. Cont cefazolin. Repeat endobronchial covid was neg, IgM and IgG were neg. Out of isolation. Wbc, bp, and temps much improved. Off pressors, day 8 of abx, plan on stopping tomorrow. Family meeting today to discuss goals of care; overall poor prognosis. Will follow, d/w nursing.
--- NOTE | 2020-01-02 10:43 | CASEMGMT ---
Addendum entered by Anali Colin 01/02/20 14:24: BABAK placed a call to [facility] and spoke with RN Carolann. If pt needs PEG tube at discharge, [facility] wouldn't be able to take pt back with PEG. Pt would need to go to SNF/ECF. Addendum entered by Anali Colin 01/02/20 14:07: BABAK spoke with RN to get update on family meeting. No decision has been made at this time regarding next steps for pt. SW to continue to follow. Original Note: Social Work Note SW participated in ICU rounds. Pt failed speech evaluation yesterday. Pt's Alex will be at [facility] at 11:00am to discuss next steps for pt with staff. SW to continue to follow. Anali Colin [employer]ER, EARLY CHILDHOOD SERVICES COORDINATOR
[2020-01-02 11:23] LABS: Pathologist Review Reviewed
[2020-01-02] MEDS: Enoxaparin 40 MG/0.4 ML Syringe SC (12:04)
[2020-01-02 12:26] LABS: Bedside Glucose 96 mg/dL (70-110)
[2020-01-02 16:55] LABS: Bedside Glucose 86 mg/dL (70-110)
[2020-01-03] VITALS (11 sets, daily range): BP systolic 118–148; BP diastolic 64–84; PULSE 74–96; RESP 16–20; TEMP 36.2–36.7; O2SAT 92–94
[2020-01-03 00:01] LABS: Bedside Glucose 105 mg/dL (70-110)
[2020-01-03] MEDS: Cefazolin 2 GM in 0.9% Normal Saline 100 ML IV (05:28)
[2020-01-03 05:40] LABS: Bedside Glucose 95 mg/dL (70-110)
[2020-01-03 06:12] LABS: Hemoglobin 11.8 g/dL (12.0-15.0); Mean Corp Hgb Conc 31.9 g/dL (32-36); Mean Corpuscular Hgb 30.2 pg (27.0-32.0); Mean Corpuscular Volume 94.6 fL (81-99); Mean Platelet Vol. 10.1 fl (6.2-12.0); Platelet Count 265 K/mm3 (150-450); RBC Distribution Width CV 13.4 % (11.6-14.6); RBC Distribution Width SD 45.2 fl (35.1-43.9); Red Blood Count 3.91 M/mm3 (4.2-5.4); White Blood Count 11.2 K/mm3 (4.4-11.0)
[2020-01-03] MEDS: Metoprolol Tartrate 5 MG/5 ML Vial IV (06:33)
[2020-01-03] MEDS: 0.9% Saline Lock 10 ML Syringe IV ×3 (06:34→17:14)
[2020-01-03 06:38] LABS: Anion Gap 6 (5-15); BUN 8 mg/dL (7-18); BUN/Creat Ratio 12.5 RATIO (10-20); Calcium,Total 8.3 mg/dL (8.5-10.1); Chloride 105 mmol/L (98-107); Creatinine, Serum 0.64 mg/dL (0.55-1.02); EST Glomerular Filtration Rate 94 mL/min (>60); Est Glom Filt Rate - Afr Amer 114 mL/min (>60); Glucose 103 mg/dL (74-106); Potassium 3.8 mmol/L (3.5-5.1); Sodium Level 137 mmol/L (136-145)
--- NOTE | 2020-01-03 07:11 | PCM.PN.PUL ---
Patient Problems: Active and Suspected Problems Septic shock (Acute) Acute respiratory failure with hypoxia (Acute) Metabolic encephalopathy (Acute) Suspected 2019 novel coronavirus infection (Acute) Subjective: The patient was seen and examined at the bedside this morning. Events from the last 24 hours have been reviewed. The patient is currently afebrile, hemodynamically stable and maintaining appropriate oxygen saturations on room air. I did personally meet with the patient's yesterday to discuss her overall clinical state and plans for goals of care. The patient reported to me that he was not interested in pursuing hospice involvement. He stated that he wished that all life preserving interventions be performed. The idea of PEG tube placement was discussed with him as well. He stated that he wanted to discuss this with his family further before making a final decision. Objective: The patient's most recent lab work, culture data and imaging studies have all been personally reviewed. Surface echocardiogram revealed normal LV size with an ejection fraction of 65% and stage I diastolic dysfunction. Coronavirus PCR was negative. Respiratory viral panel was negative. Strep and urine Legionella antigens were negative. Urine culture was positive for E. coli. Sputum culture was positive for MSSA. - Physical Exam Vitals/I&O's: Vital Signs Temp Pulse Resp BP Pulse Ox 98.0 F 77 16 118/72 94 01/03/20 06:31 01/03/20 06:33 01/03/20 06:31 01/03/20 06:33 01/03/20 06:31 Oxygen Flow Rate (L/min) 2 Oxygen Delivery Method Room Air Weight: 190 lb 0.615 oz Body Mass Index (BMI) 29.2 Intake and Output for Last 24 Hours 01/01/20 01/02/20 01/03/20 23:59 23:59 23:59 Intake Total 2372.70 / 2372.70 3229.30 / 3229.30 110 / 110 Output Total 4350 / 4350 800 / 800 350 / 350 Balance -1976.30 / -1976.30 2429.30 / 242.30 -240 / -240 General: - - Appears more alert and interactive today. HEENT: Atraumatic, Normocephalic Oral: Moist Mucosa, - - Poor generalized dentition Neck: Supple, No Nodes, Trachea Midline Lungs: Diminished Cardiovascular: Normal S1, Normal S2, Irregular Rate Abdomen: Bowel Sounds Present, Soft, Non Tender Extremities: No clubbing, No cyanosis, Edema Skin: - - No significant change from previous Musculoskeletal: No Muscle Wasting Lymphatic: No Cervical, Supraclavicular, or Inguinal Adenopathy Neurological: - - Eyes are open and the patient tracks movement. She does not currently verbalize or answer any questions. Psych/Mental Status: Flat Affect Labs (Last 48 Hours) 12/31/19 01/01/20 01/01/20 04:00 03:45 11:15 WBC RBC Hgb Hct MCV MCH MCHC RDW Std Deviation RDW Coeff of Papo Plt Count MPV Diff Path Review Reviewed Reviewed APTT 67.3 H Sodium Potassium Chloride Carbon Dioxide Anion Gap BUN Creatinine Estim Creat Clear Calc Est GFR (MDRD) Af Amer Est GFR (MDRD) Non-Af BUN/Creatinine Ratio Glucose Calcium Magnesium Ammonia POC Glucose 01/01/20 01/01/20 01/01/20 11:16 17:25 17:28 WBC RBC Hgb Hct MCV MCH MCHC RDW Std Deviation RDW Coeff of Papo Plt Count MPV Diff Path Review APTT 79.7 H Sodium Potassium Chloride Carbon Dioxide Anion Gap BUN Creatinine Estim Creat Clear Calc Est GFR (MDRD) Af Amer Est GFR (MDRD) Non-Af BUN/Creatinine Ratio Glucose Calcium Magnesium Ammonia POC Glucose 99 87 01/01/20 01/02/20 01/02/20 23:09 00:05 03:50 WBC 12.5 H RBC 4.19 L Hgb 12.5 Hct 39.2 MCV 93.6 MCH 29.8 MCHC 31.9 L RDW Std Deviation 43.6 RDW Coeff of Papo 12.7 Plt Count 280 MPV 10.5 Diff Path Review APTT 83.2 H Sodium Potassium Chloride Carbon Dioxide Anion Gap BUN Creatinine Estim Creat Clear Calc Est GFR (MDRD) Af Amer Est GFR (MDRD) Non-Af BUN/Creatinine Ratio Glucose Calcium Magnesium Ammonia POC Glucose 112 H 01/02/20 01/02/20 01/02/20 03:50 05:26 06:45 WBC RBC Hgb Hct MCV MCH MCHC RDW Std Deviation RDW Coeff of Papo Plt Count MPV Diff Path Review APTT 102.6 H* Sodium 138 Potassium 3.1 L Chloride 102 Carbon Dioxide 28.0 Anion Gap 8 BUN 7 Creatinine 0.55 Estim Creat Clear Calc 43.00 Est GFR (MDRD) Af Amer 135 Est GFR (MDRD) Non-Af 112 BUN/Creatinine Ratio 12.7 Glucose 114 H Calcium 8.5 Magnesium 1.8 Ammonia POC Glucose 126 H 01/02/20 01/02/20 01/02/20 08:40 11:49 16:48 WBC RBC Hgb Hct MCV MCH MCHC RDW Std Deviation RDW Coeff of Papo Plt Count MPV Diff Path Review APTT Sodium Potassium Chloride Carbon Dioxide Anion Gap BUN Creatinine Estim Creat Clear Calc Est GFR (MDRD) Af Amer Est GFR (MDRD) Non-Af BUN/Creatinine Ratio Glucose Calcium Magnesium Ammonia 30.0 POC Glucose 96 86 01/02/20 01/03/20 01/03/20 23:56 05:35 05:50 WBC 11.2 H RBC 3.91 L Hgb 11.8 L Hct 37.0 MCV 94.6 MCH 30.2 MCHC 31.9 L RDW Std Deviation 45.2 H RDW Coeff of Papo 13.4 Plt Count 265 MPV 10.1 Diff Path Review APTT Sodium Potassium Chloride Carbon Dioxide Anion Gap BUN Creatinine Estim Creat Clear Calc Est GFR (MDRD) Af Amer Est GFR (MDRD) Non-Af BUN/Creatinine Ratio Glucose Calcium Magnesium Ammonia POC Glucose 105 95 01/03/20 05:50 WBC RBC Hgb Hct MCV MCH MCHC RDW Std Deviation RDW Coeff of Papo Plt Count MPV Diff Path Review APTT Sodium 137 Potassium 3.8 Chloride 105 Carbon Dioxide 26.0 Anion Gap 6 BUN 8 Creatinine 0.64 Estim Creat Clear Calc 43.00 Est GFR (MDRD) Af Amer 114 Est GFR (MDRD) Non-Af 94 BUN/Creatinine Ratio 12.5 Glucose 103 Calcium 8.3 L Magnesium Ammonia POC Glucose Clinical Impression(s) from Imaging Studies Chest X-Ray 12/26/19 11:47 IMPRESSION: The tip of the endotracheal tube is at 3.6 cm proximal to the aurelia. The tip of the nasogastric tube is at the gastroesophageal junction. Increased markings at the lung bases as described suggestive of atelectasis and/or early infiltrates worse on the left side. Electronically Signed: Joss Snyder, at 13:05 EDT , Service support , KUB X-Ray 12/26/19 11:49 IMPRESSION: The tip of the nasogastric tube is in the fundal portion of the stomach. Mild increased markings at the left lung base. This may represent atelectasis and/or early infiltrate. Electronically Signed: Joss Snyder, at 13:03 EDT , Service support , Chest X-Ray 12/26/19 15:55 IMPRESSION: 1. Interval placement of right internal jugular deep venous line with tip of the catheter overlying the superior vena cava and no pneumothorax. 2. Endotracheal tube and nasogastric tube both which are unchanged. 3. Interval development of right lower lobe atelectasis Electronically Signed: Min Cantor MD at 16:16 EDT Tel , Service support , Brain CT 12/28/19 08:26 IMPRESSION: Chronic involutional changes of the brain. Electronically Signed: Joss Snyder, at 10:40 EDT , Service support , Brain MRI 12/30/19 06:15 IMPRESSION: No acute intracranial abnormality or masses. Electronically Signed: Renee Mina MD at 14:17 EDT Tel , Service support , Current Medications Acetaminophen (Tylenol Liquid) 650 mg GT Q6H PRN PRN PRN Reason: FEVER Last Admin: 12/27/19 11:54 Dose: 650 mg Documented by: Albuterol Sulfate (Ventolin Aerosols) 2.5 mg INHALATION Q2H PRN PRN PRN Reason: SOB/Wheezing Chlorhexidine Gluconate () 1 each TOPICAL DAILY [facility] Last Admin: 01/02/20 09:19 Dose: 1 each Documented by: Dextrose (D50w Syringe) 0 gm IV X1 PRN; Protocol PRN Reason: Hypoglycemia Last Admin: 01/01/20 05:15 Dose: 12.5 gm Documented by: Enoxaparin Sodium (Lovenox) 40 mg SC DAILY [facility] Last Admin: 01/02/20 12:04 Dose: 40 mg Documented by: Furosemide (Lasix) 20 mg IV BID@1000,1800 [facility] Last Admin: 01/02/20 16:50 Dose: 20 mg Documented by: Glucagon () 1 mg IM .X1 PRN PRN Reason: Hypoglycemia Hydralazine HCl (Apresoline Iv) 10 mg IV Q4H PRN PRN PRN Reason: SBP > 150 Last Admin: 01/02/20 03:13 Dose: 10 mg Documented by: Sodium Chloride () 250 mls @ 15 mls/hr IV .[id number] PRN PRN Reason: Saline Flush Last Infusion: 01/02/20 21:24 Dose: 0 mls/hr Documented by: Sodium Chloride () 250 mls @ 15 mls/hr IV .[id number] PRN PRN Reason: Additional IVPB Infusion Pantoprazole Sodium 40 mg/ (Sodium Chloride) 110 mls @ 330 mls/hr IV Q12 [facility] Last Infusion: 01/02/20 21:40 Dose: Infused Documented by: Cefazolin Sodium 2 gm/ Sodium (Chloride) 110 mls @ 150 mls/hr IV Q8 [facility] Last Infusion: 01/03/20 06:15 Dose: Infused Documented by: Dextrose () 1,000 mls @ 75 mls/hr IV .[id number] [facility] Last Infusion: 01/02/20 23:59 Dose: 75 mls/hr Documented by: Levetiracetam 500 mg/ Sodium (Chloride) 105 mls @ 400 mls/hr IV Q12 [facility] Last Infusion: 01/02/20 21:20 Dose: Infused Documented by: Insulin Human Lispro (Humalog Kwikpen (Bkc)) 0 unit SC Q6 [facility]; Protocol Last Admin: 01/03/20 05:35 Dose: Not Given Documented by: Levothyroxine Sodium (Synthroid) 25 mcg GT DAILY [facility] Last Admin: 01/02/20 11:43 Dose: Not Given Documented by: Metoprolol Succinate (Toprol Xl (Beta Joi)) 25 mg PO DAILY [facility] Last Admin: 01/03/20 05:27 Dose: Not Given Documented by: Polyethylene Glycol (Miralax) 17 gm PO DAILY PRN PRN PRN Reason: Constipation Sodium Chloride () 10 - 40 ml IV UD PRN PRN Reason: SALINE FLUSH Last Admin: 01/03/20 06:34 Dose: 10 ml Documented by: Medical Necessity - Tobacco Use Smoking Status: Unknown if ever smoked Tobacco Use: Non-smoker Assessment/Plan All Active Problems Septic shock (Acute) Acute respiratory failure with hypoxia (Acute) Metabolic encephalopathy (Acute) Suspected 2019 novel coronavirus infection (Acute) Community acquired pneumonia (Acute) Atrial fibrillation with rapid ventricular response (Acute) RECOMMENDATIONS: 1. Consider CorPak placement versus TPN initiation if the patient does not begin to improve over the next 24 hours, in order to provide nutritional support. 2. Speech therapy reevaluation. 3. Continue scheduled diuretic therapy. 4. Continue Keppra per neurology recommendations. 5. Continue systemic anticoagulation. 6. Continue work with physical therapy. IMPRESSIONS: 1. Septic shock secondary to staph aureus pneumonia Resolved. Patient was significantly hypotension on presentation to the intensive care unit. Initial lactic acid was elevated at 5.7 and patient had profound hypoxemia. Patient currently out of COVID precautions following testing. The patient has been weaned from all vasopressor support at this time. She remains hemodynamically stable. Continue antimicrobial therapy per ID recommendations to complete treatment course. 2. Acute hypoxic respiratory failure secondary to MSSA pneumonia Clinical suspicion for decreased mental status and MSSA pneumonia leading to acute hypoxic respiratory failure. Plan to continue aggressive bronchopulmonary hygiene and as needed NT suctioning. Speech therapy is currently following. The patient may inevitably require a PEG tube for nutrition purposes versus initiation of TPN. Continue attempts at volume optimization with IV diuretic therapy in the interim. 3. A. fib with RVR/elevated troponin Clinical suspicion for supply demand mismatch given significant hypoxia on presentation. Unclear how long patient has been in A. fib with RVR, but will continue to monitor. Continue systemic anticoagulation. Possibly transition over to Eliquis/Xarelto once more clinically stable. 4. Acute kidney injury Resolved. High clinical suspicion suspicion for prerenal etiology. Continue to monitor urine output. No current indication for renal replacement therapy. Continue gentle diuretic therapy as tolerated by renal function. 5. Advanced age/poor history/schizophrenia/dementia/bipolar/hypothyroidism/hypertension/metabolic encephalopathy/new onset seizure Complicates care, management, recovery and prognosis. CT and MRI of the head were unremarkable. EEG did show focal seizure activity, so she was loaded with Keppra. Repeat EEG was unremarkable. The patient will be continued on Keppra per neurology recommendations. This note was generated with [employer] dictation software. It may contain incorrect words, spelling, and punctuation that were not noted in checking the note before signing. Inpatient E&M: 19510 Subs Hosp L2
--- NOTE | 2020-01-03 07:47 | PCM.PN.HOSP ---
Patient Problems: Active and Suspected Problems Septic shock (Acute) Acute respiratory failure with hypoxia (Acute) Metabolic encephalopathy (Acute) Suspected 2019 novel coronavirus infection (Acute) Reason for Visit: Acute encephalopathy Subjective: Patient seen much more awake compared to the day prior; patient was able to respond when questioned how she was doing (good was a response) Objective: GENERAL: Flat affect HEENT: Atraumatic EYES; Anicteric, Normal Conjunctiva NECK; supple, normal thyroid, RESPIRATORY: Diminished to auscultation CARDIOVASCULAR: Irregular S1 S2, GI: soft, normoactive bowel sounds, : No Renal angle tenderness; EXTREMITIES: edema, no clubbing, MUSCULOSKELETAL: no muscle waisting NEURO: Awake; no lateralizing signs. SKIN: No Rash PSYCH; Flat affect Vitals/I&O's: Vital Signs Temp Pulse Resp BP Pulse Ox 98.0 F 84 16 118/72 94 01/03/20 06:31 01/03/20 07:12 01/03/20 06:31 01/03/20 06:33 01/03/20 06:31 Oxygen Flow Rate (L/min) 2 Oxygen Delivery Method Room Air Weight: 86.2 kg Body Mass Index (BMI) 29.2 Intake and Output for Last 24 Hours 01/01/20 01/02/20 01/03/20 23:59 23:59 23:59 Intake Total 2372.70 / 2372.70 3229.30 / 3229.30 110 / 110 Output Total 4350 / 4350 800 / 800 350 / 350 Balance -1977.30 / -1977.30 2429.30 / 2429.30 -240 / -240 Microbiology Past 72 Hours 12/26/19 11:50 Blood Culture (Wb) - Anticubital Right Blood Culture - Final No growth in 5 days. 12/26/19 11:45 Blood Culture (Wb) - Anticubital Left Blood Culture - Final No growth in 5 days. Laboratory Results 01/01/20 03:45: Diff Path Review Reviewed 01/02/20 06:45: APTT 102.6 H* 01/02/20 08:40: Ammonia 30.0 01/02/20 11:49: POC Glucose 96 01/02/20 16:48: POC Glucose 86 01/02/20 23:56: POC Glucose 105 01/03/20 05:35: POC Glucose 95 01/03/20 05:50: WBC 11.2 H, RBC 3.91 L, Hgb 11.8 L, Hct 37.0, MCV 94.6, MCH 30.2, MCHC 31.9 L, RDW Std Deviation 45.2 H, RDW Coeff of Papo 13.4, Plt Count 265, MPV 10.1 01/03/20 05:50: Sodium 137, Potassium 3.8, Chloride 105, Carbon Dioxide 26.0, Anion Gap 6, BUN 8, Creatinine 0.64, Estim Creat Clear Calc 43.00, Est GFR (MDRD) Af Amer 114, Est GFR (MDRD) Non-Af 94, BUN/Creatinine Ratio 12.5, Glucose 103, Calcium 8.3 L Current Medications Acetaminophen (Tylenol Liquid) 650 mg GT Q6H PRN PRN PRN Reason: FEVER Last Admin: 12/27/19 11:54 Dose: 650 mg Documented by: Albuterol Sulfate (Ventolin Aerosols) 2.5 mg INHALATION Q2H PRN PRN PRN Reason: SOB/Wheezing Chlorhexidine Gluconate () 1 each TOPICAL DAILY [facility] Last Admin: 01/02/20 09:19 Dose: 1 each Documented by: Dextrose (D50w Syringe) 0 gm IV X1 PRN; Protocol PRN Reason: Hypoglycemia Last Admin: 01/01/20 05:15 Dose: 12.5 gm Documented by: Enoxaparin Sodium (Lovenox) 40 mg SC DAILY [facility] Last Admin: 01/02/20 12:04 Dose: 40 mg Documented by: Furosemide (Lasix) 20 mg IV BID@1000,1800 [facility] Last Admin: 01/02/20 16:50 Dose: 20 mg Documented by: Glucagon () 1 mg IM .X1 PRN PRN Reason: Hypoglycemia Hydralazine HCl (Apresoline Iv) 10 mg IV Q4H PRN PRN PRN Reason: SBP > 150 Last Admin: 01/02/20 03:13 Dose: 10 mg Documented by: Sodium Chloride () 250 mls @ 15 mls/hr IV .[id number] PRN PRN Reason: Saline Flush Last Infusion: 01/02/20 21:24 Dose: 0 mls/hr Documented by: Sodium Chloride () 250 mls @ 15 mls/hr IV .[id number] PRN PRN Reason: Additional IVPB Infusion Pantoprazole Sodium 40 mg/ (Sodium Chloride) 110 mls @ 330 mls/hr IV Q12 [facility] Last Infusion: 01/02/20 21:40 Dose: Infused Documented by: Cefazolin Sodium 2 gm/ Sodium (Chloride) 110 mls @ 150 mls/hr IV Q8 [facility] Last Infusion: 01/03/20 06:15 Dose: Infused Documented by: Dextrose () 1,000 mls @ 75 mls/hr IV .[id number] [facility] Last Infusion: 01/02/20 23:59 Dose: 75 mls/hr Documented by: Levetiracetam 500 mg/ Sodium (Chloride) 105 mls @ 400 mls/hr IV Q12 [facility] Last Infusion: 01/02/20 21:20 Dose: Infused Documented by: Insulin Human Lispro (Humalog Kwikpen (Bkc)) 0 unit SC Q6 [facility]; Protocol Last Admin: 01/03/20 05:35 Dose: Not Given Documented by: Levothyroxine Sodium (Synthroid) 25 mcg GT DAILY [facility] Last Admin: 01/02/20 11:43 Dose: Not Given Documented by: Metoprolol Succinate (Toprol Xl (Beta Joi)) 25 mg PO DAILY [facility] Last Admin: 01/03/20 05:27 Dose: Not Given Documented by: Polyethylene Glycol (Miralax) 17 gm PO DAILY PRN PRN PRN Reason: Constipation Sodium Chloride () 10 - 40 ml IV UD PRN PRN Reason: SALINE FLUSH Last Admin: 01/03/20 06:34 Dose: 10 ml Documented by: STROKE Vital Signs/Narrative: Vital Signs Temp Pulse Resp BP Pulse Ox 01/03/20 07:12 84 01/03/20 06:33 77 118/72 01/03/20 06:31 98.0 F 77 16 118/72 94 01/03/20 04:40 97.8 F 78 18 129/64 H 93 Medical Necessity - Tobacco Use Smoking Status: Unknown if ever smoked Tobacco Use: Non-smoker Assessment/Plan All Active Problems Septic shock (Acute) Acute respiratory failure with hypoxia (Acute) Metabolic encephalopathy (Acute) Suspected 2019 novel coronavirus infection (Acute) Community acquired pneumonia (Acute) Atrial fibrillation with rapid ventricular response (Acute) Patient is an 84-year-old lady who was admitted with decreased level of sensorium. An assessment of septic shock was made admitted to the intensive care unit where patient has since been managed 1. Septic shock ?Secondary to MSSA pneumonia as well as UTI ?Management involved managing underlying condition. 3. MSSA pneumonia ?Patient managed with cefazolin in addition to ventilation support. COVID 19 infection was ruled out -01/02/2020: Plan is to continue antibiotic therapy for 2 days 3. Acute cystitis with E. coli ?Managed with cefazolin 4. Acute metabolic encephalopathy ?Secondary to infectious etiology as discussed above. Patient to undergo speech and swallow eval -01/02/2020: Patient remains significantly lethargic. Plan is to hold a family meeting regarding patient's current condition as well as CODE STATUS -01/03/2020: Patient level of sensorium improving. Will attempt repeat speech eval on 01/04/2020. 5. Seizure disorder ?With history of focal seizures during patient hospitalization consult placed to neurology -01/02/2020: Patient was seen in consultation by neurology recommended continuation of current therapy 6. Elevated troponin ?Secondary to demand ischemia 7. Hypokalemia -corrected per protocol 8. Hypothyroidism - Patient is on levothyroxine home dose continued 9. Hyponatremia ?Secondary to dehydration resolved with IV fluids 10. A. fib with RVR ?New onset patient does not have any previous documented history of A. fib. Rate controlled on systemic anticoagulation with heparin -01/02/2020: Patient not a candidate for long-term anti-coagulation to significant risk for falls, heparin subsequently, discontinued patient placed on prophylactic Lovenox 11. History of schizoaffective disorder 12. DVT prophylaxis ?Patient on heparin ?Heparin discontinued placed on prophylactic Lovenox Inpatient E&M: 16791 [facility] Hosp L2
[2020-01-03] MEDS: Enoxaparin 40 MG/0.4 ML Syringe SC (11:24)
[2020-01-03] MEDS: Furosemide 20 MG/2 ML VIAL IV ×2 (11:24→17:14)
[2020-01-03 12:01] LABS: Bedside Glucose 87 mg/dL (70-110)
--- NOTE | 2020-01-03 17:00 | PN.ID_ITS ---
Patient Problems: Active and Suspected Problems Septic shock (Acute) Acute respiratory failure with hypoxia (Acute) Metabolic encephalopathy (Acute) Suspected 2019 novel coronavirus infection (Acute) Subjective: Sleeping this afternoon, no fever - Physical Exam Vitals/I&O's: Vital Signs Temp Pulse Resp BP Pulse Ox 97.3 F L 96 20 H 133/84 H 93 01/03/20 16:52 01/03/20 16:52 01/03/20 16:52 01/03/20 16:52 01/03/20 16:52 Oxygen Flow Rate (L/min) 2 Oxygen Delivery Method Room Air Weight: 86.2 kg Body Mass Index (BMI) 29.2 Intake and Output for Last 24 Hours 01/01/20 01/02/20 01/03/20 23:59 23:59 23:59 Intake Total 2372.70 / 2372.70 3229.30 / 3229.30 1128.75 / 1128.75 Output Total 4350 / 4350 800 / 800 800 / 800 Balance -1977.30 / -1976.30 2429.30 / 2429.30 328.75 / 328.75 General: No apparent distress Lungs: Clear to auscultation, Normal air movement Cardiovascular: Regular rate, Regular Rhythm Abdomen: Soft, Non Tender, Non-Distended Skin: No rashes Microbiology Past 72 Hours 12/26/19 11:50 Blood Culture (Wb) - Anticubital Right Blood Culture - Final No growth in 5 days. 12/26/19 11:45 Blood Culture (Wb) - Anticubital Left Blood Culture - Final No growth in 5 days. Laboratory Results 01/02/20 23:56: POC Glucose 105 01/03/20 05:35: POC Glucose 95 01/03/20 05:50: WBC 11.2 H, RBC 3.91 L, Hgb 11.8 L, Hct 37.0, MCV 94.6, MCH 30.2, MCHC 31.9 L, RDW Std Deviation 45.2 H, RDW Coeff of Papo 13.4, Plt Count 265, MPV 10.1 01/03/20 05:50: Sodium 137, Potassium 3.8, Chloride 105, Carbon Dioxide 26.0, Anion Gap 6, BUN 8, Creatinine 0.64, Estim Creat Clear Calc 43.00, Est GFR (MDRD) Af Amer 114, Est GFR (MDRD) Non-Af 94, BUN/Creatinine Ratio 12.5, Glucose 103, Calcium 8.3 L 01/03/20 11:47: POC Glucose 87 Current Medications Acetaminophen (Tylenol Liquid) 650 mg GT Q6H PRN PRN PRN Reason: FEVER Last Admin: 12/27/19 11:54 Dose: 650 mg Documented by: Albuterol Sulfate (Ventolin Aerosols) 2.5 mg INHALATION Q2H PRN PRN PRN Reason: SOB/Wheezing Chlorhexidine Gluconate () 1 each TOPICAL DAILY [facility] Last Admin: 01/03/20 11:08 Dose: Not Given Documented by: Dextrose (D50w Syringe) 0 gm IV X1 PRN; Protocol PRN Reason: Hypoglycemia Last Admin: 01/01/20 05:15 Dose: 12.5 gm Documented by: Enoxaparin Sodium (Lovenox) 40 mg SC DAILY [facility] Last Admin: 01/03/20 11:24 Dose: 40 mg Documented by: Furosemide (Lasix) 20 mg IV BID@1000,1800 [facility] Last Admin: 01/03/20 11:24 Dose: 20 mg Documented by: Glucagon () 1 mg IM .X1 PRN PRN Reason: Hypoglycemia Hydralazine HCl (Apresoline Iv) 10 mg IV Q4H PRN PRN PRN Reason: SBP > 150 Last Admin: 01/02/20 03:13 Dose: 10 mg Documented by: Sodium Chloride () 250 mls @ 15 mls/hr IV .[id number] PRN PRN Reason: Saline Flush Last Infusion: 01/02/20 21:24 Dose: 0 mls/hr Documented by: Sodium Chloride () 250 mls @ 15 mls/hr IV .[id number] PRN PRN Reason: Additional IVPB Infusion Pantoprazole Sodium 40 mg/ (Sodium Chloride) 110 mls @ 330 mls/hr IV Q12 [facility] Last Infusion: 01/03/20 12:20 Dose: Infused Documented by: Dextrose () 1,000 mls @ 75 mls/hr IV .[id number] [facility] Last Admin: 01/03/20 11:51 Dose: 75 mls/hr Documented by: Levetiracetam 500 mg/ Sodium (Chloride) 105 mls @ 400 mls/hr IV Q12 [facility] Last Infusion: 01/03/20 12:09 Dose: Infused Documented by: Insulin Human Lispro (Humalog Kwikpen (Bkc)) 0 unit SC Q6 [facility]; Protocol Last Admin: 01/03/20 12:36 Dose: Not Given Documented by: Levothyroxine Sodium (Synthroid) 25 mcg GT DAILY [facility] Last Admin: 01/03/20 11:24 Dose: Not Given Documented by: Metoprolol Succinate (Toprol Xl (Beta Joi)) 25 mg PO DAILY [facility] Last Admin: 01/03/20 05:27 Dose: Not Given Documented by: Polyethylene Glycol (Miralax) 17 gm PO DAILY PRN PRN PRN Reason: Constipation Sodium Chloride () 10 - 40 ml IV UD PRN PRN Reason: SALINE FLUSH Last Admin: 01/03/20 11:26 Dose: 20 ml Documented by: Medical Necessity - Tobacco Use Smoking Status: Unknown if ever smoked Tobacco Use: Non-smoker Route of nutrition/ use of supplements: [] Nutritional Intake: [] IV Site: [] Aguilar Catheter: [] - Assessment/Plan Antibiotics: [] Assessment/Plan: [] Active and Suspected Problems Septic shock (Acute) Acute respiratory failure with hypoxia (Acute) Metabolic encephalopathy (Acute) Suspected 2019 novel coronavirus infection (Acute) septic shock, elevated d-dimer, acute hypoxic resp failure - fever to 101.7 here, now resolved Sputum with MSSA, ucx with ecoli. Repeat endobronchial covid was neg, IgM and IgG were neg. Out of isolation. Wbc, bp, and temps much improved. Off pressors, out of icu. Will stop cefazolin today. Recommend remove central line if peripheral access can be obtained. Will follow
[2020-01-03 17:26] LABS: Bedside Glucose 93 mg/dL (70-110)
[2020-01-03 23:55] LABS: Bedside Glucose 92 mg/dL (70-110)
[2020-01-04] VITALS (11 sets, daily range): BP systolic 157–175; BP diastolic 71–94; PULSE 73–108; RESP 16–20; TEMP 36.1–36.6; O2SAT 92–97
[2020-01-04 05:27] LABS: Hematocrit 37.2 % (37-47); Hemoglobin 11.8 g/dL (12.0-15.0); Mean Corp Hgb Conc 31.7 g/dL (32-36); Mean Corpuscular Volume 94.7 fL (81-99); Mean Platelet Vol. 9.8 fl (6.2-12.0); Platelet Count 290 K/mm3 (150-450); RBC Distribution Width SD 44.6 fl (35.1-43.9); Red Blood Count 3.93 M/mm3 (4.2-5.4); White Blood Count 10.9 K/mm3 (4.4-11.0)
[2020-01-04 05:51] LABS: Bedside Glucose 90 mg/dL (70-110)
[2020-01-04 05:55] LABS: Anion Gap 8 (5-15); BUN 7 mg/dL (7-18); BUN/Creat Ratio 12.8 RATIO (10-20); Calcium,Total 8.3 mg/dL (8.5-10.1); Chloride 103 mmol/L (98-107); Creatinine, Serum 0.55 mg/dL (0.55-1.02); EST Glomerular Filtration Rate 113 mL/min (>60); Est Glom Filt Rate - Afr Amer 136 mL/min (>60); Glucose 96 mg/dL (74-106); Potassium 3.4 mmol/L (3.5-5.1); Sodium Level 137 mmol/L (136-145)
--- NOTE | 2020-01-04 07:39 | PN_ITS ---
Patient Problems: Active and Suspected Problems Septic shock (Acute) Acute respiratory failure with hypoxia (Acute) Metabolic encephalopathy (Acute) Suspected 2019 novel coronavirus infection (Acute) Reason for Visit: Acute metabolic encephalopathy Subjective: Patient seen much more awake and interactive compared to previous days. Plan is for patient to undergo repeat speech eval this a.m. Objective: GENERAL: Flat affect HEENT: Atraumatic EYES; Anicteric, Normal Conjunctiva NECK; supple, normal thyroid, RESPIRATORY: Diminished to auscultation CARDIOVASCULAR: Irregular S1 S2, GI: soft, normoactive bowel sounds, : No Renal angle tenderness; EXTREMITIES: edema, no clubbing, MUSCULOSKELETAL: no muscle waisting NEURO: Awake; no lateralizing signs. SKIN: No Rash PSYCH; Flat affect Vitals/I&O's: Vital Signs Temp Pulse Resp BP Pulse Ox 97.4 F L 73 18 157/71 H 93 01/04/20 02:15 01/04/20 04:18 01/04/20 02:15 01/04/20 02:15 01/04/20 02:15 Oxygen Flow Rate (L/min) 2 Oxygen Delivery Method Room Air Weight: 85.3 kg Body Mass Index (BMI) 29.2 Intake and Output for Last 24 Hours 01/02/20 01/03/20 01/04/20 23:59 23:59 23:59 Intake Total 3229.30 / 3229.30 2095.00 / 2095.00 211.25 / 211.25 Output Total 800 / 800 2050 / 3050 1200 / 1200 Balance 2429.30 / 2429.30 45.00 / -955.00 -988.75 / -988.75 Laboratory Results 01/03/20 11:47: POC Glucose 87 01/03/20 17:12: POC Glucose 93 01/03/20 23:51: POC Glucose 92 01/04/20 05:15: WBC 10.9, RBC 3.93 L, Hgb 11.8 L, Hct 37.2, MCV 94.7, MCH 30.0, MCHC 31.7 L, RDW Std Deviation 44.6 H, RDW Coeff of Papo 13.0, Plt Count 290, MPV 9.8 01/04/20 05:15: Sodium 137, Potassium 3.4 L, Chloride 103, Carbon Dioxide 26.0, Anion Gap 8, BUN 7, Creatinine 0.55, Estim Creat Clear Calc 43.00, Est GFR (MDRD) Af Amer 136, Est GFR (MDRD) Non-Af 113, BUN/Creatinine Ratio 12.8, Glucose 96, Calcium 8.3 L 01/04/20 05:35: POC Glucose 90 Current Medications Acetaminophen (Tylenol Liquid) 650 mg GT Q6H PRN PRN PRN Reason: FEVER Last Admin: 12/27/19 11:54 Dose: 650 mg Documented by: Albuterol Sulfate (Ventolin Aerosols) 2.5 mg INHALATION Q2H PRN PRN PRN Reason: SOB/Wheezing Chlorhexidine Gluconate () 1 each TOPICAL DAILY [facility] Last Admin: 01/03/20 11:08 Dose: Not Given Documented by: Dextrose (D50w Syringe) 0 gm IV X1 PRN; Protocol PRN Reason: Hypoglycemia Last Admin: 01/01/20 05:15 Dose: 12.5 gm Documented by: Enoxaparin Sodium (Lovenox) 40 mg SC DAILY [facility] Last Admin: 01/03/20 11:24 Dose: 40 mg Documented by: Furosemide (Lasix) 20 mg IV BID@1000,1800 [facility] Last Admin: 01/03/20 17:14 Dose: 20 mg Documented by: Glucagon () 1 mg IM .X1 PRN PRN Reason: Hypoglycemia Hydralazine HCl (Apresoline Iv) 10 mg IV Q4H PRN PRN PRN Reason: SBP > 150 Last Admin: 01/02/20 03:13 Dose: 10 mg Documented by: Sodium Chloride () 250 mls @ 15 mls/hr IV .[id number] PRN PRN Reason: Saline Flush Last Infusion: 01/02/20 21:24 Dose: 0 mls/hr Documented by: Sodium Chloride () 250 mls @ 15 mls/hr IV .[id number] PRN PRN Reason: Additional IVPB Infusion Pantoprazole Sodium 40 mg/ (Sodium Chloride) 110 mls @ 330 mls/hr IV Q12 [facility] Last Infusion: 01/03/20 22:08 Dose: Infused Documented by: Dextrose () 1,000 mls @ 75 mls/hr IV .[id number] [facility] Last Admin: 01/04/20 00:50 Dose: 75 mls/hr Documented by: Levetiracetam 500 mg/ Sodium (Chloride) 105 mls @ 400 mls/hr IV Q12 [facility] Last Infusion: 01/03/20 22:01 Dose: Infused Documented by: Potassium Chloride () 10 meq in 100 mls @ 100 mls/hr IV BOLUS Q1H [facility] Stop: 01/04/20 11:59 Insulin Human Lispro (Humalog Kwikpen (Bkc)) 0 unit SC Q6 [facility]; Protocol Last Admin: 01/04/20 05:54 Dose: Not Given Documented by: Levothyroxine Sodium (Synthroid) 25 mcg GT DAILY [facility] Last Admin: 01/03/20 11:24 Dose: Not Given Documented by: Metoprolol Succinate (Toprol Xl (Beta Joi)) 25 mg PO DAILY [facility] Last Admin: 01/03/20 05:27 Dose: Not Given Documented by: Polyethylene Glycol (Miralax) 17 gm PO DAILY PRN PRN PRN Reason: Constipation Sodium Chloride () 10 - 40 ml IV UD PRN PRN Reason: SALINE FLUSH Last Admin: 01/03/20 17:14 Dose: 10 ml Documented by: STROKE Vital Signs/Narrative: Vital Signs Pulse 01/04/20 04:18 73 Medical Necessity - Tobacco Use Smoking Status: Unknown if ever smoked Tobacco Use: Non-smoker Assessment/Plan All Active Problems Septic shock (Acute) Acute respiratory failure with hypoxia (Acute) Metabolic encephalopathy (Acute) Suspected 2018 novel coronavirus infection (Acute) Community acquired pneumonia (Acute) Atrial fibrillation with rapid ventricular response (Acute) Patient is an 84-year-old lady who was admitted with decreased level of sensorium. An assessment of septic shock was made admitted to the intensive care unit where patient has since been managed 1. Septic shock ?Secondary to MSSA pneumonia as well as UTI ?Management involved managing underlying condition. 3. MSSA pneumonia ?Patient managed with cefazolin in addition to ventilation support. COVID 19 infection was ruled out -01/02/2020: Plan is to continue antibiotic therapy for 2 days -01/04/2020; patient has completed antibiotic therapy 3. Acute cystitis with E. coli ?Managed with cefazolin -01/04/2020; patient has completed antibiotic therapy 4. Acute metabolic encephalopathy ?Secondary to infectious etiology as discussed above. Patient to undergo speech and swallow eval -01/02/2020: Patient remains significantly lethargic. Plan is to hold a family meeting regarding patient's current condition as well as CODE STATUS -01/03/2020: Patient level of sensorium improving. Will attempt repeat speech eval on 01/04/2020. ?01/04/2020 patient continues to improve. 5. Seizure disorder ?With history of focal seizures during patient hospitalization consult placed to neurology -01/02/2020: Patient was seen in consultation by neurology recommended continuation of current therapy 6. Elevated troponin ?Secondary to demand ischemia 7. Hypokalemia -corrected per protocol 8. Hypothyroidism - Patient is on levothyroxine home dose continued 9. Hyponatremia ?Secondary to dehydration resolved with IV fluids 10. A. fib with RVR ?New onset patient does not have any previous documented history of A. fib. Rate controlled on systemic anticoagulation with heparin -01/02/2020: Patient not a candidate for long-term anti-coagulation to significant risk for falls, heparin subsequently, discontinued patient placed on prophylactic Lovenox 11. History of schizoaffective disorder 12. DVT prophylaxis ?Patient on heparin ?Heparin discontinued placed on prophylactic Lovenox Inpatient E&M: [id number] [facility] Hosp L2
[2020-01-04] MEDS: Potassium Chloride 10mEq/100mL 10 MEQ/100 ML IV.SOLN. 100 MEQ IV BOLUS ×4 (09:09→12:40)
[2020-01-04] MEDS: Enoxaparin 40 MG/0.4 ML Syringe SC (09:17)
[2020-01-04] MEDS: Furosemide 20 MG/2 ML VIAL IV ×2 (09:17→17:47)
[2020-01-04] MEDS: 0.9% Saline Lock 10 ML Syringe IV ×4 (09:19→17:46)
--- NOTE | 2020-01-04 09:49 | PCM.PN.PUL ---
Patient Problems: Active and Suspected Problems Septic shock (Acute) Acute respiratory failure with hypoxia (Acute) Metabolic encephalopathy (Acute) Suspected 2019 novel coronavirus infection (Acute) Subjective: The patient was seen and examined at the bedside this morning. Events from the last 24 hours have been reviewed. The patient is currently afebrile, hemodynamically stable and maintaining appropriate oxygen saturations on room air. The patient remains n.p.o. following speech therapy reevaluation yesterday. Objective: The patient's most recent lab work, culture data and imaging studies have all been personally reviewed. Surface echocardiogram revealed normal LV size with an ejection fraction of 65% and stage I diastolic dysfunction. Coronavirus PCR was negative. Respiratory viral panel was negative. Strep and urine Legionella antigens were negative. Urine culture was positive for E. coli. Sputum culture was positive for MSSA. - Physical Exam Vitals/I&O's: Vital Signs Temp Pulse Resp BP Pulse Ox 97.4 F L 79 16 159/94 H 94 01/04/20 08:41 01/04/20 08:41 01/04/20 08:41 01/04/20 08:41 01/04/20 08:41 Oxygen Flow Rate (L/min) 2 Oxygen Delivery Method Room Air Weight: 188 lb 0.869 oz Body Mass Index (BMI) 29.2 Intake and Output for Last 24 Hours 01/02/20 01/03/20 01/04/20 23:59 23:59 23:59 Intake Total 3229.30 / 3229.30 2095.00 / 2095.00 211.25 / 211.25 Output Total 800 / 800 2050 / 3050 1200 / 1200 Balance 2429.30 / 2429.30 45.00 / -955.00 -988.75 / -988.75 General: Alert, Confused, Disoriented HEENT: Atraumatic, Normocephalic Oral: Dry Mucosa, - - Poor dentition Neck: Supple, No Nodes, Trachea Midline Lungs: No rhonchi, No wheeze, No rales, Diminished Cardiovascular: Normal S1, Normal S2, No murmurs, Irregular Rate Abdomen: Bowel Sounds Present, Soft, Non Tender Extremities: No clubbing, No cyanosis Skin: - - No significant change from previous Musculoskeletal: No Tenderness to Palpation of Joints or Extremities Lymphatic: No Cervical, Supraclavicular, or Inguinal Adenopathy Neurological: - - No focal neurological deficits. Psych/Mental Status: Flat Affect Labs (Last 48 Hours) 01/01/20 01/02/20 01/02/20 03:45 11:49 16:48 WBC RBC Hgb Hct MCV MCH MCHC RDW Std Deviation RDW Coeff of Papo Plt Count MPV Diff Path Review Reviewed Sodium Potassium Chloride Carbon Dioxide Anion Gap BUN Creatinine Estim Creat Clear Calc Est GFR (MDRD) Af Amer Est GFR (MDRD) Non-Af BUN/Creatinine Ratio Glucose Calcium POC Glucose 96 86 01/02/20 01/03/20 01/03/20 23:56 05:35 05:50 WBC 11.2 H RBC 3.91 L Hgb 11.8 L Hct 37.0 MCV 94.6 MCH 30.2 MCHC 31.9 L RDW Std Deviation 45.2 H RDW Coeff of Papo 13.4 Plt Count 265 MPV 10.1 Diff Path Review Sodium Potassium Chloride Carbon Dioxide Anion Gap BUN Creatinine Estim Creat Clear Calc Est GFR (MDRD) Af Amer Est GFR (MDRD) Non-Af BUN/Creatinine Ratio Glucose Calcium POC Glucose 105 95 01/03/20 01/03/20 01/03/20 05:50 11:47 17:12 WBC RBC Hgb Hct MCV MCH MCHC RDW Std Deviation RDW Coeff of Papo Plt Count MPV Diff Path Review Sodium 137 Potassium 3.8 Chloride 105 Carbon Dioxide 26.0 Anion Gap 6 BUN 8 Creatinine 0.64 Estim Creat Clear Calc 43.00 Est GFR (MDRD) Af Amer 114 Est GFR (MDRD) Non-Af 94 BUN/Creatinine Ratio 12.5 Glucose 103 Calcium 8.3 L POC Glucose 87 93 01/03/20 01/04/20 01/04/20 23:51 05:15 05:15 WBC 10.9 RBC 3.93 L Hgb 11.8 L Hct 37.2 MCV 94.7 MCH 30.0 MCHC 31.7 L RDW Std Deviation 44.6 H RDW Coeff of Papo 13.0 Plt Count 290 MPV 9.8 Diff Path Review Sodium 137 Potassium 3.4 L Chloride 103 Carbon Dioxide 26.0 Anion Gap 8 BUN 7 Creatinine 0.55 Estim Creat Clear Calc 43.00 Est GFR (MDRD) Af Amer 136 Est GFR (MDRD) Non-Af 113 BUN/Creatinine Ratio 12.8 Glucose 96 Calcium 8.3 L POC Glucose 92 01/04/20 05:35 WBC RBC Hgb Hct MCV MCH MCHC RDW Std Deviation RDW Coeff of Papo Plt Count MPV Diff Path Review Sodium Potassium Chloride Carbon Dioxide Anion Gap BUN Creatinine Estim Creat Clear Calc Est GFR (MDRD) Af Amer Est GFR (MDRD) Non-Af BUN/Creatinine Ratio Glucose Calcium POC Glucose 90 Clinical Impression(s) from Imaging Studies Chest X-Ray 12/26/19 11:47 IMPRESSION: The tip of the endotracheal tube is at 3.6 cm proximal to the aurelia. The tip of the nasogastric tube is at the gastroesophageal junction. Increased markings at the lung bases as described suggestive of atelectasis and/or early infiltrates worse on the left side. Electronically Signed: Joss Snyder, at 13:05 EDT , Service support , KUB X-Ray 12/26/19 11:49 IMPRESSION: The tip of the nasogastric tube is in the fundal portion of the stomach. Mild increased markings at the left lung base. This may represent atelectasis and/or early infiltrate. Electronically Signed: Joss Snyder, at 13:03 EDT , Service support , Chest X-Ray 12/26/19 15:55 IMPRESSION: 1. Interval placement of right internal jugular deep venous line with tip of the catheter overlying the superior vena cava and no pneumothorax. 2. Endotracheal tube and nasogastric tube both which are unchanged. 3. Interval development of right lower lobe atelectasis Electronically Signed: Min Cantor MD at 16:16 EDT Tel , Service support , Brain CT 12/28/19 08:26 IMPRESSION: Chronic involutional changes of the brain. Electronically Signed: Joss Snyder, at 10:40 EDT , Service support , Brain MRI 12/30/19 06:15 IMPRESSION: No acute intracranial abnormality or masses. Electronically Signed: Renee Mina MD at 14:17 EDT Tel , Service support , Current Medications Acetaminophen (Tylenol Liquid) 650 mg GT Q6H PRN PRN PRN Reason: FEVER Last Admin: 12/27/19 11:54 Dose: 650 mg Documented by: Albuterol Sulfate (Ventolin Aerosols) 2.5 mg INHALATION Q2H PRN PRN PRN Reason: SOB/Wheezing Chlorhexidine Gluconate () 1 each TOPICAL DAILY [facility] OF [facility] Last Admin: 01/04/20 08:54 Dose: Not Given Documented by: Dextrose (D50w Syringe) 0 gm IV X1 PRN; Protocol PRN Reason: Hypoglycemia Last Admin: 01/01/20 05:15 Dose: 12.5 gm Documented by: Enoxaparin Sodium (Lovenox) 40 mg SC DAILY [facility] Last Admin: 01/04/20 09:17 Dose: 40 mg Documented by: Furosemide (Lasix) 20 mg IV BID@1000,1800 [facility] Last Admin: 01/04/20 09:17 Dose: 20 mg Documented by: Glucagon () 1 mg IM .X1 PRN PRN Reason: Hypoglycemia Hydralazine HCl (Apresoline Iv) 10 mg IV Q4H PRN PRN PRN Reason: SBP > 150 Last Admin: 01/02/20 03:13 Dose: 10 mg Documented by: Sodium Chloride () 250 mls @ 15 mls/hr IV .[id number] PRN PRN Reason: Saline Flush Last Infusion: 01/02/20 21:24 Dose: 0 mls/hr Documented by: Sodium Chloride () 250 mls @ 15 mls/hr IV .[id number] PRN PRN Reason: Additional IVPB Infusion Pantoprazole Sodium 40 mg/ (Sodium Chloride) 110 mls @ 330 mls/hr IV Q12 [facility] Last Admin: 01/04/20 09:13 Dose: 330 mls/hr Documented by: Dextrose () 1,000 mls @ 75 mls/hr IV .[id number] [facility] Last Admin: 01/04/20 00:50 Dose: 75 mls/hr Documented by: Levetiracetam 500 mg/ Sodium (Chloride) 105 mls @ 400 mls/hr IV Q12 [facility] Last Infusion: 01/03/20 22:01 Dose: Infused Documented by: Potassium Chloride () 10 meq in 100 mls @ 100 mls/hr IV BOLUS Q1H [facility] Stop: 01/04/20 11:59 Last Admin: 01/04/20 09:09 Dose: 100 mls/hr Documented by: Insulin Human Lispro (Humalog Kwikpen (Bkc)) 0 unit SC Q6 [facility]; Protocol Last Admin: 01/04/20 05:54 Dose: Not Given Documented by: Levothyroxine Sodium (Synthroid) 25 mcg GT DAILY [facility] Last Admin: 01/04/20 08:55 Dose: Not Given Documented by: Metoprolol Succinate (Toprol Xl (Beta Joi)) 25 mg PO DAILY [facility] Last Admin: 01/04/20 09:17 Dose: Not Given Documented by: Polyethylene Glycol (Miralax) 17 gm PO DAILY PRN PRN PRN Reason: Constipation Sodium Chloride () 10 - 40 ml IV UD PRN PRN Reason: SALINE FLUSH Last Admin: 01/04/20 09:19 Dose: 20 ml Documented by: Medical Necessity - Tobacco Use Smoking Status: Unknown if ever smoked Tobacco Use: Non-smoker Assessment/Plan All Active Problems Septic shock (Acute) Acute respiratory failure with hypoxia (Acute) Metabolic encephalopathy (Acute) Suspected 2019 novel coronavirus infection (Acute) Community acquired pneumonia (Acute) Atrial fibrillation with rapid ventricular response (Acute) RECOMMENDATIONS: 1. Consider CorPak placement versus TPN initiation if the patient does not begin to improve, in order to provide nutritional support. 2. Speech therapy reevaluation today. 3. Continue Keppra per neurology recommendations. 4. Continue systemic anticoagulation. 5. Continue work with physical therapy. 6. Given the patient's lack of further ICU or pulmonary needs, will sign off. Please call with any additional questions. IMPRESSIONS: 1. Septic shock secondary to staph aureus pneumonia Resolved. Patient was significantly hypotension on presentation to the intensive care unit. Initial lactic acid was elevated at 5.7 and patient had profound hypoxemia. Patient currently out of COVID precautions following testing. The patient has been weaned from all vasopressor support at this time. She remains hemodynamically stable. The patient has now completed her antibiotic treatment course. 2. Acute hypoxic respiratory failure secondary to MSSA pneumonia Resolved. Clinical suspicion for decreased mental status and MSSA pneumonia leading to acute hypoxic respiratory failure. Plan to continue aggressive bronchopulmonary hygiene and as needed NT suctioning. Speech therapy is currently following. The patient may inevitably require a PEG tube for nutrition purposes versus initiation of TPN. 3. A. fib with RVR/elevated troponin Clinical suspicion for supply demand mismatch given significant hypoxia on presentation. Unclear how long patient has been in A. fib with RVR, but will continue to monitor. Continue systemic anticoagulation. 4. Acute kidney injury Resolved. High clinical suspicion suspicion for prerenal etiology. Continue to monitor urine output. No current indication for renal replacement therapy. Continue gentle diuretic therapy as tolerated by renal function. 5. Advanced age/poor history/schizophrenia/dementia/bipolar/hypothyroidism/hypertension/metabolic encephalopathy/new onset seizure Complicates care, management, recovery and prognosis. CT and MRI of the head were unremarkable. EEG did show focal seizure activity, so she was loaded with Keppra. Repeat EEG was unremarkable. The patient will be continued on Keppra per neurology recommendations. This note was generated with [employer] dictation software. It may contain incorrect words, spelling, and punctuation that were not noted in checking the note before signing. Inpatient E&M: 41422 Subs Hosp L2
[2020-01-04 11:50] LABS: Bedside Glucose 95 mg/dL (70-110)
[2020-01-04] MEDS: hydrALAZINE 20 MG/ML Vial 10 MG IV (15:11)
[2020-01-04 19:26] LABS: Bedside Glucose 89 mg/dL (70-110)
[2020-01-05] VITALS (12 sets, daily range): BP systolic 132–184; BP diastolic 73–92; PULSE 64–105; RESP 15–20; TEMP 36–36.3; O2SAT 93–95
[2020-01-05 00:20] LABS: Bedside Glucose 103 mg/dL (70-110)
[2020-01-05] MEDS: hydrALAZINE 20 MG/ML Vial 10 MG IV (05:20)
[2020-01-05] MEDS: 0.9% Saline Lock 10 ML Syringe IV ×2 (05:20→10:18)
[2020-01-05 07:25] LABS: Bedside Glucose 99 mg/dL (70-110)
--- NOTE | 2020-01-05 07:38 | PN_ITS ---
Patient Problems: Active and Suspected Problems Septic shock (Acute) Acute respiratory failure with hypoxia (Acute) Metabolic encephalopathy (Acute) Suspected 2019 novel coronavirus infection (Acute) Reason for Visit: Acute encephalopathy Subjective: Patient seen, apparently did fail her speech and swallow eval the day prior. Plan is to have a family discussion for alternative means of feeding including PEG tube Objective: GENERAL: Flat affect HEENT: Atraumatic EYES; Anicteric, Normal Conjunctiva NECK; supple, normal thyroid, RESPIRATORY: Diminished to auscultation CARDIOVASCULAR: Irregular S1 S2, GI: soft, normoactive bowel sounds, : No Renal angle tenderness; EXTREMITIES: edema, no clubbing, MUSCULOSKELETAL: no muscle waisting NEURO: Awake; no lateralizing signs. SKIN: No Rash PSYCH; Flat affect Vitals/I&O's: Vital Signs Temp Pulse Resp BP Pulse Ox 97.3 F L 89 18 132/74 H 93 01/05/20 05:01 01/05/20 05:20 01/05/20 05:01 01/05/20 07:16 01/05/20 05:01 Oxygen Flow Rate (L/min) 2 Oxygen Delivery Method Room Air Weight: 82.6 kg Body Mass Index (BMI) 29.2 Intake and Output for Last 24 Hours 01/03/20 01/04/20 01/05/20 23:59 23:59 23:59 Intake Total 2095.00 / 2095.00 2665.00 / 2665.00 296.25 / 296.25 Output Total 2050 / 3050 4750 / 4750 300 / 300 Balance 45.00 / -955.00 -2085.00 / -2085.00 -3.75 / -3.75 Laboratory Results 01/04/20 11:48: POC Glucose 95 01/04/20 17:29: POC Glucose 89 01/04/20 23:24: POC Glucose 103 01/05/20 05:12: POC Glucose 99 Current Medications Acetaminophen (Tylenol Liquid) 650 mg GT Q6H PRN PRN PRN Reason: FEVER Last Admin: 12/27/19 11:54 Dose: 650 mg Documented by: Albuterol Sulfate (Ventolin Aerosols) 2.5 mg INHALATION Q2H PRN PRN PRN Reason: SOB/Wheezing Chlorhexidine Gluconate () 1 each TOPICAL DAILY [facility] Last Admin: 01/04/20 08:54 Dose: Not Given Documented by: Dextrose (D50w Syringe) 0 gm IV X1 PRN; Protocol PRN Reason: Hypoglycemia Last Admin: 01/01/20 05:15 Dose: 12.5 gm Documented by: Enoxaparin Sodium (Lovenox) 40 mg SC DAILY [facility] Last Admin: 01/04/20 09:17 Dose: 40 mg Documented by: Furosemide (Lasix) 20 mg IV BID@1000,1800 [facility] Last Admin: 01/04/20 17:47 Dose: 20 mg Documented by: Glucagon () 1 mg IM .X1 PRN PRN Reason: Hypoglycemia Hydralazine HCl (Apresoline Iv) 10 mg IV Q4H PRN PRN PRN Reason: SBP > 150 Last Admin: 01/05/20 05:20 Dose: 10 mg Documented by: Sodium Chloride () 250 mls @ 15 mls/hr IV .[id number] PRN PRN Reason: Saline Flush Last Infusion: 01/02/20 21:24 Dose: 0 mls/hr Documented by: Sodium Chloride () 250 mls @ 15 mls/hr IV .[id number] PRN PRN Reason: Additional IVPB Infusion Pantoprazole Sodium 40 mg/ (Sodium Chloride) 110 mls @ 330 mls/hr IV Q12 [facility] Last Infusion: 01/04/20 22:52 Dose: Infused Documented by: Dextrose () 1,000 mls @ 75 mls/hr IV .[id number] [facility] Last Admin: 01/05/20 05:19 Dose: 75 mls/hr Documented by: Levetiracetam 500 mg/ Sodium (Chloride) 105 mls @ 400 mls/hr IV Q12 [facility] Last Infusion: 01/04/20 23:38 Dose: Infused Documented by: Insulin Human Lispro (Humalog Kwikpen (Bkc)) 0 unit SC Q6 [facility]; Protocol Last Admin: 01/05/20 05:12 Dose: Not Given Documented by: Levothyroxine Sodium (Synthroid) 25 mcg GT DAILY [facility] Last Admin: 01/04/20 08:55 Dose: Not Given Documented by: Metoprolol Succinate (Toprol Xl (Beta Joi)) 25 mg PO DAILY [facility] Last Admin: 01/04/20 09:17 Dose: Not Given Documented by: Polyethylene Glycol (Miralax) 17 gm PO DAILY PRN PRN PRN Reason: Constipation Sodium Chloride () 10 - 40 ml IV UD PRN PRN Reason: SALINE FLUSH Last Admin: 01/05/20 05:20 Dose: 20 ml Documented by: STROKE Vital Signs/Narrative: Vital Signs Temp Pulse Resp BP BP Pulse Ox 01/05/20 07:16 132/74 H 01/05/20 05:20 89 01/05/20 05:01 97.3 F L 89 18 184/73 H 93 Medical Necessity - Tobacco Use Smoking Status: Unknown if ever smoked Tobacco Use: Non-smoker Assessment/Plan All Active Problems Septic shock (Acute) Acute respiratory failure with hypoxia (Acute) Metabolic encephalopathy (Acute) Suspected 2018 novel coronavirus infection (Acute) Community acquired pneumonia (Acute) Atrial fibrillation with rapid ventricular response (Acute) Patient is an 84-year-old lady who was admitted with decreased level of sensorium. An assessment of septic shock was made admitted to the intensive care unit where patient has since been managed 1. Septic shock ?Secondary to MSSA pneumonia as well as UTI ?Management involved managing underlying condition. 3. MSSA pneumonia ?Patient managed with cefazolin in addition to ventilation support. COVID 19 infection was ruled out -01/02/2020: Plan is to continue antibiotic therapy for 2 days -01/04/2020; patient has completed antibiotic therapy 3. Acute cystitis with E. coli ?Managed with cefazolin -01/04/2020; patient has completed antibiotic therapy 4. Acute metabolic encephalopathy ?Secondary to infectious etiology as discussed above. Patient to undergo speech and swallow eval -01/02/2020: Patient remains significantly lethargic. Plan is to hold a family meeting regarding patient's current condition as well as CODE STATUS -01/03/2020: Patient level of sensorium improving. Will attempt repeat speech eval on 01/04/2020. ?01/04/2020 patient continues to improve. -01/05/2020; Patient seen, apparently did fail her speech and swallow eval the day prior. Plan is to have a family discussion for alternative means of feeding including PEG tube 5. Seizure disorder ?With history of focal seizures during patient hospitalization consult placed to neurology -01/02/2020: Patient was seen in consultation by neurology recommended continuation of current therapy 6. Elevated troponin ?Secondary to demand ischemia 7. Hypokalemia -corrected per protocol 8. Hypothyroidism - Patient is on levothyroxine home dose continued 9. Hyponatremia ?Secondary to dehydration resolved with IV fluids 10. A. fib with RVR ?New onset patient does not have any previous documented history of A. fib. Rate controlled on systemic anticoagulation with heparin -01/02/2020: Patient not a candidate for long-term anti-coagulation to significant risk for falls, heparin subsequently, discontinued patient placed on prophylactic Lovenox 11. History of schizoaffective disorder 12. DVT prophylaxis ?Patient on heparin ?Heparin discontinued placed on prophylactic Lovenox Inpatient E&M: 38573 Subs Hosp L2
[2020-01-05] MEDS: Furosemide 20 MG/2 ML VIAL IV ×2 (10:18→18:27)
[2020-01-05] MEDS: Enoxaparin 40 MG/0.4 ML Syringe SC (10:18)
--- NOTE | 2020-01-05 11:01 | CASEMGMT ---
Patient's came to [facility] to discuss plan with physician. He asked if patient could go to TCU. Patient was already on the TCU list. SW called Elayne and left her a voice mail letting her know patient may be read over the weekend. Green sheet on chart with instructions on d/c. Plan: [facility] TCU when medically ready. Kelsey CALLAHAN MSW
[2020-01-05 11:51] LABS: Bedside Glucose 109 mg/dL (70-110)
[2020-01-05 20:46] LABS: Bedside Glucose 101 mg/dL (70-110)
[2020-01-06] VITALS (8 sets, daily range): BP systolic 121–152; BP diastolic 66–81; PULSE 53–81; RESP 14–16; TEMP 35.9–36.6; O2SAT 95–98
[2020-01-06 00:36] LABS: Bedside Glucose 104 mg/dL (70-110)
[2020-01-06] MEDS: Ketorolac 15 MG/ML Vial IV (06:59)
[2020-01-06] MEDS: 0.9% Saline Lock 10 ML Syringe IV ×2 (06:59→17:20)
--- NOTE | 2020-01-06 09:19 | PN_ITS ---
Patient Problems: Active and Suspected Problems Septic shock (Acute) Acute respiratory failure with hypoxia (Acute) Metabolic encephalopathy (Acute) Suspected 2019 novel coronavirus infection (Acute) Reason for Visit: encephalopathy Subjective: Patient seen more lethargic than the day prior. Decision for patient to be [facility] to a prison facility placed on hold Objective: GENERAL: Flat affect HEENT: Atraumatic EYES; Anicteric, Normal Conjunctiva NECK; supple, normal thyroid, RESPIRATORY: Diminished to auscultation CARDIOVASCULAR: Irregular S1 S2, GI: soft, normoactive bowel sounds, : No Renal angle tenderness; EXTREMITIES: edema, no clubbing, MUSCULOSKELETAL: no muscle waisting NEURO: Awake; no lateralizing signs. SKIN: No Rash PSYCH; Flat affect Vitals/I&O's: Vital Signs Temp Pulse Resp BP Pulse Ox 96.8 F L 56 L 14 121/66 H 95 01/06/20 03:20 01/06/20 07:37 01/06/20 03:20 01/06/20 03:20 01/06/20 03:20 Oxygen Flow Rate (L/min) 2 Oxygen Delivery Method Room Air Weight: 82.5 kg Body Mass Index (BMI) 29.2 Intake and Output for Last 24 Hours 01/04/20 01/05/20 01/06/20 23:59 23:59 23:59 Intake Total 2665.00 / 2665.00 1857.50 / 1857.50 105 / 105 Output Total 4750 / 4750 2625 / 2625 0 / 0 Balance -2085.00 / -2085.00 -767.50 / -767.50 105 / 105 Laboratory Results 01/05/20 11:22: POC Glucose 109 01/05/20 18:32: POC Glucose 101 01/06/20 00:33: POC Glucose 104 Current Medications Acetaminophen (Tylenol Liquid) 650 mg GT Q6H PRN PRN PRN Reason: FEVER Last Admin: 12/27/19 11:54 Dose: 650 mg Documented by: Albuterol Sulfate (Ventolin Aerosols) 2.5 mg INHALATION Q2H PRN PRN PRN Reason: SOB/Wheezing Chlorhexidine Gluconate () 1 each TOPICAL DAILY [facility] Last Admin: 01/05/20 09:09 Dose: Not Given Documented by: Dextrose (D50w Syringe) 0 gm IV X1 PRN; Protocol PRN Reason: Hypoglycemia Last Admin: 01/01/20 05:15 Dose: 12.5 gm Documented by: Enoxaparin Sodium (Lovenox) 40 mg SC DAILY [facility] Last Admin: 01/05/20 10:18 Dose: 40 mg Documented by: Furosemide (Lasix) 20 mg IV BID@1000,1800 [facility] Last Admin: 01/05/20 18:27 Dose: 20 mg Documented by: Glucagon () 1 mg IM .X1 PRN PRN Reason: Hypoglycemia Hydralazine HCl (Apresoline Iv) 10 mg IV Q4H PRN PRN PRN Reason: SBP > 150 Last Admin: 01/05/20 05:20 Dose: 10 mg Documented by: Sodium Chloride () 250 mls @ 15 mls/hr IV .[id number] PRN PRN Reason: Saline Flush Last Infusion: 01/02/20 21:24 Dose: 0 mls/hr Documented by: Sodium Chloride () 250 mls @ 15 mls/hr IV .[id number] PRN PRN Reason: Additional IVPB Infusion Pantoprazole Sodium 40 mg/ (Sodium Chloride) 110 mls @ 330 mls/hr IV Q12 [facility] Last Infusion: 01/05/20 22:44 Dose: Infused Documented by: Dextrose () 1,000 mls @ 75 mls/hr IV .[id number] [facility] Last Infusion: 01/06/20 00:18 Dose: 75 mls/hr Documented by: Levetiracetam 500 mg/ Sodium (Chloride) 105 mls @ 400 mls/hr IV Q12 [facility] Last Infusion: 01/06/20 00:18 Dose: Infused Documented by: Insulin Human Lispro (Humalog Kwikpen (Bkc)) 0 unit SC Q6 [facility]; Protocol Last Admin: 01/06/20 06:45 Dose: Not Given Documented by: Ketorolac Tromethamine (Toradol (Bkc)) 15 mg IV Q8 [facility] Stop: 01/06/20 14:01 Last Admin: 01/06/20 06:59 Dose: 15 mg Documented by: Levothyroxine Sodium (Synthroid) 25 mcg GT DAILY [facility] Last Admin: 01/05/20 09:09 Dose: Not Given Documented by: Metoprolol Succinate (Toprol Xl (Beta Joi)) 25 mg PO DAILY [facility] Last Admin: 01/05/20 09:09 Dose: Not Given Documented by: Polyethylene Glycol (Miralax) 17 gm PO DAILY PRN PRN PRN Reason: Constipation Sodium Chloride () 10 - 40 ml IV UD PRN PRN Reason: SALINE FLUSH Last Admin: 01/06/20 06:59 Dose: 20 ml Documented by: STROKE Vital Signs/Narrative: Vital Signs Pulse 01/06/20 07:37 56 L Medical Necessity - Tobacco Use Smoking Status: Unknown if ever smoked Tobacco Use: Non-smoker Assessment/Plan All Active Problems Septic shock (Acute) Acute respiratory failure with hypoxia (Acute) Metabolic encephalopathy (Acute) Suspected 2018 novel coronavirus infection (Acute) Community acquired pneumonia (Acute) Atrial fibrillation with rapid ventricular response (Acute) Patient is an 84-year-old lady who was admitted with decreased level of sensorium. An assessment of septic shock was made admitted to the intensive care unit where patient has since been managed 1. Septic shock ?Secondary to MSSA pneumonia as well as UTI ?Management involved managing underlying condition. 3. MSSA pneumonia ?Patient managed with cefazolin in addition to ventilation support. COVID 19 infection was ruled out -01/02/2020: Plan is to continue antibiotic therapy for 2 days -01/04/2020; patient has completed antibiotic therapy 3. Acute cystitis with E. coli ?Managed with cefazolin -01/04/2020; patient has completed antibiotic therapy 4. Acute metabolic encephalopathy ?Secondary to infectious etiology as discussed above. Patient to undergo speech and swallow eval -01/02/2020: Patient remains significantly lethargic. Plan is to hold a family meeting regarding patient's current condition as well as CODE STATUS -01/03/2020: Patient level of sensorium improving. Will attempt repeat speech eval on 01/04/2020. ?01/04/2020 patient continues to improve. -01/05/2020; Patient seen, apparently did fail her speech and swallow eval the day prior. Plan is to have a family discussion for alternative means of feeding including PEG tube ?01/06/2020;Patient seen more lethargic than the day prior. Decision for patient to be transferred to a prison facility placed on hold 5. Seizure disorder ?With history of focal seizures during patient hospitalization consult placed to neurology -01/02/2020: Patient was seen in consultation by neurology recommended continuation of current therapy 6. Elevated troponin ?Secondary to demand ischemia 7. Hypokalemia -corrected per protocol 8. Hypothyroidism - Patient is on levothyroxine home dose continued 9. Hyponatremia ?Secondary to dehydration resolved with IV fluids 10. A. fib with RVR ?New onset patient does not have any previous documented history of A. fib. Rate controlled on systemic anticoagulation with heparin -01/02/2020: Patient not a candidate for long-term anti-coagulation to significant risk for falls, heparin subsequently, discontinued patient placed on prophylactic Lovenox 11. History of schizoaffective disorder 12. DVT prophylaxis ?Patient on heparin ?Heparin discontinued placed on prophylactic Lovenox Inpatient E&M: [id number] Subs Hosp L2
[2020-01-06 10:11] LABS: Bedside Glucose 114 mg/dL (70-110)
[2020-01-06] MEDS: Enoxaparin 40 MG/0.4 ML Syringe SC (10:16)
[2020-01-06] MEDS: Furosemide 20 MG/2 ML VIAL IV ×2 (10:47→17:20)
[2020-01-06 11:36] LABS: Bedside Glucose 94 mg/dL (70-110)
[2020-01-06 17:35] LABS: Bedside Glucose 98 mg/dL (70-110)
--- NOTE | 2020-01-06 18:30 | NURSING ---
CALLED IN TO CHECK UP ON PT.
[2020-01-07] VITALS (10 sets, daily range): BP systolic 112–144; BP diastolic 62–68; PULSE 64–83; RESP 16–18; TEMP 35.8–36.8; O2SAT 94–95; BMI 29.5
[2020-01-07 00:01] LABS: Bedside Glucose 89 mg/dL (70-110)
[2020-01-07 05:41] LABS: Bedside Glucose 99 mg/dL (70-110)
--- NOTE | 2020-01-07 07:42 | PCM.PN.HOSP ---
Patient Problems: Active and Suspected Problems Septic shock (Acute) Acute respiratory failure with hypoxia (Acute) Metabolic encephalopathy (Acute) Suspected 2018 novel coronavirus infection (Acute) Reason for Visit: Acute encephalopathy Subjective: Patient feeding was held on 01/06/2020 following episode of significant lethargy. Had a family meeting this morning with the as well as Dr. Smith consult to surgeon regarding tube feed placement. Myself and Dr. Smith aware of the opinion that given the patient advanced dementia placing a feeding tube would not change her outcome. Made aware about potential complications.. Plan is to have it CorPak placement placement instead. This is to give patient's time to decide on palliative care/hospice with the rest of the family. Objective: GENERAL: Flat affect HEENT: Atraumatic EYES; Anicteric, Normal Conjunctiva NECK; supple, normal thyroid, RESPIRATORY: Diminished to auscultation CARDIOVASCULAR: Irregular S1 S2, GI: soft, normoactive bowel sounds, : No Renal angle tenderness; EXTREMITIES: edema, no clubbing, MUSCULOSKELETAL: no muscle waisting NEURO: Awake; no lateralizing signs. SKIN: No Rash PSYCH; Flat affect Vitals/I&O's: Vital Signs Temp Pulse Resp BP Pulse Ox 96.5 F L 71 16 112/64 94 01/07/20 02:03 01/07/20 02:55 01/07/20 02:03 01/07/20 02:03 01/07/20 02:03 Oxygen Flow Rate (L/min) 2 Oxygen Delivery Method Room Air Weight: 88.3 kg Body Mass Index (BMI) 29.2 Intake and Output for Last 24 Hours 01/05/20 01/06/20 01/07/20 23:59 23:59 23:59 Intake Total 1857.50 / 1857.50 2250.00 / 2250.00 0 / 0 Output Total 2625 / 2625 1450 / 1450 500 / 500 Balance -767.50 / -767.50 800.00 / 800.00 -500 / -500 Laboratory Results 01/06/20 06:43: POC Glucose 114 H 01/06/20 11:31: POC Glucose 94 01/06/20 17:17: POC Glucose 98 01/06/20 23:44: POC Glucose 89 01/07/20 05:29: POC Glucose 99 Current Medications Acetaminophen (Tylenol Liquid) 650 mg GT Q6H PRN PRN PRN Reason: FEVER Last Admin: 12/27/19 11:54 Dose: 650 mg Documented by: Albuterol Sulfate (Ventolin Aerosols) 2.5 mg INHALATION Q2H PRN PRN PRN Reason: SOB/Wheezing Dextrose (D50w Syringe) 0 gm IV X1 PRN; Protocol PRN Reason: Hypoglycemia Last Admin: 01/01/20 05:15 Dose: 12.5 gm Documented by: Enoxaparin Sodium (Lovenox) 40 mg SC DAILY [facility] Last Admin: 01/06/20 10:16 Dose: 40 mg Documented by: Furosemide (Lasix) 20 mg IV BID@1000,1800 [facility] Last Admin: 01/06/20 17:20 Dose: 20 mg Documented by: Glucagon () 1 mg IM .X1 PRN PRN Reason: Hypoglycemia Hydralazine HCl (Apresoline Iv) 10 mg IV Q4H PRN PRN PRN Reason: SBP > 150 Last Admin: 01/05/20 05:20 Dose: 10 mg Documented by: Sodium Chloride () 250 mls @ 15 mls/hr IV .[id number] PRN PRN Reason: Saline Flush Last Infusion: 01/07/20 01:10 Dose: Infused Documented by: Sodium Chloride () 250 mls @ 15 mls/hr IV .[id number] PRN PRN Reason: Additional IVPB Infusion Pantoprazole Sodium 40 mg/ (Sodium Chloride) 110 mls @ 330 mls/hr IV Q12 [facility] Last Infusion: 01/06/20 21:47 Dose: Infused Documented by: Dextrose () 1,000 mls @ 75 mls/hr IV .[id number] [facility] Last Admin: 01/06/20 23:46 Dose: 75 mls/hr Documented by: Levetiracetam 500 mg/ Sodium (Chloride) 105 mls @ 400 mls/hr IV Q12 [facility] Last Infusion: 01/06/20 22:27 Dose: Infused Documented by: Insulin Human Lispro (Humalog Kwemiliapen (Bkc)) 0 unit SC Q6 [facility]; Protocol Last Admin: 01/07/20 05:39 Dose: Not Given Documented by: Levothyroxine Sodium (Synthroid) 25 mcg GT DAILY [facility] Last Admin: 01/06/20 10:37 Dose: Not Given Documented by: Metoprolol Succinate (Toprol Xl (Beta Joi)) 25 mg PO DAILY [facility] Last Admin: 01/06/20 10:37 Dose: Not Given Documented by: Polyethylene Glycol (Miralax) 17 gm PO DAILY PRN PRN PRN Reason: Constipation Sodium Chloride () 10 - 40 ml IV UD PRN PRN Reason: SALINE FLUSH Last Admin: 01/06/20 17:20 Dose: 10 ml Documented by: Medical Necessity - Tobacco Use Smoking Status: Unknown if ever smoked Tobacco Use: Non-smoker Assessment/Plan All Active Problems Septic shock (Acute) Acute respiratory failure with hypoxia (Acute) Metabolic encephalopathy (Acute) Suspected 2018 novel coronavirus infection (Acute) Community acquired pneumonia (Acute) Atrial fibrillation with rapid ventricular response (Acute) Patient is an 84-year-old lady who was admitted with decreased level of sensorium. An assessment of septic shock was made admitted to the intensive care unit where patient has since been managed 1. Septic shock ?Secondary to MSSA pneumonia as well as UTI ?Management involved managing underlying condition. 3. MSSA pneumonia ?Patient managed with cefazolin in addition to ventilation support. COVID 19 infection was ruled out -01/02/2020: Plan is to continue antibiotic therapy for 2 days -01/04/2020; patient has completed antibiotic therapy 3. Acute cystitis with E. coli ?Managed with cefazolin -01/04/2020; patient has completed antibiotic therapy 4. Acute metabolic encephalopathy ?Secondary to infectious etiology as discussed above. Patient to undergo speech and swallow eval -01/02/2020: Patient remains significantly lethargic. Plan is to hold a family meeting regarding patient's current condition as well as CODE STATUS -01/03/2020: Patient level of sensorium improving. Will attempt repeat speech eval on 01/04/2020. ?01/04/2020 patient continues to improve. -01/05/2020; Patient seen, apparently did fail her speech and swallow eval the day prior. Plan is to have a family discussion for alternative means of feeding including PEG tube ?01/06/2020;Patient seen more lethargic than the day prior. Decision for patient to be transferred to a intermediate facility placed on hold ?01/07/2020: Patient to undergo CorPak placement by Dr. Smith 5. Seizure disorder ?With history of focal seizures during patient hospitalization consult placed to neurology -01/02/2020: Patient was seen in consultation by neurology recommended continuation of current therapy 6. Elevated troponin ?Secondary to demand ischemia 7. Hypokalemia -corrected per protocol 8. Hypothyroidism - Patient is on levothyroxine home dose continued 9. Hyponatremia ?Secondary to dehydration resolved with IV fluids 10. A. fib with RVR ?New onset patient does not have any previous documented history of A. fib. Rate controlled on systemic anticoagulation with heparin -01/02/2020: Patient not a candidate for long-term anti-coagulation to significant risk for falls, heparin subsequently, discontinued patient placed on prophylactic Lovenox 11. History of schizoaffective disorder 12. DVT prophylaxis ?Patient on heparin ?Heparin discontinued placed on prophylactic Lovenox Inpatient E&M: [id number] [facility] Hosp L2
--- NOTE | 2020-01-07 08:45 | CON.PCM_ITS ---
Problem List (1) Metabolic encephalopathy Status: Acute Reason for Consult Date of Consultation: 01/07/20 Reason for Consultation: Feeding tube History of Present Illness: The patient is a 84 year old F sent in from dementia unit. The patient was admitted with pneumonia and septic shock. The patient continues to have encephalopathy following surgery and I was consulted for feeding tube. The patient is nonverbal at this time and unable to give me any history. Past Medical History Past Medical History (Chronic Problems): Chronic Problems Essential hypertension (Chronic) Paroxysmal atrial fibrillation (Chronic) Schizophrenia (Chronic) Hypothyroidism (Chronic) Bipolar disorder (Chronic) Dementia (Chronic) Abnormal electrocardiogram [ECG] [EKG] (Chronic) Allergies No Known Allergies Allergy (Verified 12/26/19 11:44) Home Medications: Ambulatory Orders Medication Instructions Recorded Furosemide [Lasix] 20 mg PO DAILY 06/08/17 Haloperidol Decanoate [Haldol 0.8 ml IM Q14D 06/08/17 Decanoate 50] Lorazepam [Ativan] 0.5 mg PO QHS 06/08/17 Bisacodyl [Dulcolax] 10 mg RECTAL DAILY PRN PRN #30 06/10/17 suppos. Benztropine Mesylate 0.5 mg PO DAILY 12/26/19 Clonidine HCl [Catapres] 0.1 mg PO BID 12/26/19 Divalproex Sprinkles [Depakote 250 mg PO BID 12/26/19 Sprinkles] Haloperidol Lactate 1 mg PO DAILY 12/26/19 Levothyroxine Sodium [Synthroid] 200 mcg PO DAILY 12/26/19 Lorazepam [Ativan] 0.25 mg PO DAILY 12/26/19 Magnesium Hydroxide [Milk of 30 ml PO DAILY PRN PRN 12/26/19 Magnesia] Melatonin 6 mg PO QHS 12/26/19 Metoprolol Succinate [Toprol Xl] 25 mg PO DAILY 12/26/19 Polyethylene Glycol 3350 [Miralax] 17 gm PO DAILY 12/26/19 Potassium Chloride 10 meq PO DAILY 12/26/19 Sodium Phosphate,[place]-Dibasic 133 ml [place] PRN PRN 12/26/19 [Enema Ready To Use] Spironolactone [Aldactone] 25 mg PO DAILY 12/26/19 Surgical History: no surgical history Psychiatric History: Bipolar, Schizophrenia 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 Smoking Status: Unknown if ever smoked Tobacco Use: Non-smoker - *Family History Maternal History Items: No pertinent history Review of Systems Unable to obtain accurate/complete ROS d/t: Metabolic encephalopathy and patient being nonverbal Patient Problems: Active and Suspected Problems Septic shock (Acute) Acute respiratory failure with hypoxia (Acute) Metabolic encephalopathy (Acute) Suspected 2019 novel coronavirus infection (Acute) - Physical Exam Vitals/I&O's: Vital Signs Temp Pulse Resp BP Pulse Ox 96.5 F L 71 16 112/64 94 01/07/20 02:03 01/07/20 02:55 01/07/20 02:03 01/07/20 02:03 01/07/20 02:03 Oxygen Flow Rate (L/min) 2 Oxygen Delivery Method Room Air Weight: 194 lb 10.691 oz Body Mass Index (BMI) 29.2 Intake and Output for Last 24 Hours 01/05/20 01/06/20 01/07/20 23:59 23:59 23:59 Intake Total 1857.50 / 1857.50 2250.00 / 2250.00 0 / 0 Output Total 2625 / 2625 1450 / 1450 500 / 500 Balance -767.50 / -767.50 800.00 / 800.00 -500 / -500 General: No apparent distress, - - Nonverbal. Opens eyes but does not make eye contact HEENT: Atraumatic Neck: Supple Lungs: Normal air movement Abdomen: Soft, Non Tender, Non-Distended Laboratory Results 01/06/20 06:43: POC Glucose 114 H 01/06/20 11:31: POC Glucose 94 01/06/20 17:17: POC Glucose 98 01/06/20 23:44: POC Glucose 89 01/07/20 05:29: POC Glucose 99 Current Medications Acetaminophen (Tylenol Liquid) 650 mg GT Q6H PRN PRN PRN Reason: FEVER Last Admin: 12/27/19 11:54 Dose: 650 mg Documented by: Albuterol Sulfate (Ventolin Aerosols) 2.5 mg INHALATION Q2H PRN PRN PRN Reason: SOB/Wheezing Dextrose (D50w Syringe) 0 gm IV X1 PRN; Protocol PRN Reason: Hypoglycemia Last Admin: 01/01/20 05:15 Dose: 12.5 gm Documented by: Enoxaparin Sodium (Lovenox) 40 mg SC DAILY [facility] Last Admin: 01/06/20 10:16 Dose: 40 mg Documented by: Furosemide (Lasix) 20 mg IV BID@1000,1800 [facility] Last Admin: 01/06/20 17:20 Dose: 20 mg Documented by: Glucagon () 1 mg IM .X1 PRN PRN Reason: Hypoglycemia Hydralazine HCl (Apresoline Iv) 10 mg IV Q4H PRN PRN PRN Reason: SBP > 150 Last Admin: 01/05/20 05:20 Dose: 10 mg Documented by: Sodium Chloride () 250 mls @ 15 mls/hr IV .[id number] PRN PRN Reason: Saline Flush Last Infusion: 01/07/20 01:10 Dose: Infused Documented by: Sodium Chloride () 250 mls @ 15 mls/hr IV .[id number] PRN PRN Reason: Additional IVPB Infusion Pantoprazole Sodium 40 mg/ (Sodium Chloride) 110 mls @ 330 mls/hr IV Q12 [facility] Last Infusion: 01/06/20 21:47 Dose: Infused Documented by: Dextrose () 1,000 mls @ 75 mls/hr IV .[id number] [facility] Last Admin: 01/06/20 23:46 Dose: 75 mls/hr Documented by: Levetiracetam 500 mg/ Sodium (Chloride) 105 mls @ 400 mls/hr IV Q12 [facility] Last Infusion: 01/06/20 22:27 Dose: Infused Documented by: Insulin Human Lispro (Humalog Kwikpen (Bkc)) 0 unit SC Q6 [facility]; Protocol Last Admin: 01/07/20 05:39 Dose: Not Given Documented by: Levothyroxine Sodium (Synthroid) 25 mcg GT DAILY [facility] Last Admin: 01/06/20 10:37 Dose: Not Given Documented by: Metoprolol Succinate (Toprol Xl (Beta Joi)) 25 mg PO DAILY [facility] Last Admin: 01/06/20 10:37 Dose: Not Given Documented by: Polyethylene Glycol (Miralax) 17 gm PO DAILY PRN PRN PRN Reason: Constipation Sodium Chloride () 10 - 40 ml IV UD PRN PRN Reason: SALINE FLUSH Last Admin: 01/06/20 17:20 Dose: 10 ml Documented by: Assessment/Plan All Active Problems Septic shock (Acute) Acute respiratory failure with hypoxia (Acute) Metabolic encephalopathy (Acute) Suspected 2019 novel coronavirus infection (Acute) Community acquired pneumonia (Acute) Atrial fibrillation with rapid ventricular response (Acute) 84-year-old female with dementia and metabolic encephalopathy 1. The patient is not able to tolerate p.o. feeding. The patient's was here and we had a discussion with him. The patient's reports that she has been having dementia but was tolerating feeds at her unit. She has not been able to tolerate feeds since being intubated here in the hospital. I discussed PEG tube with him but I do not believe this would be a viable option due to her comorbidities. At this time I also discussed CorPak placement and tube feeding and did discuss the risks of aspiration. The patient would like to proceed with this and feeding via CorPak tube. Ivan Smith MD Pager: [facility] [address] [place] [address] [address] [place] [address] Office:
--- NOTE | 2020-01-07 09:05 | RAD_ITS ---
STUDY: X-RAY CHEST REASON FOR EXAM: Female, 84 years old. DOBHOFF TUBE PLACEMENT. TECHNIQUE: Single AP portable view of the chest. COMPARISON: 26 Dec 2019 FINDINGS: Dobbhoff tube tip overlies the mid stomach. Right central line tip overlies the mid SVC. Mild increased airspace disease overlies the right midlung. There is no demonstrated pleural abnormality. Normal size heart. Normal mediastinum and geoffrey. Normal visualized pulmonary arteries. Normal visualized aortic arch and descending thoracic aorta. Normal visualized thoracic spine. Normal visualized ribs, clavicles, and shoulders. There is no demonstrated abnormality of the visualized soft tissue structures of the upper abdomen. RAD/Chest 1 View (Portable) IMPRESSION: 1. Dobbhoff tube tip overlies mid stomach. 2. Right mid lung mild opacity with underlying early airspace disease not excluded. Electronically Signed: Ricci Guzman DO at 9:31 EDT , Service support ,
[2020-01-07] MEDS: Enoxaparin 40 MG/0.4 ML Syringe SC (10:40)
[2020-01-07] MEDS: 0.9% Saline Lock 10 ML Syringe IV (10:44)
[2020-01-07] MEDS: Furosemide 20 MG/2 ML VIAL IV ×2 (10:44→18:04)
[2020-01-07] MEDS: Levothyroxine 25 MCG TABLET GT (11:01)
[2020-01-07] MEDS: Acetaminophen 650 MG/20 ML UDC GT (11:01)
--- NOTE | 2020-01-07 12:09 | NT.THERAPY_ITS ---
Nutrition Therapy Report - History Nutrition Services has been consulted to:: Manage enteral nutrition Current diet / nutrition support order:: Regular puree/nectar - on hold d/t lethargy - Anthropometric Measurements Height:: 5 ft 8 in Weight:: 88.3 kg Body Mass Index (BMI):: 29.5 - Relevant Labs Relevant Labs:: WBC 11.2 K/mm3 (4.4-11.0) H 01/03/20 05:50 RBC 3.93 M/mm3 (4.2-5.4) L 01/04/20 05:15 Hgb 11.8 g/dL (12.0-15.0) L 01/04/20 05:15 Hct 33.5 % (37-47) L 01/01/20 03:45 MCV 100.0 fL (81-99) H D 12/27/19 05:55 MCHC 31.7 g/dL (32-36) L 01/04/20 05:15 RDW Std Deviation 44.6 fl (35.1-43.9) H 01/04/20 05:15 Immature Gran % (Auto) 2.500 % (0.0-0.9) H 12/30/19 01:50 Neut % (Auto) 75.8 % (47-70) H 12/30/19 01:50 Lymph % (Auto) 11.0 % (19-41) L 12/30/19 01:50 Absolute Neuts (auto) 9.2 X10^3/uL (2.0-7.7) H 01/01/20 03:45 Neutrophils % (Manual) 73 % (47-70) H 01/01/20 03:45 Band Neutrophils % 13 % (0-5) H 12/31/19 04:00 Lymphocytes % (Manual) 17 % (19-41) L 01/01/20 03:45 Monocytes % (Manual) 17 % (0-10) H 12/26/19 11:50 Metamyelocytes % 8 % (0-1) H 01/01/20 03:45 Myelocytes % 2 (0-0) H 12/27/19 05:55 PT 22.4 SECONDS (11.7-14.9) H 12/26/19 12:55 APTT 102.6 Seconds (24.1-36.2) H* 01/02/20 06:45 Fibrinogen 549 mg/dl (203-444) H 12/26/19 16:25 D-Dimer Quant (PE/DVT) 13.16 FEU/ug/m (0.27-0.49) H* 12/26/19 16:25 Sodium 150 mmol/L (136-145) H 12/28/19 15:05 Potassium 3.4 mmol/L (3.5-5.1) L 01/04/20 05:15 Chloride 109 mmol/L (98-107) H 01/01/20 03:45 BUN 22 mg/dL (7-18) H 12/29/19 03:50 Creatinine 0.51 mg/dL (0.55-1.02) L 01/01/20 03:45 Est GFR (MDRD) Af Amer 41 mL/min (>60) L 12/27/19 13:45 Est GFR (MDRD) Non-Af 50 mL/min (>60) L 12/28/19 04:45 BUN/Creatinine Ratio 21.7 RATIO (10-20) H 01/01/20 03:45 Glucose 114 mg/dL (74-106) H 01/02/20 03:50 Lactic Acid 5.3 mmol/L (0.4-1.9) H* 12/26/19 16:25 Calcium 8.3 mg/dL (8.5-10.1) L 01/04/20 05:15 Phosphorus 2.4 mg/dL (2.5-4.9) L 12/31/19 04:00 Ferritin 671 ng/mL (8-252) H 12/27/19 13:45 AST 39 U/L (15-37) H 12/27/19 05:00 ALT 60 U/L (13-56) H 12/27/19 05:00 Alkaline Phosphatase 149 U/L (45-117) H 12/26/19 11:50 Troponin I 0.175 ng/mL (<0.045) H 12/26/19 21:40 C-React Prot Ext Range 102.00 mg/L (0.0-3.0) H 12/26/19 16:25 B-Natriuretic Peptide 154.9 pg/mL (0-100) H 12/26/19 16:25 Total Protein 5.5 g/dL (6.4-8.2) L 12/27/19 05:00 Albumin 1.7 g/dL (3.2-5.0) L 12/27/19 05:00 Globulin 5.1 g/dL (2.2-4.2) H 12/26/19 11:50 Albumin/Globulin Ratio 0.4 RATIO (0.9-2.4) L 12/27/19 05:00 Procalcitonin 40.79 ng/mL (0.00-0.09) H 12/27/19 13:45 - Assessment Food / Nutrition-Related History:: Pt has oral diet ordered, but on hold d/t lethargy. Noted plans for corpak placement by surgery to provide nutrition as pt without nutrition x ~6 days. This gives pt spouse time to decide palliative/hospice w/ family. Reestimated nutrition needs ~ [id number] farhad/ 70- 80 gm pro/day. Wt increase 5.7 kg since last review - noted pt with lymphedema L arm/ nonpitting BLE edema. Has PI to R heel. [ End ] - Nutrition Diagnosis Problem / Etiology / Signs & Symptoms (PES):: Pt with inadequate po intake r/t dysphagia/lethargy AEB NPO status. [ End ] Evidence of Malnutrition Exists:: No - Nutrition Intervention Nutrition Prescription:: [id number] farhad / 70-80 gm pro/day - Food / Nutrient Delivery Interventions Summary of nutrition intervention:: Recommend enteral nutrition support: Rec Jevity 1.5 at goal rate 50 cc/hr with 100 cc H2O flush every 4 hours to provide 1800 farhad / 76 gm pro / 1812 cc free water. Would start feedings at 10 cc/hr and increase by 10 cc/hr every 10-12 hours as pt tolerates until goal rate achieved. [ End ] Nutrition support ordered as / adjusted to:: Recommend enteral nutrition support: Rec Jevity 1.5 at goal rate 50 cc/hr with 100 cc H2O flush every 4 hours to provide 1800 farhad / 76 gm pro / 1812 cc free water. Would start feedings at 10 cc/hr and increase by 10 cc/hr every 10-12 hours as pt tolerates untial goal rate achieved. [ End ] Nutrition education provided?: No - MNT Monitoring Further MNT monitoring and evaluation required?: Yes MNT Follow-up in:: 1-2 days - please call RD/LD at [phone] if questions
[2020-01-07 13:16] LABS: Bedside Glucose 98 mg/dL (70-110)
[2020-01-07] MEDS: Jevity 1.5 1,000 ML 50 ML GT (13:35)
--- NOTE | 2020-01-07 16:30 | NURSING ---
pt awake and interacting with staff. pt able to answer questions. pt repositioned in bed and assessment complete. Call light within reach. will continue to monitor.
[2020-01-07 17:10] LABS: Bedside Glucose 104 mg/dL (70-110)
[2020-01-07 21:31] LABS: Bedside Glucose 85 mg/dL (70-110)
[2020-01-08 00:21] LABS: Bedside Glucose 94 mg/dL (70-110)
[2020-01-08 03:06] VITALS: BP 119/67; PULSE 62; RESP 16; TEMP 36.3; O2SAT 96
[2020-01-08] MEDS: 0.9% Saline Lock 10 ML Syringe IV (03:10)
[2020-01-08 03:29] VITALS: PULSE 56
[2020-01-08 05:41] LABS: Bedside Glucose 101 mg/dL (70-110)
[2020-01-08 07:00] VITALS: PULSE 57
--- NOTE | 2020-01-08 07:29 | PCM.PN.SRG ---
Patient Problems: Active and Suspected Problems Septic shock (Acute) Acute respiratory failure with hypoxia (Acute) Metabolic encephalopathy (Acute) Suspected 2019 novel coronavirus infection (Acute) Subjective: No changes. Tolerating tube feeds per nurse. - Physical Exam Vitals/I&O's: Vital Signs Temp Pulse Resp BP Pulse Ox 97.4 F L 56 L 16 119/67 96 01/08/20 03:06 01/08/20 03:29 01/08/20 03:06 01/08/20 03:06 01/08/20 03:06 Oxygen Flow Rate (L/min) 2 Oxygen Delivery Method Room Air Weight: 194 lb 7.163 oz Body Mass Index (BMI) 29.5 Intake and Output for Last 24 Hours 01/06/20 01/07/20 01/08/20 23:59 23:59 23:59 Intake Total 2250.00 / 2250.00 2243.75 / 2243.75 451.25 / 451.25 Output Total 1450 / 1450 1800 / 2700 1100 / 1100 Balance 800.00 / 800.00 443.75 / -456.25 -648.75 / -648.75 General: Confused, - - Nonverbal Abdomen: Soft, Non Tender, Non-Distended Laboratory Results 01/07/20 13:09: POC Glucose 98 01/07/20 17:07: POC Glucose 104 01/07/20 21:26: POC Glucose 85 01/08/20 00:17: POC Glucose 94 01/08/20 05:35: POC Glucose 101 Current Medications Acetaminophen (Tylenol Liquid) 650 mg GT Q6H PRN PRN PRN Reason: FEVER Last Admin: 01/07/20 11:01 Dose: 650 mg Documented by: Albuterol Sulfate (Ventolin Aerosols) 2.5 mg INHALATION Q2H PRN PRN PRN Reason: SOB/Wheezing Dextrose (D50w Syringe) 0 gm IV X1 PRN; Protocol PRN Reason: Hypoglycemia Last Admin: 01/01/20 05:15 Dose: 12.5 gm Documented by: Enoxaparin Sodium (Lovenox) 40 mg SC DAILY [facility] Last Admin: 01/07/20 10:40 Dose: 40 mg Documented by: Furosemide (Lasix) 20 mg IV BID@1000,1800 [facility] Last Admin: 01/07/20 18:04 Dose: 20 mg Documented by: Glucagon () 1 mg IM .X1 PRN PRN Reason: Hypoglycemia Hydralazine HCl (Apresoline Iv) 10 mg IV Q4H PRN PRN PRN Reason: SBP > 150 Last Admin: 01/05/20 05:20 Dose: 10 mg Documented by: Sodium Chloride () 250 mls @ 15 mls/hr IV .[id number] PRN PRN Reason: Saline Flush Last Infusion: 01/07/20 01:10 Dose: Infused Documented by: Sodium Chloride () 250 mls @ 15 mls/hr IV .[id number] PRN PRN Reason: Additional IVPB Infusion Pantoprazole Sodium 40 mg/ (Sodium Chloride) 110 mls @ 330 mls/hr IV Q12 [facility] Last Infusion: 01/07/20 22:29 Dose: Infused Documented by: Dextrose () 1,000 mls @ 75 mls/hr IV .[id number] [facility] Last Admin: 01/08/20 03:10 Dose: 75 mls/hr Documented by: Levetiracetam 500 mg/ Sodium (Chloride) 105 mls @ 400 mls/hr IV Q12 [facility] Last Infusion: 01/07/20 21:48 Dose: Infused Documented by: Enteral Nutritional Formula (Jevity 1.5) 1,000 mls @ 50 mls/hr GT .Q20H [facility] Last Admin: 01/07/20 13:35 Dose: 50 mls/hr Documented by: Insulin Human Lispro (Humalog Kwikpen (Bkc)) 0 unit SC Q6 [facility]; Protocol Last Admin: 01/08/20 05:41 Dose: Not Given Documented by: Levothyroxine Sodium (Synthroid) 25 mcg GT DAILY [facility] Last Admin: 01/07/20 11:01 Dose: 25 mcg Documented by: Metoprolol Succinate (Toprol Xl (Beta Joi)) 25 mg PO DAILY [facility] Last Admin: 01/07/20 13:34 Dose: Not Given Documented by: Polyethylene Glycol (Miralax) 17 gm PO DAILY PRN PRN PRN Reason: Constipation Sodium Chloride () 10 - 40 ml IV UD PRN PRN Reason: SALINE FLUSH Last Admin: 01/08/20 03:10 Dose: 10 ml Documented by: Medical Necessity - Tobacco Use Smoking Status: Unknown if ever smoked Tobacco Use: Non-smoker Assessment/Plan All Active Problems Septic shock (Acute) Acute respiratory failure with hypoxia (Acute) Metabolic encephalopathy (Acute) Suspected 2019 novel coronavirus infection (Acute) Community acquired pneumonia (Acute) Atrial fibrillation with rapid ventricular response (Acute) 84-year-old female with encephalopathy 1. Patient had CorPak placed yesterday and tube feeds are running. Ivan Smith MD Pager: [facility] [address] [place] [address], [address] [place] [address] Office:
[2020-01-08 08:03] VITALS: BP 123/61; PULSE 63; RESP 19; TEMP 36.3; O2SAT 96
[2020-01-08] MEDS: Enoxaparin 40 MG/0.4 ML Syringe SC (09:17)
[2020-01-08] MEDS: Levothyroxine 25 MCG TABLET GT (09:59)
[2020-01-08] MEDS: Furosemide 20 MG/2 ML VIAL IV (09:59)
--- NOTE | 2020-01-08 10:43 | PCM.TXEXTCAR ---
- Diet 01/07/20 13:04 NPO [Diet: Nothing Per Oral] Is pt able to select menu?: No Diet Comments: Frequent oral care - Routine Orders/Code Status Keep PO Greater than or Equal to (%): 94 Routine Lab Work: CBC - within 3 days, BMP - within 3 days - Wound(s) right heel Wound Type: Pressure Injury Dressing Change: Mepilex - Therapies Weight Bearing: Weight bearing as tolerated Physical Therapy: Eval and Treat Occupational Therapy: Eval and Treat Speech Therapy: Eval and Treat - Allergies/Procedures Done in Hospital Allergies/Adverse Reactions: Allergies No Known Allergies Allergy (Verified 12/26/19 11:44) Procedures: 2-D Echocardiogram, Electroencephalogram - Type of Care/Length of Stay Estimated LOS: Convalescent Care Less Than 30 days Type of Care Needed: Skilled Rehab Potential: Fair Prognosis: Fair - Additional Orders/Day of Discharge Day of Discharge: 01/08/20 - Dietary and Speech Recommendations Dietitian Recommendations/Changes: Continue enteral nutrition support via CorPak---Jevity 1.5 to goal rate 50 cc/hr as tolerated with 100 cc H2O flush every 4 hours to provide 1800 farhad / 76 gm pro / 1812 cc free water. Start feedings at 10 cc/hr and increase by 10 cc/hr every 10-12 hours as pt tolerates until goal rate achieved---currently at 20 ml/hr with overall good tolerance. Maintain NPO status. - Follow Up Care Primary Care Physician: Henrik Rivera DO [Primary Care Provider] -
--- NOTE | 2020-01-08 10:46 | PCM.DC.SUM ---
Discharge Date and Diagnosis - Problem List Patient Problems: Active and Suspected Problems Septic shock (Acute) Acute respiratory failure with hypoxia (Acute) Metabolic encephalopathy (Acute) Suspected 2019 novel coronavirus infection (Acute) Date of Admission: 12/26/19 Date of Discharge: 01/08/20 - Primary Discharge Diagnosis Acute Problems: Active Problems Septic shock (Acute) MSSA pneumonia Acute E. Coli cystitis Acute respiratory failure with hypoxia (Acute) Metabolic encephalopathy (Acute) Acute COVID infection ruled out Seizure disorder Elevated troponin Hypokalemia A. fib with RVR Acute kidney injury Hyperkalemia - Secondary Discharge Diagnosis Chronic Problems: Chronic Problems Essential hypertension (Chronic) Paroxysmal atrial fibrillation (Chronic) Schizophrenia (Chronic) Hypothyroidism (Chronic) Bipolar disorder (Chronic) Dementia (Chronic) Abnormal electrocardiogram [ECG] [EKG] (Chronic) Hospital Course and Treatment Imaging Results: Clinical Impression(s) from Imaging Studies Chest X-Ray 12/26/19 11:47 IMPRESSION: The tip of the endotracheal tube is at 3.6 cm proximal to the aurelia. The tip of the nasogastric tube is at the gastroesophageal junction. Increased markings at the lung bases as described suggestive of atelectasis and/or early infiltrates worse on the left side. Electronically Signed: Joss Snyder, at 13:05 EDT , Service support , KUB X-Ray 12/26/19 11:49 IMPRESSION: The tip of the nasogastric tube is in the fundal portion of the stomach. Mild increased markings at the left lung base. This may represent atelectasis and/or early infiltrate. Electronically Signed: Joss Snyder, at 13:03 EDT , Service support , Chest X-Ray 12/26/19 15:55 IMPRESSION: 1. Interval placement of right internal jugular deep venous line with tip of the catheter overlying the superior vena cava and no pneumothorax. 2. Endotracheal tube and nasogastric tube both which are unchanged. 3. Interval development of right lower lobe atelectasis Electronically Signed: Min Cantor MD at 16:16 EDT Tel , Service support , Brain CT 12/28/19 08:26 IMPRESSION: Chronic involutional changes of the brain. Electronically Signed: Joss Claudio, at 10:40 EDT , Service support , Brain MRI 12/30/19 06:15 IMPRESSION: No acute intracranial abnormality or masses. Electronically Signed: Renee Mina MD at 14:17 EDT Tel , Service support , Chest X-Ray 01/07/20 09:05 IMPRESSION: 1. Dobbhoff tube tip overlies mid stomach. 2. Right mid lung mild opacity with underlying early airspace disease not excluded. Electronically Signed: Ricci Guzman DO at 9:31 EDT , Service support , Consultations 01/05/20 09:17 Consult: Onc/Wound/pillow filler Routine Comment: Reason for Consult:: Right heel pressure injury ID Pulmonology/Critical care Operations: None Procedures: 2-D Echocardiogram, Electroencephalogram Summary of Care Provided: The patient is a 84 year old F with a long protracted course in the hospital which started on 12/26/19. Patient presented unresponsive on 12/26/19. Patient had not been feeling well for the past couple of weeks prior to admission. He did tolerated over the last few days prior to admission. She was more short of breath and lethargic. The EMS was called and found her hypoxic with SPO2 of 81% on room air. This improved on nonrebreather mask. She subsequently was intubated in the ED. Admitting chest x-ray did not show any infiltrates. Patient's admitting lactic acid was 5.7. She was admitted to the ICU and managed as acute hypoxic respiratory failure/septic shock/elevated troponin secondary to septic shock. Patient initially was suspected of COVID?19. This came back negative. He also had acute kidney injury on admission. He also was in A. fib with RVR. Source of infection was believed to be secondary to UTI versus pneumonia. Wound cultures grew MSSA. Urine cultures also were positive for E. coli. Antibiotics were de-escalated to cefazolin. Endobronchial COVID test was negative. IgM and IgG test were negative. She completed 9 days of antibiotics. Patient was found to be lethargic on 01/01/20. Patient had EEG done and was suggestive of seizures. Patient was continued on IV Keppra. Family meeting was held but her elected to keep patient full code. Patient was seen by PT and OT and discharge to long term facility. Family elected not to have a PEG tube. General surgery was consulted; corpak was recommended. She was discharged to long term facility with CorPak and tube feeds. Patient Problems: Active and Suspected Problems Septic shock (Acute) Acute respiratory failure with hypoxia (Acute) Metabolic encephalopathy (Acute) Suspected 2019 novel coronavirus infection (Acute) Subjective: On the day of discharge, patient was seen and examined. No new acute events. - Physical Exam Vitals/I&O's: Vital Signs Temp Pulse Resp BP Pulse Ox 97.4 F L 63 19 H 123/61 H 96 01/08/20 08:03 01/08/20 08:03 01/08/20 08:03 01/08/20 08:03 01/08/20 08:03 Oxygen Flow Rate (L/min) 2 Oxygen Delivery Method Room Air Weight: 88.2 kg Body Mass Index (BMI) 29.5 Intake and Output for Last 24 Hours 01/06/20 01/07/20 01/08/20 23:59 23:59 23:59 Intake Total 2250.00 / 2250.00 2243.75 / 2243.75 1251.25 / 1251.25 Output Total 1450 / 1450 1800 / 2700 1100 / 1100 Balance 800.00 / 800.00 443.75 / -456.25 151.25 / 151.25 General: Alert, Cooperative, No apparent distress, Confused HEENT: Atraumatic, PERRLA, EOMI, Normocephalic Oral: Moist Mucosa Neck: Supple Lungs: Clear to auscultation, Normal air movement Cardiovascular: Regular rate, Regular Rhythm, Normal S1, Normal S2, No murmurs Abdomen: Bowel Sounds Present, Soft, Non Tender, Non-Distended, No Hepato-splenomegaly Extremities: No edema Skin: No rashes, No breakdown Musculoskeletal: No Tenderness to Palpation of Joints or Extremities Lymphatic: No Cervical, Supraclavicular, or Inguinal Adenopathy Neurological: Cranial nerves II-XII grossly intact, Neuro grossly intact Psych/Mental Status: Normal Affect, Appropriate Laboratory Results 01/07/20 13:09: POC Glucose 98 01/07/20 17:07: POC Glucose 104 01/07/20 21:26: POC Glucose 85 01/08/20 00:17: POC Glucose 94 01/08/20 05:35: POC Glucose 101 Current Medications Acetaminophen (Tylenol Liquid) 650 mg GT Q6H PRN PRN PRN Reason: FEVER Last Admin: 01/07/20 11:01 Dose: 650 mg Documented by: Albuterol Sulfate (Ventolin Aerosols) 2.5 mg INHALATION Q2H PRN PRN PRN Reason: SOB/Wheezing Dextrose (D50w Syringe) 0 gm IV X1 PRN; Protocol PRN Reason: Hypoglycemia Last Admin: 01/01/20 05:15 Dose: 12.5 gm Documented by: Enoxaparin Sodium (Lovenox) 40 mg SC DAILY [facility] Last Admin: 01/08/20 09:17 Dose: 40 mg Documented by: Furosemide (Lasix) 20 mg IV BID@1000,1800 [facility] Last Admin: 01/08/20 09:59 Dose: 20 mg Documented by: Glucagon () 1 mg IM .X1 PRN PRN Reason: Hypoglycemia Hydralazine HCl (Apresoline Iv) 10 mg IV Q4H PRN PRN PRN Reason: SBP > 150 Last Admin: 01/05/20 05:20 Dose: 10 mg Documented by: Sodium Chloride () 250 mls @ 15 mls/hr IV .[id number] PRN PRN Reason: Saline Flush Last Infusion: 01/07/20 01:10 Dose: Infused Documented by: Sodium Chloride () 250 mls @ 15 mls/hr IV .[id number] PRN PRN Reason: Additional IVPB Infusion Pantoprazole Sodium 40 mg/ (Sodium Chloride) 110 mls @ 330 mls/hr IV Q12 [facility] Last Infusion: 01/08/20 09:35 Dose: Infused Documented by: Dextrose () 1,000 mls @ 75 mls/hr IV .[id number] [facility] Last Infusion: 01/08/20 10:14 Dose: 75 mls/hr Documented by: Levetiracetam 500 mg/ Sodium (Chloride) 105 mls @ 400 mls/hr IV Q12 [facility] Last Infusion: 01/08/20 10:14 Dose: Infused Documented by: Enteral Nutritional Formula (Jevity 1.5) 1,000 mls @ 50 mls/hr GT .Q20H [facility] Last Admin: 01/08/20 09:22 Dose: Not Given Documented by: Insulin Human Lispro (Humalog Kwikpen (Bkc)) 0 unit SC Q6 [facility]; Protocol Last Admin: 01/08/20 05:41 Dose: Not Given Documented by: Levothyroxine Sodium (Synthroid) 25 mcg GT DAILY [facility] Last Admin: 01/08/20 09:59 Dose: 25 mcg Documented by: Metoprolol Succinate (Toprol Xl (Beta Joi)) 25 mg PO DAILY [facility] Last Admin: 01/08/20 09:17 Dose: Not Given Documented by: Polyethylene Glycol (Miralax) 17 gm PO DAILY PRN PRN PRN Reason: Constipation Sodium Chloride () 10 - 40 ml IV UD PRN PRN Reason: SALINE FLUSH Last Admin: 01/08/20 03:10 Dose: 10 ml Documented by: Discharge Diet: - - NPO, on corpak, on tube feeds Home Medications: Medications to take at Discharge Potassium Chloride 10 meq PO DAILY 12/26/19 Enoxaparin [Lovenox] 40 mg SUBCUT DAILY syringe 01/08/20 Furosemide [Lasix] 20 mg PO BID 30 Days #60 tab 01/08/20 Levetiracetam [Keppra] 500 mg PO BID 30 Days #60 tab 01/08/20 Metoprolol Succinate [Toprol Xl] 25 mg GT DAILY 30 Days #30 tab 01/08/20 Polyethylene Glycol 3350 [Miralax] 17 gm PO DAILY PRN PRN packet 01/08/20 Following Prescrptions Were Given to Patient: Levetiracetam [Keppra] 500 mg PO BID 30 Days #60 tab Furosemide [Lasix] 20 mg PO BID 30 Days #60 tab Transmission Status: Received by [employer] [facility]30 Primary Care Physician: Henrik Rivera DO [Primary Care Provider] - Disposition: Detention facility Minutes spent on discharge:: 40 Patient Condition:: Stable Medical Necessity - Tobacco Use Smoking Status: Unknown if ever smoked Tobacco Use: Non-smoker Meaningful Use Info Meaningful Use Diagnoses (Choose all that apply): None applicable Inpatient E&M: 23907 Disch Hosp
[2020-01-08 10:58] LABS: Absolute Lymphocyte Count 1.57 X10^3/uL (0.83-4.51); Absolute Neutrophil Count 7.1 X10^3/uL (2.0-7.7); Basophil# 0.05 X10^3/uL; Basophil% 0.5 % (0-1); Eosinophil# 0.12 X10^3/uL; Eosinophils% 1.2 % (0-5); Hematocrit 40.4 % (37-47); Hemoglobin 12.7 g/dL (12.0-15.0); Lymphocyte # 1.57 X10^3/ul (4.0); Lymphocyte % 15.4 % (19-41); Mean Corp Hgb Conc 31.4 g/dL (32-36); Mean Corpuscular Volume 95.5 fL (81-99); Mean Platelet Vol. 9.7 fl (6.2-12.0); Monocyte# 1.02 X10^3/uL; NRBC Flagged by Analyzer 0 % (0-5); Neutrophil # 7.07 X10^3/uL (2.7-7.7); Neutrophil % 69.4 % (47-70); Platelet Count 354 K/mm3 (150-450); RBC Distribution Width CV 13.5 % (11.6-14.6); RBC Distribution Width SD 45.3 fl (35.1-43.9); Red Blood Count 4.23 M/mm3 (4.2-5.4); White Blood Count 10.2 K/mm3 (4.4-11.0)
[2020-01-08 11:24] LABS: ALB/GLOB Ratio 0.4 RATIO (0.9-2.4); AST(SGOT) 19 U/L (15-37); Alanine Aminotransfer ALT/SGPT 10 U/L (13-56); Albumin, Serum 1.8 g/dL (3.2-5.0); Alkaline Phosphatase 129 U/L (45-117); Anion Gap 6 (5-15); BUN 8 mg/dL (7-18); Calcium,Total 8.2 mg/dL (8.5-10.1); Chloride 101 mmol/L (98-107); Creatinine, Serum 0.66 mg/dL (0.55-1.02); EST Glomerular Filtration Rate 90 mL/min (>60); Est Glom Filt Rate - Afr Amer 109 mL/min (>60); Globulin 4.5 g/dL (2.2-4.2); Glucose 84 mg/dL (74-106); Potassium 2.9 mmol/L (3.5-5.1); Protein, Total 6.3 g/dL (6.4-8.2); Sodium Level 136 mmol/L (136-145)
--- NOTE | 2020-01-08 11:31 | PHA.DC.MR ---
Pharmacy Service has performed discharge medication reconciliation for this patient upon transfer to TCU. The patient's discharge medication list was reviewed for discrepancies and discrepancies were resolved. Home Medications Potassium Chloride 10 meq PO DAILY 12/26/19 Enoxaparin [Lovenox] 40 mg SUBCUT DAILY syringe 01/08/20 Furosemide [Lasix] 20 mg PO BID 30 Days #60 tab 01/08/20 Levetiracetam [Keppra] 500 mg PO BID 30 Days #60 tab 01/08/20 Metoprolol Succinate [Toprol Xl] 25 mg GT DAILY 30 Days #30 tab 01/08/20 Polyethylene Glycol 3350 [Miralax] 17 gm PO DAILY PRN PRN packet 01/08/20
[2020-01-08 11:48] LABS: Magnesium 2.1 mg/dL (1.6-2.6)
[2020-01-08] MEDS: Potassium Chloride 10mEq/100mL 10 MEQ/100 ML IV.SOLN. 100 MEQ IV BOLUS ×2 (12:43→13:36)
[2020-01-08 13:01] LABS: Bedside Glucose 91 mg/dL (70-110)
--- NOTE | 2020-01-08 13:13 | CASEMGMT ---
Patient is ready for discharge to TCU today. BABAK called patient's and let him know. BABAK also gave him the phone number to TCU. Plan: D/c to [facility] TCU under skilled level of care. Kelsey CALLAHAN MSW
[2020-01-08 14:03] VITALS: BP 152/76; PULSE 77; RESP 16; TEMP 36.3; O2SAT 100
--- NOTE | 2020-01-08 14:58 | NURSING ---
Central line dc'd with tip intact, 2 sutures removed. Pressure applied x 5 minutes, covered with vaseline guazue, 2x2 and secured with tegaderm.
[2020-01-08 15:00] VITALS: PULSE 76
--- NOTE | 2020-01-08 15:28 | NURSING ---
Report called to TCU nurse Kim. Going to room 21 and is ready fro patient.
== END 2020-01-08 15:58 | disposition skilled nursing facility (03) | DRG 870 ==
LOC: ED 11:55 → ICU 18:11 → PCU 01-02 16:35
PROVIDERS: Hospitalist; Internal Medicine; Internal Medicine Critical Care Medicine; Internal Medicine Infectious Disease; Emergency Provider Emergency Medicine; PCP Family Medicine; Visit Provider Internal Medicine
DX: A41.9 Sepsis, unspecified organism (principal); J15.211 Pneumonia due to Methicillin susceptible Staphylococcus aureus; R65.21 Severe sepsis with septic shock; J96.01 Acute respiratory failure with hypoxia; G93.41 Metabolic encephalopathy; N30.00 Acute cystitis without hematuria; N17.9 Acute kidney failure, unspecified; E87.2 Acidosis; E87.0 Hyperosmolality and hypernatremia; E87.1 Hypo-osmolality and hyponatremia; I24.8 Other forms of acute ischemic heart disease; G40.89 Other seizures; B96.20 Unspecified Escherichia coli [E. coli] as the cause of diseases classified elsewhere; E86.0 Dehydration; E87.6 Hypokalemia; E87.8 Other disorders of electrolyte and fluid balance, not elsewhere classified; L89.619 Pressure ulcer of right heel, unspecified stage; I48.0 Paroxysmal atrial fibrillation; I10 Essential (primary) hypertension; E03.9 Hypothyroidism, unspecified; F25.9 Schizoaffective disorder, unspecified; F31.9 Bipolar disorder, unspecified; F03.90 Unspecified dementia, unspecified severity, without behavioral disturbance, psychotic disturbance, mood disturbance, and anxiety; Z79.899 Other long term (current) drug therapy; Z87.891 Personal history of nicotine dependence
CPT/HCPCS: 31500; 31720; 36415; 36600; 51702; 70450; 70553; 71045; 74018; 80048; 80053; 81001; 82140; 82550; 82570; 82728; 82803; 82962; 83605; 83615; 83735; 83880; 84100; 84132; 84145; 84443; 84478; 84484; 84540; 85025; 85027; 85379; 85384; 85610; 85730; 86140; 86769; 87040; 87070; 87077; 87086; 87088; 87186; 87205; 87449; 87633; 87635; 87641; 92526; 92610; 93005; 93306; 94002; 94003; 94660; 95819; 96361; 96374; 97110; 97162; 97166; 97530; 97802; 97803; 99251; 99285; A9575; G2023; J2997; J7030; J7050; J7120; A4216; C1751; C8929; G0463; J0330; J0610; J1940; U0004

== ENCOUNTER 2020-01-08 16:30 | Inpatient (IN) | payer MEDICARE, OTHER, SELFPAY ==
[2020-01-07 12:14] VITALS: BMI 29.5
[2020-01-08 16:41] VITALS: BP 180/75; PULSE 74; RESP 16; TEMP 36.2; O2SAT 94; BMI 26.6
[2020-01-08] MEDS: Furosemide 20 MG Tablet PO (18:24)
[2020-01-08] MEDS: Jevity 1.5 1,000 ML 20 ML NG (18:24)
--- NOTE | 2020-01-08 20:36 | HP.PCM_ITS ---
Problem List (1) Debility Status: Acute (2) Unresponsive Status: Acute (3) Toxic encephalopathy Status: Acute (4) Hyperkalemia Status: Acute (5) MSSA (methicillin susceptible Staphylococcus aureus) pneumonia Status: Acute (6) E. coli UTI Status: Acute (7) Seizure disorder Status: Chronic (8) Dysphagia Status: Acute (9) Bipolar disorder Status: Chronic (10) Schizoaffective disorder Status: Chronic (11) Hypertension Status: Chronic (12) Edema Status: Chronic (13) Anxiety Status: Chronic (14) Insomnia Status: Chronic (15) Septic shock Status: Acute (16) Hypothyroidism Status: Chronic Qualifiers: (17) Atrial fibrillation with rapid ventricular response Status: Acute (18) Dementia Status: Chronic Qualifiers: History of Present Illness Date of Admission: 01/08/20 Chief Complaint: Here for rehabilitation, strengthening, prior to [facility]. 12/26/2019 The patient is a 84 year old Female with below past medical history presented to [facility] Emergency Department with unresponsiveness. 12/26/2019 EKG atrial fibrillation, right bundle branch block, left anterior fascicular block, voltage criteria for left ventricular hypertrophy, T wave abnormality, consider lateral ischemia. 12/26/2019 KUB showed nasogastric tube in stomach, left base atelectasis/infiltrate. 12/26/2019 Chest X-ray right lower lobe atelectasis. Not feeling well x 2 weeks, cough. Worsening sickness x 2 days, [facility] resident, minimal responsiveness. EMS noted unresponsive, NRB applied. Intubated, copious secretions suctioned from endotracheal tube. Oral gastric tube, Aguilar catheter placed. WBC 13.8, Fever 101, Lactate 5.7, Sodium 158, Potassium 6. UA negative. IV Fluids, Tylenol, Zosyn, Vancomycin, Zithromax given for septic shock. Calcium, insulin, dextrose given for hyperkalemia. 12/26/2019 Admit to ICU. Zosyn, Vancomycin for sepsis. Check COVID-19. Elevated troponin secondary to demand ischemia. 12/27/2019 Echo EF 65%. Stage 1 diastolic dysfunction. Right ventricular systolic pressure 27mm HG. 12/27/2019 Dr. Flores, Fever 101.7, Pressors, Heparin drip. Sputum growing Staph Aureus, Urine growing gram negative janeth. COVID #1 negative. Continue Zosyn, Vancomycin, Check endobronchial sample, serology to rule out COVID-19. 12/28/2019 CT brain chronic involutional changes of brain. 12/30/2019 MRI brain negative. 01/01/2020 Teleneurology EEG shows seizures, continue Keppra therapy. 01/02/2020 Septic shock secondary to MSSA pneumonia, urinary tract infection. Cefazolin for MSSA pneumonia, COVID-19 ruled out. Cefazolin for E. Coli urinary tract infection. ST swallow evaluation for infectious encephalopathy. New atrial fibrillation with rapid ventricular response, on Heparin, contraindicated for vermin exterminator anticoagulation. 01/03/2020 Dr. Flores MSSA pneumonia, E. Coli urinary tract infection, COVID ruled out. Out of isolation, Stop Cefazolin, remove central line. 01/06/2020 Failed swallow, consider PEG. More lethargic, hold transfer to TCU. 01/07/2020 Dr. Smith offered PEG, Family decided against PEG placement. Corpak placed instead. Prognosis poor, family meeting held, requested Full Code. 01/08/2020 Admit to TCU with debility, here for rehabilitation, strengthening, prior to discharge to prison. Past Medical History Past Medical History (Chronic Problems): Chronic Problems Seizure disorder (Chronic) Bipolar disorder (Chronic) Schizoaffective disorder (Chronic) Hypertension (Chronic) Edema (Chronic) Anxiety (Chronic) Insomnia (Chronic) Essential hypertension (Chronic) Paroxysmal atrial fibrillation (Chronic) Schizophrenia (Chronic) Hypothyroidism (Chronic) Bipolar disorder (Chronic) Dementia (Chronic) Abnormal electrocardiogram [ECG] [EKG] (Chronic) Allergies No Known Allergies Allergy (Verified 12/26/19 11:44) Home Medications: Ambulatory Orders Medication Instructions Recorded Potassium Chloride 10 meq PO DAILY 12/26/19 Enoxaparin [Lovenox] 40 mg SUBCUT DAILY 01/08/20 Furosemide [Lasix] 20 mg PO BID 01/08/20 Levetiracetam [Keppra] 500 mg PO BID 01/08/20 Metoprolol Succinate [Toprol Xl] 25 mg GT DAILY 30 Days #30 tab 01/08/20 Polyethylene Glycol 3350 [Miralax] 17 gm PO DAILY PRN PRN packet 01/08/20 Surgical History: no surgical history Psychiatric History: Anxiety, Bipolar, Depression, Schizophrenia WOOL SPOTTER History: No pertinent WOOL SPOTTER history Lives: Snf - [facility]. Smoking Status: Unknown if ever smoked Tobacco Use: Non-smoker Alcohol: None Drugs: None - *Family History Maternal History Items: No pertinent history Paternal History Items: No pertinent history Review of Systems Constitutional: Denies: Chills, Fever, Weight Change HEENT: Denies: Head Aches, Sinus Congestion, Sinus Drainage Cardiovascular: Denies: Chest Pain, Palpitations Respiratory: Denies: Cough, Shortness of breath at rest, Sputum production Gastrointestinal: Denies: Abdominal Pain, Nausea, Vomiting Genitourinary: Denies: Dysuria Musculoskeletal: Denies: Joint Pain, Joint Tenderness Skin: Denies: Rash, Wounds Neurological: Denies: Numbness, Tingling, Focal weakness Psychiatric: Denies: Anxiety, Depression, Homicidal Ideations, Suicidal Ideations Hematologic/ Lymphatic: Denies: Easy Bruising, Easy Bleeding VTE Information - Inpt Only VTE Present on Admission: No VTE Mechan Device Prophylaxis: Knee High CORAL Hose VTE Pharm Prophylaxis ordered?: Yes Patient Problems: Active and Suspected Problems Debility (Acute) Unresponsive (Acute) Toxic encephalopathy (Acute) Hyperkalemia (Acute) MSSA (methicillin susceptible Staphylococcus aureus) pneumonia (Acute) E. coli UTI (Acute) Dysphagia (Acute) - Physical Exam Vitals/I&O's: Vital Signs Temp Pulse Resp BP Pulse Ox 97.2 F L 74 16 180/75 H 94 01/08/20 16:41 01/08/20 16:41 01/08/20 16:41 01/08/20 16:41 01/08/20 16:41 Oxygen Delivery Method Room Air Weight: 84.4 kg Body Mass Index (BMI) 29.5 General: Alert, Oriented x3, Cooperative HEENT: Atraumatic, PERRLA, EOMI, Normocephalic, - - Corpak present. Neck: Supple, No JVD, Negative Carotid Bruits Lungs: Clear to auscultation, Normal air movement Cardiovascular: Regular rate, No murmurs Abdomen: Bowel Sounds Present, Soft, Non Tender Extremities: No edema, Capillary Refill Less than 3 Seconds Skin: No rashes, No breakdown Musculoskeletal: No Tenderness to Palpation of Joints or Extremities Neurological: Cranial nerves II-XII grossly intact Psych/Mental Status: Normal Affect, Appropriate Current Medications Enoxaparin Sodium (Lovenox) 40 mg SC DAILY [facility] Furosemide (Lasix) 20 mg PO BID [facility] Last Admin: 01/08/20 18:24 Dose: 20 mg Documented by: Enteral Nutritional Formula (Jevity 1.5) 1,000 mls @ 50 mls/hr NG .Q20H [facility] Last Admin: 01/08/20 18:24 Dose: 20 mls/hr Documented by: Levetiracetam (Keppra Oral Solution) 500 mg GT BID [facility] Metoprolol Succinate (Toprol Xl (Beta Joi)) 25 mg PO DAILY [facility] Polyethylene Glycol (Miralax) 17 gm PO DAILY PRN PRN PRN Reason: Constipation Potassium Chloride (K-Dur) 10 meq PO DAILY [facility] Tuberculin PPD (Tubersol, Aplisol, Ppd) 5 tu ID X1 ONE Stop: 01/09/20 10:01 Tuberculin PPD (Tubersol, Aplisol, Ppd) 5 tu ID X1 ONE Stop: 01/16/20 10:01 Assessment/Plan All Active Problems Septic shock (Acute) Acute respiratory failure with hypoxia (Acute) Metabolic encephalopathy (Acute) Suspected 2019 novel coronavirus infection (Acute) Debility (Acute) Unresponsive (Acute) Toxic encephalopathy (Acute) Hyperkalemia (Acute) MSSA (methicillin susceptible Staphylococcus aureus) pneumonia (Acute) E. coli UTI (Acute) Dysphagia (Acute) Community acquired pneumonia (Acute) Atrial fibrillation with rapid ventricular response (Acute) 84 year old female with below past medical history hospitalized for septic shock secondary to Methicillin sensitive staph aureus pneumonia, E. Coli urinary tract infection, complicated by seizure disorder, atrial fibrillation with rapid ventricular response, dysphagia, admitted to TCU with debility, here for rehabilitation, strengthening, prior to discharge to prison. * Debility - PT/OT. * Pain - Tylenol 650MG Q4H PRN pain (1-10). * Bowel - Miralax 17GM daily. * Adult immunization - Administer Prevnar 13, Pneumovax 23, Fluzone as appropriate. * DVT prophylaxis - Lovenox 40MG sc daily. * Edema - Lasix 20MG BID. * Nutrition - Jevity 1.5 50ML/hour. * Seizure disorder - Keppra 500MG BID. * Atrial fibrillation - Metoprolol succinate 25MG daily, anticoagulation not recommended due to risk of falls. * Hypokalemia - K-Dur 10MEQ daily. * End of Life - If resident does not progress with therapy, will discuss code status, hospice care.
[2020-01-08] MEDS: levETIRAcetam Oral Solution 500 MG/5 ML GT (20:59)
[2020-01-08 23:08] VITALS: BMI 28.3
[2020-01-09 04:03] VITALS: BP 130/63; PULSE 63; RESP 16; TEMP 36.2; O2SAT 95
[2020-01-09] MEDS: Furosemide 20 MG Tablet PO ×2 (05:40→17:10)
[2020-01-09] MEDS: Enoxaparin 40 MG/0.4 ML Syringe SC (05:40)
[2020-01-09] MEDS: Nystatin Powder 15gm Bottle 1 APPLIC TOPICAL ×2 (05:41→20:05)
[2020-01-09] MEDS: Menthol/Lanolin/Calamine/Znox 113 GM Tube 1 APPLIC TOPICAL ×2 (05:41→20:06)
[2020-01-09] MEDS: levETIRAcetam Oral Solution 500 MG/5 ML GT ×2 (05:42→17:10)
[2020-01-09] MEDS: Polyethylene Glycol 3350 17 GM PACKET PO (05:54)
[2020-01-09 06:10] LABS: Absolute Lymphocyte Count 1.66 X10^3/uL (0.83-4.51); Absolute Neutrophil Count 6.1 X10^3/uL (2.0-7.7); Basophil# 0.04 X10^3/uL; Basophil% 0.4 % (0-1); Eosinophils% 1.1 % (0-5); Hematocrit 39.7 % (37-47); Hemoglobin 12.8 g/dL (12.0-15.0); Lymphocyte # 1.66 X10^3/ul (4.0); Lymphocyte % 18.4 % (19-41); Mean Corp Hgb Conc 32.2 g/dL (32-36); Mean Corpuscular Hgb 30.7 pg (27.0-32.0); Mean Corpuscular Volume 95.2 fL (81-99); Monocyte# 0.84 X10^3/uL; Monocyte% 9.3 % (0-10); NRBC Flagged by Analyzer 0 % (0-5); Neutrophil # 6.14 X10^3/uL (2.7-7.7); Neutrophil % 68.1 % (47-70); Platelet Count 372 K/mm3 (150-450); RBC Distribution Width CV 13.9 % (11.6-14.6); RBC Distribution Width SD 46.2 fl (35.1-43.9); Red Blood Count 4.17 M/mm3 (4.2-5.4)
[2020-01-09 06:15] LABS: Anion Gap 6 (5-15); BUN 9 mg/dL (7-18); BUN/Creat Ratio 13.3 RATIO (10-20); Calcium,Total 8.5 mg/dL (8.5-10.1); Chloride 103 mmol/L (98-107); Creatinine, Serum 0.68 mg/dL (0.55-1.02); EST Glomerular Filtration Rate 88 mL/min (>60); Est Glom Filt Rate - Afr Amer 107 mL/min (>60); Glucose 80 mg/dL (74-106); Potassium 3.9 mmol/L (3.5-5.1); Sodium Level 136 mmol/L (136-145)
--- NOTE | 2020-01-09 09:04 | PCM.PN.RX ---
<GiannawiliShahana M - Last Filed: 01/09/20 09:04> Progress Note - Pharmacy Subjective: TCU ADMISSION Objective: Allergies No Known Allergies Allergy (Verified 12/26/19 11:44) Current Medications Generic Name Dose Route Start Last Admin Trade Name Freq PRN Reason Stop Dose Admin Acetaminophen 650 mg 01/08/20 21:16 Tylenol Liquid NG Q4H PRN PRN Pain Score 1-05/11 Acyclovir 1 applic 01/09/20 10:00 Zovirax TOPICAL 01/19/20 10:01 5X/DAY CHERELLE Protocol Calamine/Phenol 1 applic 01/09/20 06:00 01/09/20 05:41 Calmoseptine Ointment TOPICAL 1 applicatio 599,2199 [facility] Administration Protocol Enoxaparin Sodium 40 mg 01/09/20 06:00 01/09/20 05:40 Lovenox SC 40 mg DAILY CHERELLE Administration Furosemide 20 mg 01/08/20 18:00 01/09/20 05:40 Lasix PO 20 mg BID CHERELLE Administration Enteral Nutritional Formula 1,000 mls @ 50 mls/hr 01/08/20 16:55 01/08/20 18:24 Jevity 1.5 NG 20 mls/hr .Q20H CHERELLE Administration Levetiracetam 500 mg 01/08/20 18:30 01/09/20 05:42 Keppra Oral Solution GT 500 mg BID CHERELLE Administration Metoprolol Tartrate 12.5 mg 01/09/20 09:00 Lopressor (Beta Joi) PO BID CHERELLE Nystatin 1 applic 01/09/20 06:00 01/09/20 05:41 Mycostatin Powder TOPICAL 1 applicatio [facility] Administration Protocol Polyethylene Glycol 17 gm 01/09/20 06:00 01/09/20 05:54 Miralax PO 17 gm DAILY CHERELLE Administration Potassium Chloride 10 meq 01/09/20 06:00 01/09/20 05:39 K-Dur PO 10 meq DAILY CHERELLE Administration Tuberculin PPD 5 01/09/20 10:00 Tubersol, Aplisol, Ppd ID 01/09/20 10:01 X1 ONE Tuberculin PPD 5 01/16/20 10:00 Tubersol, Aplisol, Ppd ID 01/16/20 10:01 X1 ONE Problem List Debility (Acute) Unresponsive (Acute) Toxic encephalopathy (Acute) Hyperkalemia (Acute) MSSA (methicillin susceptible Staphylococcus aureus) pneumonia (Acute) E. coli UTI (Acute) Seizure disorder (Chronic) Dysphagia (Acute) Bipolar disorder (Chronic) Schizoaffective disorder (Chronic) Hypertension (Chronic) Edema (Chronic) Anxiety (Chronic) Insomnia (Chronic) Vital Signs Temp Pulse Resp BP Pulse Ox 97.1 F L 63 16 130/63 H 95 01/09/20 04:03 01/09/20 04:03 01/09/20 04:03 01/09/20 04:03 01/09/20 04:03 Oxygen Delivery Method Room Air Weight: 84.4 kg Body Mass Index (BMI) 28.3 Sodium 136 mmol/L (136-145) 01/09/20 05:23 Potassium 3.9 mmol/L (3.5-5.1) 01/09/20 05:23 Chloride 103 mmol/L (98-107) 01/09/20 05:23 Carbon Dioxide 27.0 mmol/L (21.0-32.0) 01/09/20 05:23 Anion Gap 6 (5-15) 01/09/20 05:23 BUN 9 mg/dL (7-18) 01/09/20 05:23 Creatinine 0.68 mg/dL (0.55-1.02) 01/09/20 05:23 Est GFR (MDRD) Af Amer 107 mL/min (>60) 01/09/20 05:23 Est GFR (MDRD) Non-Af 88 mL/min (>60) 01/09/20 05:23 BUN/Creatinine Ratio 13.3 RATIO (10-20) 01/09/20 05:23 Glucose 80 mg/dL (74-106) 01/09/20 05:23 Assessment/Plan: 1. Pain: Tylenol Liquid 650mg NG Q4h PRN Pain 1-05/11. Please continue to monitor for increased/decreased pain, PRN medication use. 2. Atrial Fibrillation: Lopressor 12.5mg NG BID. Please continue to monitor BP, pulse. 3. Seizure Disorder: Keppra Liquid 500mg NG BID. Please continue to monitor for symptom improvement, renal function. 4. Fluid Retention: Lasix 20mg NG BID, KCl 10mEq NG Daily. Please continue to monitor fluid status, renal function, electrolytes. 5. DVT Prophylaxis: Lovenox 40mg SC Daily. Please continue to monitor for S/S bleeding/bruising, renal function. 6. Cold Sore: Acyclovir topical 1 application 5x/day through 01/19/20. Please continue to monitor for resolution of cold sore, local site reactions. Psychotropic Medications: None Unnecessary Medications: None Bowel Regimen: Miralax 17g NG Daily. Please continue to monitor for increased/decreased constipation and/or diarrhea Date of Note:: 01/09/20 - Provider Comments Provider responsibility: Provider responsible to enter orders to implement recommendations <Hector Alcocer Chi - Last Filed: 01/09/20 11:48> Progress Note - Pharmacy Subjective: [] Objective: Allergies No Known Allergies Allergy (Verified 12/26/19 11:44) Current Medications Generic Name Dose Route Start Last Admin Trade Name Freq PRN Reason Stop Dose Admin Acetaminophen 650 mg 01/08/20 21:16 Tylenol Liquid NG Q4H PRN PRN Pain Score 1-05/11 Acyclovir 1 applic 01/09/20 10:00 01/09/20 09:55 Zovirax TOPICAL 01/19/20 10:01 1 applicatio 5X/DAY CHERELLE Administration Protocol Calamine/Phenol 1 applic 01/09/20 06:00 01/09/20 05:41 Calmoseptine Ointment TOPICAL 1 applicatio 0600,2200 CHERELLE Administration Protocol Enoxaparin Sodium 40 mg 01/09/20 06:00 01/09/20 05:40 Lovenox SC 40 mg DAILY CHERELLE Administration Furosemide 20 mg 01/08/20 18:00 01/09/20 05:40 Lasix PO 20 mg BID CHERELLE Administration Enteral Nutritional Formula 1,000 mls @ 50 mls/hr 01/08/20 16:55 01/08/20 18:24 Jevity 1.5 NG 20 mls/hr .Q20H CHERELLE Administration Levetiracetam 500 mg 01/08/20 18:30 01/09/20 05:42 Keppra Oral Solution GT 500 mg BID CHERELLE Administration Metoprolol Tartrate 12.5 mg 01/09/20 09:00 01/09/20 09:56 Lopressor (Beta Joi) PO 12.5 mg BID CHERELLE Administration Nystatin 1 applic 01/09/20 06:00 01/09/20 05:41 Mycostatin Powder TOPICAL 1 applicatio 0600,2200 CHERELLE Administration Protocol Polyethylene Glycol 17 gm 01/09/20 06:00 01/09/20 05:54 Miralax PO 17 gm DAILY CHERELLE Administration Potassium Chloride 10 meq 01/09/20 06:00 01/09/20 05:39 K-Dur PO 10 meq DAILY CHERELLE Administration Tuberculin PPD 5 tu 01/16/20 10:00 Tubersol, Aplisol, Ppd ID 01/16/20 10:01 X1 ONE Problem List Debility (Acute) Unresponsive (Acute) Toxic encephalopathy (Acute) Hyperkalemia (Acute) MSSA (methicillin susceptible Staphylococcus aureus) pneumonia (Acute) E. coli UTI (Acute) Seizure disorder (Chronic) Dysphagia (Acute) Bipolar disorder (Chronic) Schizoaffective disorder (Chronic) Hypertension (Chronic) Edema (Chronic) Anxiety (Chronic) Insomnia (Chronic) Vital Signs Temp Pulse Resp BP Pulse Ox 97.1 F L 59 L 16 130/63 H 95 01/09/20 04:03 01/09/20 09:56 01/09/20 04:03 01/09/20 04:03 01/09/20 04:03 Oxygen Delivery Method Room Air Weight: 84.4 kg Body Mass Index (BMI) 28.3 Sodium 136 mmol/L (136-145) 01/09/20 05:23 Potassium 3.9 mmol/L (3.5-5.1) 01/09/20 05:23 Chloride 103 mmol/L (98-107) 01/09/20 05:23 Carbon Dioxide 27.0 mmol/L (21.0-32.0) 01/09/20 05:23 Anion Gap 6 (5-15) 01/09/20 05:23 BUN 9 mg/dL (7-18) 01/09/20 05:23 Creatinine 0.68 mg/dL (0.55-1.02) 01/09/20 05:23 Est GFR (MDRD) Af Amer 107 mL/min (>60) 01/09/20 05:23 Est GFR (MDRD) Non-Af 88 mL/min (>60) 01/09/20 05:23 BUN/Creatinine Ratio 13.3 RATIO (10-20) 01/09/20 05:23 Glucose 80 mg/dL (74-106) 01/09/20 05:23 Assessment/Plan: Psychotropic Medications: Unnecessary Medications: Bowel Regimen: - Provider Comments Provider responsibility: Provider responsible to enter orders to implement recommendations Provider Comments to Recommendations by Pharmacy: Agree
[2020-01-09] MEDS: Acyclovir 5% Tube 1 APPLIC TOPICAL ×4 (09:55→22:52)
[2020-01-09 09:56] VITALS: PULSE 59
[2020-01-09] MEDS: Tuberculin,Purif.prot.deriv. 50 TU/ML Vial 5 ML ID (09:56)
[2020-01-09] MEDS: Metoprolol Tartrate 25 MG Tablet 12.5 MG PO ×2 (09:56→17:10)
--- NOTE | 2020-01-09 12:10 | NURSING ---
Spoke with , Alex, and provided an update
[2020-01-09 14:03] VITALS: BP 136/73; PULSE 65; RESP 18; TEMP 36.7; O2SAT 95
[2020-01-09 17:10] VITALS: BP 136/73; PULSE 65
[2020-01-09] MEDS: Jevity 1.5 1,000 ML 50 ML NG (17:49)
[2020-01-10 05:25] VITALS: BP 136/63; PULSE 65; RESP 18; TEMP 36.2; O2SAT 97
[2020-01-10] MEDS: Nystatin Powder 15gm Bottle 1 APPLIC TOPICAL ×2 (05:28→20:07)
[2020-01-10] MEDS: Polyethylene Glycol 3350 17 GM PACKET PO (05:28)
[2020-01-10 05:29] VITALS: BP 136/63; PULSE 63
[2020-01-10] MEDS: levETIRAcetam Oral Solution 500 MG/5 ML GT ×2 (05:29→18:51)
[2020-01-10] MEDS: Furosemide 20 MG Tablet PO ×2 (05:29→18:51)
[2020-01-10] MEDS: Metoprolol Tartrate 25 MG Tablet 12.5 MG PO ×2 (05:29→18:50)
[2020-01-10] MEDS: Menthol/Lanolin/Calamine/Znox 113 GM Tube 1 APPLIC TOPICAL ×2 (05:30→20:07)
[2020-01-10] MEDS: Enoxaparin 40 MG/0.4 ML Syringe SC (05:42)
[2020-01-10] MEDS: Acyclovir 5% Tube 1 APPLIC TOPICAL ×5 (05:45→20:06)
[2020-01-10 14:17] VITALS: BP 141/64; PULSE 57; RESP 18; TEMP 36.5; O2SAT 95
--- NOTE | 2020-01-10 14:20 | NURSING ---
Family updated (Alex Barker) on resident status and appreciative of call.
[2020-01-10] MEDS: Jevity 1.5 1,000 ML 50 ML NG (15:35)
[2020-01-10 18:50] VITALS: PULSE 76
[2020-01-10 18:55] VITALS: PULSE 76; O2SAT 93
[2020-01-11 05:07] VITALS: BP 110/59; PULSE 63; RESP 18; TEMP 36.8; O2SAT 97
[2020-01-11] MEDS: levETIRAcetam Oral Solution 500 MG/5 ML GT ×2 (05:09→17:03)
[2020-01-11] MEDS: Enoxaparin 40 MG/0.4 ML Syringe SC (05:09)
[2020-01-11] MEDS: Furosemide 20 MG Tablet PO ×2 (05:09→17:04)
[2020-01-11] MEDS: Polyethylene Glycol 3350 17 GM PACKET PO (05:09)
[2020-01-11 05:10] VITALS: BP 110/59; PULSE 63
[2020-01-11] MEDS: Metoprolol Tartrate 25 MG Tablet 12.5 MG PO ×2 (05:10→17:04)
[2020-01-11] MEDS: Acyclovir 5% Tube 1 APPLIC TOPICAL ×5 (05:10→21:16)
[2020-01-11] MEDS: Nystatin Powder 15gm Bottle 1 APPLIC TOPICAL ×2 (05:23→21:16)
[2020-01-11] MEDS: Menthol/Lanolin/Calamine/Znox 113 GM Tube 1 APPLIC TOPICAL ×2 (05:23→21:17)
[2020-01-11 13:35] VITALS: BP 114/67; PULSE 57; RESP 20; TEMP 36.8; O2SAT 96
[2020-01-11] MEDS: Jevity 1.5 1,000 ML 50 ML NG (14:26)
[2020-01-11 17:04] VITALS: PULSE 57
[2020-01-12 06:07] VITALS: BP 113/61; PULSE 85; RESP 18; TEMP 36.6; O2SAT 94
[2020-01-12] MEDS: Menthol/Lanolin/Calamine/Znox 113 GM Tube 1 APPLIC TOPICAL ×2 (06:09→21:06)
[2020-01-12 06:10] VITALS: BP 113/61; PULSE 85
[2020-01-12] MEDS: Metoprolol Tartrate 25 MG Tablet 12.5 MG PO ×2 (06:10→18:12)
[2020-01-12] MEDS: Enoxaparin 40 MG/0.4 ML Syringe SC (06:10)
[2020-01-12] MEDS: Polyethylene Glycol 3350 17 GM PACKET PO (06:10)
[2020-01-12] MEDS: Furosemide 20 MG Tablet PO ×2 (06:11→18:11)
[2020-01-12] MEDS: Acyclovir 5% Tube 1 APPLIC TOPICAL ×5 (06:12→21:05)
[2020-01-12] MEDS: levETIRAcetam Oral Solution 500 MG/5 ML GT ×2 (06:12→18:10)
[2020-01-12] MEDS: Nystatin Powder 15gm Bottle 1 APPLIC TOPICAL ×2 (06:12→21:06)
[2020-01-12] MEDS: Jevity 1.5 1,000 ML 50 ML NG (13:55)
[2020-01-12 14:18] VITALS: BP 114/63; PULSE 74; RESP 16; TEMP 36.5; O2SAT 95
[2020-01-12 18:12] VITALS: BP 114/63; PULSE 74
--- NOTE | 2020-01-13 01:45 | PCA ---
Patient weight was reported to me by 1st shift APPLIQUER ZIGZAG Clarissa
[2020-01-13 04:00] VITALS: BP 114/62; PULSE 61; RESP 16; TEMP 36.2; O2SAT 97
[2020-01-13] MEDS: Menthol/Lanolin/Calamine/Znox 113 GM Tube 1 APPLIC TOPICAL ×2 (04:46→20:22)
[2020-01-13 04:48] VITALS: PULSE 62
[2020-01-13] MEDS: Metoprolol Tartrate 25 MG Tablet 12.5 MG PO ×2 (04:48→18:21)
[2020-01-13] MEDS: Polyethylene Glycol 3350 17 GM PACKET PO (04:50)
[2020-01-13] MEDS: Furosemide 20 MG Tablet PO ×2 (04:51→18:14)
[2020-01-13] MEDS: Nystatin Powder 15gm Bottle 1 APPLIC TOPICAL ×2 (04:51→20:22)
[2020-01-13] MEDS: Acyclovir 5% Tube 1 APPLIC TOPICAL ×5 (04:52→20:23)
[2020-01-13] MEDS: levETIRAcetam Oral Solution 500 MG/5 ML GT ×2 (04:53→18:14)
[2020-01-13] MEDS: Enoxaparin 40 MG/0.4 ML Syringe SC (04:53)
[2020-01-13 11:30] VITALS: PULSE 72; RESP 18
[2020-01-13] MEDS: Jevity 1.5 1,000 ML 50 ML NG (14:19)
[2020-01-13 14:24] VITALS: BP 106/59; PULSE 72; RESP 18; TEMP 36.2; O2SAT 94
[2020-01-13 18:21] VITALS: BP 106/59; PULSE 72
[2020-01-14 05:43] VITALS: BP 139/60; PULSE 62; RESP 16; TEMP 36.6; O2SAT 97
[2020-01-14] MEDS: Enoxaparin 40 MG/0.4 ML Syringe SC (05:45)
[2020-01-14] MEDS: Nystatin Powder 15gm Bottle 1 APPLIC TOPICAL ×2 (05:45→21:36)
[2020-01-14] MEDS: Polyethylene Glycol 3350 17 GM PACKET PO (05:45)
[2020-01-14] MEDS: Menthol/Lanolin/Calamine/Znox 113 GM Tube 1 APPLIC TOPICAL ×2 (05:45→21:35)
[2020-01-14 05:46] VITALS: BP 139/60; PULSE 62
[2020-01-14] MEDS: Acyclovir 5% Tube 1 APPLIC TOPICAL ×5 (05:46→21:35)
[2020-01-14] MEDS: Furosemide 20 MG Tablet PO ×2 (05:46→18:18)
[2020-01-14] MEDS: Metoprolol Tartrate 25 MG Tablet 12.5 MG PO ×2 (05:46→18:17)
[2020-01-14] MEDS: levETIRAcetam Oral Solution 500 MG/5 ML GT ×2 (05:46→18:18)
[2020-01-14 10:00] VITALS: PULSE 61; RESP 18
[2020-01-14] MEDS: Jevity 1.5 1,000 ML 50 ML NG (12:30)
--- NOTE | 2020-01-14 14:48 | NURSING ---
Update provided to family.
[2020-01-14 16:00] VITALS: BP 142/61; PULSE 76; RESP 17; TEMP 36; O2SAT 94
[2020-01-14 18:17] VITALS: PULSE 76
--- NOTE | 2020-01-15 01:39 | RAD_ITS ---
STUDY: X-RAY - ABDOMEN/PELVIS REASON FOR EXAM: Female, 84 years old. Pt was witnessed pulling on feeding tube. NG tube placement verification. TECHNIQUE: Single AP view of the abdomen / pelvis. COMPARISON: January 07, 2020 chest x-ray FINDINGS: There is partially visualized lower lobe atelectasis. A feeding tube is present. The tip is still in the stomach. It has been pulled back slightly since prior. There is a gassy appearance of the partially visualized tortuous colon. There is no demonstrated free abdominal air. The liver spleen and kidneys are mostly obscured. Normal soft tissue structures. There are diffuse degenerative changes of the visualized lumbar spine. RAD/Abdomen Single View IMPRESSION: Feeding tube is present the tip is in the stomach. Gassy appearance of the colon. Lower lobe atelectasis partially visualized. Electronically Signed: Lupe Cortés MD at 2:19 EDT Tel , Service support ,
[2020-01-15 05:17] VITALS: BP 152/74; PULSE 64; RESP 16; TEMP 37; O2SAT 93
[2020-01-15] MEDS: Menthol/Lanolin/Calamine/Znox 113 GM Tube 1 APPLIC TOPICAL ×2 (05:25→21:02)
[2020-01-15] MEDS: Nystatin Powder 15gm Bottle 1 APPLIC TOPICAL ×2 (05:25→21:02)
[2020-01-15 05:26] VITALS: BP 152/74; PULSE 64
[2020-01-15] MEDS: Furosemide 20 MG Tablet PO ×2 (05:26→17:09)
[2020-01-15] MEDS: Metoprolol Tartrate 25 MG Tablet 12.5 MG PO ×2 (05:26→17:09)
[2020-01-15] MEDS: Enoxaparin 40 MG/0.4 ML Syringe SC (05:26)
[2020-01-15] MEDS: Acyclovir 5% Tube 1 APPLIC TOPICAL ×2 (05:32→10:51)
[2020-01-15] MEDS: levETIRAcetam Oral Solution 500 MG/5 ML GT ×2 (05:38→17:10)
--- NOTE | 2020-01-15 08:46 | NURSING ---
NG tube marked between 61-62cm on tubing at nare, taped in secured fashion.
--- NOTE | 2020-01-15 09:47 | NURSING ---
Peanut Butter Maker Note: Video call placed with resident and both on 01/13/2020 (see Veneer Jointer Progress Note) and this date. Resident awake, eyes open. repeating, Kenyetta, Kenyetta. Wake up Kenyetta in attempt to gain response. Resident gave no verbal response. Unable to maintain eye contact to screen. states that prior to admission she was able to feed herself, however, unable to complete adls or iadls for some time. Educated that resident is unable to participate with therapies and therapies provide pass ROM. Arranged video call again for today's therapy session for him to observe further.
[2020-01-15] MEDS: Jevity 1.5 1,000 ML 50 ML NG (10:52)
--- NOTE | 2020-01-15 11:22 | NURSING ---
Wound nurse in to assess pressure area to back of head, area in middle of scalp was healed, new area to lower scalp, head elevated off bed to prevent pressure.
--- NOTE | 2020-01-15 11:54 | NURSING ---
wound photo: right medial heel
[2020-01-15 14:31] VITALS: BP 126/58; PULSE 59; RESP 16; TEMP 36.5; O2SAT 98
--- NOTE | 2020-01-15 14:43 | MDS.RN ---
attempted to completed pain interview, resident has eyes open, no verbal response, resp. even, unlabored. will do staff assessment of pain.
[2020-01-15 17:09] VITALS: PULSE 62
[2020-01-15 22:09] VITALS: PULSE 69; O2SAT 95
[2020-01-16 04:00] VITALS: BP 132/57; PULSE 66; RESP 20; TEMP 36.3; O2SAT 99
[2020-01-16] MEDS: Nystatin Powder 15gm Bottle 1 APPLIC TOPICAL ×2 (04:42→19:46)
[2020-01-16] MEDS: Menthol/Lanolin/Calamine/Znox 113 GM Tube 1 APPLIC TOPICAL ×2 (04:42→19:46)
[2020-01-16] MEDS: Furosemide 20 MG Tablet PO ×2 (04:45→17:13)
[2020-01-16] MEDS: Enoxaparin 40 MG/0.4 ML Syringe SC (04:45)
[2020-01-16 04:46] VITALS: BP 132/57; PULSE 66
[2020-01-16] MEDS: Metoprolol Tartrate 25 MG Tablet 12.5 MG PO ×2 (04:46→17:13)
[2020-01-16] MEDS: levETIRAcetam Oral Solution 500 MG/5 ML GT ×2 (04:47→17:13)
[2020-01-16 05:53] LABS: Absolute Lymphocyte Count 1.88 X10^3/uL (0.83-4.51); Absolute Neutrophil Count 4.1 X10^3/uL (2.0-7.7); Basophil# 0.03 X10^3/uL; Basophil% 0.4 % (0-1); Eosinophil# 0.23 X10^3/uL; Eosinophils% 3.1 % (0-5); Hemoglobin 11.2 g/dL (12.0-15.0); Lymphocyte # 1.88 X10^3/ul (4.0); Lymphocyte % 25.3 % (19-41); Mean Corp Hgb Conc 31.1 g/dL (32-36); Mean Corpuscular Hgb 30.9 pg (27.0-32.0); Mean Corpuscular Volume 99.2 fL (81-99); Mean Platelet Vol. 10.4 fl (6.2-12.0); Monocyte# 1.07 X10^3/uL; Monocyte% 14.4 % (0-10); NRBC Flagged by Analyzer 0 % (0-5); Neutrophil # 4.08 X10^3/uL (2.7-7.7); Neutrophil % 54.9 % (47-70); Platelet Count 332 K/mm3 (150-450); RBC Distribution Width CV 14.9 % (11.6-14.6); RBC Distribution Width SD 51.3 fl (35.1-43.9); Red Blood Count 3.63 M/mm3 (4.2-5.4); White Blood Count 7.4 K/mm3 (4.4-11.0)
[2020-01-16 06:12] LABS: Anion Gap 6 (5-15); BUN 18 mg/dL (7-18); BUN/Creat Ratio 27.2 RATIO (10-20); Calcium,Total 8.7 mg/dL (8.5-10.1); Chloride 96 mmol/L (98-107); Creatinine, Serum 0.66 mg/dL (0.55-1.02); EST Glomerular Filtration Rate 90 mL/min (>60); Est Glom Filt Rate - Afr Amer 109 mL/min (>60); Glucose 105 mg/dL (74-106); Potassium 4.2 mmol/L (3.5-5.1); Sodium Level 133 mmol/L (136-145)
[2020-01-16] MEDS: Tuberculin,Purif.prot.deriv. 50 TU/ML Vial 5 ML ID (10:38)
[2020-01-16 10:42] VITALS: RESP 18
[2020-01-16] MEDS: Jevity 1.5 1,000 ML 50 ML NG (11:29)
--- NOTE | 2020-01-16 14:10 | NURSING ---
Update provided to via phone
[2020-01-16 14:42] VITALS: BP 138/72; PULSE 65; RESP 20; TEMP 36.2
--- NOTE | 2020-01-16 15:59 | CHAPLAIN ---
Type of Pastoral Visit ___ Initial Visit ___ Follow-up Visit ___ On-call Visit ___ General Patient Visit ___ Spiritual Assessment _x__ Family Conference ___ Bereavement ___ Rapid Response ___ Code Blue ___ Other (describe below) Pastoral Care Referral From ___ Patient _x__ Family ___ Nurse ___ Physician ___ Drug Safety Assistant ___ Devops _x__ Other (describe below) Sacrament/Intervention ___ Active listening ___ Anointing ___ Advent ___ Bereavement ___ Communion ___ Nguyen exploration ___ ___ Life review _x__ Prayer ___ Reconciliation ___ Sacrament of Sick _x__ Supportive presence ___ Wedding _x__ Other (describe below) Pastoral Comments request made from Marine Services Technician to assist in video call with spouse; spouse was contacted and receptive to seeing the patient on screen; pt had eyes open at beginning of conversation but then shut her eyes and did not respond further; spouse repeatedly called out name of pt but pt did not respond; pt and this intelligence research specialist continue conversation; spouse desires to be present with patient; spouse believes that pt would respond if he could be present; visitation is not permitted at this time; spouse requests prayer for patient which was honored during the video call with spouse; spouse would like daily calls
[2020-01-16 17:13] VITALS: BP 135/72; PULSE 65
[2020-01-17 05:10] VITALS: BP 133/65; PULSE 62; RESP 20; TEMP 36.3; O2SAT 94
[2020-01-17 05:13] VITALS: BP 133/65; PULSE 62
[2020-01-17] MEDS: Enoxaparin 40 MG/0.4 ML Syringe SC (05:13)
[2020-01-17] MEDS: Nystatin Powder 15gm Bottle 1 APPLIC TOPICAL ×2 (05:13→21:43)
[2020-01-17] MEDS: Metoprolol Tartrate 25 MG Tablet 12.5 MG PO ×2 (05:13→17:46)
[2020-01-17] MEDS: Furosemide 20 MG Tablet PO ×2 (05:13→17:46)
[2020-01-17] MEDS: levETIRAcetam Oral Solution 500 MG/5 ML GT ×2 (05:13→17:47)
[2020-01-17] MEDS: Menthol/Lanolin/Calamine/Znox 113 GM Tube 1 APPLIC TOPICAL ×2 (05:14→21:43)
[2020-01-17] MEDS: Jevity 1.5 1,000 ML 50 ML NG (12:18)
--- NOTE | 2020-01-17 13:17 | NURSING ---
Community Development Officer Note: Video call with resident during PT/OT treatment to . asking what resident is able to do for self. Therapists able to demonstrate resident's dependency for care. calling her name, Kenyetta, can you see me? requesting another video call later this date. Call scheduled for 2199.
--- NOTE | 2020-01-17 14:10 | CASEMGMT ---
Addendum entered by Carine Tesfaye 01/17/20 14:26: Updated Brian COONEY on information below. Original Note: Social Work IDT met with patient and via conference call for care plan meeting. Discussed patient's progress in therapy. Pt is total assist for all ADLs and tasks. Pt does not verbally communicate and is not always alert. She can track staff with her eyes, but not consistently. PT/OT continuing to work on ROM, but limited. ST working on oral care, but also limited as pt can clench teeth and not allow any oral care to be completed. ST attempts ice chips or sips of water, but pt does not swallow and aspirates. Pt continues to be fed through Corpak. Franchise Business Consultant explained that can remain in for several weeks but must be changed and that can be a source of infection and is not recommended for long-term use. Pt struggles to tolerate that as it is uncomfortable. SW explained Medicare benefit and guidelines for Medicare coverage, such as significant progress being made and a daily skilled need. Spoke with further about hospice care, comfort focused treatment and the recommendations of entire IDT that this level of care is not recommended for pt to continue with. IDT recommending hospice care. Educated to hospice. adamant about wanting pt to remain with Corpak as that is her source of nutrition and wants to see her progress further. Per conversations with physician, SW explained pt's prognosis is poor and is not expected to progress. expressed he wants to be able to visit her and feels if he is with her that will help. is appreciative of almost daily video calls with pt. Explained if pt were to go to [facility] they allow one visitor per day, where we are still not allowed to have visitors. Provided ongoing emotional and verbal support acknowledging the difficult situation of . Explained physician will be following up with 01/18 to discuss the next steps for pt. stated he knows the next steps are hospice but he is not there yet. He understands that once Corpak is removed pt does not have long. Offered continued emotional support, education on hospice and assistance with decision. appreciative but does not want to continue with conversation. Will continue to follow. Carine Tesfaye, STATISTICAL ASSISTANT WINCH OPERATOR
[2020-01-17 16:00] VITALS: BP 154/70; PULSE 70; RESP 18; TEMP 36.7; O2SAT 93
--- NOTE | 2020-01-17 16:01 | NURSING ---
Appointment Manager Note: Video call with resident to at 2200. Resident continues to have eyes open but is non-responsive. asking if resident ever responds to my visits and explained that she is able to look at me, but has not attempted to verbalize and does not appear to respond to sensory stimulation such as hand massage, music or conversation. Alison next video call for 1000 on 01/18/20
[2020-01-17 17:46] VITALS: BP 154/70; PULSE 70
[2020-01-17 18:14] LABS: Bacteria 0 SEEN /hpf (None Seen); Mucous, Urine 0 SEEN /hpf (<or=2+); Red Blood Cells-Urine 0 SEEN /hpf (0-5); Squamous Epithelial Cells - UA 0 SEEN /hpf (5-10); White Blood Cells 0 SEEN /hpf (0-5)
[2020-01-17 18:26] LABS: Color, Urine Yellow (Yellow); Glucose, Dipstick Normal (Normal); Ketone-Dipstick Negative (Negative); Leukocyte Esterase-Dipstick 25 /ul (Negative); Nitrite-Dipstick Negative (Negative); Occult Blood-Urine Negative /ul (Negative); Protein-Dipstick Negative (Negative); Specific Gravity, Urine 1.005 (1.002-1.030); Urine Bilirubin Dipstick Negative (Negative); Urine Clarity Clear (Clear); Urine Urobilinogen Normal (Normal)
[2020-01-17 18:35] LABS: Yeast-Urine RARE /hpf (None Seen)
--- NOTE | 2020-01-17 18:45 | NURSING ---
Resident straight cathed at 1410. Resident tolerated procedure fair. Urine sent to lab for UA C&S. Dr. Alcocer aware of results.
[2020-01-17 23:11] VITALS: PULSE 60; RESP 18
[2020-01-18 05:51] VITALS: BP 127/71; PULSE 65; RESP 16; TEMP 36.6; O2SAT 97
[2020-01-18] MEDS: Enoxaparin 40 MG/0.4 ML Syringe SC (05:53)
[2020-01-18] MEDS: levETIRAcetam Oral Solution 500 MG/5 ML GT (05:54)
[2020-01-18] MEDS: Menthol/Lanolin/Calamine/Znox 113 GM Tube 1 APPLIC TOPICAL ×2 (05:54→21:47)
[2020-01-18] MEDS: Furosemide 20 MG Tablet PO (05:54)
[2020-01-18 05:55] VITALS: BP 127/71; PULSE 65
[2020-01-18] MEDS: Metoprolol Tartrate 25 MG Tablet 12.5 MG PO (05:55)
[2020-01-18] MEDS: Nystatin Powder 15gm Bottle 1 APPLIC TOPICAL ×2 (05:57→21:47)
[2020-01-18] MEDS: Polyethylene Glycol 3350 17 GM PACKET PO (06:04)
--- NOTE | 2020-01-18 06:05 | CASEMGMT ---
Social Work Spoke with pt's about decision for Corpak/feeding tube placement. stated he spoke with her brother and there was another family member that had a peg tube placed and she did alright; therefore, there is a history of peg tubes in her family, so he wants her to have the peg tube. Explained the difference in medical conditions/state that family member and the pt may have, and to look at the pt's condition to make that decision. again stated to continue with artificial nutrition. SW understood and will follow-up with on the following day. Notified physician of conversation and decision. YANG BangW
[2020-01-18] MEDS: Jevity 1.5 1,000 ML 50 ML NG (10:57)
[2020-01-18 10:59] VITALS: PULSE 56; RESP 18; O2SAT 93
[2020-01-18 12:41] VITALS: BP 122/60; PULSE 56; RESP 18; TEMP 36.7; O2SAT 93
--- NOTE | 2020-01-18 13:47 | NURSING ---
Hand Packager Note: Video call with resident to while CORE DIPPER/AN EMPLOYEE SPONSOR OR ADVOCATE AND working with her. Resident sitting up on side of bed with assist. Able to make eye contact. No verbal response to . Resident not able to follow commands. calling her name, Kenyetta Kumari. Answer me, Kenyetta. Look at me, Kenyetta. States that he wishes that she would respond to him. States that he needs her to wake up and respond to him. Call scheduled with with Audio Specialist for 01/18.
--- NOTE | 2020-01-18 17:07 | CASEMGMT ---
Social Work Spoke with to discuss peg tube placement for pt further. Encouraged pt to think about what the pt would want versus his feelings/his wishes. Emphasized this is a very difficult decision and situation. stated he and pt never had end of life discussions and is unsure what she would want. Assisted in remembering previous video calls with pt and the condition she was in, her responsiveness, and overall quality of life. stated he would speak with other family members to get assistance with making the decision and will notify SW this evening on decision. However, stated several times if she does not have this placed, she wouldn't have long to live. Will continue to follow. YANG BangW
--- NOTE | 2020-01-18 18:19 | NURSING ---
At 1445 this nurse attempted to flush NG tube and was unable due to blockage. This nurse went to charge nurse and charge nurse attempted without success. Notified Dr. Alcocer who let nurse know he did not want another NG tube placed. Dr. Alcocer told this nurse he would advise placement of PEG tube. construction ironworker made aware and spoke with (Alex Barker). Mr. Barker told psychiatric social worker supervisor he wanted to go ahead with PEG tube placement. Dr. Alcocer aware and gave order for general surgery consult at this time. Dr. Howard paged.
[2020-01-18] MEDS: Dext 5%-0.45% NS 1,000 ML 75 ML IV (20:51)
--- NOTE | 2020-01-18 21:12 | CON.PCM_ITS ---
Reason for Consult Date of Consultation: 01/19/20 History of Present Illness: The patient is a 84 year old F presented to the TCU from inpatient due to history of dementia, encephalopathy, treated for pneumonia and UTI. Patient was initially at [facility] in the memory care unit prior to inpatient. Patient is nonverbal does not follow commands and is nonambulatory, this has not changed since her inpatient stay per notes. Currently patient's still has her at a full code. Patient had a CorPak placed in her hospital stay and the surgeon hospice agreed that due to her poor prognosis placing PEG tube would not be the right thing which initially the also did agree to. Past Medical History Past Medical History (Chronic Problems): Chronic Problems Seizure disorder (Chronic) Bipolar disorder (Chronic) Schizoaffective disorder (Chronic) Hypertension (Chronic) Edema (Chronic) Anxiety (Chronic) Insomnia (Chronic) Essential hypertension (Chronic) Paroxysmal atrial fibrillation (Chronic) Schizophrenia (Chronic) Hypothyroidism (Chronic) Bipolar disorder (Chronic) Dementia (Chronic) Abnormal electrocardiogram [ECG] [EKG] (Chronic) Allergies No Known Allergies Allergy (Verified 12/26/19 11:44) Home Medications: Ambulatory Orders Medication Instructions Recorded Potassium Chloride 10 meq PO DAILY 12/26/19 Enoxaparin [Lovenox] 40 mg SUBCUT DAILY 01/08/20 Furosemide [Lasix] 20 mg PO BID 01/08/20 Levetiracetam [Keppra] 500 mg PO BID 01/08/20 Metoprolol Succinate [Toprol Xl] 25 mg GT DAILY 30 Days #30 tab 01/08/20 Polyethylene Glycol 3350 [Miralax] 17 gm PO DAILY PRN PRN packet 01/08/20 Surgical History: no surgical history Psychiatric History: Anxiety, Bipolar, Depression, Schizophrenia PBX MANAGER History: No pertinent PBX MANAGER history Lives: [facility]. Smoking Status: Unknown if ever smoked Tobacco Use: Non-smoker Alcohol: None Drugs: None - *Family History Maternal History Items: No pertinent history Paternal History Items: No pertinent history Review of Systems Unable to obtain accurate/complete ROS d/t: Patient is nonverbal and does not follow commands Patient Problems: Active and Suspected Problems Debility (Acute) Unresponsive (Acute) Toxic encephalopathy (Acute) Hyperkalemia (Acute) MSSA (methicillin susceptible Staphylococcus aureus) pneumonia (Acute) E. coli UTI (Acute) Dysphagia (Acute) - Physical Exam Vitals/I&O's: Vital Signs Temp Pulse Resp BP Pulse Ox 98.1 F 56 L 18 122/60 H 93 01/18/20 12:41 01/18/20 12:41 01/18/20 12:41 01/18/20 12:41 01/18/20 12:41 Oxygen Delivery Method Room Air Weight: 188 lb 7.924 oz Body Mass Index (BMI) 28.3 Intake and Output for Last 24 Hours 01/16/20 01/17/20 01/18/20 23:59 23:59 23:59 Intake Total 1886 1079 / 1079 1713 / 1713 Balance 1886 1079 / 1079 1713 / 1713 General: No apparent distress, Non-Cooperative HEENT: - - Patient does open her eyes but not to command, nonverbal Lungs: Normal air movement Cardiovascular: Regular rate Abdomen: Soft, Non-Distended Extremities: Edema Neurological: - - Patient does not follow commands Psych/Mental Status: Flat Affect Current Medications Acetaminophen (Tylenol Liquid) 650 mg NG Q4H PRN PRN PRN Reason: Pain Score 1-10/10 Calamine/Phenol (Calmoseptine Ointment) 1 applic TOPICAL 0600,2200 [facility]; Protocol Last Admin: 01/18/20 05:54 Dose: 1 applicatio Documented by: Enoxaparin Sodium (Lovenox) 40 mg SC DAILY [facility] Last Admin: 01/18/20 05:53 Dose: 40 mg Documented by: Furosemide (Lasix) 20 mg PO BID [facility] Last Admin: 01/18/20 18:45 Dose: Not Given Documented by: Enteral Nutritional Formula (Jevity 1.5) 1,000 mls @ 50 mls/hr NG .Q20H [facility] Last Admin: 01/18/20 18:44 Dose: Not Given Documented by: Dextrose/Sodium Chloride () 1,000 mls @ 75 mls/hr IV .[id number] [facility] Levetiracetam (Keppra Oral Solution) 500 mg GT BID [facility] Last Admin: 01/18/20 18:45 Dose: Not Given Documented by: Metoprolol Tartrate (Lopressor (Beta Joi)) 12.5 mg PO BID [facility] Last Admin: 01/18/20 18:45 Dose: Not Given Documented by: Nystatin (Mycostatin Powder) 1 applic TOPICAL 0600,2200 [facility]; Protocol Last Admin: 01/18/20 05:57 Dose: 1 applicatio Documented by: Polyethylene Glycol (Miralax) 17 gm PO DAILY [facility] Last Admin: 01/18/20 06:04 Dose: 17 gm Documented by: Potassium Chloride (K-Dur) 10 meq PO DAILY [facility] Last Admin: 01/18/20 05:54 Dose: 10 meq Documented by: Sodium Chloride () 10 - 40 ml IV UD PRN PRN Reason: SALINE FLUSH Assessment/Plan All Active Problems Septic shock (Acute) Acute respiratory failure with hypoxia (Acute) Metabolic encephalopathy (Acute) Suspected 2019 novel coronavirus infection (Acute) Debility (Acute) Unresponsive (Acute) Toxic encephalopathy (Acute) Hyperkalemia (Acute) MSSA (methicillin susceptible Staphylococcus aureus) pneumonia (Acute) E. coli UTI (Acute) Dysphagia (Acute) Community acquired pneumonia (Acute) Atrial fibrillation with rapid ventricular response (Acute) 84 y/o F for possible PEG, clogged corpak d/w pt he is agreeable to removing and replacing corpak currently and discussed with that we would discuss PEG tomorrow and also plan to discuss with Dr. Alcocer. 10 Czech CorPak placed x-ray taken in place in the stomach. Joanna Howard M.D. Pager: [phone] [facility] [address] [place] [address], [facility], [address] [place] [id number] Office: [phone] Inpatient E&M: 35219 Init Hosp L2
--- NOTE | 2020-01-18 21:20 | RAD_ITS ---
STUDY: X-RAY - ABDOMEN/PELVIS REASON FOR EXAM: Female, 84 years old. NG/OG #1 TECHNIQUE: Single AP view of the abdomen / pelvis. COMPARISON: January 15, 2020 FINDINGS: Normal visualized lung bases. There is an unremarkable bowel gas pattern. Feeding tube terminates in the lower esophagus. The visualized liver, spleen and kidneys are grossly normal in size and morphology. Normal soft tissue structures. Normal visualized osseous structures. RAD/Abdomen Single View (Portable) IMPRESSION: Feeding tube in lower esophagus requires repositioning. Electronically Signed: José Miguel Aranda MD at 21:48 EDT , Service support ,
--- NOTE | 2020-01-18 21:37 | RAD_ITS ---
STUDY: X-RAY - ABDOMEN/PELVIS REASON FOR EXAM: Female, 84 years old. NG/OG #2 TECHNIQUE: Single AP view of the abdomen / pelvis. COMPARISON: January 18, 2020 FINDINGS: Normal visualized lung bases. There is an unremarkable bowel gas pattern. Feeding tube now in the stomach. The visualized liver, spleen and kidneys are grossly normal in size and morphology. Normal soft tissue structures. Normal visualized osseous structures. RAD/Abdomen Single View (Portable) IMPRESSION: Feeding tube now in stomach Electronically Signed: José Miguel Aranda MD at 22:34 EDT , Service support ,
[2020-01-19 04:00] VITALS: BP 137/77; PULSE 63; RESP 18; TEMP 36.2; O2SAT 95
[2020-01-19] MEDS: Nystatin Powder 15gm Bottle 1 APPLIC TOPICAL ×2 (04:34→21:16)
[2020-01-19] MEDS: Enoxaparin 40 MG/0.4 ML Syringe SC (04:36)
[2020-01-19] MEDS: Menthol/Lanolin/Calamine/Znox 113 GM Tube 1 APPLIC TOPICAL ×2 (05:27→21:20)
--- NOTE | 2020-01-19 07:36 | MDS.RN ---
Information for the mds was obtained from review of the clinical record, interview of resident, staff, and direct observation of resident's care.
--- NOTE | 2020-01-19 08:06 | PN.SURG_ITS ---
Patient Problems: Active and Suspected Problems Debility (Acute) Unresponsive (Acute) Toxic encephalopathy (Acute) Hyperkalemia (Acute) MSSA (methicillin susceptible Staphylococcus aureus) pneumonia (Acute) E. coli UTI (Acute) Dysphagia (Acute) Subjective: CorPak would not flush and tube feeds would not run. This was removed seems that the distal tubing was kinked. a replacement 12 [place] CorPak was placed. - Physical Exam Vitals/I&O's: Vital Signs Temp Pulse Resp BP Pulse Ox 97.1 F L 63 18 137/77 H 95 01/19/20 04:00 01/19/20 04:00 01/19/20 04:00 01/19/20 04:00 01/19/20 04:00 Oxygen Delivery Method Room Air Weight: 188 lb 7.924 oz Body Mass Index (BMI) 28.3 Intake and Output for Last 24 Hours 01/17/20 01/18/20 01/19/20 23:59 23:59 23:59 Intake Total 1079 / 1079 2367 / 2367 Balance 1079 / 1079 2367 / 2367 General: Confused, - - Unable to follow commands Abdomen: Soft, Non Tender, Non-Distended Current Medications Acetaminophen (Tylenol Liquid) 650 mg NG Q4H PRN PRN PRN Reason: Pain Score 1-10/10 Calamine/Phenol (Calmoseptine Ointment) 1 applic TOPICAL 0600,2200 [facility]; Protocol Last Admin: 01/19/20 05:27 Dose: 1 applicatio Documented by: Enoxaparin Sodium (Lovenox) 40 mg SC DAILY [facility] Last Admin: 01/19/20 04:36 Dose: 40 mg Documented by: Furosemide (Lasix) 20 mg PO BID [facility] Last Admin: 01/19/20 07:41 Dose: Not Given Documented by: Enteral Nutritional Formula (Jevity 1.5) 1,000 mls @ 50 mls/hr NG .Q20H [facility] Last Admin: 01/18/20 18:44 Dose: Not Given Documented by: Dextrose/Sodium Chloride () 1,000 mls @ 75 mls/hr IV .[id number] [facility] Last Admin: 01/18/20 20:51 Dose: 75 mls/hr Documented by: Levetiracetam (Keppra Oral Solution) 500 mg GT BID [facility] Last Admin: 01/19/20 07:41 Dose: Not Given Documented by: Metoprolol Tartrate (Lopressor (Beta Joi)) 12.5 mg PO BID [facility] Last Admin: 01/19/20 07:41 Dose: Not Given Documented by: Nystatin (Mycostatin Powder) 1 applic TOPICAL 0600,2200 [facility]; Protocol Last Admin: 01/19/20 04:34 Dose: 1 applicatio Documented by: Polyethylene Glycol (Miralax) 17 gm PO DAILY [facility] Last Admin: 01/19/20 05:23 Dose: Not Given Documented by: Potassium Chloride (Potassium Chl Soln) 10 meq PO DAILY [facility] Last Admin: 01/19/20 07:42 Dose: Not Given Documented by: Sodium Chloride () 10 - 40 ml IV UD PRN PRN Reason: SALINE FLUSH Medical Necessity - Tobacco Use Smoking Status: Unknown if ever smoked Tobacco Use: Non-smoker Assessment/Plan All Active Problems Septic shock (Acute) Acute respiratory failure with hypoxia (Acute) Metabolic encephalopathy (Acute) Suspected 2019 novel coronavirus infection (Acute) Debility (Acute) Unresponsive (Acute) Toxic encephalopathy (Acute) Hyperkalemia (Acute) MSSA (methicillin susceptible Staphylococcus aureus) pneumonia (Acute) E. coli UTI (Acute) Dysphagia (Acute) Community acquired pneumonia (Acute) Atrial fibrillation with rapid ventricular response (Acute) 84 y/o F for possible PEG, clogged corpak Did discuss with Dr. Alcocer and we do not think patient would benefit from a PEG tube as she is unable to follow commands, not ambulatory. Dr. Alcocer did talk with the the agreed to change her to DNR CC and social work will talk to them more about new placement as patient is unable to really participate in therapy to be in the TCU--options would include home with hospice, [place] with hospice, intermediate. 12 [place] CorPak placed x-ray pending Addendum: Chest x-ray does show distal CorPak in the upper stomach, advanced another 10 cm, wires removed?CorPak flushed easily with 30 cc of water. Joanna Howard M.D. Pager: [phone] [facility] [address] [place] [address], [facility], [address] [place] [address] Office: [phone] Inpatient E&M: [id number] [facility] L[facility]
--- NOTE | 2020-01-19 08:11 | PN_ITS ---
Subjective: Resident seen in room, lying in bed. Her eyes open, but she is unresponsive, unable to speak, nod head, or blink. She is unable to move. Dobbhoff tube failed yesterday, appreciate Dr. Howard input, Dobbhoff replaced last night, replaced today with larger tube. I spoke with Campos, told him his is dying, that PEG is inappropriate. He told me he has never had conversation with Kenyetta about end of life issues or artificial feeding. I let him know withdrawing nutrition is not painful, and will not add to Kenyetta's discomfort. He is adamant he wants artificial feeding. He did agree to changing code status to DNRCC. I also let him know because Kenyetta is unable to do therapy, we should consider more appropriate level of care. I suggested his options are inpatient hospice facility, [facility] with Hospice, [facility] buttermaker care with hospice, or home with hospice. Will consult Social work to facilitate transfer. Vitals/I&O's: Vital Signs Temp Pulse Resp BP Pulse Ox 97.1 F L 63 18 137/77 H 95 01/19/20 04:00 01/19/20 04:00 01/19/20 04:00 01/19/20 04:00 01/19/20 04:00 Oxygen Delivery Method Room Air Weight: 85.5 kg Body Mass Index (BMI) 28.3 Intake and Output for Last 24 Hours 01/17/20 01/18/20 01/19/20 23:59 23:59 23:59 Intake Total 1079 / 1079 2367 / 2367 Balance 1079 / 1079 2367 / 2367 Past Medical History Past Medical History (Chronic Problems): Chronic Problems Seizure disorder (Chronic) Bipolar disorder (Chronic) Schizoaffective disorder (Chronic) Hypertension (Chronic) Edema (Chronic) Anxiety (Chronic) Insomnia (Chronic) Essential hypertension (Chronic) Paroxysmal atrial fibrillation (Chronic) Schizophrenia (Chronic) Hypothyroidism (Chronic) Bipolar disorder (Chronic) Dementia (Chronic) Abnormal electrocardiogram [ECG] [EKG] (Chronic) Allergies No Known Allergies Allergy (Verified 12/26/19 11:44) Home Medications: Ambulatory Orders Medication Instructions Recorded Potassium Chloride 10 meq PO DAILY 12/26/19 Enoxaparin [Lovenox] 40 mg SUBCUT DAILY 01/08/20 Furosemide [Lasix] 20 mg PO BID 01/08/20 Levetiracetam [Keppra] 500 mg PO BID 01/08/20 Metoprolol Succinate [Toprol Xl] 25 mg GT DAILY 30 Days #30 tab 01/08/20 Polyethylene Glycol 3350 [Miralax] 17 gm PO DAILY PRN PRN packet 01/08/20 Surgical History: no surgical history Psychiatric History: Anxiety, Bipolar, Depression, Schizophrenia 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 Smoking Status: Unknown if ever smoked Tobacco Use: Non-smoker Alcohol: None Drugs: None - *Family History Maternal History Items: No pertinent history Paternal History Items: No pertinent history Capacity - Capacity Assessment Tool Can the patient make a choice & communicate that choice?: No Can the patient understand benefits, risks and alternatives?: No Can the patient make a logical, rational choice?: No Is the choice the patient makes consistent w/ their values?: No Is there an impending, emergent risk to the patient?: Yes Does the patient have an Advance Directive?: Yes Is there a Surrogate Available?: Yes i.e. HCPOA: Yes i.e. close relative (spouse, child, parent, sibling)?: Yes Review of Systems Constitutional: Denies: Chills, Fever, Weight Change HEENT: Denies: Head Aches, Sinus Congestion, Sinus Drainage Cardiovascular: Denies: Chest Pain, Palpitations Respiratory: Denies: Cough, Shortness of breath at rest, Sputum production Gastrointestinal: Denies: Abdominal Pain, Nausea, Vomiting Genitourinary: Denies: Dysuria Musculoskeletal: Denies: Joint Pain, Joint Tenderness Skin: Denies: Rash, Wounds Neurological: Denies: Numbness, Tingling, Focal weakness Psychiatric: Denies: Anxiety, Depression, Homicidal Ideations, Suicidal Ideations Hematologic/ Lymphatic: Denies: Easy Bruising, Easy Bleeding Patient Problems: Active and Suspected Problems Debility (Acute) Unresponsive (Acute) Toxic encephalopathy (Acute) Hyperkalemia (Acute) MSSA (methicillin susceptible Staphylococcus aureus) pneumonia (Acute) E. coli UTI (Acute) Dysphagia (Acute) - Physical Exam Vitals/I&O's: Vital Signs Temp Pulse Resp BP Pulse Ox 97.1 F L 63 18 137/77 H 95 01/19/20 04:00 01/19/20 04:00 01/19/20 04:00 01/19/20 04:00 01/19/20 04:00 Oxygen Delivery Method Room Air Weight: 85.5 kg Body Mass Index (BMI) 28.3 Intake and Output for Last 24 Hours 01/17/20 01/18/20 01/19/20 23:59 23:59 23:59 Intake Total 1079 / 1079 2367 / 2367 Balance 1079 / 1079 2367 / 2367 General: Alert, Oriented x3, Cooperative HEENT: Atraumatic, PERRLA, EOMI, Normocephalic, - - Dobbhoff. Neck: Supple, No JVD, Negative Carotid Bruits Lungs: Clear to auscultation, Normal air movement Cardiovascular: Regular rate, No murmurs Abdomen: Bowel Sounds Present, Soft, Non Tender Extremities: No edema, Capillary Refill Less than 3 Seconds Skin: No rashes, No breakdown Musculoskeletal: No Tenderness to Palpation of Joints or Extremities Neurological: Cranial nerves II-XII grossly intact Psych/Mental Status: Normal Affect, Appropriate Current Medications Acetaminophen (Tylenol Liquid) 650 mg NG Q4H PRN PRN PRN Reason: Pain Score 1-10/10 Calamine/Phenol (Calmoseptine Ointment) 1 applic TOPICAL 0600,2200 [facility]; Protocol Last Admin: 01/19/20 05:27 Dose: 1 applicatio Documented by: Enoxaparin Sodium (Lovenox) 40 mg SC DAILY [facility] Last Admin: 01/19/20 04:36 Dose: 40 mg Documented by: Furosemide (Lasix) 20 mg PO BID [facility] Last Admin: 01/19/20 07:41 Dose: Not Given Documented by: Enteral Nutritional Formula (Jevity 1.5) 1,000 mls @ 50 mls/hr NG .Q20H [facility] Last Admin: 01/18/20 18:44 Dose: Not Given Documented by: Dextrose/Sodium Chloride () 1,000 mls @ 75 mls/hr IV .[id number] [facility] Last Admin: 01/18/20 20:51 Dose: 75 mls/hr Documented by: Levetiracetam (Keppra Oral Solution) 500 mg GT BID [facility] Last Admin: 01/19/20 07:41 Dose: Not Given Documented by: Metoprolol Tartrate (Lopressor (Beta Joi)) 12.5 mg PO BID [facility] Last Admin: 01/19/20 07:41 Dose: Not Given Documented by: Nystatin (Mycostatin Powder) 1 applic TOPICAL 0600,2200 [facility]; Protocol Last Admin: 01/19/20 04:34 Dose: 1 applicatio Documented by: Polyethylene Glycol (Miralax) 17 gm PO DAILY [facility] Last Admin: 01/19/20 05:23 Dose: Not Given Documented by: Potassium Chloride (Potassium Chl Soln) 10 meq PO DAILY [facility] Last Admin: 01/19/20 07:42 Dose: Not Given Documented by: Sodium Chloride () 10 - 40 ml IV UD PRN PRN Reason: SALINE FLUSH Assessment/Plan All Active Problems Septic shock (Acute) Acute respiratory failure with hypoxia (Acute) Metabolic encephalopathy (Acute) Suspected 2019 novel coronavirus infection (Acute) Debility (Acute) Unresponsive (Acute) Toxic encephalopathy (Acute) Hyperkalemia (Acute) MSSA (methicillin susceptible Staphylococcus aureus) pneumonia (Acute) E. coli UTI (Acute) Dysphagia (Acute) Community acquired pneumonia (Acute) Atrial fibrillation with rapid ventricular response (Acute) 84 year old female with below past medical history hospitalized for septic shock secondary to Methicillin sensitive staph aureus pneumonia, E. Coli urinary tract infection, complicated by seizure disorder, atrial fibrillation with rapid ventricular response, dysphagia, admitted to TCU with debility, here for rehabilitation, strengthening, prior to discharge to custodial. * Debility - PT/OT. * Pain - Tylenol 650MG Q4H PRN pain (1-10). * Bowel - Miralax 17GM daily. * Adult immunization - Administer Prevnar 13, Pneumovax 23, Fluzone as appropriate. * DVT prophylaxis - Lovenox 40MG sc daily. * Edema - Lasix 20MG BID. * Nutrition - Jevity 1.5 50ML/hour. * Seizure disorder - Keppra 500MG BID. * Atrial fibrillation - Metoprolol succinate 25MG daily, anticoagulation not recommended due to risk of falls. * Hypokalemia - K-Dur 10MEQ daily. * End of Life - Code status changed to DNRCC, recommend discharge to more appropriate level of care with hospice.
--- NOTE | 2020-01-19 09:59 | CASEMGMT ---
Addendum entered by Carine Tesfaye 01/19/20 15:12: [facility] can accept pt with [facility]. Spoke with to relay updated SNF info. okay to wait for transfer Wednesday and requested referral to [facility] as well. Referral made. Will continue to follow. Addendum entered by Carine Tesfaye 01/19/20 13:01: [facility] unable to accept pt as she is not symptomatic at this time. Spoke with [facility] to confirm they cannot accept pt back with artificial nutrition or IV fluids but if she comes on hospice, would be able to visit. Spoke with about [facility]. remains adamant on pt continuing with artificial nutrition. Discussed home with hospice- states the home is equipped for pt. Discussed SNF with hospice. agreeable and requested referrals to [facility], [facility] and [facility] for possible DC this weekend. Hospice spoke with to educate on end of life and their services. Awaiting for clarification from Dr. Kate if pt can admit to hospice with Corpak. [facility] does not have bed availability soon. [facility] does not availability until Sunday 01/21. Awaiting to hear back from [facility]. Will continue to follow. Original Note: Social Work Spoke with physician whom spoke with about pt dying and needing to discharge from TCU on hospice to either [facility]/home/ECF. did agree to change pt's code status to DNR-CC. Followed up with to assist with options. Explained home with hospice, [facility], and SNF with hospice. 's main goal is to be able to visit the pt. agreed to referral to [facility]. Referral made. YANG Bang
--- NOTE | 2020-01-19 10:10 | RAD_ITS ---
STUDY: X-RAY - ABDOMEN/PELVIS REASON FOR EXAM: Female, 84 years old. Feeding tube placement TECHNIQUE: Single AP view of the abdomen / pelvis. COMPARISON: Comparison is made with prior study dated January 18, 2020. FINDINGS: Mild increased markings at the lung bases suggestive of bibasilar atelectasis. Stable elevation of the right diaphragm. The tip of the feeding tube is in the body of the stomach just distal to the gastroesophageal junction RAD/Abdomen Single View (Portable) IMPRESSION: The tip of the feeding tube is in the body of the stomach just distal to the gastroesophageal junction. Electronically Signed: Joss Snyder, at 10:48 EDT , Service support ,
[2020-01-19] MEDS: Dext 5%-0.45% NS 1,000 ML 75 ML IV ×2 (10:26→23:51)
[2020-01-19] MEDS: Jevity 1.5 1,000 ML 50 ML NG (11:18)
--- NOTE | 2020-01-19 13:10 | RAD_ITS ---
STUDY: X-RAY - ABDOMEN/PELVIS REASON FOR EXAM: Female, 84 years old. Feeding tube placement TECHNIQUE: Single AP view of the abdomen / pelvis. COMPARISON: Comparison is made with prior study done earlier today. FINDINGS: The tip of the feeding tube is in the fundal portion of the stomach. RAD/Abdomen Single View (Portable) IMPRESSION: The tip of the feeding tube is in the fundal portion of the stomach. Electronically Signed: Joss Snyder, at 13:31 EDT , Service support ,
--- NOTE | 2020-01-19 14:34 | CHAPLAIN ---
Type of Pastoral Visit ___ Initial Visit ___ Follow-up Visit ___ On-call Visit _x__ General Patient Visit ___ Spiritual Assessment ___ Family Conference ___ Bereavement ___ Rapid Response ___ Code Blue _x__ Other (describe below) Pastoral Care Referral From ___ Patient _x__ Family ___ Nurse ___ Physician _x__ Balloon Pilot ___ Intake Manager _x__ Other (describe below) Media Associate Sacrament/Intervention ___ Active listening ___ Anointing ___ Pentecostalism ___ Bereavement ___ Communion ___ Nguyen exploration ___ ___ Life review _x__ Prayer ___ Reconciliation ___ Sacrament of Sick _x__ Supportive presence ___ Wedding _x__ Other (describe below) Pastoral Comments recommended follow up to spouse made by Media Associate and Balloon Pilot; spouse called himself to request video conference call between himself and patient to be facilitated by this golf range attendant; arrangements for this call made and accomplished; during video call pt had eyes open but did not nor could not respond verbally or with motions to spouse as he directed; pt did make movements with eyes and hands during this time; spouse repeatedly called out name of patient but without returned response; spouse admits to need of making decision of future care and to the inability of knowing what to do; spouse states if I could just be there with her several times; spouse requests prayer and also prays himself audibly; spouse would like daily video calls with pt as long as she stays in TCU;
--- NOTE | 2020-01-19 14:43 | DCINST_ITS ---
- Discharge Diagnoses Current Active Problems: Current Active and Chronic Problems Debility (Acute) Unresponsive (Acute) Toxic encephalopathy (Acute) Hyperkalemia (Acute) MSSA (methicillin susceptible Staphylococcus aureus) pneumonia (Acute) E. coli UTI (Acute) Seizure disorder (Chronic) Dysphagia (Acute) Bipolar disorder (Chronic) Schizoaffective disorder (Chronic) Hypertension (Chronic) Edema (Chronic) Anxiety (Chronic) Insomnia (Chronic) You will use the following diet at home:: Other - Nothing by Mouth. Weight Bearing Status: No weight bearing Allergies/Adverse Reactions: Allergies No Known Allergies Allergy (Verified 12/26/19 11:44) Medications to take at Discharge Furosemide [Lasix] 20 mg PO BID 01/08/20 Levetiracetam [Keppra] 500 mg PO BID 01/08/20 Polyethylene Glycol 3350 [Miralax] 17 gm PO DAILY PRN PRN packet 01/08/20 Acetaminophen Liquid [Tylenol Liquid] 650 mg NG Q4H PRN PRN udc 01/19/20 Menthol/Lanolin/Calamine/Znox [Calmoseptine Ointment] 1 applic TOPICAL 0600,2200 tube 01/19/20 Metoprolol Tartrate [Lopressor (beta yuliya)] 12.5 mg PO BID tablet 01/19/20 Nystatin Powder [Mycostatin Powder] 1 applic TOPICAL 0600,2200 bottle 01/19/20 Potassium Chl Soln 10 meq PO DAILY udc 01/19/20 Primary Care Physician: Henrik Rivera DO [Primary Care Provider] - Please follow up with your Primary Care Physician in: As needed. Test Results: Test results from this visit will be discussed in further detail at your follow- up appointment, if applicable. Proposed Discharge Date: 01/22/20
--- NOTE | 2020-01-19 14:45 | DS.PCM_ITS ---
Discharge Date and Diagnosis - Problem List Patient Problems: Active and Suspected Problems Debility (Acute) Unresponsive (Acute) Toxic encephalopathy (Acute) Hyperkalemia (Acute) MSSA (methicillin susceptible Staphylococcus aureus) pneumonia (Acute) E. coli UTI (Acute) Dysphagia (Acute) Date of Admission: 01/08/20 Date of Discharge: 01/22/20 - Primary Discharge Diagnosis Acute Problems: Active Problems Debility (Acute) Unresponsive (Acute) Toxic encephalopathy (Acute) Hyperkalemia (Acute) MSSA (methicillin susceptible Staphylococcus aureus) pneumonia (Acute) E. coli UTI (Acute) Dysphagia (Acute) - Secondary Discharge Diagnosis Chronic Problems: Chronic Problems Seizure disorder (Chronic) Bipolar disorder (Chronic) Schizoaffective disorder (Chronic) Hypertension (Chronic) Edema (Chronic) Anxiety (Chronic) Insomnia (Chronic) Essential hypertension (Chronic) Paroxysmal atrial fibrillation (Chronic) Schizophrenia (Chronic) Hypothyroidism (Chronic) Bipolar disorder (Chronic) Dementia (Chronic) Abnormal electrocardiogram [ECG] [EKG] (Chronic) Hospital Course and Treatment Imaging Results: 01/19/20 10:10 XRAY Abdomen [Abdomen Single View (Portable)] [RAD] Urgent 01/19/20 13:10 XRAY Abdomen [Abdomen Single View (Portable)] [RAD] Urgent Consultations 01/10/20 22:11 Consult: Onc/Wound/solutions development analyst Routine Comment: Reason for Consult:: Pressure injury on back of head Operations: None Procedures: None Summary of Care Provided: The patient is a 84 year old Female with below past medical history hospitalized for septic shock secondary to Methicillin sensitive staph aureus pneumonia, E. Coli urinary tract infection, complicated by seizure disorder, atrial fibrillation with rapid ventricular response, dysphagia, admitted to TCU with debility, here for rehabilitation, strengthening, prior to [facility] [place] [facility]. Resident Campos informed resident is dying. He would like to continue tube feeding, but agreed to DNRCC code status. Discharge to noc engineer care facility ([facility] with [facility]. Patient Problems: Active and Suspected Problems Debility (Acute) Unresponsive (Acute) Toxic encephalopathy (Acute) Hyperkalemia (Acute) MSSA (methicillin susceptible Staphylococcus aureus) pneumonia (Acute) E. coli UTI (Acute) Dysphagia (Acute) - Physical Exam Vitals/I&O's: Vital Signs Temp Pulse Resp BP Pulse Ox 97.1 F L 63 18 137/77 H 95 01/19/20 04:00 01/19/20 04:00 01/19/20 04:00 01/19/20 04:00 01/19/20 04:00 Oxygen Delivery Method Room Air Weight: 85.5 kg Body Mass Index (BMI) 28.3 Intake and Output for Last 24 Hours 01/17/20 01/18/20 01/19/20 23:59 23:59 23:59 Intake Total 1079 / 1079 2367 / 2367 1000 / 1000 Balance 1079 / 1079 2367 / 2367 1000 / 1000 Current Medications Acetaminophen (Tylenol Liquid) 650 mg NG Q4H PRN PRN PRN Reason: Pain Score 1-05/11 Calamine/Phenol (Calmoseptine Ointment) 1 applic TOPICAL 599,2199 [facility]; Protocol Last Admin: 01/19/20 05:27 Dose: 1 applicatio Documented by: Enoxaparin Sodium (Lovenox) 40 mg SC DAILY [facility] Last Admin: 01/19/20 04:36 Dose: 40 mg Documented by: Furosemide (Lasix) 20 mg PO BID [facility] Last Admin: 01/19/20 07:41 Dose: Not Given Documented by: Enteral Nutritional Formula (Jevity 1.5) 1,000 mls @ 50 mls/hr NG .Q20H [facility] Last Admin: 01/19/20 11:18 Dose: 50 mls/hr Documented by: Dextrose/Sodium Chloride () 1,000 mls @ 75 mls/hr IV .[id number] [facility] Last Admin: 01/19/20 10:26 Dose: 75 mls/hr Documented by: Levetiracetam (Keppra Oral Solution) 500 mg GT BID [facility] Last Admin: 01/19/20 07:41 Dose: Not Given Documented by: Metoprolol Tartrate (Lopressor (Beta Joi)) 12.5 mg PO BID [facility] Last Admin: 01/19/20 07:41 Dose: Not Given Documented by: Nystatin (Mycostatin Powder) 1 applic TOPICAL 599,2199 [facility]; Protocol Last Admin: 01/19/20 04:34 Dose: 1 applicatio Documented by: Polyethylene Glycol (Miralax) 17 gm PO DAILY [facility] Last Admin: 01/19/20 05:23 Dose: Not Given Documented by: Potassium Chloride (Potassium Chl Soln) 10 meq PO DAILY [facility] Last Admin: 01/19/20 07:42 Dose: Not Given Documented by: Sodium Chloride () 10 - 40 ml IV UD PRN PRN Reason: SALINE FLUSH Discharge Diet: - - Nothing by Mouth. Weight Bearing Status: No weight bearing Home Medications: Medications to take at Discharge Furosemide [Lasix] 20 mg PO BID 01/08/20 Levetiracetam [Keppra] 500 mg PO BID 01/08/20 Polyethylene Glycol 3350 [Miralax] 17 gm PO DAILY PRN PRN packet 01/08/20 Acetaminophen Liquid [Tylenol Liquid] 650 mg NG Q4H PRN PRN udc 01/19/20 Menthol/Lanolin/Calamine/Znox [Calmoseptine Ointment] 1 applic TOPICAL 0600,2200 tube 01/19/20 Metoprolol Tartrate [Lopressor (beta joi)] 12.5 mg PO BID tablet 01/19/20 Nystatin Powder [Mycostatin Powder] 1 applic TOPICAL 0600,2200 bottle 01/19/20 Potassium Chl Soln 10 meq PO DAILY udc 01/19/20 Primary Care Physician: Henrik Rivera DO [Primary Care Provider] - Please follow up with your Primary Care Physician in: As needed. Disposition: Asstd Living/Non-Skill ND Minutes spent on discharge:: 35 Patient Condition:: Poor Medical Necessity - Tobacco Use Smoking Status: Unknown if ever smoked Tobacco Use: Non-smoker Meaningful Use Info Meaningful Use Diagnoses (Choose all that apply): None applicable
--- NOTE | 2020-01-19 14:48 | PCM.TXEXTCAR ---
- Diet 01/08/20 16:52 NPO [Diet: Nothing Per Oral] - Routine Orders/Code Status Suppository Type: Dulcolax 10mg Suppository Frequency: Daily PRN Code Status: [facility] - Wound(s) Right heel Wound Type: Pressure Injury Dressing Change: Mepilex 01/14 Back of head Wound Type: Pressure Injury - Therapies Weight Bearing: Non weight bearing - Problem/Diagnosis (1) Debility Status: Acute Current Visit: Yes (2) Unresponsive Status: Acute Current Visit: Yes (3) Toxic encephalopathy Status: Acute Current Visit: Yes (4) Hyperkalemia Status: Acute Current Visit: Yes (5) MSSA (methicillin susceptible Staphylococcus aureus) pneumonia Status: Acute Current Visit: Yes (6) E. coli UTI Status: Acute Current Visit: Yes (7) Seizure disorder Status: Chronic Current Visit: Yes (8) Dysphagia Status: Acute Current Visit: Yes (9) Bipolar disorder Status: Chronic Current Visit: Yes (10) Schizoaffective disorder Status: Chronic Current Visit: Yes (11) Hypertension Status: Chronic Current Visit: Yes (12) Edema Status: Chronic Current Visit: Yes (13) Anxiety Status: Chronic Current Visit: Yes (14) Insomnia Status: Chronic Current Visit: Yes (15) Septic shock Status: Acute Current Visit: No (16) Hypothyroidism Status: Chronic Current Visit: No (17) Atrial fibrillation with rapid ventricular response Status: Acute Current Visit: No (18) Dementia Status: Chronic Current Visit: No - Allergies/Procedures Done in Hospital Allergies/Adverse Reactions: Allergies No Known Allergies Allergy (Verified 12/26/19 11:44) - Type of Care/Length of Stay Estimated LOS: More Than 30 Days Type of Care Needed: Intermediate Rehab Potential: None Prognosis: Poor - Additional Orders/Day of Discharge Day of Discharge: 01/22/20 - Dietary and Speech Recommendations Dietitian Recommendations/Changes: Continue enteral nutrition support via CorPak- Jevity 1.5 at goal rate of 50mL/hour w/ 100mL H2O flush every 4 hours to provide 1800 calories, 76 g protein, and 1812mL total fluid/day. Speech Linguistic Eval Summary: Pt unable to provide name or date of or provide any additional verbal communication. Pt's ability to follow commands limited if not completely impaired at this time. Will continued with further cognitive assessment as able. - Follow Up Care Primary Care Physician: Henrik Rivera, [Primary Care Provider] - Please follow up with your Primary Care Physician in: As needed.
[2020-01-19 16:00] VITALS: BP 138/70; PULSE 78; RESP 16; TEMP 36.7; O2SAT 94
[2020-01-19 17:45] VITALS: BP 138/86; PULSE 78
[2020-01-19] MEDS: Metoprolol Tartrate 25 MG Tablet 12.5 MG PO (17:45)
[2020-01-19] MEDS: Furosemide 20 MG Tablet PO (17:46)
[2020-01-19] MEDS: levETIRAcetam Oral Solution 500 MG/5 ML GT (17:47)
[2020-01-20 05:19] VITALS: BP 158/93; PULSE 67; RESP 16; TEMP 36.4; O2SAT 93
[2020-01-20] MEDS: Menthol/Lanolin/Calamine/Znox 113 GM Tube 1 APPLIC TOPICAL ×2 (05:22→22:24)
[2020-01-20] MEDS: Nystatin Powder 15gm Bottle 1 APPLIC TOPICAL ×2 (05:23→22:24)
[2020-01-20 05:27] VITALS: BP 158/93; PULSE 67
[2020-01-20] MEDS: Furosemide 20 MG Tablet PO ×2 (05:27→17:15)
[2020-01-20] MEDS: Metoprolol Tartrate 25 MG Tablet 12.5 MG PO ×2 (05:27→17:15)
[2020-01-20] MEDS: levETIRAcetam Oral Solution 500 MG/5 ML GT ×2 (05:27→17:15)
[2020-01-20] MEDS: Enoxaparin 40 MG/0.4 ML Syringe SC (05:35)
[2020-01-20] MEDS: Dext 5%-0.45% NS 1,000 ML 75 ML IV (10:58)
[2020-01-20] MEDS: Jevity 1.5 1,000 ML 50 ML NG (11:12)
--- NOTE | 2020-01-20 14:21 | NURSING ---
SPOKE WITH R' , ANNELIESE ON PHONE FOR DAILY UPDATE.
[2020-01-20 14:42] VITALS: BP 136/79; PULSE 66; RESP 16; TEMP 36.5; O2SAT 96
[2020-01-20 17:15] VITALS: PULSE 66
[2020-01-21] MEDS: Dext 5%-0.45% NS 1,000 ML 75 ML IV (00:24)
[2020-01-21 04:43] VITALS: BP 145/80; PULSE 67; RESP 16; TEMP 36.1
[2020-01-21] MEDS: Furosemide 20 MG Tablet PO ×2 (04:47→18:10)
[2020-01-21] MEDS: levETIRAcetam Oral Solution 500 MG/5 ML GT ×2 (04:47→18:11)
[2020-01-21 04:48] VITALS: PULSE 67
[2020-01-21] MEDS: Enoxaparin 40 MG/0.4 ML Syringe SC (04:48)
[2020-01-21] MEDS: Metoprolol Tartrate 25 MG Tablet 12.5 MG PO ×2 (04:48→18:11)
[2020-01-21] MEDS: Polyethylene Glycol 3350 17 GM PACKET PO (04:48)
[2020-01-21] MEDS: Menthol/Lanolin/Calamine/Znox 113 GM Tube 1 APPLIC TOPICAL ×2 (04:48→21:16)
[2020-01-21] MEDS: Nystatin Powder 15gm Bottle 1 APPLIC TOPICAL ×2 (04:49→21:16)
[2020-01-21] MEDS: Jevity 1.5 1,000 ML 50 ML NG (06:44)
--- NOTE | 2020-01-21 13:58 | NURSING ---
Update provided to family.
--- NOTE | 2020-01-21 14:42 | NURSING ---
Received order from Dr. Alcocer to stop IV fluids.
[2020-01-21 16:00] VITALS: BP 138/72; PULSE 67; RESP 18; TEMP 36.9; O2SAT 93
[2020-01-21 18:11] VITALS: BP 138/72; PULSE 67
[2020-01-22 04:00] VITALS: BP 136/75; PULSE 66; RESP 16; TEMP 36.5; O2SAT 94
[2020-01-22] MEDS: Polyethylene Glycol 3350 17 GM PACKET PO (04:31)
[2020-01-22] MEDS: levETIRAcetam Oral Solution 500 MG/5 ML GT ×2 (04:31→16:29)
[2020-01-22 04:32] VITALS: PULSE 80
[2020-01-22] MEDS: Menthol/Lanolin/Calamine/Znox 113 GM Tube 1 APPLIC TOPICAL (04:32)
[2020-01-22] MEDS: Enoxaparin 40 MG/0.4 ML Syringe SC (04:32)
[2020-01-22] MEDS: Furosemide 20 MG Tablet PO ×2 (04:32→16:30)
[2020-01-22] MEDS: Metoprolol Tartrate 25 MG Tablet 12.5 MG PO ×2 (04:32→16:29)
[2020-01-22] MEDS: Nystatin Powder 15gm Bottle 1 APPLIC TOPICAL (04:33)
[2020-01-22] MEDS: Jevity 1.5 1,000 ML 50 ML NG (05:35)
--- NOTE | 2020-01-22 09:00 | NURSING ---
Dr taylor reviewed urine culture & sensitivity results. below infection order, no ATB ordered.
--- NOTE | 2020-01-22 14:16 | CASEMGMT ---
Social Work [facility] and [facility] able to accept pt. Spoke with several times - chose [facility] and spoke with them about financial liability. Notified [facility]. Scheduled cot transport with Physician's at 6 pm. Plan: DC to [facility] 01/21 at 6pm via cot with [facility] YANG Bang
--- NOTE | 2020-01-22 14:41 | CHAPLAIN ---
Type of Pastoral Visit ___ Initial Visit ___ Follow-up Visit ___ On-call Visit ___ General Patient Visit ___ Spiritual Assessment _x__ Family Conference ___ Bereavement ___ Rapid Response ___ Code Blue _x__ Other (describe below) Pastoral Care Referral From ___ Patient ___ Family ___ Nurse ___ Physician ___ Biology Lecturer ___ Caustic Room Attendant _x__ Other (describe below) Sacrament/Intervention ___ Active listening ___ Anointing ___ Restorationism ___ Bereavement ___ Communion ___ Nguyen exploration ___ ___ Life review ___ Prayer ___ Reconciliation ___ Sacrament of Sick ___ Supportive presence ___ Wedding _x__ Other (describe below) Pastoral Comments facilitated video chat with spouse of patient; pt was sleeping and would not awaken to voice of this speech and language clinician nor to her ; spouse was able to see pt on the video; spouse states he is making choice of where to transfer pt; spouse does seek support and prayer from this speech and language clinician at this time;
[2020-01-22 14:53] VITALS: BP 127/70; PULSE 66; RESP 18; TEMP 36.3; O2SAT 94
[2020-01-22 16:29] VITALS: PULSE 66
--- NOTE | 2020-01-22 17:01 | NURSING ---
Report called to [facility]. Resident to be transferred there around 1800 this evening.
== END 2020-01-22 18:29 | disposition hospice, inpatient (51) | DRG 177 ==
PROVIDERS: Admitting Provider Family Medicine Geriatric Medicine; PCP Family Medicine; Visit Provider Family Medicine Geriatric Medicine
DX: J15.211 Pneumonia due to Methicillin susceptible Staphylococcus aureus (principal); G92 Toxic encephalopathy; N39.0 Urinary tract infection, site not specified; I48.0 Paroxysmal atrial fibrillation; B96.20 Unspecified Escherichia coli [E. coli] as the cause of diseases classified elsewhere; G40.909 Epilepsy, unspecified, not intractable, without status epilepticus; E87.6 Hypokalemia; I10 Essential (primary) hypertension; F03.90 Unspecified dementia, unspecified severity, without behavioral disturbance, psychotic disturbance, mood disturbance, and anxiety; Z23 Encounter for immunization; Z66 Do not resuscitate; L89.811 Pressure ulcer of head, stage 1; E87.5 Hyperkalemia
CPT/HCPCS: 36415; 74018; 80048; 81001; 85025; 87077; 87086; 87088; 87186; 87635; 92523; 92526; 92610; 97110; 97162; 97166; 97530; 97802; G0009; G2023; 90670; J7799; U0003